=== PATIENT | female | born 1965 | race Caucasian/White ===

== ENCOUNTER 2023-06-27 21:59 | Emergency (ER) | payer MEDICARE, OTHER, SELFPAY ==
[2023-06-27 22:01] VITALS: BP 148/95
[2023-06-28] MEDS: ULTRAM 50 MG PO (00:38)
[2023-06-28 00:41] VITALS: BP 163/96
[2023-06-28 02:08] VITALS: BP 142/74
--- NOTE | 2023-06-28 02:42 | ED.MUSCINJ ---
HPI-Injury
General
Chief Complaint: Fall
Source: patient
Exam Limitations: none
Time Seen by Provider: 06/28/23 00:21
Nursing documentation reviewed up to this point in time: agreed with
Travel History
Have you had any contact with someone who has COVID-19?: No
Do you have any symptoms of coronavirus? Fever > 100 degrees, chills, cough, shortness of breath, sore throat, loss of taste or smell, muscle aches, or headache?: No
History of Present Illness-Injury
Initial Injury comments:
Patient states she was trying to put on her slippers, lost her balance and fell. Fell onto buttocks. Denies hittingher head. No LOC. COmplains of pain to her low back. Injury occurred today.
Past History
Past History
ED Past Medical History: Asthma, Hypothyroidism, Psychiatric (Bipolar disorder, anxiety), Other (TMJ dysfunction, migrainous headaches) and Other (hypopiititutarism, adrenal insufficiency)
ED Past Surgical History: Orthopedic (Left thumb and hand surgery)
Social History
Tobacco: Non-smoker
Alcohol: None
Drug: None
Personal: Single
Living: alone (dad)
Employment: Not employed
Family History
Family History: Other
Review of Systems
Review of Systems
Allergies reviewed?: Yes
All Other Systems: ROS reviewed and negative except as documented in HPI and ROS
Constitutional: Reports no symptoms
EENT: Reports no symptoms
Respiratory: Reports no symptoms
Cardiac: Reports no symptoms
ABD/GI: Reports no symptoms
: Reports no symptoms
Musculoskeletal: Reports back pain (low back pain)
Skin: Reports no symptoms
Neurological: Reports no symptoms
Psychiatric: Reports no symptoms
Musculoskeletal Injury Exam
Musculoskeletal Injury Exam
Bilateral Lower Back:
Pain with Movement?: Moderate
Tender to palpation?: Moderate
Soft tissue swelling?: None
External deformity and angulation?: None
Joint effusion?: None
Contusion?: Moderate
Hematoma-local bleeding into tissue?: None
Strain- Sprain- Tear (Connective tissue injury)?: Moderate
Crepitus with movement?: No
Joint instability?: No
Malalignment/deformity?: No
Range of motion: Limited
Distal skin color and temperature: normal-warm & good color
Capillary Refill: normal
Normal distal neurovascular exam?: Yes
Phy Exam
General Physical Exam
General Presentation: well appearing and no apparent distress
General age: appears stated age
General Skin: warm and dry
General Habitus: normal
General Mental: alert
Musculoskeletal Exam
Musculoskeletal Exam: neuro vasc intact
Skin Exam
Skin Exam: normal color, warm/dry and no rash
Psychiatric Exam
Psychiatric Exam: normal mood/affect
Injury Course
Orders/Labs/Results
Orders:
Orders
06/28/23 00:31
Tramadol HCl [Ultram] 50 mg PO NOW STA
Lumbar Spine Complete, 4 View [CR Lumbar Spine Comp Min 4 Vw*] Urgent
Comment:
Reason For Exam: fall, pain
*Radiology
Radiology exam reviewed: radiology read reviewed
*Pulse Oximetry
Patient hypoxic: no
*Critical Care Note
Total Time (30-74mins, 75-104mins- exclusive of procedures): Not Applicable
ED Attending Note
-
Portions of this chart may have been created with voice recognition software.� Occasional wrong word or��sound alike� substitutions may have occurred due to the inherent limitations of voice recognition software.
Discharge Plan
Departure
Patient Disposition: Home (Routine Discharge)
Date of Disposition: 06/28/23
Time of Disposition: 02:14
Patient with high blood pressure during this ER visit?: No
Condition: Good
Covid-19: Not Applicable
Discharge Problem:
Low back pain
Instructions: Contusion (DC), Preventing falls in adults, Back Pain
Prescriptions:
No Action
clonazepam 1 MG tablet
1 mg PO TID
Patient Comments:
04/23/2023: last filled 04/04/23, 90 tabs for 30 days from [facility]#[id number]
ziprasidone HCl 20 MG capsule
80 mg PO BID@0800,1700
topiramate 100 MG tablet
200 mg PO BID
lamotrigine 100 MG tablet
200 mg PO QPM
levothyroxine 112 MCG tablet
112 mcg PO DAILY@0700
hydrocortisone 10 MG tablet
15 mg PO QPM
Hold Instructions: please first take dexamethasone taper as prescribed prior to restarting hydrocortisone
hydrocortisone 10 MG tablet
25 mg PO DAILY
Hold Instructions: please first take dexamethasone taper as prescribed prior to restarting hydrocortisone
albuterol sulfate 1 PUFF HFA aerosol inhaler
2 puff inhalation R Q4HPRN PRN (Reason: SOB)
cholecalciferol (vitamin D3) 1,000 UNITS tablet
1,000 units PO DAILY
calcium citrate-vitamin D3 [Citracal + D Maximum] 1 EACH tablet
1 ea PO DAILY
Belsomra 20 MG tablet
20 mg PO HS
Patient Comments:
06/26/22: Per [facility], last filled 06/17/22 #30 for 30 days
pantoprazole 40 MG tablet,delayed release (DR/EC)
40 mg PO DAILY Qty: 30 0RF
lamotrigine 100 MG tablet
100 mg PO DAILY
Aimovig Autoinjector 70 mg/mL Auto-Injector
140 mg SC QMONTH
diphenhydramine HCl [Benadryl] 25 mg Capsule
25 mg PO TIDPRN PRN (Reason: allergic reaction)
oxcarbazepine 300 mg Tablet
300 mg PO BID
ondansetron 8 mg Tablet,Disintegrating
8 mg PO [id number] PRN (Reason: nausea/vomiting)
Hold Instructions: hold until follow up with your primary care doctor
famotidine 20 mg Tablet
20 mg PO BID
buspirone 10 mg Tablet
10 mg PO TID
trazodone 300 mg Tablet
300 mg PO HS
Trudhesa 0.725 mg/pump act. (4 mg/mL) [place],Non-Aerosol
1 spray INTRANASAL DAILYPRN PRN (Reason: migraine)
promethazine 25 mg tablet
25 mg PO TIDPRN PRN (Reason: nausea d/t migraine)
prednisone 5 mg Tablet
5 mg PO DAILY
torsemide 10 mg Tablet
10 mg PO DAILY
Patient Comments:
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
Dupixent Syringe 300 mg/2 mL Syringe
300 mg SC Q2W
Trelegy Ellipta 100-62.5-25 mcg Blister With Device
1 inh INHALATION R DAILY
Medical Marijuana
1 cap PO DAILY@1300 PRN (Reason: mild pain)
Tyrvaya 0.03 mg/spray spray, metered, non-aerosol
1 spray INTRANASAL BID
Referrals:
Carlos Vora MD [Family Provider] - Follow up in 2-3 days
Interventions
Interventions:
*Risk Screen - Suicide Last Done: 06/28/23 00:39
*General Assessment Last Done: 06/28/23 00:39
*Neglect/Abuse Screening Last Done: 06/28/23 00:39
*ED COVID-19 Vaccine History Last Done: 06/27/23 23:11
*Nursing Disposition Last Done: 06/28/23 02:33
ED-Musculoskeletal Assessment Last Done: 06/28/23 00:44
ED- Neurological Assessment Last Done: 06/28/23 00:44
ED-Skin Assessment Last Done: 06/28/23 00:44
Discharge Date and Time
Discharge Date/Time: 06/28/23 02:33
== END 2023-06-28 02:33 | disposition home or self-care (01) ==
LOC: EMR 21:59
PROVIDERS: EMERGENCY PHYSICIAN Emergency Medicine; FAMILY PHYSICIAN Internal Medicine
DX: M54.50 Low back pain, unspecified (principal); W19.XXXA Unspecified fall, initial encounter; J45.909 Unspecified asthma, uncomplicated; E03.9 Hypothyroidism, unspecified; F31.9 Bipolar disorder, unspecified; F41.9 Anxiety disorder, unspecified; E27.40 Unspecified adrenocortical insufficiency
CPT/HCPCS: 99283; 72110

== ENCOUNTER 2023-07-02 10:42 | Emergency (ER) | payer MEDICARE, OTHER, SELFPAY ==
[2023-07-02 10:53] VITALS: BP 139/92
[2023-07-02 11:19] VITALS: BMI 18.2
[2023-07-02 11:22] VITALS: BP 145/91
[2023-07-02 12:00] VITALS: BP 138/93
[2023-07-02] MEDS: SOLU-CORTEF 200 MG IV (12:41)
[2023-07-02] MEDS: OMNIPAQUE 50 ML PO (12:41)
[2023-07-02] MEDS: BENADRYL 50 MG IV (12:41)
--- NOTE | 2023-07-02 12:43 | ED.GENMED ---
History of Present Illness
General
Chief Complaint: Bowel Problem
Source: patient
Exam Limitations: none
Time Seen by Provider: 07/02/23 11:19
Travel History
Have you had any contact with someone who has COVID-19?: No
Do you have any symptoms of coronavirus? Fever > 100 degrees, chills, cough, shortness of breath, sore throat, loss of taste or smell, muscle aches, or headache?: No
History of Present Illness
History of Present Illness:
57-year-old female presents from home where she lives by herself with chief complaint of constipation. She states he has not had a bowel movement in 2 weeks. She gets nauseous when she eats but no vomiting. She has never dealt with this level of
constipation in the past. She notes mild diffuse abdominal pain. No fever. No urinary symptoms. No other complaints at this time
Past History
Past History
ED Past Medical History: Asthma, Hypothyroidism, Psychiatric (Bipolar disorder, anxiety), Other (TMJ dysfunction, migrainous headaches) and Other (hypopiititutarism, adrenal insufficiency)
ED Past Surgical History: Orthopedic (Left thumb and hand surgery)
Social History
Tobacco: Non-smoker
Alcohol: None
Drug: None
Personal: Single
Living: alone (dad)
Employment: Not employed
Family History
Family History: Other
Phy Exam
Physical Exam
Physical Exam:
General: Well-appearing female no acute respiratory distress
HEENT: Normocephalic atraumatic
Heart: Regular rate and rhythm no murmurs
Lungs: Clear to auscultation bilaterally no wheezing
Abdomen soft mildly diffusely tender. Protrusion left mid abdomen that is mobile slightly tender this is thought to be stool
Extremities: No cyanosis
Course
Orders/Labs/Results
Orders:
Orders
07/02/23 12:16
CT Abd/pel W Iv And Oral Contr Urgent
Comment:
Reason For Exam: abdominal pain
Iohexol [Omnipaque] See Protocol PO NOW STA
07/02/23 12:17
Diphenhydramine [Benadryl] 50 mg IV NOW STA
Hydrocortisone Sod Succinate [Solu-Cortef] 200 mg IV NOW STA
07/02/23 12:35
Complete Blood Count/With Diff Urgent
Lactic Acid Q4H
Comment: CANCEL 2nd LACTIC ACID IF 1st LACTIC ACID IS LESS THAN 2
07/02/23 13:55
Comprehensive Metabolic Panel Routine
07/02/23 16:06
Magnesium Citrate [Citroma] 300 ml PO ONCE ONE
Abnormal Lab Results
07/02/23 07/02/23
12:35 13:55
WBC 11.2 H 10^3/uL
(4.8-10.8)
RBC 3.82 L 10^6/uL
(4.20-5.40)
Hct 36.6 L %
(37.0-47.0)
MCH 34.8 H pg
(27.0-31.0)
Abs Immat Gran (auto) 0.1 H 10^3/uL
(0-0.05)
Absolute Neuts (auto) 7.1 H 10^3/uL
(1.4-6.5)
Absolute Monos (auto) 1.3 H 10^3/uL
(0.1-0.6)
Immature Gran % 0.8 H %
(0-0.5)
Monocytes % 11.3 H %
(1.7-9.3)
Sodium 131 L mmol/L
(135-145)
Potassium 3.1 L mmol/L
(3.5-5.1)
BUN 19 H mg/dl
(7-17)
Glucose 103 H mg/dl
(70-99)
Total Protein 5.7 L g/dl
(6.3-8.2)
Albumin 3.4 L g/dl
(3.5-5.0)
07/02/23 12:35
07/02/23 13:55
Vital Signs
Initial and Last Documented VS:
Initial Vital Signs
Temp Pulse Resp BP Pulse Ox
98.0 F 79 16 139/92 98
07/02/23 10:53 07/02/23 10:53 07/02/23 10:53 07/02/23 10:53 07/02/23 10:53
Last Documented Vital Signs
Temp Pulse Resp BP Pulse Ox
98.0 F 79 16 129/92 96
07/02/23 10:53 07/02/23 10:53 07/02/23 10:53 07/02/23 14:00 07/02/23 14:00
MDM/Problems Addressed
Differential Diagnosis Includes:
Abdominal pain constipation. Consider also bowel obstruction versus colitis
Will check labs. Rectal exam was performed with female clinical partner in the room. There is no stool in the rectal vault. I have seen x-rays from several days ago when she visited the emergency room for back pain. X-rays of the lumbar spine
demonstrate large colonic stool burden. Given her tenderness and lack of bowel movement will order CT scan
She lists IV dye as an allergy which is a rash. Will pretreat with Solu-Cortef and Benadryl
*Critical Care Note
Total Time (30-74mins, 75-104mins- exclusive of procedures): Not Applicable
Update Note
Update Note:
CT with oral and IV contrast of the abdomen was performed after pretreatment with Solu-Cortef and Benadryl which demonstrates significant colonic stool burden but no secondary signs colitis or perforation. Enema at home was unsuccessful. No stool
in the rectal vault to manually disimpact today. Need to start bowel regimen from above. Will start with magnesium citrate and have her continue stool softeners afterwards. Patient comfortable with the idea of going home
ED Attending Note
-
Portions of this chart may have been created with voice recognition software.� Occasional wrong word or��sound alike� substitutions may have occurred due to the inherent limitations of voice recognition software.
Discharge Plan
Departure
Patient Disposition: Home (Routine Discharge)
Date of Disposition: 07/02/23
Time of Disposition: 16:09
Patient with high blood pressure during this ER visit?: No
Discharge Problem:
Constipation
Instructions: Constipation, Adult (DC)
Prescriptions:
No Action
clonazepam 1 MG tablet
1 mg PO TID
Patient Comments:
04/23/2023: last filled 04/04/23, 90 tabs for 30 days from [facility]#[id number]
ziprasidone HCl 20 MG capsule
80 mg PO BID@0800,1700
topiramate 100 MG tablet
200 mg PO BID
lamotrigine 100 MG tablet
200 mg PO QPM
levothyroxine 112 MCG tablet
112 mcg PO DAILY@0700
hydrocortisone 10 MG tablet
15 mg PO QPM
Hold Instructions: please first take dexamethasone taper as prescribed prior to restarting hydrocortisone
hydrocortisone 10 MG tablet
25 mg PO DAILY
Hold Instructions: please first take dexamethasone taper as prescribed prior to restarting hydrocortisone
albuterol sulfate 1 PUFF HFA aerosol inhaler
2 puff inhalation R Q4HPRN PRN (Reason: SOB)
cholecalciferol (vitamin D3) 1,000 UNITS tablet
1,000 units PO DAILY
calcium citrate-vitamin D3 [Citracal + D Maximum] 1 EACH tablet
1 ea PO DAILY
Belsomra 20 MG tablet
20 mg PO HS
Patient Comments:
06/26/22: Per PDMP, last filled 06/17/22 #30 for 30 days
pantoprazole 40 MG tablet,delayed release (DR/EC)
40 mg PO DAILY Qty: 30 0RF
lamotrigine 100 MG tablet
100 mg PO DAILY
Aimovig Autoinjector 70 mg/mL Auto-Injector
140 mg SC QMONTH
diphenhydramine HCl [Benadryl] 25 mg Capsule
25 mg PO TIDPRN PRN (Reason: allergic reaction)
oxcarbazepine 300 mg Tablet
300 mg PO BID
ondansetron 8 mg Tablet,Disintegrating
8 mg PO [id number] PRN (Reason: nausea/vomiting)
Hold Instructions: hold until follow up with your primary care doctor
famotidine 20 mg Tablet
20 mg PO BID
buspirone 10 mg Tablet
10 mg PO TID
trazodone 300 mg Tablet
300 mg PO HS
Trudhesa 0.725 mg/pump act. (4 mg/mL) [place],Non-Aerosol
1 spray INTRANASAL DAILYPRN PRN (Reason: migraine)
promethazine 25 mg tablet
25 mg PO TIDPRN PRN (Reason: nausea d/t migraine)
prednisone 5 mg Tablet
5 mg PO DAILY
torsemide 10 mg Tablet
10 mg PO DAILY
Patient Comments:
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
Dupixent Syringe 300 mg/2 mL Syringe
300 mg SC Q2W
Trelegy Ellipta 100-62.5-25 mcg Blister With Device
1 inh INHALATION R DAILY
Medical Marijuana
1 cap PO DAILY@1300 PRN (Reason: mild pain)
Tyrvaya 0.03 mg/spray spray, metered, non-aerosol
1 spray INTRANASAL BID
Referrals:
Carlos Vora MD [Family Provider] -
Activity Restrictions/Additional Instructions:
Use magnesium citrate as directed. Continue with stool softeners afterwards. Drink plenty of fluids. Return if worse otherwise follow-up with family doctor.
Interventions
Interventions:
*Risk Screen - Suicide Last Done: 07/02/23 11:19
*General Assessment Last Done: 07/02/23 11:19
*Neglect/Abuse Screening Last Done: 07/02/23 11:19
ED- Fall Risk Assessment Last Done: 07/02/23 11:19
*ED COVID-19 Vaccine History Last Done: 07/02/23 10:53
HQ-Fezsih-Mkdoegnpqw Assessment Last Done: 07/02/23 11:19
[2023-07-02 13:11] LABS: % Basophils 0.9 % (0-2); % Immature Granulocytes 0.8 % (0-0.5); % Monocytes 11.3 % (1.7-9.3); Absolute Basophils 0.1 10^3/uL (0-0.2); Absolute Eosinophils 0.1 10^3/uL (0-0.7); Absolute Immature Granulocytes 0.1 10^3/uL (0-0.05); Absolute Lymphocytes 2.6 10^3/uL (1.2-3.4); Absolute Monocytes 1.3 10^3/uL (0.1-0.6); Absolute Neutrophils 7.1 10^3/uL (1.4-6.5); Hematocrit 36.6 % (37.0-47.0); Hemoglobin 13.3 g/dL (12.0-16.0); Mean Corp Hgb Conc. 36.3 g/dL (33.0-37.0); Mean Corpuscular Hgb 34.8 pg (27.0-31.0); Mean Corpuscular Volume 95.8 fL (81.0-99.0); Mean Platelet Volume 9.6 fL (7.4-10.4); Nucleated Red Blood Cells % 0 %; Platelet Count 272 10^3/uL (130-400); Red Blood Cell Count 3.82 10^6/uL (4.20-5.40); Red Cell Dist. Width 12.3 % (11.5-14.5); White Blood Cell Count 11.2 10^3/uL (4.8-10.8)
[2023-07-02 13:34] LABS: Lactic Acid 1.1 mmol/L (0.7-2.0)
[2023-07-02 13:46] VITALS: BP 153/91
[2023-07-02 14:00] VITALS: BP 129/92
[2023-07-02 14:23] LABS: ALT (SGPT) 31 U/L (0-35); AST (SGOT) 29 U/L (14-36); Albumin 3.4 g/dl (3.5-5.0); Alkaline Phosphatase 70 U/L (38-126); Blood Urea Nitrogen 19 mg/dl (7-17); Calcium 8.8 mg/dl (8.4-10.2); Carbon Dioxide 25 mmol/L (22-30); Chloride 99 mmol/L (98-107); Estimated Creatinine Clearance 85 ml/min; Glucose 103 mg/dl (70-99); Potassium 3.1 mmol/L (3.5-5.1); Sodium 131 mmol/L (135-145); Total Bilirubin 0.3 mg/dl (0.2-1.3); Total Protein 5.7 g/dl (6.3-8.2); eGFR > 60.00
[2023-07-02] MEDS: CITROMA 300 ML PO (16:38)
[2023-07-02 17:00] VITALS: BP 135/99
== END 2023-07-02 17:01 | disposition home or self-care (01) ==
LOC: EMR 10:42
PROVIDERS: Physician Assistant; EMERGENCY PHYSICIAN Emergency Medicine; FAMILY PHYSICIAN Internal Medicine
DX: K59.00 Constipation, unspecified (principal)
CPT/HCPCS: 99285; 96374; 96375; 74177; 80053; 83605; 85025; Q9967

== ENCOUNTER 2023-07-04 02:29 | Inpatient (IN) | payer MEDICARE, OTHER, SELFPAY ==
[2023-07-03 21:54] VITALS: BP 146/96
[2023-07-03 23:10] VITALS: BMI 17.2
[2023-07-04] VITALS (9 sets, daily range): BP systolic 101–163; BP diastolic 67–103; PULSE 79–110; BMI 17.9
--- NOTE | 2023-07-04 00:06 | ED.GENMED ---
History of Present Illness
General
Chief Complaint: Abdominal Pain
Source: patient
Exam Limitations: none
Time Seen by Provider: 07/03/23 23:31
Travel History
Have you had any contact with someone who has COVID-19?: No
Do you have any symptoms of coronavirus? Fever > 100 degrees, chills, cough, shortness of breath, sore throat, loss of taste or smell, muscle aches, or headache?: No
History of Present Illness
History of Present Illness:
This is a 57 year old female that comes in with c/o constipation. States that she feels that she is obstructed. States that on Friday the VN was there and gave her an Enema. States that this did not help so she called the PCP and was told to come
to the ER. State that she came on Friday and they did a CT scan. Patient was given Magnesium Citrate and state that she took this tonight and waited 6 hours but nothing happened. State that she has also been using Miralax and Colace. States that
she has abd pain, nausea, headache and dizziness. Denies any fever, chills, chest pain, SOB, vomiting, diarrhea, urinary burning
Past History
Past History
ED Past Medical History: Asthma, COPD, Hypothyroidism, Psychiatric (Bipolar disorder, anxiety, PTSD), Other (TMJ dysfunction, migrainous headaches, PNA, Sinusitis chronic, Gastroporesis, Hypopituatarism, ) and Other (hypopiititutarism, adrenal
insufficiency)
ED Past Surgical History: Orthopedic (Left thumb and hand surgery, Right wrist surgery, TMJ surgery X 2) and Other (cataracts, Vocal cord surgery)
Social History
Tobacco: Non-smoker
Alcohol: None
Drug: None
Personal: Single
Living: alone (dad)
Employment: Not employed
Family History
Family History: Other
Review of Systems
Review of Systems
All Other Systems: ROS reviewed and negative except as documented in HPI and ROS
Constitutional: Reports no symptoms; Denies fever or chills
EENT: Reports no symptoms
Respiratory: Reports no symptoms; Denies cough or trouble breathing
Cardiac: Reports no symptoms; Denies chest pain
ABD/GI: Reports abdominal pain, nausea and constipated; Denies vomiting or diarrhea
: Reports no symptoms; Denies dysuria, frequency or urgency
Musculoskeletal: Reports no symptoms
Skin: Reports no symptoms
Neurological: Reports dizzy and headache (Always)
Psychiatric: Reports no symptoms
Phy Exam
General Physical Exam
General Presentation: no apparent distress
General age: appears stated age
General Skin: warm and dry
General Habitus: debilitated
General Mental: alert
General Hydration: dry mucous membranes
ENT Exam
ENT Exam: TM's normal, pharynx normal and neck supple
Eye Exam
Eye Exam: EOMI
Cardiovascular Exam
Cardiovascular Exam: regular rate/rhythm, no edema, no murmur and normal peripheral pulses
Pulmonary Exam
Pulmonary Exam: lungs clear, no respiratory distress, no rales, chest non tender, no crackles, no rhonchi, no wheezing and no cough
Gastrointestinal Exam
Gastrointestinal Exam: normal bowel sounds, soft, no organomegaly, no pulsatile mass, tender (Generalized tenderness with palpation. Slight Distention) and other (Rectal exam done and there is no stool in the rectal valt)
Musculoskeletal Exam
Musculoskeletal Exam: full ROM and no edema
Skin Exam
Skin Exam: normal color, warm/dry, no rash and no petechia
Psychiatric Exam
Psychiatric Exam: normal mood/affect
Course
Orders/Labs/Results
Orders:
Orders
07/04/23 00:04
Obstruct Series W/PA Chest [CR Obstruct Series W/pa Chest] Urgent
Comment:
Reason For Exam: abd pain, distention
07/04/23 00:05
0.9% Sodium Chloride 1000 ml [Nss] 1,000 ml IV BOLUS
07/04/23 01:40
Admit/Transfer Patient As Directed
Co-Sign Provider:
Level of Care: Inpatient admission
Assign to:: Medical/Surgical
Physician / Group: Tahir
Diagnosis: Severe Constipation
Reason for Hospitalization: Severe Constipation
Expected length of stay greater than two midnights?: Yes
ELOS- Estimated Length of Stay in days: 4
I certify the patient meets the requirements for IP care: Yes
07/04/23 01:42
Code Status As Directed
Resuscitation Status: Full Code
07/04/23 01:47
EKG [Electrocardiogram (*1)] Urgent
Reason for Study: QTc Monitoring
07/04/23 02:52
Complete Blood Count/With Diff Urgent
Comprehensive Metabolic Panel Urgent
07/04/23 03:26
Acetaminophen [Tylenol] 650 mg PO Q4HPRN PRN
Albuterol Nebs [Ventolin Nebules] 2.5 mg INH R Q4HPRN PRN
Clonazepam [Klonopin] 1 mg PO TID PRN
Lactated Ringers [Lr] 1,000 ml IV 125 mls/hr
Prochlorperazine [Compazine] 5 mg IV Q6HPRN PRN
07/04/23 03:26
ColoRectal Surgery Consult Routine
Consulting Provider: Kee Sung
Was physician already notified: No
Reason for consult: Severe Constipation
Consult Notification Routine
Specialty to Notify: Colorectal Surgery
Consult Notification Routine
Specialty to Notify: Gastroenterology
GASTROINTESTINAL CONSULT Routine
Consulting Provider: John Lakhani
Was physician already notified: No
Reason for consult: Severe Constipation
Activity As Directed
Activity Level: Ambulate
With Assistance
Bladder Scan As Directed
Follow Bladder Retention/Intermittent Cath Algorithm?: Yes
PRN if no void in __ hours: 6
Frequency: Per Retention Algorithm
If Bladder Scan Result >: 400
then:: Straight cath
I/O [Intake/ Output] As Directed
Frequency: Per unit guidelines
Orthostatic Vital Signs As Directed
Orthostatic VS Frequency: BID
Pneumatic Compression Sleeves As Directed
Type: Knee high
Straight Cath As Directed
Frequency: Per Retention Algorithm
Additional Instructions: straight cath as needed per acute urinary retention algorithm for 24 hrs
Additional Instructions: for bladder scan greater than 400 mL
Vital Signs As Directed
Frequency: Per unit guidelines
Oxygen Therapy [O2 Therapy] [RESP] Routine
Titrate/Wean O2 to maintain O2 sat greater than (%): 94
Rx Incentive Spirometry [RESP] Routine
Frequency: q1h while awake
Ot Eval And Treat Routine
PT Consult [Pt Eval And Treat] Routine
Activity Level: Ambulate
With Assistance
DX Deep Vein Thrombosis Video Routine
07/04/23 Breakfast
Clear Liquid
Basic Metabolic Panel IN AM
Complete Blood Count/No Diff IN AM
Free T4 Routine
Magnesium IN AM
07/04/23 07:00
Levothyroxine [Synthroid] 112 mcg PO DAILY@0700
07/04/23 08:00
Buspirone [Buspar] 10 mg PO TID
Docusate Sodium [Colace] 100 mg PO BID
Fludrocortisone Acetate [Florinef] 0.15 mg PO DAILY
Hydrocortisone [Cortef] 25 mg PO DAILY
Lamotrigine [Lamictal] 100 mg PO DAILY
Oxcarbazepine [Trileptal] 300 mg PO BID
Pantoprazole [Protonix IV] 40 mg IV DAILY
Polyethylene Glycol Powder [Miralax] 17 grams PO BID
Prednisone [Deltasone] 2.5 mg PO DAILY
Sennosides [Senokot] 17.2 mg PO BID
Topiramate [Topamax] 200 mg PO BID
Ziprasidone [Geodon] 80 mg PO BID@0800,1700
07/04/23 18:00
Hydrocortisone [Cortef] 15 mg PO QPM
Lamotrigine [Lamictal] 200 mg PO QPM
07/04/23 22:00
trazodone 300 mg PO HS
CBC normal. Sodium slightly low. Chloride slightly low. AST slight elevation.
Vital Signs
Initial and Last Documented VS:
Initial Vital Signs
Temp Pulse Resp BP Pulse Ox
98.7 F 87 18 146/96 94
07/03/23 21:54 07/03/23 21:54 07/03/23 21:54 07/03/23 21:54 07/03/23 21:54
Last Documented Vital Signs
Temp Pulse Resp BP Pulse Ox
98.7 F 87 18 146/96 94
07/03/23 21:54 07/03/23 21:54 07/03/23 21:54 07/03/23 21:54 07/03/23 21:54
MDM/Problems Addressed
Differential Diagnosis Includes:
Constipation. Bowel obstruction.
MDM/Problems Addressed:
This is a 57 year old female that comes in with c/o constipation. State that she was here 2 days ago and had a CT scan. Patient was given Magnesium Citrate which she just drank tonight. States that she waited 6 hours and nothing happened. States
that she has generalized abd discomfort.
Will check labs, Get Obstruction series and give IV fluids.
Back into see patient. Explained that she has severe Obstipation. On rectal exam there was nothing in the rectal valt. Patient has a CT scan 2 days ago which was negative for obstruction. Will admit.
Chronic conditions affecting care: Psychiatric illness and Other (Gastroparesis, )
Acute Exacerbation and/or Progression of Chronic Illness: Psychiatric illness
*Radiology
Radiology exam reviewed: preliminary read by ED provider (Obstruction series- Severe Obstipation. )
*Pulse Oximetry
Patient hypoxic: no
*EKG
Interpreted by ED Provider?: NA
Rate: EKG- N/A
*Procurement Director Interpretation
Rate: Procurement Director- N/A
*Critical Care Note
Total Time (30-74mins, 75-104mins- exclusive of procedures): Not Applicable
ED Attending Note
-
Portions of this chart may have been created with voice recognition software.� Occasional wrong word or��sound alike� substitutions may have occurred due to the inherent limitations of voice recognition software.
Discharge Plan
Departure
Patient Disposition: Admit
Date of Disposition: 07/04/23
Time of Disposition: 00:49
Admit to: Med/Surg
Presentation/result/management discussed w/ accepting MD/DO: Hospitalist
Patient with high blood pressure during this ER visit?: Yes
Condition: Good
Covid-19: Not Applicable
Discharge Problem:
Severe Obstipation
Interventions
Interventions:
*Risk Screen - Suicide Last Done: 07/03/23 21:54
*General Assessment Last Done: 07/03/23 21:54
*Neglect/Abuse Screening Last Done: 07/03/23 21:54
ED- Fall Risk Assessment Last Done: 07/03/23 23:13
*ED COVID-19 Vaccine History Last Done: 07/03/23 21:54
XF-Lynygb-Ygwvgwgaxh Assessment Last Done: 07/03/23 23:11
--- NOTE | 2023-07-04 01:47 | HPS.HSE ---
Family Physician
-
Family Physician: Carlos Vora
Chief Complaint
-
Abd Pain / Nausea
History of Present Illness
Patient is a 57y F with PMH significant for panhypopituitarism and Bipolar disorder who presents to ED complaining of severe constipation. Patient states that her last BM was 15 days ago. She notes no passage of small or liquid stool since that
time. She denies any recent medication additions or adjustments.
Patient reports decreased appetite and nausea. She has had no episodes of emesis and has been able to tolerate her medications.
She has been taking Miralax daily and Dulcolax liquid for the past week or two without improvement in her symptoms.
She was seen here in the ED yesterday and CT A/P was done which showed marked stool burden (predominately in the R colon).
Patient was prescribed magnesium citrate, which she took earlier today. She had no results despite this and returns to the ED this evening with continued / worsened symptoms.
Patient states that she has been taking her usual hormonal replacement medications, etc as prescribed.
Medical History
Past Medical History
Past Medical History: Reports Other
Additional Past Medical History:
Panhypopituitarism
Secondary Hypothyroidism
Orthostatic Hypotension
Asthma
Migraine Headaches
Bipolar Disorder
Osteoporosis
Gastroparesis
Polymyalgia / Arteritis
Past Surgical History: Reports Other
Additional Past Surgical History:
Left Wrist ORIF with Hardware
Vocal Chord Surgery
Cataracts
Sinus Surgery
Carpal Tunnel Surgery
Social History
Tobacco: Non-smoker
Alcohol: None
Drug: Marijuana (Medical Card - rarely uses.)
Family History
Family History: Other (Father: CHF, Obesity Mother: Pancreatic Cancer, Breast Cancer)
Allergies / Home Medications
Allergies reflects when Allergies were last updated in [employer].
Home Medications with original date entered in [employer]
Allergy/Medication List:
Allergies
Allergy/AdvReac Type Severity Reaction Status Date / Time
amoxicillin [From Augmentin] Allergy Nausea / Verified 07/03/23 21:56
Vomiting -
tolerated
meropenem
02/2019
azithromycin [From Zithromax] Allergy Swelling Verified 07/03/23 21:56
ceftibuten [From Cedax] Allergy Swelling - Verified 07/03/23 21:56
tolerated
meropenem
02/2019
citalopram [From Celexa] Allergy suicidal Verified 07/03/23 21:56
ideation
clavulanic acid Allergy Nausea / Verified 07/03/23 21:56
[From Augmentin] Vomiting
corn Allergy Anaphylaxis Verified 07/03/23 21:56
'except
cornstarch'
egg Allergy Nausea / Verified 07/03/23 21:56
Vomiting
migraines
gluten Allergy Nausea Verified 07/03/23 21:56
-stomach
ache,
diarrhea,
migraine
hydromorphone [From Dilaudid] Allergy Rash Verified 07/03/23 21:56
ibuprofen Allergy Unknown Verified 07/03/23 21:56
Iodinated Contrast Media Allergy Rash Verified 07/03/23 21:56
latex Allergy Anaphylaxis Verified 07/03/23 21:56
Latex, Natural Rubber Allergy Anaphylaxis Verified 07/03/23 21:56
levofloxacin [From Levaquin] Allergy Swelling Verified 07/03/23 21:56
Milk Containing Products Allergy Nausea / Verified 07/03/23 21:56
(Dairy) Vomiting -
[Milk Containing Products] migraines
mushroom Allergy Anaphylaxis Verified 07/03/23 21:56
nickel Allergy swelling Verified 07/03/23 21:56
and itching
Opioids - Morphine Analogues Allergy 'all Verified 07/03/23 21:56
opioids'
peanut Allergy Anaphylaxis Verified 07/03/23 21:56
Poultry Allergy Nausea Verified 07/03/23 21:56
-migraine
shellfish derived Allergy Anaphylaxis Verified 07/03/23 21:56
Sulfa (Sulfonamide Allergy Swelling Verified 07/03/23 21:56
Antibiotics)
maude jon Allergy Anaphylaxis Uncoded 07/03/23 21:56
-[place] syrup
Home Medications
clonazepam 1 mg tablet 1 mg PO TID Mental Health/Anxiety 12/03/16
lamotrigine 100 mg tablet 200 mg PO QPM Neurological Condition 12/03/16
levothyroxine 112 mcg tablet 112 mcg PO DAILY@0700 Thyroid 12/03/16
topiramate 100 mg tablet 200 mg PO BID Neurological Condition 12/03/16
ziprasidone HCl 20 mg capsule 80 mg PO BID@0800,1700 Mental Health/Anxiety 12/03/16
albuterol sulfate 90 mcg/actuation aerosol inhaler 2 puff inhalation R Q4HPRN PRN SOB 03/11/19
calcium citrate 315 mg calcium-vitamin D3 6.25 mcg (250 unit) tablet (Citracal + Vitamin D Maximum) 1 ea PO DAILY Supplement 03/11/19
cholecalciferol (vitamin D3) 25 mcg (1,000 unit) tablet 1,000 units PO DAILY Supplement 03/11/19
hydrocortisone 10 mg tablet 15 mg PO QPM adrenal insufficiency 03/11/19
hydrocortisone 10 mg tablet 25 mg PO DAILY adrenal insufficiency 03/11/19
pantoprazole 40 mg tablet,delayed release 40 mg PO DAILY #30 tabs 03/17/19
lamotrigine 100 mg tablet 100 mg PO DAILY Neurological Condition 05/17/19
erenumab-aooe 70 mg/mL subcutaneous auto-injector (Aimovig Autoinjector) 140 mg SC QMONTH Migraine 05/16/22
buspirone 10 mg tablet 10 mg PO TID Mental Health/Anxiety 06/26/22
dihydroergotamine (Trudhesa) 1 spray intranasal DAILYPRN PRN migraine 06/26/22
diphenhydramine HCl 25 mg capsule (Benadryl) 25 mg PO TIDPRN PRN allergic reaction 06/26/22
famotidine 20 mg tablet 20 mg PO BID Gastrointestinal issue 06/26/22
ondansetron 8 mg disintegrating tablet 8 mg PO [id number] PRN nausea/vomiting 06/26/22
oxcarbazepine 300 mg tablet 300 mg PO BID Neurological Condition 06/26/22
trazodone 300 mg tablet 300 mg PO HS Mental Health/Anxiety 06/26/22
Medical Marijuana 1 cap PO DAILY@1300 PRN mild pain 01/26/23
dupilumab 300 mg/2 mL subcutaneous syringe (Dupixent) 300 mg SC Q2W Autoimmune Disorder 01/26/23
fluticasone fur. 100 mcg-umeclid 62.5 mcg-vilant 25 mcg inhalat.powder (Trelegy Ellipta) 1 inh inhalation R DAILY 01/26/23
prednisone 5 mg tablet 5 mg PO DAILY Anti-Inflammatory 01/26/23
torsemide 10 mg tablet 10 mg PO DAILY 01/26/23
lemborexant 5 mg tablet (Dayvigo) 5 mg PO HS 07/04/23
Review of Systems
-
History Source: Patient
A 12 point ROS was completed and negative except as noted: Yes
Constitutional: Reports Weight Gain and Fatigue; Denies Fever or Chills
EENT: Denies Sore Throat
Respiratory: Denies Cough or Trouble Breathing
Cardiac: Denies Chest Pain or Palpitations
Abdomen/GI: Reports Abdominal Pain, Nausea, Constipated and Anorexia; Denies Vomiting, Diarrhea, Bloody Stools or Black Stools
: Denies Dysuria, Frequency or Flank Pain
Musculoskeletal: Denies Joint Pain or Edema
Neurological: Reports Headache; Denies Dizzy, Weakness or Numbness
Psych: Reports Depression and Anxiety
Physical Exam
Vital Signs
Vital Signs
Temp Pulse Resp BP Pulse Ox
98.7 F 87 18 146/96 94
07/03/23 21:54 07/03/23 21:54 07/03/23 21:54 07/03/23 21:54 07/03/23 21:54
Physical Exam
General: Other (Frail, chronically ill-appearing 57y F in mild distress due to abdominal discomfort.)
HEENT: Other (Dry MM. Poor dentition.)
Respiratory: Clear; No Wheezes, Rales or Rhonchi
Cardiac: S1/S2 and Regular Rhythm; No Murmur
GI: Other (Distended abdomen with positive bowel sounds. Diffusely, mildly tender.)
Musculoskeletal: No Clubbing, No Cyanosis, No Edema and Other (Muscle wasting / cachexia.)
Neuro: AO x 3 and Nonfocal/grossly intact
Impression/Plan
-
A/P: Patient is a 57y F with PMH significant for panhypopituitarism and associated conditions who presents to ED complaninig of abdominal discomfort and distention with no BM in the past 15 days.
Severe Constipation
- Admit for further evaluation and treatment.
- No stool in rectal vault and stool largely concentrated in the R colon on imaging.
- Continue aggressive bowel regimen.
- Could try enema; though, question efficacy with more proximal stool burden.
- GI and ColoRectal Surgery evaluations for additional recommendations +/- interventions if needed.
- Check TFTs / labs to assess for potential etiologies of bowel issue.
- Hold diuretics / torsemide.
- IVF overnight.
- Patient denies any previous issues with constipation.
Panhypopituitarism
Secondary Hypothyroidism
Orthostatic Hypotension
Osteoporosis
- Continue current hormone replacement with hydrocortisone, fludrocortisone, T4, etc.
- Check Free T4 to ensure current replacement is appropriate.
- Continue PPI prophylaxis on oral steroids.
Bipolar Disorder
Polypharmacy
- Stable on multiple medications.
- Will continue current outpatient regimen without adjustment.
- Check EKG to evaluate for QT prolongation.
Asthma without Acute Exacerbation
- Stable. Albuterol PRN.
Polymyalgia
- Symptoms have been stable on slow prednisone taper.
- Currently on 2.5mg daily only.
- Will continue without changes for now.
- Follow-up as an outpatient to continue taper / discontinue med.
Migraine Headache
- Stable. No severe headache at this time.
- Follow for any new symptoms.
DVT Prophylaxis: SCDs
Code Status: Full
[2023-07-04 03:12] LABS: % Basophils 1.4 % (0-2); % Eosinophils 1.7 % (0-6); % Immature Granulocytes 0.4 % (0-0.5); % Lymphocytes 25.4 % (20.5-51.1); % Monocytes 10.4 % (1.7-9.3); % Neutrophils 60.7 % (42.2-75.2); Absolute Basophils 0.1 10^3/uL (0-0.2); Absolute Eosinophils 0.2 10^3/uL (0-0.7); Absolute Lymphocytes 2.6 10^3/uL (1.2-3.4); Absolute Monocytes 1.1 10^3/uL (0.1-0.6); Absolute Neutrophils 6.2 10^3/uL (1.4-6.5); Hematocrit 37.3 % (37.0-47.0); Hemoglobin 13.5 g/dL (12.0-16.0); Mean Corp Hgb Conc. 36.2 g/dL (33.0-37.0); Mean Corpuscular Hgb 34.5 pg (27.0-31.0); Mean Corpuscular Volume 95.4 fL (81.0-99.0); Mean Platelet Volume 9.2 fL (7.4-10.4); Nucleated Red Blood Cells % 0 %; Platelet Count 295 10^3/uL (130-400); Red Blood Cell Count 3.91 10^6/uL (4.20-5.40); Red Cell Dist. Width 12.3 % (11.5-14.5); White Blood Cell Count 10.1 10^3/uL (4.8-10.8)
[2023-07-04 03:46] LABS: ALT (SGPT) 31 U/L (0-35); AST (SGOT) 39 U/L (14-36); Albumin 3.8 g/dl (3.5-5.0); Alkaline Phosphatase 70 U/L (38-126); Blood Urea Nitrogen 14 mg/dl (7-17); Calcium 9.1 mg/dl (8.4-10.2); Carbon Dioxide 26 mmol/L (22-30); Chloride 96 mmol/L (98-107); Estimated Creatinine Clearance 82 ml/min; Glucose 75 mg/dl (70-99); Potassium 3.9 mmol/L (3.5-5.1); Sodium 131 mmol/L (135-145); Total Bilirubin 0.7 mg/dl (0.2-1.3); Total Protein 6.4 g/dl (6.3-8.2); eGFR > 60.00
[2023-07-04] MEDS: NSS 1000 IV (03:59)
[2023-07-04] MEDS: LR 1000 IV ×2 (06:07→14:51)
[2023-07-04 06:12] LABS: Hematocrit 33.7 % (37.0-47.0); Mean Corp Hgb Conc. 35.6 g/dL (33.0-37.0); Mean Corpuscular Hgb 34.8 pg (27.0-31.0); Mean Corpuscular Volume 97.7 fL (81.0-99.0); Platelet Count 260 10^3/uL (130-400); Red Blood Cell Count 3.45 10^6/uL (4.20-5.40); Red Cell Dist. Width 12.1 % (11.5-14.5); White Blood Cell Count 9.4 10^3/uL (4.8-10.8)
[2023-07-04 06:46] LABS: Blood Urea Nitrogen 12 mg/dl (7-17); Calcium 8.2 mg/dl (8.4-10.2); Carbon Dioxide 24 mmol/L (22-30); Chloride 102 mmol/L (98-107); Estimated Creatinine Clearance 82 ml/min; Glucose 67 mg/dl (70-99); Magnesium 2.1 mg/dl (1.6-2.3); Potassium 3.5 mmol/L (3.5-5.1); Sodium 131 mmol/L (135-145); eGFR > 60.00
[2023-07-04 07:00] LABS: Free T4 0.91 ng/dl (0.78-2.19)
[2023-07-04] MEDS: SYNTHROID 112 MCG PO (08:10)
[2023-07-04] MEDS: BUSPAR 10 MG PO ×2 (08:15→17:51)
[2023-07-04] MEDS: LAMICTAL 100 MG PO (08:16)
[2023-07-04] MEDS: SENOKOT 17.1999999999999993 MG PO ×2 (08:16→20:57)
[2023-07-04] MEDS: COLACE 100 MG PO ×2 (08:16→20:57)
[2023-07-04] MEDS: PROTONIX IV 40 MG IV (08:16)
[2023-07-04] MEDS: MIRALAX PO ×2 (08:16→08:26)
[2023-07-04] MEDS: NSS (PRESERVATIVE FREE) 10 ML IV (08:17)
[2023-07-04] MEDS: FLORINEF 0.149999999999999994 MG PO (08:17)
[2023-07-04] MEDS: DELTASONE 2.5 MG PO (08:19)
[2023-07-04] MEDS: TRILEPTAL 300 MG PO ×2 (08:19→20:59)
[2023-07-04] MEDS: TOPAMAX 200 MG PO ×2 (08:19→20:58)
[2023-07-04] MEDS: CORTEF 25 MG PO (08:19)
[2023-07-04] MEDS: GEODON 80 MG PO ×2 (08:20→17:50)
[2023-07-04] MEDS: TYLENOL 650 MG PO (08:25)
[2023-07-04] MEDS: COMPAZINE 5 MG IV (08:26)
--- NOTE | 2023-07-04 09:04 | VNURNOTE ---
Patient is current with [facility] since 05/25 w/SN/PT, will monitor progress and plan at discharge.
--- NOTE | 2023-07-04 09:22 | CON.GI ---
Addendum entered and electronically signed by John Lakhani MD 07/04/23 15:24:
I saw and examined the patient.
The PA's note was reviewed and I agree with the note.
Comment:
Pt is a 57 year old female with h/o GERD, gastroparesis, panhypopituitarism, hypothyroidism, migraine, asthma, bipolar disorder, anxiety, PTSD, polymyalgia/arteritis and orthostatic hypotension p/w constipation and abdominal pain. She reports her
last BM was about 15 days ago. Her typical bowel habits prior to this were a formed stool once a day.
Impression / Rec:
1. Constipation - no new meds except for Tramadol. Nausea but denies vomiting, fever or chills. Has diffuse abdominal pain but she's soft on exam. Passing flatus. CT scan of the abdomen/pelvis showing severe diffuse colonic stool burden without
evidence of bowel obstruction or inflammatory changes. Agree with oral osmotic laxative / enema. Colonoscopy can be arranged as OP.
Original Note:
Consultation
-
Date/Time Consultation Requested: 07/04/23 0326
Date/Time Consultation Performed: 07/04/23 0900
Requesting Provider: Dr. Haro
Performing Provider: Dr. Lakhani / Allison Adame PA-C
Reason for Consultation: constipation
Medical History
Chief Complaint / HPI
Chief Complaint: constipation
History of Present Illness:
This is a 57 year old female with a past medical history of GERD, gastroparesis, panhypopituitarism, hypothyroidism, migraine, asthma, bipolar disorder, anxiety, PTSD, polymyalgia/arteritis and orthostatic hypotension who presents for constipation.
She states she has not had a bowel movement in 15 days. Her typical bowel habits are a formed stool once a day. She denies any recent diet changes. No new supplements or medication dosing changes. Tramadol was recently prescribed for pain, which is
a new medication for her, typically taking it once a day. She c/o nausea, which is chronic. She denies any vomiting, fever or chills. She does complain of diffuse abdominal tenderness, and decreased appetite, which is also chronic for her, but
states no recent weight loss. Pt is passing gas. She tried an enema at home, as well as daily Miralax (she cannot recall how much she was taking) for the past few weeks without relief. CT scan of the abdomen/pelvis showing severe diffuse colonic
stool burden without evidence of bowel obstruction or inflammatory changes. She states her last colonoscopy was about 10 years ago while she was living in [place], reportedly normal. She believes her maternal aunt had colon cancer.
Past Medical History
Past Medical History: Asthma, GERD, Hypothyroidism, Psychiatric (bipolar disorder, anxiety, PTSD) and Other (gastroparesis, panhypopituitarism, migraine, polymyalgia/arteritis and orthostatic hypotension )
Past Surgical History: Other (Left Wrist ORIF with Hardware, Vocal Chord Surgery, Cataracts, Sinus Surgery, Carpal Tunnel Surgery)
Social History
Tobacco: Non-Smoker
Alcohol: None
Drug: Marijuana (has medical card, states she has not used recently)
Personal: Single
Living: Alone
Employment: Disabled
Family History
Family History: Other (pancreatic cancer (mother, age 83, maternal cousin); colon cancer (maternal aunt))
Allergies / Home Medications
Allergy/AdvReac Type Severity Reaction Status Date / Time
amoxicillin [From Augmentin] Allergy Nausea / Verified 07/03/23 21:56
Vomiting -
tolerated
meropenem
02/2019
azithromycin [From Zithromax] Allergy Swelling Verified 07/03/23 21:56
ceftibuten [From Cedax] Allergy Swelling - Verified 07/03/23 21:56
tolerated
meropenem
02/2019
citalopram [From Celexa] Allergy suicidal Verified 07/03/23 21:56
ideation
clavulanic acid Allergy Nausea / Verified 07/03/23 21:56
[From Augmentin] Vomiting
corn Allergy Anaphylaxis Verified 07/03/23 21:56
'except
cornstarch'
egg Allergy Nausea / Verified 07/03/23 21:56
Vomiting
migraines
gluten Allergy Nausea Verified 07/03/23 21:56
-stomach
ache,
diarrhea,
migraine
hydromorphone [From Dilaudid] Allergy Rash Verified 07/03/23 21:56
ibuprofen Allergy Unknown Verified 07/03/23 21:56
Iodinated Contrast Media Allergy Rash Verified 07/03/23 21:56
latex Allergy Anaphylaxis Verified 07/03/23 21:56
Latex, Natural Rubber Allergy Anaphylaxis Verified 07/03/23 21:56
levofloxacin [From Levaquin] Allergy Swelling Verified 07/03/23 21:56
Milk Containing Products Allergy Nausea / Verified 07/03/23 21:56
(Dairy) Vomiting -
[Milk Containing Products] migraines
mushroom Allergy Anaphylaxis Verified 07/03/23 21:56
nickel Allergy swelling Verified 07/03/23 21:56
and itching
Opioids - Morphine Analogues Allergy 'all Verified 07/03/23 21:56
opioids'
peanut Allergy Anaphylaxis Verified 07/03/23 21:56
Poultry Allergy Nausea Verified 07/03/23 21:56
-migraine
shellfish derived Allergy Anaphylaxis Verified 07/03/23 21:56
Sulfa (Sulfonamide Allergy Swelling Verified 07/03/23 21:56
Antibiotics)
maude jon Allergy Anaphylaxis Uncoded 07/03/23 21:56
-[place] syrup
Medication Instructions Recorded
clonazepam 1 mg tablet 1 mg PO TID Mental Health/Anxiety 12/03/16
lamotrigine 100 mg tablet 200 mg PO QPM Neurological 12/03/16
Condition
levothyroxine 112 mcg tablet 112 mcg PO DAILY@0700 Thyroid 12/03/16
topiramate 100 mg tablet 200 mg PO BID Neurological 12/03/16
Condition
ziprasidone HCl 20 mg capsule 80 mg PO BID@0800,1700 Mental 12/03/16
Health/Anxiety
albuterol sulfate 90 mcg/actuation 2 puff inhalation R Q4HPRN PRN SOB 03/11/19
aerosol inhaler
calcium citrate 315 mg 1 ea PO DAILY Supplement 03/11/19
calcium-vitamin D3 6.25 mcg (250
unit) tablet (Citracal + Vitamin D
Maximum)
cholecalciferol (vitamin D3) 25 1,000 units PO DAILY Supplement 03/11/19
mcg (1,000 unit) tablet
hydrocortisone 10 mg tablet 15 mg PO QPM adrenal insufficiency 03/11/19
hydrocortisone 10 mg tablet 25 mg PO DAILY adrenal 03/11/19
insufficiency
pantoprazole 40 mg tablet,delayed 40 mg PO DAILY #30 tabs 03/17/19
release
lamotrigine 100 mg tablet 100 mg PO DAILY Neurological 05/17/19
Condition
erenumab-aooe 70 mg/mL 140 mg SC QMONTH Migraine 05/16/22
subcutaneous auto-injector
(Aimovig Autoinjector)
buspirone 10 mg tablet 10 mg PO TID Mental Health/Anxiety 06/26/22
dihydroergotamine (Trudhesa) 1 spray intranasal DAILYPRN PRN 06/26/22
migraine
diphenhydramine HCl 25 mg capsule 25 mg PO TIDPRN PRN allergic 06/26/22
(Benadryl) reaction
famotidine 20 mg tablet 20 mg PO BID Gastrointestinal issue 06/26/22
ondansetron 8 mg disintegrating 8 mg PO [id number] PRN nausea/vomiting 06/26/22
tablet
oxcarbazepine 300 mg tablet 300 mg PO BID Neurological 06/26/22
Condition
trazodone 300 mg tablet 300 mg PO HS Mental Health/Anxiety 06/26/22
Medical Marijuana 1 cap PO DAILY@1300 PRN mild pain 01/26/23
dupilumab 300 mg/2 mL subcutaneous 300 mg SC Q2W Autoimmune Disorder 01/26/23
syringe (Dupixent)
fluticasone fur. 100 mcg-umeclid 1 inh inhalation R DAILY 01/26/23
62.5 mcg-vilant 25 mcg
inhalat.powder (Trelegy Ellipta)
prednisone 5 mg tablet 2.5 mg PO DAILY Anti-Inflammatory 01/26/23
torsemide 10 mg tablet 10 mg PO DAILY 01/26/23
lemborexant 5 mg tablet (Dayvigo) 5 mg PO HS 07/04/23
Review of Systems
-
History Source: Patient
All other systems: A 12 pt ROS was Negative except as stated above in HPI
Vital Signs
Temp Pulse Resp BP Pulse Ox
98.7 F 103 29 132/99 97
07/03/23 21:54 07/04/23 06:30 07/04/23 06:30 07/04/23 04:00 07/04/23 06:30
Physical Exam
Exam
General: Other (thin-appearing female in no acute distress)
HEENT: Anicteric
Respiratory: Clear
Cardiac: Regular Rhythm
GI: Soft, Normal Bowel Sounds, Tender (+mild diffuse tenderness) and Distended (+mild abdominal distension)
Rectal: Other (ER rectal exam showed no stool in the rectal vault)
Skin: Warm and Dry
Neuro: AO x 3
Psych: Calm
Results
WBC 9.4 10^3/uL (4.8-10.8) 07/04/23 05:53
Hgb 12.0 g/dL (12.0-16.0) 07/04/23 05:53
Hct 33.7 % (37.0-47.0) L 07/04/23 05:53
MCV 97.7 fL (81.0-99.0) 07/04/23 05:53
Plt Count 260 10^3/uL (130-400) 07/04/23 05:53
Absolute Neuts (auto) 6.2 10^3/uL (1.4-6.5) 07/04/23 02:52
Sodium 131 mmol/L (135-145) L 07/04/23 05:53
Potassium 3.5 mmol/L (3.5-5.1) 07/04/23 05:53
Chloride 102 mmol/L (98-107) 07/04/23 05:53
Carbon Dioxide 24 mmol/L (22-30) 07/04/23 05:53
BUN 12 mg/dl (7-17) 07/04/23 05:53
Creatinine 0.5 mg/dL (0.6-1.0) L 07/04/23 05:53
Calcium 8.2 mg/dl (8.4-10.2) L 07/04/23 05:53
Total Bilirubin 0.7 mg/dl (0.2-1.3) 07/04/23 02:52
AST 39 U/L (14-36) H 07/04/23 02:52
ALT 31 U/L (0-35) 07/04/23 02:52
Alkaline Phosphatase 70 U/L (38-126) 07/04/23 02:52
Diagnostic Image Results:
Chest/Abd X-ray 07/04/23:
Report not available, but images reviewed by me, showing extensive stool burden throughout the colon, especially in the Right colon.
CT Abdomen/Pelvis 07/04/23:
1. No significant acute abnormality identified in the abdomen or pelvis, as described above.
2. Severe diffuse colonic stool burden in keeping with constipation.
Prior GI Procedures:
EGD:
03/15/2019, Dr. Wood: Indications: Abnormal CT of the GI tract, Early satiety,
�� � � � � � � � � � hypoalbuminemia
Normal esophagus.
�� � � � � � � � � � - Erythematous mucosa in the gastric body and antrum.
�� � � � � � � � � � Biopsied.
�� � � � � � � � � � - A few gastric polyps. Biopsied.
�� � � � � � � � � � - Scalloped mucosa was found in the duodenum, suspicious
�� � � � � � � � � � for celiac disease. Biopsied.
�� � � � � � � � � � - A large amount of food (residue) in the stomach. Removal was successful.
Biopsies: negative celiac, negative H pylori. +mild chronic gastritis, fundic gland polyps.
03/14/2019, Dr. Quiñonez: Indications: Suspected celiac disease, Malnutrition
Normal esophagus.
�� � � � � � � � � � - A medium amount of food (residue) in the stomach,
�� � � � � � � � � � unable to evaluate stomach and duodenum
Colonoscopy: 10 years ago, normal per pt
Assessment / Plan
-
57 year old female with GERD, gastroparesis, panhypopituitarism, hypothyroidism, migraine, asthma, bipolar disorder, anxiety, PTSD, polymyalgia/arteritis and orthostatic hypotension who presents for constipation, stating no bowel movement for 15
days. Her typical bowel habits prior to this were a formed stool once a day. She denies any recent diet changes. No new supplements or medication dosing changes. Tramadol was recently prescribed for pain, which is a new medication for her, typically
taking it once a day. She c/o nausea, which is chronic. She denies any vomiting, fever or chills. She does complain of diffuse abdominal tenderness. Pt is passing gas. She does c/o decreased appetite, which is also chronic for her, but states no
recent weight loss. She tried an enema at home, as well as Miralax without relief. CT scan of the abdomen/pelvis showing severe diffuse colonic stool burden without evidence of bowel obstruction or inflammatory changes. She states her last
colonoscopy was about 10 years ago while she was living in [place], reportedly normal. She believes her maternal aunt had colon cancer.
IMPRESSION / PLAN:
Constipation, severe - etiology possibly secondary to polypharmacy, malnutrition, motility issue vs other
- Imaging showing extensive stool burden throughout the colon, appears worse in the right colon
- Labs reviewed, agree with thyroid function tests as pt has a h/o hypothyroidism
- Will implement bowel regimen of enema as well as polyethylene glycol - recommend patient drink Colyte 2 L over 12 hours
- Diuretics have been held
- No evidence of obstruction on imaging and pt is passing gas
- Colorectal Surgery has been consulted, await their additional recommendations
GERD
- Stable, on PPI (pantoprazole) and famotidine
Colorectal Cancer Screening - overdue
- Pt reports her last colonoscopy was 10 years ago in [place]
- Distant family history (maternal aunt) of colon cancer
- Recommend outpatient follow-up for colonoscopy
Other medical issues managed as per hospitalist.
Data Reviewed
-
Radiology: Image Personally Visualized and interpreted
CT Scan: Image Personally Visualized and interpreted and Report Reviewed by me
-
-
Thank you for consultation and allowing me to participate in the patient's care. Please call the engineering consultant GI physician during the after hours with any questions or concerns.
--- NOTE | 2023-07-04 10:23 | PTCARENOTE ---
pt arrived to the ED EMS, pt is now med surge hold. pt is on r.a and is ambulatory and on r.a, call lynch is in reach, will continue to monitor.
--- NOTE | 2023-07-04 12:01 | W.PN.HOSP.TC ---
Today's Communication/Plan
-
Continue bowel regimen
Assessment / Plan
Assessment / Plan
Gen-AAOx3, NAD
HEENT-NC, AT, anicteric, clear oral mm
Neck-supple
CV-reg, no M, +S1/S2
Lungs-clear B/L
Abd-soft, mild distention and tenderness
Ext-no edema
Musculoskeletal-no cyanosis, clubbing
Skin-warm and dry
Neuro-grossly non-focal
Psych-calm, cooperative
Severe constipation -she is on numerous medications all of which can cause constipation (ziprasidone, trazodone, tramadol, topiramate, oxcarbazepine, ondansetron, lamotrigine, famotidine, diphenhydramine, clonazepam).
Continue aggressive bowel regimen. Appreciate GI input. Colorectal surgery consulted. No obstruction noted on CT scan from 07/01, no obstruction noted from abdominal film from today.
Currently on clear liquid diet. Will need to be more proactive with bowel regimen on discharge.
Hyponatremia -sodium stable at 131. Check urine studies.
Panhypopituitarism -continue hormonal repletion. T4 levels normal. Hypoglycemia noted this morning, 67. Monitor closely.
Orthostatic hypotension
Osteoporosis
Polymyalgia rheumatica -on prednisone taper.
Asthma -suspect moderate persistent asthma. Not in exacerbation.
Bipolar disorder -on multiple psychotropics.
History of migraine headaches
Full code
Anticipated Discharge: 24 - 48 hours
Subjective/Interval History
-
Date of Service: July 04, 2023
Patient seen and examined. Complaining of constipation. Abdominal discomfort. Also complaining of fatigue due to insomnia.
Objective Data
-
Labs:
Laboratory Results
07/04/23 07/04/23
02:52 05:53
WBC 10.1 9.4
Hgb 13.5 12.0
Hct 37.3 33.7 L
Plt Count 295 260
Sodium 131 L 131 L
Potassium 3.9 D 3.5
Chloride 96 L 102
Carbon Dioxide 26 24
BUN 14 12
Creatinine 0.5 L 0.5 L
Glucose 75 67 L
Calcium 9.1 8.2 L
Total Bilirubin 0.7
AST 39 H
ALT 31
Alkaline Phosphatase 70
Vital Signs:
Vital Signs
Temp Pulse Resp BP Pulse Ox
98.4 F 104 14 130/90 98
07/04/23 10:20 07/04/23 10:20 07/04/23 10:20 07/04/23 10:20 07/04/23 10:20
I&O
07/03/23 07/04/23 07/05/23
06:59 06:59 06:59
Output Total 450 / 450
Balance -450 / -450
Review of Systems
-
History Source: Patient
All other systems: Reviewed and negative
--- NOTE | 2023-07-04 12:42 | CON.CRS ---
Consultation
-
Reason for Consultation: Severe constipation
Medical History
-
Chief Complaint: Severe constipation
History of Present Illness:
57-year-old female with multiple medical issues and on multiple medications who came in through the ER with no BMs for 15 days and some abdominal discomfort. Patient is passing flatus. Denies nausea vomiting fevers or chills. She admits to
diminished appetite. She denies ever having had this in the past. Denies weight loss. She came into the ER a couple days ago and underwent a CT of the abdomen and pelvis with the above complaints. The images and report are available for review.
I reviewed both. This revealed her colon to have significant fecal burden consistent with constipation. No pneumatosis coli, no free air, no abscess noted. Patient with no history of GI issues. Maternal aunt had colon cancer. Last colonoscopy
about 10 years ago when she was living in [place]. The patient relates it was normal. The patient was discharged from the ER couple days ago and told to try magnesium citrate. She did not try this until overnight and did not have a response.
She is here in the ER with the same complaints. Patient is afebrile and has borderline tachycardia. She is normotensive. She is making admitted to the hospital service. GI has already seen her and ordered a full bowel prep from above. I was
consulted for colorectal surgical opinion.
Past Medical History
Past Medical History: Asthma, GERD, Hypothyroidism, Psychiatric (Bipolar; anxiety; PTSD) and Other (Gastroparesis; fibromyalgia/arteritis; gastroparesis; panhypopituitaryism)
Past Surgical History: Orthopedic (Left wrist ORIF; carpal tunnel) and Other (Vocal cord surgery; cataracts)
Social History
Tobacco: Non-Smoker
Alcohol: None
Drug: Marijuana (Medical)
Personal: Single
Living: With Family (With father)
Employment: Disabled
Family History
Family History: Cancer (Colon in maternal aunt) and Other
Allergies / Home Medications
Allergy/AdvReac Type Severity Reaction Status Date / Time
amoxicillin [From Augmentin] Allergy Nausea / Verified 07/03/23 21:56
Vomiting -
tolerated
meropenem
02/2019
azithromycin [From Zithromax] Allergy Swelling Verified 07/03/23 21:56
ceftibuten [From Cedax] Allergy Swelling - Verified 07/03/23 21:56
tolerated
meropenem
02/2019
citalopram [From Celexa] Allergy suicidal Verified 07/03/23 21:56
ideation
clavulanic acid Allergy Nausea / Verified 07/03/23 21:56
[From Augmentin] Vomiting
corn Allergy Anaphylaxis Verified 07/03/23 21:56
'except
cornstarch'
egg Allergy Nausea / Verified 07/03/23 21:56
Vomiting
migraines
gluten Allergy Nausea Verified 07/03/23 21:56
-stomach
ache,
diarrhea,
migraine
hydromorphone [From Dilaudid] Allergy Rash Verified 07/03/23 21:56
ibuprofen Allergy Unknown Verified 07/03/23 21:56
Iodinated Contrast Media Allergy Rash Verified 07/03/23 21:56
latex Allergy Anaphylaxis Verified 07/03/23 21:56
Latex, Natural Rubber Allergy Anaphylaxis Verified 07/03/23 21:56
levofloxacin [From Levaquin] Allergy Swelling Verified 07/03/23 21:56
Milk Containing Products Allergy Nausea / Verified 07/03/23 21:56
(Dairy) Vomiting -
[Milk Containing Products] migraines
mushroom Allergy Anaphylaxis Verified 07/03/23 21:56
nickel Allergy swelling Verified 07/03/23 21:56
and itching
Opioids - Morphine Analogues Allergy 'all Verified 07/03/23 21:56
opioids'
peanut Allergy Anaphylaxis Verified 07/03/23 21:56
Poultry Allergy Nausea Verified 07/03/23 21:56
-migraine
shellfish derived Allergy Anaphylaxis Verified 07/03/23 21:56
Sulfa (Sulfonamide Allergy Swelling Verified 07/03/23 21:56
Antibiotics)
maude jon Allergy Anaphylaxis Uncoded 07/03/23 21:56
-[place] syrup
Medication Instructions Recorded Confirmed Type
clonazepam 1 mg tablet 1 mg PO TID Mental Health/Anxiety 12/03/16 07/04/23 History
levothyroxine 112 mcg tablet 112 mcg PO DAILY Thyroid 12/03/16 07/04/23 History
hydrocortisone 10 mg tablet 15 mg PO DAILY@2100 adrenal 03/11/19 07/04/23 History
insufficiency
hydrocortisone 10 mg tablet 25 mg PO DAILY adrenal 03/11/19 07/04/23 History
insufficiency
pantoprazole 40 mg tablet,delayed 40 mg PO DAILY #30 tabs 03/17/19 07/04/23 Rx
release
lamotrigine 100 mg tablet 100 mg PO DAILY Neurological 05/17/19 07/04/23 History
Condition
buspirone 10 mg tablet 10 mg PO TID Mental Health/Anxiety 06/26/22 07/04/23 History
dihydroergotamine (Trudhesa) 1 spray intranasal DAILYPRN PRN 06/26/22 07/04/23 History
migraine
diphenhydramine HCl 25 mg capsule 25 mg PO TIDPRN PRN allergic 06/26/22 07/04/23 History
(Benadryl) reaction
famotidine 20 mg tablet 20 mg PO BID Gastrointestinal issue 06/26/22 07/04/23 History
ondansetron 8 mg disintegrating 8 mg PO BID 06/26/22 07/04/23 History
tablet
oxcarbazepine 300 mg tablet 300 mg PO BID Neurological 06/26/22 07/04/23 History
Condition
dupilumab 300 mg/2 mL subcutaneous 300 mg SC Q2W Autoimmune Disorder 01/26/23 07/04/23 History
syringe (Dupixent)
fluticasone fur. 100 mcg-umeclid 1 inh inhalation R DAILY@1200 01/26/23 07/04/23 History
62.5 mcg-vilant 25 mcg
inhalat.powder (Trelegy Ellipta)
prednisone 5 mg tablet 2.5 mg PO DAILY Anti-Inflammatory 01/26/23 07/04/23 History
torsemide 10 mg tablet 10 mg PO DAILY 01/26/23 07/04/23 History
Dulcolax (bisacodyl) 1 dose PO DAILYPRN PRN constipation 07/04/23 07/04/23 History
acetaminophen 650 mg 650 mg PO Q8H PRN mild pain 07/04/23 07/04/23 History
tablet,extended release
albuterol sulfate 90 mcg/actuation 1 puff inhalation R Q4HPRN PRN sob 07/04/23 07/04/23 History
aerosol inhaler (Ventolin HFA)
calcium citrate 315 mg 1 tab PO DAILY 07/04/23 07/04/23 History
calcium-vitamin D3 6.25 mcg (250
unit) tablet (Citracal + Vitamin D
Maximum)
cholecalciferol (vitamin D3) 25 25 mcg PO DAILY 07/04/23 07/04/23 History
mcg (1,000 unit) tablet
erenumab-aooe 140 mg/mL 140 mg SC Q28D 07/04/23 07/04/23 History
subcutaneous auto-injector
(Aimovig Autoinjector)
inulin 2 gram chewable tablet 4 g PO DAILY 07/04/23 07/04/23 History
(Fiber Gummies)
lamotrigine 200 mg tablet 200 mg PO DAILY@209907/04/23 07/04/23 History
lemborexant 5 mg tablet (Dayvigo) 5 mg PO HS 07/04/23 07/04/23 History
multivitamin with minerals-folic 2 tab PO DAILY@209907/04/23 07/04/23 History
acid 200 mcg chewable tablet
(Multivitamin Gummies)
polyethylene glycol 3350 17 gram 17 g PO DAILY PRN constipation 07/04/23 07/04/23 History
oral powder packet (Miralax)
topiramate 200 mg tablet 200 mg PO BID 07/04/23 07/04/23 History
tramadol 50 mg tablet 50 mg PO Q8H PRN severe pain 07/04/23 07/04/23 History
trazodone 100 mg tablet 300 mg PO HS 07/04/23 07/04/23 History
varenicline 0.03 mg/spray nasal 1 spray intranasal BID 07/04/23 07/04/23 History
spray (Tyrvaya)
ziprasidone HCl 80 mg capsule 80 mg PO BID 07/04/23 07/04/23 History
Review of Systems
-
A 10 point review of systems was completed, and was negative except as per HPI.
Physical Exam
Vital Signs
Temp 98.4 F 07/04/23 10:20
Pulse 104 07/04/23 10:20
Resp Rate 14 07/04/23 10:20
Blood pressure 130/90 07/04/23 10:20
SaO2 98 07/04/23 10:20
07/03/23 07/04/23 07/05/23
06:59 06:59 06:59
Actual Weight 49.9 kg
Body Mass Index (BMI) 17.2
Lab Results / Allergies
07/04/23 05:53
07/04/23 05:53
WBC 9.4 10^3/uL (4.8-10.8) 07/04/23 05:53
Hgb 12.0 g/dL (12.0-16.0) 07/04/23 05:53
Hct 33.7 % (37.0-47.0) L 07/04/23 05:53
Plt Count 260 10^3/uL (130-400) 07/04/23 05:53
Abs Immat Gran (auto) 0.0 10^3/uL (0-0.05) 07/04/23 02:52
Neutrophils % 60.7 % (42.2-75.2) 07/04/23 02:52
Allergy/AdvReac Type Severity Reaction Status Date / Time
amoxicillin [From Augmentin] Allergy Nausea / Verified 07/03/23 21:56
Vomiting -
tolerated
meropenem
02/2019
azithromycin [From Zithromax] Allergy Swelling Verified 07/03/23 21:56
ceftibuten [From Cedax] Allergy Swelling - Verified 07/03/23 21:56
tolerated
meropenem
02/2019
citalopram [From Celexa] Allergy suicidal Verified 07/03/23 21:56
ideation
clavulanic acid Allergy Nausea / Verified 07/03/23 21:56
[From Augmentin] Vomiting
corn Allergy Anaphylaxis Verified 07/03/23 21:56
'except
cornstarch'
egg Allergy Nausea / Verified 07/03/23 21:56
Vomiting
migraines
gluten Allergy Nausea Verified 07/03/23 21:56
-stomach
ache,
diarrhea,
migraine
hydromorphone [From Dilaudid] Allergy Rash Verified 07/03/23 21:56
ibuprofen Allergy Unknown Verified 07/03/23 21:56
Iodinated Contrast Media Allergy Rash Verified 07/03/23 21:56
latex Allergy Anaphylaxis Verified 07/03/23 21:56
Latex, Natural Rubber Allergy Anaphylaxis Verified 07/03/23 21:56
levofloxacin [From Levaquin] Allergy Swelling Verified 07/03/23 21:56
Milk Containing Products Allergy Nausea / Verified 07/03/23 21:56
(Dairy) Vomiting -
[Milk Containing Products] migraines
mushroom Allergy Anaphylaxis Verified 07/03/23 21:56
nickel Allergy swelling Verified 07/03/23 21:56
and itching
Opioids - Morphine Analogues Allergy 'all Verified 07/03/23 21:56
opioids'
peanut Allergy Anaphylaxis Verified 07/03/23 21:56
Poultry Allergy Nausea Verified 07/03/23 21:56
-migraine
shellfish derived Allergy Anaphylaxis Verified 07/03/23 21:56
Sulfa (Sulfonamide Allergy Swelling Verified 07/03/23 21:56
Antibiotics)
maude jon Allergy Anaphylaxis Uncoded 07/03/23 21:56
-[place] syrup
Physical Exam
General: Well Developed
HEENT: Normocephalic
Respiratory: Clear
Cardiac: Other (Borderline tachycardia)
GI: Tender (Minimal in 4 quadrants) and Distended (Mild to moderate)
Rectal: Other (Negative for stool or mass per ER exam)
Skin: Warm
Neuro: Awake, Alert and Oriented
Psych: Calm
Data Reviewed
-
CT Scan: Image Personally Visualized and interpreted, Report Reviewed by me and Discussed with Patient
Assessment / Plan
-
57-year-old female with multiple medical problems and on multiple medications with obstipation and recent CT showing: To be full of stool consistent with severe constipation. No radiographic evidence for obstruction. Reason at this point for
surgical intervention.
1. Oral bowel prep as per GI.
2. Anticipate that GI will recommend a colonoscopy in the near future as it has been at least 10 years since her prior.
3. Will follow from afar. Please reconsult if needed.
[2023-07-04] MEDS: NULYTELY SOLUTION 2 LITERS PO (12:53)
--- NOTE | 2023-07-04 14:18 | CM ---
CM reviewed medical records. Patient lives independently alone. [facility] is [facility] to [facility] business liaison officer following. Patient is active with her PCP. Patient had medication coverage and uses [facility].
PLAN: Home with [facility].
--- NOTE | 2023-07-04 15:03 | PTCARENOTE ---
Pt slowly drinking Nulytley with encouragement. Refusing enema saying 'I will do it later.' Is getting up to use bathroom w/ minimal assistance.
--- NOTE | 2023-07-04 17:38 | PTCARENOTE ---
pt arrived onto unit on medsurg and on r.a, pt was ambulatory from ED bed to standing scale and bed. pt ordered dinner, call lynch is in reach will continue to monitor.
[2023-07-04] MEDS: LAMICTAL 200 MG PO (17:50)
[2023-07-04] MEDS: CORTEF 15 MG PO (17:51)
[2023-07-04] MEDS: MIRALAX 17 GRAMS PO (20:58)
[2023-07-05] MEDS: BUSPAR 10 MG PO ×4 (00:11→21:26)
[2023-07-05] MEDS: DESYREL 300 MG PO ×2 (00:12→21:26)
[2023-07-05] MEDS: KLONOPIN 1 MG PO ×2 (00:22→23:38)
[2023-07-05] MEDS: LR 1000 IV ×2 (00:58→09:12)
[2023-07-05 01:43] LABS: Osmolality Urine 223 mOsm/kg (300-900)
[2023-07-05 01:54] LABS: Urine Sodium 71 mmol/L (30-90)
[2023-07-05] MEDS: SYNTHROID 112 MCG PO (06:05)
[2023-07-05 07:00] VITALS: BP 154/89
[2023-07-05] MEDS: FLORINEF 0.149999999999999994 MG PO (08:51)
[2023-07-05] MEDS: MIRALAX 17 GRAMS PO ×2 (08:51→20:38)
[2023-07-05] MEDS: COLACE 100 MG PO ×2 (08:53→20:38)
[2023-07-05] MEDS: NSS (PRESERVATIVE FREE) 10 ML IV (08:53)
[2023-07-05] MEDS: SENOKOT 17.1999999999999993 MG PO ×2 (08:53→20:38)
[2023-07-05] MEDS: TOPAMAX 200 MG PO ×2 (08:53→20:38)
[2023-07-05] MEDS: GEODON 80 MG PO ×2 (08:53→17:05)
[2023-07-05] MEDS: PROTONIX IV 40 MG IV (08:53)
[2023-07-05] MEDS: CORTEF 25 MG PO (08:54)
[2023-07-05] MEDS: DELTASONE 2.5 MG PO (08:54)
[2023-07-05] MEDS: TRILEPTAL 300 MG PO ×2 (08:55→20:39)
[2023-07-05] MEDS: LAMICTAL 100 MG PO (08:55)
--- NOTE | 2023-07-05 09:03 | W.PN.HOSP.TC ---
Today's Communication/Plan
-
Await abdominal x-ray
Advance diet
Assessment / Plan
Assessment / Plan
Gen-AAOx3, NAD
HEENT-NC, AT, anicteric, clear oral mm
Neck-supple
CV-reg, no M, +S1/S2
Lungs-clear B/L
Abd-soft, mild distention and tenderness
Ext-no edema
Musculoskeletal-no cyanosis, clubbing
Skin-warm and dry
Neuro-grossly non-focal
Psych-calm, cooperative
Severe constipation -she is on numerous medications all of which can cause constipation (ziprasidone, trazodone, tramadol, topiramate, oxcarbazepine, ondansetron, lamotrigine, famotidine, diphenhydramine, clonazepam). Appears that tramadol is a new
medication for her.
Continue aggressive bowel regimen. Appreciate GI input. Colorectal surgery consulted. No obstruction noted on CT scan from 07/01, no obstruction noted from abdominal film yesterday. Repeat abdominal x-ray pending for today.
Currently on clear liquid diet. Will need to be more proactive with bowel regimen on discharge. Had a small bowel movement early this morning.
Hyponatremia -sodium stable at 131. Urine osmolality 223, urine sodium 71.
Panhypopituitarism -continue hormonal repletion. T4 levels normal. Hypoglycemia noted this morning, 67. Monitor closely.
Orthostatic hypotension -not currently orthostatic based on blood pressure, however heart rate does go up with standing.
Osteoporosis
Polymyalgia rheumatica -on prednisone taper.
Asthma -suspect moderate persistent asthma. Not in exacerbation.
Bipolar disorder -on multiple psychotropics.
History of migraine headaches
Full code
Dispo - PT recommending SNF on discharge. Previously living at home independently.
Anticipated Discharge: Within 24 hours
Subjective/Interval History
-
Date of Service: July 05, 2023
Patient seen and examined. Had a small bowel movement this morning. No complaints currently.
Objective Data
-
Vital Signs:
Vital Signs
Temp Pulse Resp BP Pulse Ox
97.8 F 85 16 148/82 98
07/04/23 23:59 07/04/23 23:59 07/04/23 23:59 07/04/23 23:59 07/04/23 23:59
I&O
07/04/23 07/05/23 07/06/23
06:59 06:59 07:59
Output Total 450 / 450 515 / 515
Balance -450 / -450 -515 / -515
Review of Systems
-
History Source: Patient
All other systems: Reviewed and negative
--- NOTE | 2023-07-05 12:00 | W.PN.GI.CBS2 ---
Addendum entered and electronically signed by John Lakhani MD 07/05/23 13:26:
I saw and examined the patient.
The PA's note was reviewed and I agree with the note.
Comment:
Had 2 small BMs o/n, abdo xray today unchanged. Pt refused enema and not drinking her laxative enough. Will need continued encouragement. Continue with osmotic laxative. Ok for diet.
Original Note:
Today's Communication / Plan
-
continue bowel regimen
Assessment / Plan
-
57 year old female with GERD, gastroparesis, panhypopituitarism, hypothyroidism, migraine, asthma, bipolar disorder, anxiety, PTSD, polymyalgia/arteritis and orthostatic hypotension who presents for constipation, stating no bowel movement for 15
days. Her typical bowel habits prior to this were a formed stool once a day. She denies any recent diet changes. No new supplements or medication dosing changes. Tramadol was recently prescribed for pain, which is a new medication for her, typically
taking it once a day. She c/o nausea, which is chronic. She denies any vomiting, fever or chills. She does complain of diffuse abdominal tenderness. Pt is passing gas. She does c/o decreased appetite, which is also chronic for her, but states no
recent weight loss. She tried an enema at home, as well as Miralax without relief. CT scan of the abdomen/pelvis showing severe diffuse colonic stool burden without evidence of bowel obstruction or inflammatory changes. She states her last
colonoscopy was about 10 years ago while she was living in [place], reportedly normal. She believes her maternal aunt had colon cancer.
IMPRESSION / PLAN:
Constipation, severe - etiology possibly secondary to polypharmacy, malnutrition, motility issue vs other
- she has had 2 BMs today
- Repeat abd XR unchanged, with extensive stool burden throughout the colon
- Labs reviewed, normal T4
- Continue bowel regimen: continue to drink Colyte and will add magnesium citrate, as well as enema which patient refused yesterday but is agreeable to now
- Diuretics have been held
- No evidence of obstruction on imaging and pt is passing gas
- Advance diet to full liquids
GERD
- Stable, on PPI (pantoprazole) and famotidine
Colorectal Cancer Screening - overdue
- Pt reports her last colonoscopy was 10 years ago in [place]
- Distant family history (maternal aunt) of colon cancer
- Recommend outpatient follow-up for colonoscopy
Other medical issues managed as per hospitalist.
Subjective
Subjective
Date of Service: July 05, 2023
Had bowel movement early this AM, and just now around 11am.
-still c/o abd pain, mild nausea
-no vomiting
She only drank half the Colyte yesterday, about 1 L, and refused enema
Objective
Data Reviewed
Laboratory Data:
Laboratory Results
07/04/23 05:53
07/04/23 05:53
Laboratory Results
Magnesium 2.1 mg/dl (1.6-2.3) 07/04/23 05:53
Total Bilirubin 0.7 mg/dl (0.2-1.3) 07/04/23 02:52
AST 39 U/L (14-36) H 07/04/23 02:52
ALT 31 U/L (0-35) 07/04/23 02:52
Alkaline Phosphatase 70 U/L (38-126) 07/04/23 02:52
Vital Signs and I&O:
Vital Signs
Temp Pulse Resp BP Pulse Ox
98.2 F 78 16 154/89 97
07/05/23 07:00 07/05/23 07:00 07/05/23 07:00 07/05/23 07:00 07/05/23 07:00
I&O
07/04/23 07/05/23 07/06/23
06:59 06:59 07:59
Output Total 450 / 450 515 / 515
Balance -450 / -450 -515 / -515
Physical Exam
Physical Exam
GI: Soft, Distended (+mild), Tender (+mild) and Other (bowel sounds present)
[2023-07-05] MEDS: CITROMA 300 ML PO (12:18)
[2023-07-05 15:00] VITALS: BP 144/95
[2023-07-05] MEDS: CORTEF 15 MG PO (17:05)
[2023-07-05] MEDS: LAMICTAL 200 MG PO (17:05)
[2023-07-05 23:20] VITALS: BP 157/94
[2023-07-05] MEDS: TYLENOL 650 MG PO (23:38)
[2023-07-06] MEDS: SYNTHROID 112 MCG PO (05:19)
[2023-07-06] MEDS: TYLENOL 650 MG PO ×3 (05:19→15:44)
[2023-07-06 07:30] VITALS: BP 150/95
[2023-07-06] MEDS: MIRALAX PO (07:35)
[2023-07-06] MEDS: COLACE PO (07:35)
[2023-07-06] MEDS: SENOKOT PO (07:35)
[2023-07-06] MEDS: BUSPAR 10 MG PO ×3 (07:45→22:51)
[2023-07-06] MEDS: CORTEF 25 MG PO (07:45)
[2023-07-06] MEDS: LAMICTAL 100 MG PO (07:45)
[2023-07-06] MEDS: DELTASONE 2.5 MG PO (07:45)
[2023-07-06] MEDS: TRILEPTAL 300 MG PO ×2 (07:45→20:38)
[2023-07-06] MEDS: GEODON 80 MG PO ×2 (07:48→17:05)
[2023-07-06] MEDS: TOPAMAX 200 MG PO ×2 (07:48→20:38)
[2023-07-06] MEDS: FLORINEF 0.149999999999999994 MG PO (07:48)
[2023-07-06] MEDS: NSS (PRESERVATIVE FREE) 10 ML IV (07:49)
[2023-07-06] MEDS: PROTONIX IV 40 MG IV (07:49)
--- NOTE | 2023-07-06 09:49 | W.PN.HOSP.TC ---
Today's Communication/Plan
-
Encourage bowel regimen
Advance diet if okay with GI
Assessment / Plan
Assessment / Plan
Gen-AAOx3, NAD
HEENT-NC, AT, anicteric, clear oral mm
Neck-supple
CV-reg, no M, +S1/S2
Lungs-clear B/L
Abd-soft, mild distention and tenderness
Ext-no edema
Musculoskeletal-no cyanosis, clubbing
Skin-warm and dry
Neuro-grossly non-focal
Psych-calm, cooperative
Severe constipation -she is on numerous medications all of which can cause constipation (ziprasidone, trazodone, tramadol, topiramate, oxcarbazepine, ondansetron, lamotrigine, famotidine, diphenhydramine, clonazepam). Appears that tramadol is a new
medication for her.
Continue aggressive bowel regimen. Appreciate GI input. Colorectal surgery consulted. No obstruction noted on CT scan from 07/01, no obstruction noted from abdominal film yesterday. Repeat abdominal x-ray pending for today.
Currently on clear liquid diet. Will need to be more proactive with bowel regimen on discharge. Had 2 bowel movements last night.
Today she is requesting surgery for her constipation. I explained to her that surgery is not indicated and she just needs to agree to take her bowel regimen. Patient is unreasonable.
Hyponatremia -sodium stable at 131. Urine osmolality 223, urine sodium 71.
Panhypopituitarism -continue hormonal repletion. T4 levels normal.
Orthostatic hypotension -not currently orthostatic based on blood pressure, however heart rate does go up with standing.
Osteoporosis
Polymyalgia rheumatica -on prednisone taper.
Asthma -suspect moderate persistent asthma. Not in exacerbation.
Bipolar disorder -on multiple psychotropics.
History of migraine headaches
Full code
Dispo - PT recommending SNF on discharge. Previously living at home independently.
Anticipated Discharge: 24 - 48 hours
Subjective/Interval History
-
Date of Service: July 06, 2023
Patient seen and examined. Complaining of abdominal pain.
Objective Data
-
Labs:
Laboratory Results
07/06/23
09:45
Sodium Pending
Potassium Pending
Chloride Pending
Carbon Dioxide Pending
BUN Pending
Creatinine Pending
Glucose Pending
Calcium Pending
Total Bilirubin Pending
AST Pending
ALT Pending
Alkaline Phosphatase Pending
Vital Signs:
Vital Signs
Temp Pulse Resp BP Pulse Ox
98.2 F 87 20 150/95 95
07/06/23 07:30 07/06/23 07:30 07/06/23 07:30 07/06/23 07:30 07/06/23 07:30
I&O
07/05/23 07/06/23 07/07/23
05:59 06:59 06:59
Intake Total
Output Total
Balance
Review of Systems
-
History Source: Patient
All other systems: Reviewed and negative
[2023-07-06 10:46] LABS: ALT (SGPT) 21 U/L (0-35); AST (SGOT) 25 U/L (14-36); Albumin 3.1 g/dl (3.5-5.0); Alkaline Phosphatase 85 U/L (38-126); Blood Urea Nitrogen 4 mg/dl (7-17); Calcium 8.8 mg/dl (8.4-10.2); Carbon Dioxide 21 mmol/L (22-30); Chloride 106 mmol/L (98-107); Estimated Creatinine Clearance 78 ml/min; Glucose 109 mg/dl (70-99); Potassium 2.8 mmol/L (3.5-5.1); Sodium 134 mmol/L (135-145); Total Bilirubin 0.4 mg/dl (0.2-1.3); Total Protein 5.5 g/dl (6.3-8.2); eGFR > 60.00
[2023-07-06] MEDS: KCL 40 MEQ PO (11:34)
--- NOTE | 2023-07-06 13:40 | W.PN.GI.CBS2 ---
Today's Communication / Plan
-
continued laxative, xray tomorrow, ok for diet
Assessment / Plan
-
57 year old female with GERD, gastroparesis, panhypopituitarism, hypothyroidism, migraine, asthma, bipolar disorder, anxiety, PTSD, polymyalgia/arteritis and orthostatic hypotension who presents for constipation, stating no bowel movement for 15
days. Her typical bowel habits prior to this were a formed stool once a day. She denies any recent diet changes. No new supplements or medication dosing changes. Tramadol was recently prescribed for pain, which is a new medication for her, typically
taking it once a day. She c/o nausea, which is chronic. She denies any vomiting, fever or chills. She does complain of diffuse abdominal tenderness. Pt is passing gas. She does c/o decreased appetite, which is also chronic for her, but states no
recent weight loss. She tried an enema at home, as well as Miralax without relief. CT scan of the abdomen/pelvis showing severe diffuse colonic stool burden without evidence of bowel obstruction or inflammatory changes. She states her last
colonoscopy was about 10 years ago while she was living in [place], reportedly normal. She believes her maternal aunt had colon cancer.
Pt had liquid BM o/n. She is suboptimally compliant in taking osmotic laxative. Will need continued encouragement. Ok to advance diet. Abdo xray tomorrow.
Total Time Spent with Patient (in minutes): 35
Subjective
Subjective
Date of Service: July 06, 2023
Had liquid BM o/n as per nursing staff.
Objective
Data Reviewed
Laboratory Data:
Laboratory Results
07/04/23 05:53
07/06/23 09:57
Laboratory Results
Magnesium 2.1 mg/dl (1.6-2.3) 07/04/23 05:53
Total Bilirubin 0.4 mg/dl (0.2-1.3) 07/06/23 09:57
AST 25 U/L (14-36) 07/06/23 09:57
ALT 21 U/L (0-35) 07/06/23 09:57
Alkaline Phosphatase 85 U/L (38-126) 07/06/23 09:57
Vital Signs and I&O:
Vital Signs
Temp Pulse Resp BP Pulse Ox
98.2 F 87 20 150/95 95
07/06/23 07:30 07/06/23 07:30 07/06/23 07:30 07/06/23 07:30 07/06/23 07:30
I&O
07/05/23 07/06/23 07/07/23
05:59 06:59 06:59
Intake Total
Output Total
Balance
[2023-07-06 15:21] VITALS: BP 135/97
[2023-07-06] MEDS: MIRALAX 17 GRAMS PO ×2 (15:39→20:40)
[2023-07-06] MEDS: CORTEF 15 MG PO (17:05)
[2023-07-06] MEDS: LAMICTAL 200 MG PO (17:05)
[2023-07-06] MEDS: COLACE 100 MG PO (20:37)
[2023-07-06] MEDS: SENOKOT 17.1999999999999993 MG PO (20:39)
[2023-07-06] MEDS: KCL 20 MEQ PO (20:39)
[2023-07-06] MEDS: DESYREL 300 MG PO (22:50)
[2023-07-06 23:08] VITALS: BP 142/95
[2023-07-07] MEDS: TYLENOL 650 MG PO (02:07)
[2023-07-07] MEDS: SYNTHROID 112 MCG PO (06:28)
[2023-07-07] MEDS: COMPAZINE 5 MG IV ×2 (06:30→21:20)
[2023-07-07 07:42] VITALS: BP 152/96
[2023-07-07] MEDS: FLORINEF 0.149999999999999994 MG PO (08:15)
[2023-07-07] MEDS: MIRALAX 17 GRAMS PO ×2 (08:16→21:12)
[2023-07-07] MEDS: BUSPAR 10 MG PO ×3 (08:16→22:23)
[2023-07-07] MEDS: GEODON 80 MG PO ×2 (08:17→17:00)
[2023-07-07] MEDS: SENOKOT 17.1999999999999993 MG PO ×2 (08:18→21:12)
[2023-07-07] MEDS: TOPAMAX 200 MG PO ×2 (08:18→21:12)
[2023-07-07] MEDS: COLACE 100 MG PO ×2 (08:19→21:13)
[2023-07-07] MEDS: KCL 20 MEQ PO ×2 (08:19→21:13)
[2023-07-07] MEDS: LAMICTAL 100 MG PO (08:19)
[2023-07-07] MEDS: DELTASONE 2.5 MG PO (08:19)
[2023-07-07] MEDS: TRILEPTAL 300 MG PO ×2 (08:20→21:13)
[2023-07-07] MEDS: PROTONIX IV 40 MG IV (08:20)
[2023-07-07] MEDS: NSS (PRESERVATIVE FREE) 10 ML IV (08:20)
[2023-07-07 08:55] LABS: Blood Urea Nitrogen 8 mg/dl (7-17); Calcium 8.9 mg/dl (8.4-10.2); Carbon Dioxide 21 mmol/L (22-30); Chloride 105 mmol/L (98-107); Estimated Creatinine Clearance 77 ml/min; Glucose 74 mg/dl (70-99); Potassium 3.5 mmol/L (3.5-5.1); Sodium 135 mmol/L (135-145); eGFR > 60.00
--- NOTE | 2023-07-07 10:00 | W.PN.GI.CBS2 ---
Addendum entered and electronically signed by John Lakhani MD 07/07/23 18:27:
I saw and examined the patient.
The PA's note was reviewed and I agree with the note.
Comment:
Some BMs o/n, abdo xray today showed mild improvement. Slow to respond, needs continued encouragement to take laxative. Continue with laxative and diet. GI s/o.
Original Note:
Today's Communication / Plan
-
pt with several stools
cont Miralax, senna and colace BID
per my review Xray with slow improvement of right stool burden and slight improvement per radiology read
cont diet- change to gastroparesis diet low fat, low in insoluble fiber frequent meals
will have dietary see pt for teaching- pt also asking about supplement
keep electrolytes corrected
consider OP colonoscopy when pt cleared out
OP follow up with Dr. Serrano after discharge-- pt has cancelled several visit prior to admission
Assessment / Plan
-
57 year old female with GERD, gastroparesis, panhypopituitarism, hypothyroidism, migraine, asthma, bipolar disorder, anxiety, PTSD, polymyalgia/arteritis and orthostatic hypotension who presents for constipation, stating no bowel movement for 15
days. Her typical bowel habits prior to this were a formed stool once a day. No relief with enema, miralax or home laxatives.
07/06 Nonspecific bowel gas pattern without signs of obstruction. Moderate diffuse colonic stool burden may reflect constipation, slightly improved
-constipation with right side stool burden
-GERD - stable
-gastroparesis some pain with eating and diet restart
-electrolyte imbalance with hypokalemia/hyponatremia
-orthostatic hypotension
-panhypopituitarism
-migraines
-asthma
-bipolar disorder
-anxiety
-PTSA
-polymyalgia/arteritis
PLAN:
pt with several stools
cont Miralax, senna and colace BID
per my review Xray with slow improvement of right stool burden and slight improvement per radiology read
cont diet- change to gastroparesis diet low fat, low in insoluble fiber frequent meals
will have dietary see pt for teaching- pt also asking about supplement
keep electrolytes corrected
consider OP colonoscopy when pt cleared out
OP follow up with Dr. Serrano after discharge-- pt has cancelled several visit prior to admission
Subjective
Subjective
Date of Service: July 07, 2023
passing some stools, on regular diet some pain with eating
Objective
Data Reviewed
Laboratory Data:
Laboratory Results
07/04/23 05:53
07/07/23 06:52
Laboratory Results
Magnesium 2.1 mg/dl (1.6-2.3) 07/04/23 05:53
Total Bilirubin 0.4 mg/dl (0.2-1.3) 07/06/23 09:57
AST 25 U/L (14-36) 07/06/23 09:57
ALT 21 U/L (0-35) 07/06/23 09:57
Alkaline Phosphatase 85 U/L (38-126) 07/06/23 09:57
Vital Signs and I&O:
Vital Signs
Temp Pulse Resp BP Pulse Ox
98.1 F 103 18 152/96 99
07/07/23 07:42 07/07/23 07:42 07/07/23 07:42 07/07/23 07:42 07/07/23 07:42
I&O
07/06/23 07/07/23 07/08/23
06:59 06:59 06:59
Intake Total 1510 / 1510
Output Total
Balance 1510 1510
Physical Exam
Physical Exam
HEENT: Anicteric and Moist mucous membranes
Cardiology: Other (tachy)
Pulmonary: Clear
GI: Soft, Non Distended and Tender (mild diffuse )
Extremities: No Edema
Neuro: Non Focal
[2023-07-07] MEDS: CORTEF 25 MG PO (12:59)
--- NOTE | 2023-07-07 13:02 | VNURNOTE ---
[facility] resumption of care completed in [facility] Port after review of chart and discussion with patient. Patient confirmed having [facility] contact number.
--- NOTE | 2023-07-07 13:09 | W.PN.HOSP.TC ---
Today's Communication/Plan
-
monitor vitals
see plan
laxatives
eventual SNF; DC planning
gastroparesis diet
Assessment / Plan
Assessment / Plan
Gen-AAOx3, NAD
HEENT-NC, AT, anicteric, clear oral mm
Neck-supple
CV-reg, no M, +S1/S2
Lungs-clear B/L
Abd-soft, mild distention and tenderness
Ext-no edema
Neuro-grossly non-focal
Psych-calm, cooperative
Severe constipation -she is on numerous medications all of which can cause constipation (ziprasidone, trazodone, tramadol, topiramate, oxcarbazepine, ondansetron, lamotrigine, famotidine, diphenhydramine, clonazepam). Appears that tramadol is a new
medication for her.
Continue aggressive bowel regimen. Appreciate GI input. Colorectal surgery consulted. No obstruction noted on CT scan from 07/01, no obstruction noted from abdominal film yesterday. Repeat abdominal x-ray showing improvement in stool burden
Need to be on gastroparesis diet per GI. Dietary consult placed. Will need to be more proactive with bowel regimen on discharge.
Today she is requesting surgery for her constipation. I explained to her that surgery is not indicated and she just needs to agree to take her bowel regimen. Patient is unreasonable.
Hyponatremia -improving
Panhypopituitarism -continue hormonal repletion. T4 levels normal.
Orthostatic hypotension -not currently orthostatic based on blood pressure, however heart rate does go up with standing.
Osteoporosis
Polymyalgia rheumatica -on prednisone taper.
Asthma -suspect moderate persistent asthma. Not in exacerbation.
Bipolar disorder -on multiple psychotropics.
History of migraine headaches
Full code
Dispo - PT recommending SNF on discharge. Previously living at home independently.
Anticipated Discharge: Within 24 hours
Subjective/Interval History
-
Date of Service: July 07, 2023
does have some discomfort
Objective Data
-
Labs:
Laboratory Results
07/07/23
06:52
Sodium 135
Potassium 3.5
Chloride 105
Carbon Dioxide 21 L
BUN 8
Creatinine 0.6
Glucose 74
Calcium 8.9
Vital Signs:
Vital Signs
Temp Pulse Resp BP Pulse Ox
98.1 F 103 18 152/96 99
07/07/23 07:42 07/07/23 07:42 07/07/23 07:42 07/07/23 07:42 07/07/23 08:15
I&O
07/06/23 07/07/23 07/08/23
06:59 06:59 06:59
Intake Total 1510 / 1510
Output Total
Balance 1510 / 1510
--- NOTE | 2023-07-07 13:30 | CM ---
Patient seen bedside.
PT/OT recommending skilled rehab, patient declined.
Patient would prefer home with [facility].
Plan: home with [facility]
[2023-07-07 15:28] VITALS: BP 153/97
[2023-07-07] MEDS: LAMICTAL 200 MG PO (16:59)
[2023-07-07] MEDS: CORTEF 15 MG PO (17:01)
[2023-07-07] MEDS: DESYREL 300 MG PO (22:22)
[2023-07-07 23:02] VITALS: BP 145/95
[2023-07-08 07:28] VITALS: BP 151/104
[2023-07-08] MEDS: TYLENOL 650 MG PO ×3 (07:33→16:22)
[2023-07-08] MEDS: SYNTHROID 112 MCG PO (07:33)
--- NOTE | 2023-07-08 08:21 | PN.CDI ---
CDI
- -
CDI:
Physician Documentation Request
Admit Date: 07/04/23 02:29
Dear Doctor Justin,
Clinical Indicators:
Patient admitted with severe constipation.
BMI 17.9
3/4 H & P, Physical Exam: Muscle wasting / cachexia noted.
Constipation, severe - etiology possibly secondary to polypharmacy, malnutrition, motility issue vs other'
07/06 note, '(BMI 17.9-underweight). Pt appears to have lost 3 lbs since 04-23-23 (2.8% wt change ~ 2.5 months)-not significant however will monitor.'
Based on the information, which of the following most accurately represents the patient's nutritional status?
Malnutrition (specify if mild, moderate or severe)
Cachexia without malnutrition
Underweight without malnutrition
Other (please specify)
Newell Criteria (ACP Hospitalist 2017)
2 or more criteria must be present for either
non severe or severe malnutrition
Note that the criteria differs related to the
presence of an acute or chronic illness
Acute Illness Chronic Illness
Energy Intake Non Severe: <75% for >7 days Non Severe: <75% for >1 month
Severe: <50% for >5 days Severe: <75% for >1 month
Weight Loss Non Severe: 1-2% over 1 week Non Severe: 5% over 1 month
5% over 1 month 7.5% over 3 months
7.5% over 3 months 10% over 6 months
1 year N/A 20% over 1 year
Severe: >2% over 1 week Severe: >5% over 1 month
>5% over 1 month >7.5% over 3 months
>7.5% over 3 months >10% over 6 months
1 year N/A >20% over 1 year
Body Fat Non Severe: Mild Decrease Non Severe: Mild Loss
Severe: Moderate Decrease Severe: Severe Loss
Muscle Mass Non Severe: Mild Decrease Non Severe: Mild Loss
Severe: Moderate Decrease Severe: Severe Loss
Fluid Accumulation Non Severe: Mild Accumulation Non Severe: Mild Accumulation
Severe: Moderate to severe Severe: Moderate to severe
accumulation accumulation
Reduced Cancer Registry Manager Strength Non Severe: N/A Non Severe: N/A
Severe: Measurably reduced Severe: Measurably reduced
Additional criteria that can be used to Determine if Mild or Moderate Malnutrition (Merck Manual 2018)
Mild Moderate Severe
Albumin gm/dl <3.0 gm/dl <2.5 gm/dl <2.0 gm/dl
Pre Albumin mg/dl <15 gm/dl <10 mg/dl <5.0 mg/dl
BMI <18.5 <17 <16
Use of terms such as suspected, likely, concern for, or probable (associated with a specific diagnosis that is being evaluated, monitored, or treated as if it exists) are acceptable and can be coded in the inpatient setting, when documented at the
time of discharge.
Thank you,
KWAME Guevara RN
CDI Specialist
available via tiger text
Please use your independent medical judgment in providing your response.
[2023-07-08 08:26] LABS: % Basophils 1.1 % (0-2); % Eosinophils 0.6 % (0-6); % Immature Granulocytes 0.9 % (0-0.5); % Lymphocytes 30.9 % (20.5-51.1); % Monocytes 9.7 % (1.7-9.3); % Neutrophils 56.8 % (42.2-75.2); Absolute Basophils 0.1 10^3/uL (0-0.2); Absolute Eosinophils 0.1 10^3/uL (0-0.7); Absolute Immature Granulocytes 0.1 10^3/uL (0-0.05); Absolute Lymphocytes 3.1 10^3/uL (1.2-3.4); Absolute Neutrophils 5.7 10^3/uL (1.4-6.5); Hematocrit 34.5 % (37.0-47.0); Hemoglobin 12.4 g/dL (12.0-16.0); Mean Corp Hgb Conc. 35.9 g/dL (33.0-37.0); Mean Corpuscular Hgb 35.1 pg (27.0-31.0); Mean Corpuscular Volume 97.7 fL (81.0-99.0); Mean Platelet Volume 9.1 fL (7.4-10.4); Nucleated Red Blood Cells % 0 %; Platelet Count 353 10^3/uL (130-400); Red Blood Cell Count 3.53 10^6/uL (4.20-5.40); Red Cell Dist. Width 12.4 % (11.5-14.5)
[2023-07-08 08:59] LABS: Blood Urea Nitrogen 5 mg/dl (7-17); Calcium 8.9 mg/dl (8.4-10.2); Carbon Dioxide 20 mmol/L (22-30); Chloride 109 mmol/L (98-107); Estimated Creatinine Clearance 66 ml/min; Glucose 74 mg/dl (70-99); Potassium 3.5 mmol/L (3.5-5.1); Sodium 134 mmol/L (135-145); eGFR > 60.00
[2023-07-08] MEDS: MIRALAX 17 GRAMS PO (09:04)
[2023-07-08] MEDS: TOPAMAX 200 MG PO ×2 (09:06→21:46)
[2023-07-08] MEDS: CORTEF 25 MG PO (09:07)
[2023-07-08] MEDS: COLACE 100 MG PO (09:08)
[2023-07-08] MEDS: SENOKOT 17.1999999999999993 MG PO (09:09)
[2023-07-08] MEDS: GEODON 80 MG PO ×2 (09:09→17:47)
[2023-07-08] MEDS: TRILEPTAL 300 MG PO ×2 (09:11→21:46)
[2023-07-08] MEDS: DELTASONE 2.5 MG PO (09:11)
[2023-07-08] MEDS: FLORINEF 0.149999999999999994 MG PO (09:11)
[2023-07-08] MEDS: LAMICTAL 100 MG PO (09:11)
[2023-07-08] MEDS: BUSPAR 10 MG PO ×3 (09:12→21:47)
[2023-07-08] MEDS: KCL 20 MEQ PO ×2 (09:12→21:45)
[2023-07-08] MEDS: NSS (PRESERVATIVE FREE) 10 ML IV (09:13)
[2023-07-08] MEDS: PROTONIX IV 40 MG IV (09:13)
--- NOTE | 2023-07-08 11:00 | W.PN.HOSP.TC ---
Today's Communication/Plan
-
monitor vitals
see plan
cw laxatives
dispo planning
Assessment / Plan
Assessment / Plan
Gen-AAOx3, NAD
HEENT-NC, AT, anicteric, clear oral mm
Neck-supple
CV-reg, no M, +S1/S2
Lungs-clear B/L
Abd-soft, mild distention and tenderness
Ext-no edema
Neuro-grossly non-focal
Psych-calm, cooperative
Severe constipation -she is on numerous medications all of which can cause constipation (ziprasidone, trazodone, tramadol, topiramate, oxcarbazepine, ondansetron, lamotrigine, famotidine, diphenhydramine, clonazepam). Appears that tramadol is a new
medication for her.
Continue aggressive bowel regimen. Appreciate GI input. Colorectal surgery consulted. No obstruction noted on CT scan from 07/01, no obstruction noted from abdominal film yesterday. Repeat abdominal x-ray showing improvement in stool burden
Need to be on gastroparesis diet per GI. Dietary consult placed. Will need to be more proactive with bowel regimen on discharge.
few days ago she was requesting surgery for her constipation. I explained to her that surgery is not indicated and she just needs to agree to take her bowel regimen. Patient is unreasonable at times
Hyponatremia -improving
Panhypopituitarism -continue hormonal repletion. T4 levels normal.
Orthostatic hypotension -not currently orthostatic based on blood pressure, however heart rate does go up with standing.
Osteoporosis
Polymyalgia rheumatica -on prednisone taper.
Asthma -suspect moderate persistent asthma. Not in exacerbation.
Bipolar disorder -on multiple psychotropics.
History of migraine headaches
Suspect underweight without malnutrition
Full code
Dispo - PT recommending SNF on discharge. Previously living at home independently.
Anticipated Discharge: Today
Subjective/Interval History
-
Date of Service: July 08, 2023
denies pain
Objective Data
-
Labs:
Laboratory Results
07/08/23
07:21
WBC 10.0
Hgb 12.4
Hct 34.5 L
Plt Count 353 D
Sodium 134 L
Potassium 3.5
Chloride 109 H
Carbon Dioxide 20 L
BUN 5 L
Creatinine 0.7
Glucose 74
Calcium 8.9
Vital Signs:
Vital Signs
Temp Pulse Resp BP Pulse Ox
98.8 F 113 14 151/104 97
07/08/23 07:28 07/08/23 07:28 07/08/23 07:28 07/08/23 07:28 07/08/23 07:28
I&O
07/07/23 07/08/23 07/09/23
06:59 06:59 06:59
Intake Total 1510 / 1510 1608 / 1608
Balance 1510 / 1510 1608 / 1608
[2023-07-08 11:55] VITALS: BP 160/116; PULSE 118
[2023-07-08 14:00] VITALS: BP 124/96; BP 152/100; BP 158/100; PULSE 108; PULSE 115; PULSE 127
[2023-07-08 15:26] VITALS: BP 145/103
--- NOTE | 2023-07-08 15:57 | CM ---
CM reviewed pt with Dr Anderson- pt ready for dc
Bedside meeting with pt who is now requesting SNF be arranged
Her first chocie is [facility]
PASRR completed and referrals sent via Care Port
Pt denied at [facility] due to age as well as [facility] expressed interested- awaiting follow up if dupilumab is needed at rehab or can be put on hold
All other referrals pending
Discharge Disposition- SNF
[2023-07-08] MEDS: COMPAZINE 5 MG IV (16:10)
[2023-07-08] MEDS: CORTEF 15 MG PO (17:43)
[2023-07-08] MEDS: LAMICTAL 200 MG PO (17:47)
[2023-07-08] MEDS: COLACE PO (20:34)
[2023-07-08] MEDS: MIRALAX PO (20:34)
[2023-07-08] MEDS: SENOKOT PO (20:35)
[2023-07-08] MEDS: DESYREL 300 MG PO (21:46)
[2023-07-08 23:55] VITALS: BP 146/93
[2023-07-09] MEDS: SYNTHROID 112 MCG PO (06:20)
[2023-07-09 07:35] VITALS: BP 150/98
[2023-07-09 08:24] LABS: % Basophils 1.2 % (0-2); % Lymphocytes 39.5 % (20.5-51.1); % Monocytes 8.9 % (1.7-9.3); % Neutrophils 48.4 % (42.2-75.2); Absolute Basophils 0.1 10^3/uL (0-0.2); Absolute Eosinophils 0.1 10^3/uL (0-0.7); Absolute Immature Granulocytes 0.1 10^3/uL (0-0.05); Absolute Lymphocytes 3.7 10^3/uL (1.2-3.4); Absolute Monocytes 0.8 10^3/uL (0.1-0.6); Absolute Neutrophils 4.6 10^3/uL (1.4-6.5); Hematocrit 33.9 % (37.0-47.0); Hemoglobin 11.8 g/dL (12.0-16.0); Mean Corp Hgb Conc. 34.8 g/dL (33.0-37.0); Mean Corpuscular Hgb 33.9 pg (27.0-31.0); Mean Corpuscular Volume 97.4 fL (81.0-99.0); Mean Platelet Volume 8.8 fL (7.4-10.4); Nucleated Red Blood Cells % 0 %; Platelet Count 360 10^3/uL (130-400); Red Blood Cell Count 3.48 10^6/uL (4.20-5.40); Red Cell Dist. Width 12.5 % (11.5-14.5); White Blood Cell Count 9.5 10^3/uL (4.8-10.8)
[2023-07-09 08:35] VITALS: BP 150/98; PULSE 112
[2023-07-09] MEDS: COLACE PO (08:37)
[2023-07-09] MEDS: TYLENOL 650 MG PO ×2 (08:40→13:40)
[2023-07-09] MEDS: CORTEF 25 MG PO (08:41)
[2023-07-09] MEDS: FLORINEF 0.149999999999999994 MG PO (08:42)
[2023-07-09] MEDS: BUSPAR 10 MG PO (08:42)
[2023-07-09] MEDS: GEODON 80 MG PO (08:42)
[2023-07-09] MEDS: TRILEPTAL 300 MG PO (08:43)
[2023-07-09] MEDS: KCL 20 MEQ PO (08:43)
[2023-07-09] MEDS: TOPAMAX 200 MG PO (08:44)
[2023-07-09] MEDS: DELTASONE 2.5 MG PO (08:44)
[2023-07-09] MEDS: LAMICTAL 100 MG PO (08:45)
[2023-07-09] MEDS: PROTONIX IV 40 MG IV (08:45)
[2023-07-09 08:46] LABS: Blood Urea Nitrogen 7 mg/dl (7-17); Calcium 8.8 mg/dl (8.4-10.2); Carbon Dioxide 18 mmol/L (22-30); Chloride 110 mmol/L (98-107); Estimated Creatinine Clearance 66 ml/min; Glucose 73 mg/dl (70-99); Potassium 3.4 mmol/L (3.5-5.1); Sodium 133 mmol/L (135-145); eGFR > 60.00
[2023-07-09] MEDS: NSS (PRESERVATIVE FREE) 10 ML IV (08:46)
[2023-07-09] MEDS: MIRALAX PO (10:12)
[2023-07-09] MEDS: SENOKOT PO (10:13)
--- NOTE | 2023-07-09 10:29 | CM ---
Addendum entered by Leona Echols 07/09/23 12:55:
IMM completed.
Addendum entered by Leona Echols 07/09/23 11:23:
[facility]
report# [phone]

Ambulance medical necessity forms on chart.
Original Note:
facility acceptances reviewed with patient.
Patient chose [facility].
TC to [facility] re bed availability. await TCB.
Patient with a hx bipolar disorder, per patient no inpatient admissions.
Plan: skilled rehab when bed available.
--- NOTE | 2023-07-09 11:27 | W.PN.HOSP.TC ---
Today's Communication/Plan
-
monitor vitals
see plan
dc today to SNF
time of discharge 36 minutes
Assessment / Plan
Assessment / Plan
Gen-AAOx3, NAD
HEENT-NC, AT, anicteric, clear oral mm
Neck-supple
CV-reg, no M, +S1/S2
Lungs-clear B/L
Abd-soft, non tender
Ext-no edema
Neuro-grossly non-focal
Psych-calm, cooperative
Severe constipation -she is on numerous medications all of which can cause constipation (ziprasidone, trazodone, tramadol, topiramate, oxcarbazepine, ondansetron, lamotrigine, famotidine, diphenhydramine, clonazepam). Appears that tramadol is a new
medication for her.
Continue aggressive bowel regimen. Appreciate GI input. Colorectal surgery consulted. No obstruction noted on CT scan from 07/01, no obstruction noted from abdominal film yesterday. Repeat abdominal x-ray showing improvement in stool burden
Need to be on gastroparesis diet per GI. Dietary consult placed. Will need to be more proactive with bowel regimen on discharge.
few days ago she was requesting surgery for her constipation. I explained to her that surgery is not indicated and she just needs to agree to take her bowel regimen. Patient is unreasonable at times
Hyponatremia -improving
hypokalemia
replete
Panhypopituitarism -continue hormonal repletion. T4 levels normal.
Orthostatic hypotension -not currently orthostatic based on blood pressure, however heart rate does go up with standing.
Osteoporosis
Polymyalgia rheumatica -on prednisone taper.
Asthma -suspect moderate persistent asthma. Not in exacerbation.
hx of eczema
Bipolar disorder -on multiple psychotropics.
History of migraine headaches
Suspect underweight without malnutrition
Full code
Dispo - PT recommending SNF on discharge. Previously living at home independently.
Anticipated Discharge: Today
Subjective/Interval History
-
Date of Service: July 09, 2023
denies nausea
Objective Data
-
Labs:
Laboratory Results
07/09/23
07:59
WBC 9.5
Hgb 11.8 L
Hct 33.9 L
Plt Count 360
Sodium 133 L
Potassium 3.4 L
Chloride 110 H
Carbon Dioxide 18 L
BUN 7
Creatinine 0.7
Glucose 73
Calcium 8.8
Vital Signs:
Vital Signs
Temp Pulse Resp BP Pulse Ox
98.2 F 112 16 150/98 100
07/09/23 07:35 07/09/23 07:35 07/09/23 07:35 07/09/23 07:35 07/09/23 07:35
I&O
07/08/23 07/09/23 07/10/23
06:59 06:59 06:59
Intake Total 1608 / 1608 120 / 120
Balance 1608 / 1608 120 / 120
--- NOTE | 2023-07-09 11:39 | W.DCSUMMARY ---
Discharge Summary
Discharge Data
Date of Admission: 07/04/23
Date of Discharge: 07/09/23
-
Pending Results: No
Hospital Course
58-year-old female with past medical history of panhypopituitarism, orthostatic hypotension, osteoporosis, polymyalgia rheumatica, asthma, history of eczema, bipolar disorder, migraine, opioid use came to the hospital with severe constipation which
was likely thought was secondary to current medication use. Patient was seen by gastroenterology throughout hospitalization and was started on aggressive bowel regimen. CAT scan was done which did not show any obstruction. Patient over time
started to have improvement in her bowel movements. Repeat abdominal x-ray showed improvement in her stool burden. GI recommended patient to be started on gastroparesis diet and to follow-up with them outpatient. Patient was also evaluated by
physical therapy who recommended SNF. Once patient symptoms improved she was then discharged to rehab with instructions to follow-up with all her physicians outpatient.
Discharge Plan
-
Patient Disposition: Usp/SNF
Discharge Diagnosis/Procedures: Severe constipation
Hyponatremia
Panhypopituitarism
Orthostatic hypotension
Ambulatory dysfunction
Diet: Other diet
Additional Diets: Gastroparesis diet
Activity: As tolerated
Driving Restrictions: Not until seen by your Dr
Bathing Restrictions: None
Referrals:
Miguel Angel Serrano MD [Active] - (Call to arrange GI follow up after discharge )
Carlos Vora MD [Family Provider] - in less than 1 week
Prescriptions:
New
potassium chloride 20 mEq Tablet,Er Particles/Crystals
20 meq PO BID Qty: 0 0RF
docusate sodium 100 mg Capsule
100 mg PO BID Qty: 0 0RF
fludrocortisone 0.1 mg Tablet
0.15 mg PO DAILY Qty: 0 0RF
polyethylene glycol 3350 [HealthyLax] 17 gram Powder In Packet
17 g PO BID Qty: 0 0RF
sennosides [Senna Laxative] 8.6 mg Tablet
17.2 mg PO BID Qty: 0 0RF
Continued
levothyroxine 112 MCG tablet
112 mcg PO DAILY
hydrocortisone 10 MG tablet
15 mg PO DAILY@2100
Hold Instructions: please first take dexamethasone taper as prescribed prior to restarting hydrocortisone
hydrocortisone 10 MG tablet
25 mg PO DAILY
Hold Instructions: please first take dexamethasone taper as prescribed prior to restarting hydrocortisone
pantoprazole 40 MG tablet,delayed release (DR/EC)
40 mg PO DAILY Qty: 30 0RF
lamotrigine 100 MG tablet
100 mg PO DAILY
diphenhydramine HCl [Benadryl] 25 mg Capsule
25 mg PO TIDPRN PRN (Reason: allergic reaction)
oxcarbazepine 300 mg Tablet
300 mg PO BID
ondansetron 8 mg Tablet,Disintegrating
8 mg PO BID
Hold Instructions: hold until follow up with your primary care doctor
famotidine 20 mg Tablet
20 mg PO BID
buspirone 10 mg Tablet
10 mg PO TID
Trudhesa 0.725 mg/pump act. (4 mg/mL) Cushman,Non-Aerosol
1 spray INTRANASAL DAILYPRN PRN (Reason: migraine)
prednisone 5 mg Tablet
2.5 mg PO DAILY
torsemide 10 mg Tablet
10 mg PO DAILY
Dupixent Syringe 300 mg/2 mL Syringe
300 mg SC Q2W
Trelegy Ellipta 100-62.5-25 mcg Blister With Device
1 inh INHALATION R DAILY@1200
ziprasidone HCl 80 mg Capsule
80 mg PO BID
lamotrigine 200 mg Tablet
200 mg PO DAILY@2100
polyethylene glycol 3350 [Miralax] 17 gram Powder In Packet
17 g PO DAILY PRN (Reason: constipation)
acetaminophen 650 mg Tablet Extended Release
650 mg PO Q8H PRN (Reason: mild pain)
trazodone 100 mg Tablet
300 mg PO HS
topiramate 200 mg Tablet
200 mg PO BID
albuterol sulfate [Ventolin HFA] 90 mcg/actuation Hfa Aerosol Inhaler
1 puff INHALATION R Q4HPRN PRN (Reason: sob)
cholecalciferol (vitamin D3) 25 mcg (1,000 unit) Tablet
25 mcg PO DAILY
calcium citrate-vitamin D3 [Citracal + D Maximum] 315 mg-6.25 mcg (250 unit) Tablet
1 tab PO DAILY
multivit with min-folic acid [Multivitamin Gummies] 200 mcg Tablet,Chewable
2 tab PO DAILY@2100
Fiber Gummies 2 gram Tablet,Chewable
4 g PO DAILY
Aimovig Autoinjector 140 mg/mL Auto-Injector
140 mg SC Q28D
Tyrvaya 0.03 mg/spray Cushman, Metered, Non-Aerosol
1 spray INTRANASAL BID
Dulcolax (bisacodyl) liquid
1 dose PO DAILYPRN PRN (Reason: constipation)
Bellsama
20 mg PO
Patient Comments:
Pt reports taking '20 mg about 2 weeks ago.'
clonazepam 1 MG tablet
1 mg PO TID Qty: 9 0RF
tramadol 50 mg Tablet
50 mg PO Q8H PRN (Reason: severe pain) Qty: 12 0RF
Dayvigo 5 mg Tablet
5 mg PO HS Qty: 3 0RF
Discharge Orders:
Discharge Patient (As Directed); Ordered 07/09/23
Ordered By: Tima Anderson
Discharge Date and Time
Discharge Date/Time: 07/09/23 15:56
[2023-07-09 11:40] VITALS: BP 136/97
[2023-07-09 11:41] VITALS: BP 136/97; BP 139/93; PULSE 114
== END 2023-07-09 15:56 | DRG 392 ==
LOC: 4 WEST ACU 02:29
PROVIDERS: Clinical Nurse Specialist Family Health; Hospitalist; ADMITTING PHYSICIAN Hospitalist; ATTENDING PHYSICIAN Internal Medicine; CONSULT PHYSICIAN Internal Medicine Gastroenterology; CONSULT PHYSICIAN Surgery; EMERGENCY PHYSICIAN Student in an Organized Health Care Education/Training Program; FAMILY PHYSICIAN Internal Medicine
DX: K59.03 Drug induced constipation (principal); E23.0 Hypopituitarism; E87.1 Hypo-osmolality and hyponatremia; Z68.1 Body mass index [BMI] 19.9 or less, adult; J45.40 Moderate persistent asthma, uncomplicated; F31.9 Bipolar disorder, unspecified; M35.3 Polymyalgia rheumatica; K31.84 Gastroparesis; E87.6 Hypokalemia; R63.6 Underweight
CPT/HCPCS: 74018; 74019; 74022; 74177; 80048; 80053; 83605; 83735; 83935; 84300; 84439; 85025; 85027; 93005; 96374; 96375; 97163; 97167; 97530; 97535; 99285; Q9967

== ENCOUNTER → 2023-08-06 18:11 | Outpatient (REF) | payer MEDICARE, OTHER, SELFPAY ==
[2023-08-06 19:23] LABS: Urine Albumin Negative (Neg - Trace); Urine Bilirubin Negative (Negative); Urine Character Clear (Clear); Urine Color Straw; Urine Glucose Negative (Negative); Urine Ketone Negative (Negative); Urine Leukocyte Negative (Negative); Urine Nitrite Negative (Negative); Urine Occult Blood Negative (Negative); Urine Urobilinogen Negative (Neg - 1+)
== END ==
LOC: CLAB 18:11
PROVIDERS: ATTENDING PHYSICIAN Internal Medicine
DX: N39.0 Urinary tract infection, site not specified (principal)
CPT/HCPCS: 81003; 87077; 87086

== ENCOUNTER → 2023-09-03 17:29 | Outpatient (REF) | payer MEDICARE, OTHER, SELFPAY | LOC: PAVMRI 17:29 | PROVIDERS: ATTENDING PHYSICIAN Pain Medicine Interventional Pain Medicine; FAMILY PHYSICIAN Internal Medicine | DX: M54.12 Radiculopathy, cervical region (principal); M54.16 Radiculopathy, lumbar region | CPT/HCPCS: 72141; 72148 ==

== ENCOUNTER 2023-12-02 21:24 | Inpatient (IN) | payer MEDICARE, OTHER, SELFPAY ==
[2023-12-02 17:25] VITALS: BP 108/73
[2023-12-02 17:52] VITALS: BP 93/69
[2023-12-02 17:55] VITALS: BMI 17.6
[2023-12-02 18:09] LABS: % Basophils 0.6 % (0-2); % Eosinophils 0.9 % (0-6); % Lymphocytes 11.4 % (20.5-51.1); % Monocytes 6.5 % (1.7-9.3); % Neutrophils 79.6 % (42.2-75.2); Absolute Basophils 0.2 10^3/uL (0-0.2); Absolute Eosinophils 0.2 10^3/uL (0-0.7); Absolute Immature Granulocytes 0.2 10^3/uL (0-0.05); Absolute Lymphocytes 2.8 10^3/uL (1.2-3.4); Absolute Monocytes 1.6 10^3/uL (0.1-0.6); Absolute Neutrophils 19.8 10^3/uL (1.4-6.5); Hematocrit 33.4 % (37.0-47.0); Hemoglobin 11.8 g/dL (12.0-16.0); Mean Corp Hgb Conc. 35.3 g/dL (33.0-37.0); Mean Corpuscular Hgb 32.2 pg (27.0-31.0); Mean Platelet Volume 8.9 fL (7.4-10.4); Nucleated Red Blood Cells % 0 %; Platelet Count 322 10^3/uL (130-400); Red Blood Cell Count 3.67 10^6/uL (4.20-5.40); Red Cell Dist. Width 13.2 % (11.5-14.5); White Blood Cell Count 24.8 10^3/uL (4.8-10.8)
[2023-12-02 18:32] LABS: ALT (SGPT) 16 U/L (0-35); AST (SGOT) 26 U/L (14-36); Albumin 3.7 g/dl (3.5-5.0); Alkaline Phosphatase 81 U/L (38-126); Blood Urea Nitrogen 16 mg/dl (7-17); Calcium 8.8 mg/dl (8.4-10.2); Carbon Dioxide 19 mmol/L (22-30); Chloride 96 mmol/L (98-107); Estimated Creatinine Clearance 50 ml/min; Glucose 98 mg/dl (70-99); Potassium 3.8 mmol/L (3.5-5.1); Sodium 123 mmol/L (135-145); Total Bilirubin 0.5 mg/dl (0.2-1.3); eGFR > 60.00
[2023-12-02 18:37] LABS: Troponin I < 0.012 ng/ml
[2023-12-02 19:00] VITALS: BP 98/69
--- NOTE | 2023-12-02 19:00 | EDRN ---
Report received, introduced myself to patient who will be going to x-ray shortly, no further complaints at this time.
[2023-12-02] MEDS: NSS 1000 IV ×2 (19:13→23:06)
[2023-12-02 19:40] LABS: Lactic Acid 1.5 mmol/L (0.7-2.0)
--- NOTE | 2023-12-02 19:52 | ED.GENMED ---
History of Present Illness
General
Chief Complaint: Chest Pain
Time Seen by Provider: 12/02/23 17:39
History of Present Illness
History of Present Illness:
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 Patient reports symptoms for the past
2 weeks. Cough has been nonproductive. She reports fever at home, 102, had extra trying Tylenol prior to arrival. She reports history of pneumonia in the past. Denies any history of blood clot, recent travel, recent surgery. Also reports
generalized chest pain, worse with deep inspiration and cough. Denies abdominal pain or GI symptoms. She denies additional medical complaints
Past History
Past History
ED Past Medical History: Asthma, COPD, Hypothyroidism, Psychiatric (Bipolar disorder, anxiety, PTSD), Other (TMJ dysfunction, migrainous headaches, PNA, Sinusitis chronic, Gastroporesis, Hypopituatarism, ) and Other (hypopiititutarism, adrenal
insufficiency)
ED Past Surgical History: Orthopedic (Left thumb and hand surgery, Right wrist surgery, TMJ surgery X 2) and Other (cataracts, Vocal cord surgery)
Social History
Tobacco: Non-smoker
Alcohol: None
Drug: None
Personal: Single
Living: alone (dad)
Employment: Not employed
Family History
Family History: Other
Phy Exam
Physical Exam
Physical Exam:
General: Well-appearing, no clinical signs of dehydration, nontoxic and in no acute distress
HEENT: protecting airway
Neck: appears supple
CV: Tachycardic, regular rhythm, no evidence of cyanosis
Resp: Rales bilaterally, no increased work of breathing
Abd: Soft and non-distended, no tenderness to palpation, normal bowel sounds
Extremities: No deformities, no swelling, no erythema, pulses and sensation intact
Neuro: alert, no focal neurologic deficit
: deferred
Rectal: deferred
Psych: Normal affect
Skin: Intact
Scores
Heart Score for Chest Pain Patients
STEMI patient?: No
History: Slightly or Non-Suspicious
ECG: Normal
Age: >45 - <65 years
Risk Factors: 1 or 2 Risk Factors
Troponin: </= Normal Limit
Heart Score for Chest Pain Patients: 2
Heart Score Risk: 2.5% MACE over next 6 weeks
Course
Orders/Labs/Results
Orders:
Orders
12/02/23 Breakfast
Regular
At Your Request: Full Participation
Does patient need a safe tray?: No
12/02/23 17:29
Electrocardiogram (*1) Urgent
Reason for Study: Other
Other Reason for Exam: Respiratory Distress
Cardiac Monitoring- Treatment ONCE
EKG- Treatment ONCE
IV Insert/Care/Rem.- Treatment PRN
CR Chest - 2 Views Urgent
Comment:
Reason For Exam: respiratory distress
O2 Therapy [RESP] Urgent
Titrate/Wean O2 to maintain O2 sat greater than (%): 93
Special Instructions: TO MAINTAIN CONTINUOUS O2 SATS >/= 93%
Pulse Ox/cont/shift [RESP] Urgent
Quantity: 1
Special Instructions: continuous pulse ox
12/02/23 18:03
Complete Blood Count/With Diff Urgent
Comprehensive Metabolic Panel Urgent
Troponin I Urgent
12/02/23 18:59
0.9% Sodium Chloride 1000 ml [Nss] 1,000 ml IV BOLUS
12/02/23 19:13
Lactic Acid Q4H
Comment: CANCEL 2nd LACTIC ACID IF 1st LACTIC ACID IS LESS THAN 2
Blood Culture Urgent
MAXI Source: Blood/Venous
Specimen Description:
12/02/23 19:50
Doxycycline [Vibramycin] 100 mg PO NOW STA
Vancomycin 1 Gram/200 ml [Vancocin] 1 gram in 200 ml IV NOW
12/02/23 20:01
Acetaminophen [Tylenol] 1,000 mg PO NOW STA
12/02/23 20:51
COVID-19 Antigen Stat
Source: Nasal Swab
12/02/23 20:54
Admit/Transfer Patient As Directed
Co-Sign Provider:
Level of Care: Inpatient admission
Assign to:: Telemetry
Physician / Group: marry
Diagnosis: pneumonia
Reason for Telemetry: Other
Other Reason for Telemetry: sepsis
Date to Stop Telemetry: 12/04/23
Time to Stop Telemetry: 11:00
Reason for Hospitalization: pneumonia
Expected length of stay greater than two midnights?: Yes
ELOS- Estimated Length of Stay in days: 3
I certify the patient meets the requirements for IP care: Yes
PRN Pain Medication Management As Directed
May give lesser potent ordered pain med per pt: Yes
preference::
Protocol:: Medication orders for pain may be administered in a
manner that supports deferring to patient preference
when the pt is:
- Requesting an ordered lesser potent pain medication.
Least to most potent pain medications are defined
as: acetaminophen < NSAID < tramadol < opioids
(morphine, oxycodone, hydromorphone).
- Requesting a lesser dose of the same medication IF
ORDERED.
- Requesting a less intrusive route of administration
if both routes are prescribed by the provider (PO <
IV).
12/02/23 20:57
Code Status As Directed
Resuscitation Status: Full Code
12/02/23 21:01
Legionella Urinary Antigen Stat
MAXI Source: Urine
Specimen Description:
Strep pneumoniae Antigen Stat
MAXI Source: Urine
Specimen Description:
12/02/23 22:00
Flush (0.9% Sodium Chloride) [Flush (Nss)] See Dose Instructions IV PER PROTOCOL
12/02/23 22:10
0.9% Sodium Chloride 1000 ml [Nss] 1,000 ml IV 100 mls/hr
Buspirone [Buspar] 10 mg PO TID
Clonazepam [Klonopin] 1 mg PO TID
Polyethylene Glycol Powder [Miralax] 17 grams PO DAILYPRN PRN
Pregabalin [Lyrica] 75 mg PO HS
Trazodone [Desyrel] 300 mg PO HS
lemborexant [Dayvigo] 5 mg PO HS
suvorexant [Belsomra] 20 mg PO HS
12/02/23 22:10
Activity As Directed
Activity Level: As Tolerated
Intake/ Output As Directed
Frequency: Per unit guidelines
Vital Signs As Directed
Frequency: Per unit guidelines
DX Deep Vein Thrombosis Video Routine
12/02/23 23:00
Lamotrigine [Lamictal] 200 mg PO HS
12/03/23 00:00
Hydrocortisone [Cortef] 50 mg PO Q8
12/03/23 06:00
Levothyroxine [Synthroid] 112 mcg PO DAILY @ 0600
12/03/23 06:55
BMP [Basic Metabolic Panel] IN AM
Complete Blood Count/No Diff IN AM
12/03/23 08:00
Budesonide/Formoterol 80/4.5 [Symbicort 80/4.5 Mcg Inhaler] 2 puff INH R BID
Famotidine [Pepcid] 20 mg PO BID
Heparin 5,000 units SC Q12
Lamotrigine [Lamictal] 100 mg PO DAILY
Oxcarbazepine [Trileptal] 300 mg PO BID
Pantoprazole [Protonix] 40 mg PO BID
Pregabalin [Lyrica] 50 mg PO BID@0800,1500
Topiramate [Topamax] 200 mg PO BID
Ziprasidone [Geodon] 80 mg PO BID
varenicline [Tyrvaya] 1 spray NASAL BID
12/04/23 06:00
BMP [Basic Metabolic Panel] IN AM
Complete Blood Count/No Diff IN AM
12/04/23 11:00
DC Protocol for Telemetry ONCE
12/05/23 06:00
BMP [Basic Metabolic Panel] IN AM
Complete Blood Count/No Diff IN AM
12/06/23 06:00
BMP [Basic Metabolic Panel] IN AM
Complete Blood Count/No Diff IN AM
12/07/23 06:00
BMP [Basic Metabolic Panel] IN AM
Complete Blood Count/No Diff IN AM
Abnormal Lab Results
12/02/23
18:03
WBC 24.8 H 10^3/uL
(4.8-10.8)
RBC 3.67 L 10^6/uL
(4.20-5.40)
Hgb 11.8 L g/dL
(12.0-16.0)
Hct 33.4 L %
(37.0-47.0)
MCH 32.2 H pg
(27.0-31.0)
Abs Immat Gran (auto) 0.2 H 10^3/uL
(0-0.05)
Absolute Neuts (auto) 19.8 H 10^3/uL
(1.4-6.5)
Absolute Monos (auto) 1.6 H 10^3/uL
(0.1-0.6)
Immature Gran % 1.0 H %
(0-0.5)
Neutrophils % 79.6 H %
(42.2-75.2)
Lymphocytes % 11.4 L %
(20.5-51.1)
Sodium 123 L mmol/L
(135-145)
Chloride 96 L mmol/L
(98-107)
Carbon Dioxide 19 L mmol/L
(22-30)
Total Protein 6.0 L g/dl
(6.3-8.2)
12/02/23 18:03
12/02/23 18:03
Vital Signs
Initial and Last Documented VS:
Initial Vital Signs
Temp Pulse Resp BP Pulse Ox
98.5 F 125 20 108/73 96
12/02/23 17:25 12/02/23 17:25 12/02/23 17:25 12/02/23 17:25 12/02/23 17:25
Last Documented Vital Signs
Temp Pulse Resp BP Pulse Ox
97.8 F 79 17 140/82 96
12/03/23 15:00 12/03/23 15:00 12/03/23 15:00 12/03/23 15:00 12/03/23 15:00
MDM/Problems Addressed
MDM/Problems Addressed:
58-year-old female with history of hypopituitarism and hypothyroidism, bipolar disorder, asthma and COPD presenting to the emergency department for cough, shortness of breath, chest pain. Vital signs and arrival significant for tachycardia.
On exam, patient in no respiratory distress, is tachycardic. Fever prior to arrival. Ultimately suspect infectious pathology. Lower suspicion for PE. EKG obtained, nonischemic without concern for ACS. Suspect chest pain secondary to patient's
cough and respiratory symptoms. On lung exam, diffuse rales and rhonchorous breath sounds. Ultimately suspect pneumonia, notes history of pneumonia in the past. Plan for laboratory analysis and chest x-ray imaging. Will start IV fluids.
19:00 - Labs are abnormal, significant leukocytosis. Patient however is on daily steroids which could be augmenting her white count. Regardless, patient is also hyponatremic, suspected dehydration. Will add on lactic acid and blood culture,
meeting SIRS criteria.
20:00 - Lactic acid within normal limits. Blood pressure remains within normal limits without concern for severe sepsis or septic shock, without indication for 30 cc/kg fluid bolus. Will continue IV fluids as clinically indicated. Chest x-ray
consistent with pneumonia. Patient with multiple drug allergies. Will administer vancomycin and doxycycline. Plan for admission for hyponatremia and sepsis from pulmonary source.
*EKG
Interpreted by ED Provider?: Yes
EKG Intrepretation Date: 12/02/23
EKG Intrepretation Time: 19:58
Interpretation: normal
Comparison EKG: no changes (07/04/23)
Heart Rate: 116
Rate: tachycardiac
Rhythm: sinus
Mclaughlin: normal axis
Interval: normal interval
QRS Pattern: normal QRS
Ischemia: no ischemia
*Critical Care Note
Total Time (30-74mins, 75-104mins- exclusive of procedures): Not Applicable
ED Attending Note
-
Portions of this chart may have been created with voice recognition software.� Occasional wrong word or��sound alike� substitutions may have occurred due to the inherent limitations of voice recognition software.
Discharge Plan
Departure
Patient Disposition: Admit
Date of Disposition: 12/02/23
Time of Disposition: 20:08
Presentation/result/management discussed w/ accepting MD/DO: Hospitalist
Patient with high blood pressure during this ER visit?: Yes
Condition: Fair
Discharge Problem:
Sepsis due to pneumonia, Acute hyponatremia
Interventions
Interventions:
*Risk Screen - Suicide Last Done: 12/02/23 17:25
*General Assessment Last Done: 12/02/23 17:25
*Neglect/Abuse Screening Last Done: 12/02/23 17:25
ED- Fall Risk Assessment Last Done: 12/02/23 19:52
*ED COVID-19 Vaccine History Last Done: 12/02/23 22:07
*Nursing Disposition Last Done: 12/02/23 22:07
ED- Cardiac Assessment Last Done: 12/02/23 17:56
Discharge Date and Time
Discharge Date/Time: 12/02/23 22:07
[2023-12-02] MEDS: VIBRAMYCIN 100 MG PO (19:56)
[2023-12-02] MEDS: VANCOCIN 200 IV (19:56)
[2023-12-02 20:00] VITALS: BP 105/78
[2023-12-02] MEDS: TYLENOL 1000 MG PO (20:05)
--- NOTE | 2023-12-02 20:09 | EDRN ---
Patient complained of headache spoke with the provider and medicated as ordered, call lynch in reach, lights turned down, no further complaints
--- NOTE | 2023-12-02 20:26 | HPS.HSE ---
Family Physician
-
Family Physician: Carlos Vora
Chief Complaint
-
cough
sob
History of Present Illness
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 cough is dry. sob worse with exertion.
she had intermittent fever for past two week. today it was 102. she was taking her inhalers with no relief in her symptoms. stated NGUYEN, and dizzy. denied runny nose, congestion. she was complaining of chest heaviness with cough. denied abdominal
pain,n,nv,d. denied dysuria or hematuria.
chest x ray with pneumonia. got mko and yadiray in er. admitting for further manament.
Medical History
Past Medical History
Past Medical History: Reports Other
Additional Past Medical History:
Growth hormone deficiency
Hypothyroidism
Migraine hyponatremia hypothyroidism
Bipolar
Vocal cord paralyzes bipolar
COPD
Adderall insufficiency
Past Surgical History: Reports Other
Additional Past Surgical History:
Wrist plate placement
Left hand surgery left hand pinky surgery
Vocal cord surgery
Bilateral cataract
Sinus surgery carpal tunnel
Social History
Tobacco: Non-smoker
Alcohol: None
Drug: None
Personal: Single
Living: Alone
Family History
Family History: Not pertinent
Allergies / Home Medications
Allergies reflects when Allergies were last updated in [employer].
Home Medications with original date entered in [employer]
Allergy/Medication List:
Allergies
Allergy/AdvReac Type Severity Reaction Status Date / Time
amoxicillin [From Augmentin] Allergy Nausea / Verified 07/03/23 21:56
Vomiting -
tolerated
meropenem
02/2019
azithromycin [From Zithromax] Allergy Swelling Verified 07/03/23 21:56
ceftibuten [From Cedax] Allergy Swelling - Verified 07/03/23 21:56
tolerated
meropenem
02/2019
citalopram [From Celexa] Allergy suicidal Verified 07/03/23 21:56
ideation
clavulanic acid Allergy Nausea / Verified 07/03/23 21:56
[From Augmentin] Vomiting
corn Allergy Anaphylaxis Verified 07/03/23 21:56
'except
cornstarch'
egg Allergy Nausea / Verified 07/03/23 21:56
Vomiting
migraines
gluten Allergy Nausea Verified 07/03/23 21:56
-stomach
ache,
diarrhea,
migraine
hydromorphone [From Dilaudid] Allergy Rash Verified 07/03/23 21:56
ibuprofen Allergy Unknown Verified 07/03/23 21:56
Iodinated Contrast Media Allergy Rash Verified 07/03/23 21:56
latex Allergy Anaphylaxis Verified 07/03/23 21:56
Latex, Natural Rubber Allergy Anaphylaxis Verified 07/03/23 21:56
levofloxacin [From Levaquin] Allergy Swelling Verified 07/03/23 21:56
Milk Containing Products Allergy Nausea / Verified 07/03/23 21:56
(Dairy) Vomiting -
[Milk Containing Products] migraines
mushroom Allergy Anaphylaxis Verified 07/03/23 21:56
nickel Allergy swelling Verified 07/03/23 21:56
and itching
Opioids - Morphine Analogues Allergy 'all Verified 07/03/23 21:56
opioids'
peanut Allergy Anaphylaxis Verified 07/03/23 21:56
Poultry Allergy Nausea Verified 07/03/23 21:56
-migraine
shellfish derived Allergy Anaphylaxis Verified 07/03/23 21:56
Sulfa (Sulfonamide Allergy Swelling Verified 07/03/23 21:56
Antibiotics)
maude jon Allergy Anaphylaxis Uncoded 07/03/23 21:56
-[place] syrup
Home Medications
levothyroxine 112 mcg tablet 112 mcg PO DAILY Thyroid 12/03/16
hydrocortisone 10 mg tablet 15 mg PO HS adrenal insufficiency 03/11/19
hydrocortisone 10 mg tablet 25 mg PO DAILY adrenal insufficiency 03/11/19
lamotrigine 100 mg tablet 100 mg PO DAILY Neurological Condition 05/17/19
buspirone 10 mg tablet 10 mg PO TID Mental Health/Anxiety 06/26/22
dihydroergotamine (Trudhesa) 1 spray intranasal DAILYPRN PRN migraine 06/26/22
famotidine 20 mg tablet 20 mg PO BID Gastrointestinal issue 06/26/22
ondansetron 8 mg disintegrating tablet 8 mg PO BID nausea 06/26/22
oxcarbazepine 300 mg tablet 300 mg PO BID Neurological Condition 06/26/22
dupilumab 300 mg/2 mL subcutaneous syringe (Dup[employer]) 300 mg SC Q2W Autoimmune Disorder 01/26/23
fluticasone fur. 100 mcg-umeclid 62.5 mcg-vilant 25 mcg inhalat.powder (Trelegy Ellipta) 1 inh inhalation R DAILY Lung/Breathing Issues 01/26/23
torsemide 10 mg tablet 10 mg PO DAILY Fluid Retention/Swelling 01/26/23
calcium citrate 315 mg calcium-vitamin D3 6.25 mcg (250 unit) tablet (Citracal + Vitamin D Maximum) 1 tab PO DAILY Supplement 07/04/23
cholecalciferol (vitamin D3) 25 mcg (1,000 unit) tablet 25 mcg PO DAILY Supplement 07/04/23
erenumab-aooe 140 mg/mL subcutaneous auto-injector (Aimovig Autoinjector) 140 mg SC Q28D migraine 07/04/23
inulin 2 gram chewable tablet (Fiber Gummies) 4 g PO DAILY Supplement 07/04/23
lamotrigine 200 mg tablet 200 mg PO HS 07/04/23
polyethylene glycol 3350 17 gram oral powder packet (Miralax) 17 g PO DAILYPRN PRN constipation 07/04/23
topiramate 200 mg tablet 200 mg PO BID Neurological Condition 07/04/23
trazodone 100 mg tablet 300 mg PO HS sleep 07/04/23
varenicline 0.03 mg/spray nasal spray (Tyrvaya) 1 spray intranasal BID dry eyes 07/04/23
ziprasidone HCl 80 mg capsule 80 mg PO BID Mental Health/Anxiety 07/04/23
suvorexant 20 mg tablet (Belsomra) 20 mg PO HS ##0 07/05/23
clonazepam 1 mg tablet 1 mg PO TID Mental Health/Anxiety #9 tabs 07/09/23
lemborexant 5 mg tablet (Dayvigo) 5 mg PO HS insomnia #3 tabs 07/09/23
acetaminophen 650 mg tablet,extended release 1,300 mg PO Q8HPRN PRN mild pain 12/02/23
cetirizine 10 mg tablet (Zyrtec) 40 mg PO DAILY 12/02/23
docusate sodium 100 mg capsule 100 mg PO BIDPRN PRN constipation 12/02/23
gabapentin 300 mg capsule 300 mg PO TID 12/02/23
levalbuterol tartrate 45 mcg/actuation aerosol inhaler 1 inh inhalation R Q6HPRN PRN sob/wheezing 12/02/23
pantoprazole 40 mg tablet,delayed release 40 mg PO BID 12/02/23
pregabalin 50 mg capsule 50 mg PO BID@0800,1500 12/02/23
pregabalin 75 mg capsule 75 mg PO HS 12/02/23
Review of Systems
-
Constitutional: Reports No Symptoms
EENT: Reports No Symptoms
Respiratory: Reports Cough and Trouble Breathing
Cardiac: Reports No Symptoms
Abdomen/GI: Reports No Symptoms
: Reports No Symptoms
Musculoskeletal: Reports No Symptoms
Skin: Reports No Symptoms
Neurological: Reports Dizzy and Headache
Endocrine: Reports No Symptoms
Hematologic/Lymphatic: Reports No Symptoms
Psych: Reports No Symptoms
Physical Exam
Vital Signs
Vital Signs
Temp Pulse Resp BP Pulse Ox
98.5 F 113 18 93/69 96
12/02/23 17:25 12/02/23 17:52 12/02/23 17:52 12/02/23 17:52 12/02/23 17:52
Physical Exam
General: Well Developed, Well Nourished and No Apparent Distress
HEENT: NormoCephalic, Moist mucous membranes and Atraumatic
Respiratory: Rales
Cardiac: S1/S2 and Regular Rhythm; No Murmur or Rub
GI: Soft, Non Tender, Non Distended and Normal Bowel Sounds; No Organomegaly
Rectal: Deferred by Provider
Musculoskeletal: No Clubbing, No Cyanosis and No Edema
Skin: No Rash
Neuro: AO x 3 and Nonfocal/grossly intact
Psych: Calm
Laboratory Results
-
12/02/23 18:03
12/02/23 18:03
Laboratory Results
Lactic Acid Cancelled 12/02/23 23:00
Total Bilirubin 0.5 mg/dl (0.2-1.3) 12/02/23 18:03
AST 26 U/L (14-36) 12/02/23 18:03
ALT 16 U/L (0-35) 12/02/23 18:03
Alkaline Phosphatase 81 U/L (38-126) 12/02/23 18:03
Troponin I < 0.012 ng/ml 12/02/23 18:03
Data Reviewed
-
Diagnostic Radiology: Report Reviewed by me
Lab Data: Labs Reviewed by me
Impression/Plan
-
#cough/sob likely from pneumonia
- severe sepsis as evident by wbc 24.8,hypotension, tachycardia
-chest x ray with questionable small patchy opacity in the right lower lateral lung, cannot exclude pneumonia.
-blood culture sent from Er
-Doxy and vanco in Er
-will initiate on IV Merrem due to multiple abx allergies, as well as she got Merrem with last pneumonia admission.
-Tylenol prn for fever
-obtain COVID
-urine legionella, strep pneumoniae
#hyponatremia/metabolic acidosis likely dehydration
-na 123,co2 19
-normal saline continued
-BMP in am
-Hold torsemide
#hypopituitarism -continue hormonal repletion. T4 levels normal.
Bipolar disorder
-Buspirone continued
-Clonazepam continued anemia
-Dayvigo, Lamictal, Topamax. Continued continued
-Trazodone continued for sleep
-Ziprasidone continued
# History of asthma
-nebs from home continued
# GERD
-PPI continued
# Adrenal insufficiency
-incrased Hydrocortisone 50 mg every 8 hours due to hypotension
#History of migraine headaches
-Patient on Aimovig every 28 days
Full code
--- NOTE | 2023-12-02 20:47 | EDRN ---
Hospitalist at bedside working on admission
[2023-12-02 21:00] VITALS: BP 100/69
[2023-12-02 21:11] LABS: COVID-19 Antigen Negative (Negative)
--- NOTE | 2023-12-02 21:23 | W.PN.UPDATE ---
Update Note
Progress Note Update
This is an addendum to the H&P written by Isamar Marquez 12/02/2023. Patient seen and examined independent with [employer].
58-year-old female past medical history of asthma/COPD, migraines, anxiety/PTSD/bipolar, hypothyroidism, hypopituitarism, adrenal insufficiency, polymyalgia rheumatica, arteritis, orthostatic hypotension, TMJ dysfunction presenting with sepsis
secondary to right lower lung pneumonia. COVID pending. IV fluids, meropenem given severe allergies. Blood pressure of 90s which did respond to IV fluids. Stress dose steroids due to history of hypopituitarism
Hyponatremia on labs. Monitor with IV fluids.
--- NOTE | 2023-12-02 21:26 | EDRN ---
Ambulated to restroom and back in bed resting comfortably, waiting on a bed at this time.
--- NOTE | 2023-12-02 21:32 | EDRN ---
No Delay sent to the floor
[2023-12-02] MEDS: LAMICTAL 200 MG PO (23:05)
[2023-12-02] MEDS: DESYREL 300 MG PO (23:05)
[2023-12-02] MEDS: LYRICA 75 MG PO (23:05)
[2023-12-02] MEDS: BUSPAR 10 MG PO (23:05)
[2023-12-02] MEDS: KLONOPIN 1 MG PO (23:05)
[2023-12-02 23:19] VITALS: BP 102/66
[2023-12-02 23:20] VITALS: BMI 19.0
[2023-12-02] MEDS: CORTEF 50 MG PO (23:59)
[2023-12-03] MEDS: STERILE WATER FOR INJECTION 10 ML IV ×3 (01:42→18:01)
[2023-12-03] MEDS: MERREM 500 MG IV ×3 (01:42→18:00)
[2023-12-03 03:24] VITALS: BP 100/65
[2023-12-03] MEDS: SYNTHROID 112 MCG PO (05:46)
--- NOTE | 2023-12-03 06:23 | PTCARENOTE ---
Patient arrived on unit @2208 via stretcher, ambulate to bed with assist x1. Patient c/o dizziness at times, no c/o nausea. Skin assessment completed, oriented to unit, call lynch within reach.
[2023-12-03 07:00] VITALS: BP 124/84
[2023-12-03] MEDS: NON-FORMULARY ITEM 1 UNIT INH (07:12)
[2023-12-03 07:27] LABS: Hematocrit 34.3 % (37.0-47.0); Hemoglobin 12.1 g/dL (12.0-16.0); Mean Corp Hgb Conc. 35.3 g/dL (33.0-37.0); Mean Corpuscular Hgb 33.6 pg (27.0-31.0); Mean Corpuscular Volume 95.3 fL (81.0-99.0); Mean Platelet Volume 9.2 fL (7.4-10.4); Platelet Count 292 10^3/uL (130-400); Red Cell Dist. Width 13.4 % (11.5-14.5); White Blood Cell Count 19.8 10^3/uL (4.8-10.8)
[2023-12-03] MEDS: HEPARIN 5000 UNITS SC ×2 (07:38→19:34)
[2023-12-03] MEDS: PROTONIX 40 MG PO ×2 (07:39→19:35)
[2023-12-03] MEDS: LAMICTAL 100 MG PO (07:39)
[2023-12-03] MEDS: BUSPAR 10 MG PO ×2 (07:40→16:03)
[2023-12-03] MEDS: PEPCID 20 MG PO ×2 (07:40→19:35)
[2023-12-03] MEDS: TOPAMAX 200 MG PO ×2 (07:40→19:35)
[2023-12-03] MEDS: KLONOPIN 1 MG PO ×2 (07:41→16:03)
[2023-12-03] MEDS: LYRICA 50 MG PO ×2 (07:41→14:33)
[2023-12-03] MEDS: TRILEPTAL 300 MG PO ×2 (07:42→19:35)
[2023-12-03] MEDS: GEODON 80 MG PO ×2 (07:56→19:30)
[2023-12-03] MEDS: CORTEF 50 MG PO ×2 (08:05→16:04)
[2023-12-03 08:13] LABS: Blood Urea Nitrogen 11 mg/dl (7-17); Carbon Dioxide 21 mmol/L (22-30); Chloride 113 mmol/L (98-107); Estimated Creatinine Clearance 67 ml/min; Glucose 110 mg/dl (70-99); Potassium 4.3 mmol/L (3.5-5.1); Sodium 138 mmol/L (135-145); eGFR > 60.00
[2023-12-03] MEDS: NSS 1000 IV ×2 (10:06→19:34)
[2023-12-03 11:00] VITALS: BP 140/82
--- NOTE | 2023-12-03 12:00 | W.PN.HOSP.TC ---
Addendum entered and electronically signed by Marko Ward DO 12/03/23 21:21:
Strep antigen test was (+) from previous admission. Testing on this admission was (-). CXR with questionable PNA based on small RLL infiltrate. Will order procalcitonin for tomorrow AM labs. Low threshold to stopping Abx if low. Will consider speech
eval for aspiration risk eval.
Addendum entered and electronically signed by Marko Ward DO 12/03/23 12:22:
Subjective: Seen and examined at the bedside. States she was short of breath at the time of my evaluation, with ongoing cough. Was requesting to have her DuoNebs ordered. Denies chest pain, has felt occasional fevers.
Review of systems: Negative unless stated above
Physical exam:
NAD, thin female, AAOx4
Crackles at right base, otherwise clear without wheeze. Nonlabored, good inspiratory effort
Regular rate and rhythm, no M/G/R, normal S1 and S2, no edema
NTND, NBS+, no organomegaly noted
No FND, cranial nerves grossly intact, no tremors
Calm and cooperative
Original Note:
Today's Communication/Plan
-
Continue with IV meropenem and follow cultures
Start DuoNebs every 6 hours as needed
Monitor oral intake, DC IVF
Assessment / Plan
Assessment / Plan
#Sepsis secondary to community-acquired pneumonia
-Presented with shortness of breath, WBC 24.8, hypotension and tachycardia
-Chest x-ray showed small patchy opacity in the right lower lateral lung suspicious for pneumonia
-Blood cultures were taken, results pending; urine streptococcal antigens positive, Legionella not obtained
-Currently on IV meropenem due to multiple antibiotic reactions, tolerated meropenem on previous hospitalization
-Currently saturating at 97% on room air, leukocytosis downtrending; no procalcitonin ordered
Plan
-Continue with IV meropenem 500 mg every 8 hours, day 1 Abx
-Continue to follow-up culture results and sensitivities
-Continue with stress dose hydrocortisone 50 mg every 8 hours
-Monitor respiratory status, trend CBC
-Continue Tylenol as needed for fevers
#Hypovolemic hyponatremia
#Hypochloremic NAGMA
-Suspect she was volume depleted in the context of infection, sepsis
-Sodium and chloride normalized overnight with IV fluids
-Torsemide remains held at this time
#Hypopituitarism
#Secondary adrenal insufficiency
#Secondary hypothyroidism
#Recent weight gain -- states she has gained 14 pounds recently, question scale calibration
-Chronic, currently on multimodal HRT for secondary deficiencies with hydrocortisone and levothyroxine
-Upon arrival T4 levels were normal, no obvious signs of adrenal insufficiency
-Suspect low sodium, hypotension was more related to sepsis then insufficiency of hormones
-Currently on stress dose steroids as above
#COPD/asthma
-Unclear if she has had recent PFTs; Home meds include Trelegy Ellipta
-Home regimen also includes Dupixent, unclear if this is for asthma or other atopic disease
-Ordered DuoNebs as needed today at the patient's request
-No wheezes on exam, low suspicion for flare
#GERD
-No history of Luna's esophagus or erosive disease; Home meds include PPI and H2R lea
-As she is on Dupixent as well, question if this is related to a history of eosinophilic esophagitis
-No red flag symptoms today
#Bipolar disorder -- type I versus type II, on multimodal regimen as shown below
-Buspirone continued
-Clonazepam continued
-Dayvigo, Lamictal, Topamax.
-Trazodone continued for sleep
-Ziprasidone continued
#History of migraine headaches
-Patient on Aimovig every 28 days
-Also on medications for bipolar disorder which may help prophylactically here
DVT prophylaxis: Heparin subcu
Diet: House
CODE STATUS: Full code
Anticipated Discharge: 24 - 48 hours
Subjective/Interval History
-
Date of Service: December 03, 2023
Objective Data
-
Labs:
Laboratory Results
12/03/23
06:55
WBC 19.8 H
Hgb 12.1
Hct 34.3 L
Plt Count 292
Sodium 138 D
Potassium 4.3
Chloride 113 H
Carbon Dioxide 21 L
BUN 11
Creatinine 0.8
Glucose 110 H
Calcium 9.0
Vital Signs:
Vital Signs
Temp Pulse Resp BP Pulse Ox
97.8 F 72 16 124/84 97
12/03/23 07:00 12/03/23 07:16 12/03/23 07:16 12/03/23 07:00 12/03/23 07:16
I&O
12/02/23 12/03/23 12/04/23
06:59 06:59 06:59
Intake Total 1420 / 1420
Balance 1420 / 1420
--- NOTE | 2023-12-03 13:43 | CM ---
Reviewed chart, met with patient to obtain information for assessment. Patient stated that she lives alone with her two pet cats in a one story home with one step to enter. She described herself as independent with her ADLs and personal care,
dressing and bathing. She drives and can get to her appointments and do her own shopping. 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
She denied any DME.
She has had VN in the past through .
She has been to two SNFs in the past: [facility] and [facility]. She does not want to go to a SNF post this admission.
Patient has a prescription plan and uses, [facility] in [place] (in [employer]).
Her PCP is, Carlos Vora.
Patient stated that she feels she will be able to return home when medically cleared.
Plan: Case management will continue to follow and assist with discharge planning. Home.
[2023-12-03 15:00] VITALS: BP 140/82
[2023-12-03 19:57] VITALS: BP 141/87
--- NOTE | 2023-12-03 23:31 | PTCARENOTE ---
Patient requested to take BuSpar, Trazodone, Klonopin, Lyrica, and Dayvigo at 0100 instead of the scheduled 2200, Provider notified.
[2023-12-03 23:42] VITALS: BP 147/85
[2023-12-04] MEDS: LYRICA 75 MG PO (00:57)
[2023-12-04] MEDS: LAMICTAL 200 MG PO (00:57)
[2023-12-04] MEDS: DESYREL 300 MG PO (00:57)
[2023-12-04] MEDS: KLONOPIN 1 MG PO ×3 (00:58→15:35)
[2023-12-04] MEDS: BUSPAR 10 MG PO ×3 (00:58→15:35)
[2023-12-04] MEDS: NON-FORMULARY ITEM 10 MG PO (00:58)
[2023-12-04] MEDS: STERILE WATER FOR INJECTION 10 ML IV ×2 (00:59→09:59)
[2023-12-04] MEDS: MERREM 500 MG IV ×2 (00:59→09:59)
[2023-12-04] MEDS: CORTEF 50 MG PO ×3 (00:59→15:34)
[2023-12-04 03:11] VITALS: BP 133/80
[2023-12-04] MEDS: MYLICON 80 MG PO (04:07)
[2023-12-04] MEDS: SYNTHROID 112 MCG PO (05:48)
[2023-12-04 06:40] LABS: % Basophils 0.4 % (0-2); % Immature Granulocytes 0.7 % (0-0.5); % Lymphocytes 9.5 % (20.5-51.1); % Monocytes 2.9 % (1.7-9.3); % Neutrophils 86.5 % (42.2-75.2); Absolute Basophils 0.1 10^3/uL (0-0.2); Absolute Immature Granulocytes 0.1 10^3/uL (0-0.05); Absolute Lymphocytes 1.4 10^3/uL (1.2-3.4); Absolute Monocytes 0.4 10^3/uL (0.1-0.6); Absolute Neutrophils 12.7 10^3/uL (1.4-6.5); Hematocrit 32.8 % (37.0-47.0); Hemoglobin 11.6 g/dL (12.0-16.0); Mean Corp Hgb Conc. 35.4 g/dL (33.0-37.0); Mean Corpuscular Hgb 33.1 pg (27.0-31.0); Mean Corpuscular Volume 93.7 fL (81.0-99.0); Nucleated Red Blood Cells % 0 %; Platelet Count 264 10^3/uL (130-400); Red Cell Dist. Width 13.4 % (11.5-14.5); White Blood Cell Count 14.7 10^3/uL (4.8-10.8)
[2023-12-04 07:07] LABS: Blood Urea Nitrogen 12 mg/dl (7-17); Calcium 9.2 mg/dl (8.4-10.2); Carbon Dioxide 20 mmol/L (22-30); Chloride 111 mmol/L (98-107); Estimated Creatinine Clearance 77 ml/min; Glucose 106 mg/dl (70-99); Potassium 3.3 mmol/L (3.5-5.1); Sodium 137 mmol/L (135-145); eGFR > 60.00
[2023-12-04 07:16] LABS: Procalcitonin 0.12 ng/ml (0.0-0.25)
[2023-12-04 07:40] VITALS: BP 150/88
[2023-12-04] MEDS: GEODON 80 MG PO (08:02)
[2023-12-04] MEDS: TOPAMAX 200 MG PO (08:02)
[2023-12-04] MEDS: LYRICA 50 MG PO ×2 (08:02→14:35)
[2023-12-04] MEDS: PROTONIX 40 MG PO (08:04)
[2023-12-04] MEDS: LAMICTAL 100 MG PO (08:04)
[2023-12-04] MEDS: PEPCID 20 MG PO (08:05)
[2023-12-04] MEDS: HEPARIN 5000 UNITS SC (08:06)
[2023-12-04] MEDS: TRILEPTAL 300 MG PO (08:06)
[2023-12-04] MEDS: KCL 40 MEQ PO (08:13)
[2023-12-04] MEDS: NON-FORMULARY ITEM 1 UNIT INH (08:27)
[2023-12-04] MEDS: NSS IV (10:39)
--- NOTE | 2023-12-04 10:50 | W.PN.HOSP.TC ---
Today's Communication/Plan
-
Transition to oral antibiotics
Discharge planning
Assessment / Plan
Assessment / Plan
#Sepsis secondary to community-acquired pneumonia
-Presented with shortness of breath, WBC 24.8, hypotension and tachycardia
-Chest x-ray showed small patchy opacity in the right lower lateral lung suspicious for pneumonia
-Blood cultures were taken, results pending; urine streptococcal antigens negative, Legionella not obtained
-Currently on IV meropenem due to multiple antibiotic reactions, tolerated meropenem on previous hospitalization
-Currently saturating at 97% on room air, leukocytosis downtrending, procalcitonin low today
-Suspect this was an early bacterial pneumonia that responded well to antibiotics
Plan
-Transition from IV meropenem to oral antibiotic regimen
-Continue to follow-up culture results and sensitivities
-Discontinued stress dose steroid
-Monitor respiratory status, trend CBC
#Hypovolemic hyponatremia
#Hypochloremic NAGMA
-Suspect she was volume depleted in the context of infection, sepsis
-Sodium and chloride normalized overnight with IV fluids
-Torsemide remains held at this time
#Hypopituitarism
#Secondary adrenal insufficiency
#Secondary hypothyroidism
#Recent weight gain -- states she has gained 14 pounds recently, question scale calibration
-Chronic, currently on multimodal HRT for secondary deficiencies with hydrocortisone and levothyroxine
-Upon arrival T4 levels were normal, no obvious signs of adrenal insufficiency
-Suspect low sodium, hypotension was more related to sepsis then insufficiency of hormones
-Currently on stress dose steroids as above
#COPD/asthma
-Unclear if she has had recent PFTs; Home meds include Trelegy Ellipta
-Home regimen also includes Dupixent, unclear if this is for asthma or other atopic disease
-Ordered DuoNebs as needed today at the patient's request
-No wheezes on exam, low suspicion for flare
#GERD
-No history of Luna's esophagus or erosive disease; Home meds include PPI and H2R lea
-As she is on Dupixent as well, question if this is related to a history of eosinophilic esophagitis
-No red flag symptoms today
#Bipolar disorder -- type I versus type II, on multimodal regimen as shown below
-Buspirone continued
-Clonazepam continued
-Dayvigo, Lamictal, Topamax.
-Trazodone continued for sleep
-Ziprasidone continued
#History of migraine headaches
-Patient on Aimovig every 28 days
-Also on medications for bipolar disorder which may help prophylactically here
DVT prophylaxis: Heparin subcu
Diet: House
CODE STATUS: Full code
Anticipated Discharge: Today
Subjective/Interval History
-
Date of Service: December 04, 2023
Seen and examined at the bedside today. States that she feels well and would like to go home. Denies fevers or chills, no shortness of breath or coughing at this time. She also denies chest pain, nausea, vomiting, diarrhea, paresthesias, abnormal
bleeding or bruising.
Objective Data
-
Labs:
Laboratory Results
12/04/23
06:25
WBC 14.7 H
Hgb 11.6 L
Hct 32.8 L
Plt Count 264
Sodium 137
Potassium 3.3 L
Chloride 111 H
Carbon Dioxide 20 L
BUN 12
Creatinine 0.7
Glucose 106 H
Calcium 9.2
Vital Signs:
Vital Signs
Temp Pulse Resp BP Pulse Ox
97.8 F 60 16 150/88 100
12/04/23 07:40 12/04/23 08:31 12/04/23 08:31 12/04/23 07:40 12/04/23 08:31
I&O
08/07/24 08/08/24 08/09/24
06:59 06:59 06:59
Intake Total 1420 / 1420 3120 / 3120
Balance 1420 / 1420 3120 / 3120
Review of Systems
-
History Source: Patient
All other systems: Reviewed and negative
Physical Exam
-
General: No Apparent Distress and Comfortable; Negative Respiratory Distress or Fever
HEENT: Normocephalic, Atraumatic and Moist Mucous Membranes
Respiratory: Clear to Auscultation and Non Labored Respirations; Negative Wheezes, Rales or Rhonchi
Cardiac: Regular Rhythm and S1/S2; Negative Murmur, Rub or Gallop
GI: Soft, Nontender, Nondistended and Normal Bowel Sounds
Musculoskeletal: No Clubbing, No Cyanosis and No Edema
Skin: Warm and Dry; Negative Rash
Neuro: AO x 3, Nonfocal/Grossly Intact and Central Nerve's Intact; Negative Tremors
Data Reviewed
-
Diagnostic Radiology: Image personally visualized and interpreted and Discussed with Patient
Labs: Labs Reviewed by me and Discussed with Patient
[2023-12-04 11:14] VITALS: BP 145/88
--- NOTE | 2023-12-04 11:38 | CM ---
Spoke with attending who stated that patient has been medically cleared for discharge. Met with patient who stated that she feels well enough to transport herself home. No other needs expressed.
Plan: Case management will continue to follow and assist with discharge planning. Home no needs.
--- NOTE | 2023-12-04 14:34 | W.DCSUMMARY ---
Discharge Summary
Discharge Data
Date of Admission: 12/02/23
Date of Discharge: 12/04/23
-
Pending Results: No
Hospital Course
Presented to the hospital with high-grade fever and shortness of breath. Initial x-ray with early consolidation of the right middle lobe, concern for community-acquired pneumonia. Due to multiple allergies she was started on IV meropenem which she
previously tolerated in the hospital stay, also has broad-spectrum coverage for lung species. She clinically improved, had no recurrent fevers after day 1. Received short course of stress dose steroids for possible sepsis though blood cultures
remain negative.
White cell count is trending down, procalcitonin on day of discharge was negligible. Never required any oxygen. Performed in-hospital trial of Augmentin (reported nausea and vomiting on prior doses), was discharged with 5-day Augmentin twice
daily, to complete 7 days of antibiotics, when determined that she would be able to tolerate the prescription (previous history of associated nausea).
She also had hypovolemic hyponatremia in the context of illness and torsemide. We held her torsemide, provided IV fluids with appropriate correction of her serum sodium to normal levels. Torsemide held on discharge, advised patient to follow-up
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 Advised her to call office early if she develops swelling before office visit
Discharge Plan
-
Patient Disposition: Home (Routine Discharge)
Discharge Diagnosis/Procedures: Community-acquired pneumonia
Fever
Hypovolemic hyponatremia
Condition: Good
Diet: No restrictions
Activity: As tolerated
Driving Restrictions: As prior to admission
Activity Restrictions/Additional Instructions:
If you develop new fevers or shortness of breath then you should call your family doctor or return to the emergency department
Referrals:
Carlos Vora MD [Family Provider] -
Additional Discharge Medication Instructions: Take Augmentin 875-125 mg twice daily for 5 more days after being discharged the hospital
Stop taking torsemide until you see your primary care doctor or semiconductor dies loader, if you develop swelling before you see them then call their office
Prescriptions:
New
amoxicillin-pot clavulanate 875-125 mg Tablet
1 tab PO Q12 5 Days Qty: 10 0RF
Continued
levothyroxine 112 MCG tablet
112 mcg PO DAILY
hydrocortisone 10 MG tablet
15 mg PO HS
hydrocortisone 10 MG tablet
25 mg PO DAILY
lamotrigine 100 MG tablet
100 mg PO DAILY
oxcarbazepine 300 mg Tablet
300 mg PO BID
ondansetron 8 mg Tablet,Disintegrating
8 mg PO BID
famotidine 20 mg Tablet
20 mg PO BID
buspirone 10 mg Tablet
10 mg PO TID
Trudhesa 0.725 mg/pump act. (4 mg/mL) Huron,Non-Aerosol
1 spray INTRANASAL DAILYPRN PRN (Reason: migraine)
Dupixent Syringe 300 mg/2 mL Syringe
300 mg SC Q2W
Trelegy Ellipta 100-62.5-25 mcg Blister With Device
1 inh INHALATION R DAILY
ziprasidone HCl 80 mg Capsule
80 mg PO BID
lamotrigine 200 mg Tablet
200 mg PO HS
polyethylene glycol 3350 [Miralax] 17 gram Powder In Packet
17 g PO DAILYPRN PRN (Reason: constipation)
trazodone 100 mg Tablet
300 mg PO HS
topiramate 200 mg Tablet
200 mg PO BID
cholecalciferol (vitamin D3) 25 mcg (1,000 unit) Tablet
25 mcg PO DAILY
calcium citrate-vitamin D3 [Citracal + D Maximum] 315 mg-6.25 mcg (250 unit) Tablet
1 tab PO DAILY
Fiber Gummies 2 gram Tablet,Chewable
4 g PO DAILY
Aimovig Autoinjector 140 mg/mL Auto-Injector
140 mg SC Q28D
Tyrvaya 0.03 mg/spray Huron, Metered, Non-Aerosol
1 spray INTRANASAL BID
Belsomra 20 mg Tablet
20 mg PO HS Qty: 0
Patient Comments:
Pt reports taking '20 mg about 2 weeks ago.'
clonazepam 1 MG tablet
1 mg PO TID Qty: 9 0RF
Patient Comments:
12/02/2023: last filled 11/11/23, 90 tabs for 30 days from [facility]#[id number]
Dayvigo 5 mg Tablet
5 mg PO HS Qty: 3 0RF
cetirizine [Zyrtec] 10 mg Tablet
40 mg PO DAILY
levalbuterol tartrate 45 mcg/actuation Hfa Aerosol Inhaler
1 inh INHALATION R Q6HPRN PRN (Reason: sob/wheezing)
pregabalin 50 mg capsule
50 mg PO BID@0800,1500
Patient Comments:
12/02/2023: last filled 12/01/23, 30 tabs for 30 days from [facility]#[id number]
pregabalin 75 mg capsule
75 mg PO HS
Patient Comments:
12/02/2023: last filled 12/01/23, 30 tabs for 30 days from [facility]#[id number]
acetaminophen 650 mg Tablet Extended Release
1,300 mg PO Q8HPRN PRN (Reason: mild pain)
gabapentin 300 mg capsule
300 mg PO TID
pantoprazole 40 MG tablet,delayed release (DR/EC)
40 mg PO BID
docusate sodium 100 mg capsule
100 mg PO BIDPRN PRN (Reason: constipation)
Discontinued
torsemide 10 mg Tablet
10 mg PO DAILY
Discharge Orders:
Discharge Patient (As Directed); Ordered 12/04/23
Ordered By: Marko Ward
Discharge Date and Time
Discharge Date/Time: 12/04/23 16:47
Print Language: OCCITAN
[2023-12-04] MEDS: AUGMENTIN 875 MG/125 MG 1 TABLET PO (14:35)
[2023-12-04 15:55] VITALS: BP 102/63
== END 2023-12-04 16:47 | disposition home or self-care (01) | DRG 871 ==
LOC: 3 WEST ACU 21:24
PROVIDERS: Emergency Medicine; Registered Nurse; ADMITTING PHYSICIAN Hospitalist; ATTENDING PHYSICIAN Internal Medicine; EMERGENCY PHYSICIAN Student in an Organized Health Care Education/Training Program; FAMILY PHYSICIAN Internal Medicine
DX: A41.9 Sepsis, unspecified organism (principal); J18.9 Pneumonia, unspecified organism; E87.1 Hypo-osmolality and hyponatremia; E87.20 Acidosis, unspecified; E27.49 Other adrenocortical insufficiency; E23.0 Hypopituitarism; E86.1 Hypovolemia; R65.20 Severe sepsis without septic shock; Z11.52 Encounter for screening for COVID-19
CPT/HCPCS: 71046; 80048; 80053; 83605; 84145; 84484; 85025; 85027; 87040; 87449; 87811; 87899; 93005; 94640; 96365; 99285

== ENCOUNTER 2023-12-09 21:53 | Inpatient (IN) | payer MEDICARE, OTHER, SELFPAY ==
[2023-12-09] VITALS (7 sets, daily range): BP systolic 140–160; BP diastolic 90–100; BMI 20.4; BMI 19.3
[2023-12-09 16:17] LABS: % Basophils 0.4 % (0-2); % Eosinophils 0.3 % (0-6); % Immature Granulocytes 3.3 % (0-0.5); % Monocytes 4.5 % (1.7-9.3); % Neutrophils 83.5 % (42.2-75.2); Absolute Basophils 0.1 10^3/uL (0-0.2); Absolute Eosinophils 0.1 10^3/uL (0-0.7); Absolute Immature Granulocytes 0.6 10^3/uL (0-0.05); Absolute Lymphocytes 1.4 10^3/uL (1.2-3.4); Absolute Monocytes 0.8 10^3/uL (0.1-0.6); Absolute Neutrophils 14.4 10^3/uL (1.4-6.5); Hematocrit 30.9 % (37.0-47.0); Hemoglobin 11.2 g/dL (12.0-16.0); Mean Corp Hgb Conc. 36.2 g/dL (33.0-37.0); Mean Corpuscular Hgb 33.5 pg (27.0-31.0); Mean Corpuscular Volume 92.5 fL (81.0-99.0); Mean Platelet Volume 9.3 fL (7.4-10.4); Nucleated Red Blood Cells % 0 %; Platelet Count 257 10^3/uL (130-400); Red Blood Cell Count 3.34 10^6/uL (4.20-5.40); Red Cell Dist. Width 13.2 % (11.5-14.5); White Blood Cell Count 17.2 10^3/uL (4.8-10.8)
--- NOTE | 2023-12-09 16:27 | ED.GENMED ---
History of Present Illness
General
Chief Complaint: Fainting Sensation
Time Seen by Provider: 12/09/23 15:55
History of Present Illness
History of Present Illness:
58-year-old female with history of hypopituitarism, hypothyroidism, bipolar disorder, asthma presenting to the emergency department for weakness and fall. Patient had recent hospitalization from 12/01 to 12/03 for sepsis from pneumonia and
hypothyroidism. Patient was discharged on memantine. She notes since being home she has been very weak, has had decreased p.o. intake. Today, she got dizzy and weak, and rolled down 7 stairs. She notes that she did strike her head and injured
her 'whole spine '. Spinal injuries in the past. She denies numbness or tingling to her extremities. She denies chest pain. She reports a persistent cough which has not improved since recent admission. She does report that her fevers have
improved. She denies abdominal pain, vomiting, urinary symptoms, changes in stool. Denies additional acute medical complaints.
Past History
Past History
ED Past Medical History: Asthma, COPD, Hypothyroidism, Psychiatric (Bipolar disorder, anxiety, PTSD), Other (TMJ dysfunction, migrainous headaches, PNA, Sinusitis chronic, Gastroporesis, Hypopituatarism, ) and Other (hypopiititutarism, adrenal
insufficiency)
ED Past Surgical History: Orthopedic (Left thumb and hand surgery, Right wrist surgery, TMJ surgery X 2) and Other (cataracts, Vocal cord surgery)
Social History
Tobacco: Non-smoker
Alcohol: None
Drug: None
Personal: Single
Living: alone (dad)
Employment: Not employed
Family History
Family History: Other
Phy Exam
Physical Exam
Physical Exam:
General: no clinical signs of dehydration, nontoxic and in no acute distress
HEENT: protecting airway. No significant hematoma or signs of trauma
Neck: appears supple, generalized tenderness with range of motion intact
CV: Normal heart rate, regular rhythm, no evidence of cyanosis
Resp: No accessory muscle use, no increased work of breathing, lungs clear to auscultation bilaterally
Abd: Soft and non-distended, no tenderness to palpation, normal bowel sounds
Extremities: No deformities, no swelling, no erythema, pulses and sensation intact. Abrasions and ecchymosis to the lower thoracic and upper lumbar spine with generalized tenderness.
Neuro: alert, no focal neurologic deficit
: deferred
Rectal: deferred
Psych: Normal affect
Skin: Intact
Course
Orders/Labs/Results
Orders:
Orders
12/09/23 15:52
EKG [Electrocardiogram (*1)] Urgent
Reason for Study: Vertigo / Dizzy
EKG- Treatment ONCE
12/09/23 16:01
Complete Blood Count/With Diff Urgent
12/09/23 16:07
CT Lumbar Spine W/o Iv Contras Urgent
Comment:
Reason For Exam: fall down stairs, bruising, abrasions
CT Thoracic Spine W/o Iv Contr Urgent
Comment:
Reason For Exam: fall down stairs, bruising, abrasions
Cardiac Monitoring- Treatment ONCE
12/09/23 16:08
CT Cervical Spine W/o Iv Contr Urgent
Comment:
Reason For Exam: fall down stairs
CT Head W/o Iv Contrast Urgent
Comment:
Reason For Exam: fall down stairs
12/09/23 16:12
0.9% Sodium Chloride 1000 ml [Nss] 1,000 ml IV BOLUS
12/09/23 16:13
CR Chest - 2 Views Urgent
Comment:
Reason For Exam: cough, recent pneumonia
12/09/23 16:33
Comprehensive Metabolic Panel Urgent
Prothrombin Time Urgent
12/09/23 18:01
Lactic Acid Urgent
Blood Culture Urgent
MAXI Source: Blood/Venous
Specimen Description:
12/09/23 19:05
Urinalysis Reflex To Culture Urgent
Date Specimen was Collected: 12/09/23
Time Specimen was Collected: 18:23
Abnormal Lab Results
12/09/23 12/09/23
16:01 16:33
WBC 17.2 H 10^3/uL
(4.8-10.8)
RBC 3.34 L 10^6/uL
(4.20-5.40)
Hgb 11.2 L g/dL
(12.0-16.0)
Hct 30.9 L %
(37.0-47.0)
MCH 33.5 H pg
(27.0-31.0)
Abs Immat Gran (auto) 0.6 H 10^3/uL
(0-0.05)
Absolute Neuts (auto) 14.4 H 10^3/uL
(1.4-6.5)
Absolute Monos (auto) 0.8 H 10^3/uL
(0.1-0.6)
Immature Gran % 3.3 H %
(0-0.5)
Neutrophils % 83.5 H %
(42.2-75.2)
Lymphocytes % 8.0 L %
(20.5-51.1)
Sodium 120 L mmol/L
(135-145)
Chloride 93 L mmol/L
(98-107)
Carbon Dioxide 21 L mmol/L
(22-30)
Total Protein 5.5 L g/dl
(6.3-8.2)
Albumin 3.4 L g/dl
(3.5-5.0)
12/09/23 16:01
12/09/23 16:33
Vital Signs
Initial and Last Documented VS:
Initial Vital Signs
Temp Pulse Resp BP Pulse Ox
98.4 F 86 16 159/100 98
12/09/23 15:56 12/09/23 15:56 12/09/23 15:56 12/09/23 15:56 12/09/23 15:56
Last Documented Vital Signs
Temp Pulse Resp BP Pulse Ox
98.4 F 83 13 140/90 99
12/09/23 15:56 12/09/23 17:15 12/09/23 17:15 12/09/23 17:00 12/09/23 19:30
MDM/Problems Addressed
MDM/Problems Addressed:
58-year-old female with history of hypopituitarism, hypothyroidism, bipolar disorder, asthma presenting for generalized weakness and fall. Vital signs on arrival are significant for mild hypertension.
On exam, patient in no acute distress. She is awake, alert, oriented. Primary survey is intact. From a trauma perspective, secondary survey most notable for abrasions and ecchymosis to the lower thoracic and upper lumbar spine with generalized
tenderness. Given mechanism of injury, plan for CT imaging of the spine, as well as CT imaging of the head and cervical spine. Regarding the etiology of the fall, patient with recent hospitalization for sepsis from pneumonia. Reports that she has
been feeling weak since she was discharged, and has been feeling better. She is currently afebrile, not meeting SIRS criteria. Will repeat chest x-ray imaging. Patient was also hyponatremic on prior admission. Will repeat electrolyte panel to
ensure improvement of sodium. Will start patient on IV fluids.
20:40 -patient's workup is remarkable for a sodium of 120, again hyponatremic, likely source of weakness. Sodium had been normal at time of discharge from prior hospital admission. Again has a leukocytosis, however no suspected source of infection
at this time. From a trauma perspective, patient has a fracture of L2 at the endplate. Other chronic findings. However there is also mention of a left-sided sternal manubrium fracture back to to be acute on chronic. In discussion with CT
surgery, no intervention required at this time. Plan for admission due to acute on chronic hyponatremia and weakness.
*EKG
Interpreted by ED Provider?: Yes
EKG Intrepretation Date: 12/09/23
EKG Intrepretation Time: 16:34
Interpretation: normal
Comparison EKG: no changes (12/02/23)
Heart Rate: 88
Rate: normal
Rhythm: sinus
Moore: normal axis
Interval: normal interval
QRS Pattern: normal QRS
Ischemia: no ischemia
*Critical Care Note
Total Time (30-74mins, 75-104mins- exclusive of procedures): Not Applicable
ED Attending Note
-
Portions of this chart may have been created with voice recognition software.� Occasional wrong word or��sound alike� substitutions may have occurred due to the inherent limitations of voice recognition software.
Discharge Plan
Departure
Prescriptions:
No Action
levothyroxine 112 MCG tablet
112 mcg PO DAILY
hydrocortisone 10 MG tablet
15 mg PO HS
hydrocortisone 10 MG tablet
25 mg PO DAILY
lamotrigine 100 MG tablet
100 mg PO DAILY
oxcarbazepine 300 mg Tablet
300 mg PO BID
ondansetron 8 mg Tablet,Disintegrating
8 mg PO BID
famotidine 20 mg Tablet
20 mg PO BID
buspirone 10 mg Tablet
10 mg PO TID
Trudhesa 0.725 mg/pump act. (4 mg/mL) [place],Non-Aerosol
1 spray INTRANASAL DAILYPRN PRN (Reason: migraine)
Dupixent Syringe 300 mg/2 mL Syringe
300 mg SC Q2W
Trelegy Ellipta 100-62.5-25 mcg Blister With Device
1 inh INHALATION R DAILY
ziprasidone HCl 80 mg Capsule
80 mg PO BID
lamotrigine 200 mg Tablet
200 mg PO HS
polyethylene glycol 3350 [Miralax] 17 gram Powder In Packet
17 g PO DAILYPRN PRN (Reason: constipation)
trazodone 100 mg Tablet
300 mg PO HS
topiramate 200 mg Tablet
200 mg PO BID
cholecalciferol (vitamin D3) 25 mcg (1,000 unit) Tablet
25 mcg PO DAILY
calcium citrate-vitamin D3 [Citracal + D Maximum] 315 mg-6.25 mcg (250 unit) Tablet
1 tab PO DAILY
Fiber Gummies 2 gram Tablet,Chewable
4 g PO DAILY
Aimovig Autoinjector 140 mg/mL Auto-Injector
140 mg SC Q28D
Tyrvaya 0.03 mg/spray [place], Metered, Non-Aerosol
1 spray INTRANASAL BID
Belsomra 20 mg Tablet
20 mg PO HS Qty: 0
Patient Comments:
Pt reports taking '20 mg about 2 weeks ago.'
clonazepam 1 MG tablet
1 mg PO TID Qty: 9 0RF
Patient Comments:
12/02/2023: last filled 11/11/23, 90 tabs for 30 days from [facility]#[id number]
Dayvigo 5 mg Tablet
5 mg PO HS Qty: 3 0RF
cetirizine [Zyrtec] 10 mg Tablet
40 mg PO DAILY
levalbuterol tartrate 45 mcg/actuation Hfa Aerosol Inhaler
1 inh INHALATION R Q6HPRN PRN (Reason: sob/wheezing)
pregabalin 50 mg capsule
50 mg PO BID@0800,1500
Patient Comments:
12/02/2023: last filled 12/01/23, 30 tabs for 30 days from [id number]
pregabalin 75 mg capsule
75 mg PO HS
Patient Comments:
12/02/2023: last filled 12/01/23, 30 tabs for 30 days from [id number]
acetaminophen 650 mg Tablet Extended Release
1,300 mg PO Q8HPRN PRN (Reason: mild pain)
gabapentin 300 mg capsule
300 mg PO TID
pantoprazole 40 MG tablet,delayed release (DR/EC)
40 mg PO BID
docusate sodium 100 mg capsule
100 mg PO BIDPRN PRN (Reason: constipation)
amoxicillin-pot clavulanate 875-125 mg Tablet
1 tab PO Q12 5 Days Qty: 10 0RF
torsemide 10 mg tablet
10 mg PO DAILY
Referrals:
Carlos Vora MD [Family Provider] -
Interventions
Interventions:
*Risk Screen - Suicide Last Done: 12/09/23 15:57
*Neglect/Abuse Screening Last Done: 12/09/23 15:57
*ED COVID-19 Vaccine History Last Done: 12/09/23 15:57
ED- Cardiac Assessment Last Done: 12/09/23 20:12
ED- Neurological Assessment Last Done: 12/09/23 20:12
Discharge Date and Time
Print Language: KINYARWANDA
[2023-12-09] MEDS: NSS 1000 IV (16:35)
[2023-12-09 17:08] LABS: INR 0.99; PT 12.8 Sec (11.4-14.6)
[2023-12-09 17:18] LABS: ALT (SGPT) 20 U/L (0-35); AST (SGOT) 32 U/L (14-36); Albumin 3.4 g/dl (3.5-5.0); Alkaline Phosphatase 73 U/L (38-126); Blood Urea Nitrogen 15 mg/dl (7-17); Calcium 8.9 mg/dl (8.4-10.2); Carbon Dioxide 21 mmol/L (22-30); Chloride 93 mmol/L (98-107); Estimated Creatinine Clearance 64 ml/min; Glucose 94 mg/dl (70-99); Potassium 3.6 mmol/L (3.5-5.1); Sodium 120 mmol/L (135-145); Total Bilirubin 0.4 mg/dl (0.2-1.3); Total Protein 5.5 g/dl (6.3-8.2); eGFR > 60.00
[2023-12-09 18:31] LABS: Lactic Acid 0.9 mmol/L (0.7-2.0)
[2023-12-09 19:10] LABS: Urine Albumin Negative (Neg - Trace); Urine Bilirubin Negative (Negative); Urine Character Clear (Clear); Urine Color Yellow; Urine Glucose Negative (Negative); Urine Ketone Negative (Negative); Urine Leukocyte Negative (Negative); Urine Nitrite Negative (Negative); Urine Occult Blood Negative (Negative); Urine Specific Gravity 1.005 (<1.030); Urine Urobilinogen Negative (Neg - 1+)
[2023-12-09 21:24] LABS: Osmolality Urine 151 mOsm/kg (300-900)
--- NOTE | 2023-12-09 21:38 | HPS.HSE ---
Family Physician
-
Family Physician: Carlos Vora
Chief Complaint
-
dizziness, falls
History of Present Illness
58-year-old female with past medical history of hypopituitarism, adrenal insufficiency, hyponatremia, bipolar, asthma, GERD, migraines, COPD/asthma presenting for weakness and fall. Today she was dizzy and fell and rolled down 7 stairs. She did
strike her head and injured her whole spine. Denies any numbness or tingling of her extremities. Did have some headache earlier.
Denies any chest pain. She has a cough which has not improved since recent admission but fevers have improved. She denies abdominal pain, vomiting, diarrhea, urinary symptoms, changes in stool.
She states that she has been drinking more fluids in the past week possibly 3 bottles of fluids per day. She denies alcohol.
Patient was recently admitted from 12/01 to 12/03 for pneumonia. She also had hypovolemic hyponatremia which responded to holding torsemide and IV fluids. She states that she is taking torsemide again.
Medical History
Past Medical History
Past Medical History: Reports Other (hypopituitarism, adrenal insufficiency, hyponatremia, bipolar, asthma, GERD, migraines, COPD/asthma)
Past Surgical History: Reports Other ( Orthopedic (Left thumb and hand surgery, Right wrist surgery, TMJ surgery X 2) and Other (cataracts, Vocal cord surgery))
Social History
Tobacco: Non-smoker
Alcohol: None
Drug: None
Family History
Family History: Not pertinent
Allergies / Home Medications
Allergies reflects when Allergies were last updated in [employer].
Home Medications with original date entered in [employer]
Allergy/Medication List:
Allergies
Allergy/AdvReac Type Severity Reaction Status Date / Time
amoxicillin [From Augmentin] Allergy Nausea / Verified 07/03/23 21:56
Vomiting -
tolerated
meropenem
02/2019
azithromycin [From Zithromax] Allergy Swelling Verified 07/03/23 21:56
ceftibuten [From Cedax] Allergy Swelling - Verified 07/03/23 21:56
tolerated
meropenem
02/2019
citalopram [From Celexa] Allergy suicidal Verified 07/03/23 21:56
ideation
clavulanic acid Allergy Nausea / Verified 07/03/23 21:56
[From Augmentin] Vomiting
corn Allergy Anaphylaxis Verified 07/03/23 21:56
'except
cornstarch'
egg Allergy Nausea / Verified 07/03/23 21:56
Vomiting
migraines
gluten Allergy Nausea Verified 07/03/23 21:56
-stomach
ache,
diarrhea,
migraine
hydromorphone [From Dilaudid] Allergy Rash Verified 07/03/23 21:56
ibuprofen Allergy Unknown Verified 07/03/23 21:56
Iodinated Contrast Media Allergy Rash Verified 07/03/23 21:56
latex Allergy Anaphylaxis Verified 07/03/23 21:56
Latex, Natural Rubber Allergy Anaphylaxis Verified 07/03/23 21:56
levofloxacin [From Levaquin] Allergy Swelling Verified 07/03/23 21:56
Milk Containing Products Allergy Nausea / Verified 07/03/23 21:56
(Dairy) Vomiting -
[Milk Containing Products] migraines
mushroom Allergy Anaphylaxis Verified 07/03/23 21:56
nickel Allergy swelling Verified 07/03/23 21:56
and itching
Opioids - Morphine Analogues Allergy 'all Verified 07/03/23 21:56
opioids'
peanut Allergy Anaphylaxis Verified 07/03/23 21:56
Poultry Allergy Nausea Verified 07/03/23 21:56
-migraine
shellfish derived Allergy Anaphylaxis Verified 07/03/23 21:56
Sulfa (Sulfonamide Allergy Swelling Verified 07/03/23 21:56
Antibiotics)
maude jon Allergy Anaphylaxis Uncoded 07/03/23 21:56
-[place] syrup
Home Medications
levothyroxine 112 mcg tablet 112 mcg PO DAILY Thyroid 12/03/16
hydrocortisone 10 mg tablet 15 mg PO HS adrenal insufficiency 03/11/19
hydrocortisone 10 mg tablet 25 mg PO DAILY adrenal insufficiency 03/11/19
lamotrigine 100 mg tablet 100 mg PO DAILY Neurological Condition 05/17/19
buspirone 10 mg tablet 10 mg PO TID Mental Health/Anxiety 06/26/22
dihydroergotamine (Trudhesa) 1 spray intranasal DAILYPRN PRN migraine 06/26/22
famotidine 20 mg tablet 20 mg PO BID Gastrointestinal issue 06/26/22
ondansetron 8 mg disintegrating tablet 8 mg PO BID nausea 06/26/22
oxcarbazepine 300 mg tablet 300 mg PO BID Neurological Condition 06/26/22
dupilumab 300 mg/2 mL subcutaneous syringe (Dupixent) 300 mg SC Q2W Autoimmune Disorder 01/26/23
fluticasone fur. 100 mcg-umeclid 62.5 mcg-vilant 25 mcg inhalat.powder (Trelegy Ellipta) 1 inh inhalation R DAILY Lung/Breathing Issues 01/26/23
calcium citrate 315 mg calcium-vitamin D3 6.25 mcg (250 unit) tablet (Citracal + Vitamin D Maximum) 1 tab PO DAILY Supplement 07/04/23
cholecalciferol (vitamin D3) 25 mcg (1,000 unit) tablet 25 mcg PO DAILY Supplement 07/04/23
erenumab-aooe 140 mg/mL subcutaneous auto-injector (Aimovig Autoinjector) 140 mg SC Q28D migraine 07/04/23
inulin 2 gram chewable tablet (Fiber Gummies) 4 g PO DAILY Supplement 07/04/23
lamotrigine 200 mg tablet 200 mg PO HS Neurological Condition 07/04/23
polyethylene glycol 3350 17 gram oral powder packet (Miralax) 17 g PO DAILYPRN PRN constipation 07/04/23
topiramate 200 mg tablet 200 mg PO BID Neurological Condition 07/04/23
trazodone 100 mg tablet 300 mg PO HS sleep 07/04/23
varenicline 0.03 mg/spray nasal spray (Tyrvaya) 1 spray intranasal BID dry eyes 07/04/23
ziprasidone HCl 80 mg capsule 80 mg PO BID Mental Health/Anxiety 07/04/23
suvorexant 20 mg tablet (Belsomra) 20 mg PO HS sleep ##0 07/05/23
clonazepam 1 mg tablet 1 mg PO TID Mental Health/Anxiety #9 tabs 07/09/23
lemborexant 5 mg tablet (Dayvigo) 5 mg PO HS insomnia #3 tabs 07/09/23
acetaminophen 650 mg tablet,extended release 1,300 mg PO Q8HPRN PRN mild pain 12/02/23
cetirizine 10 mg tablet (Zyrtec) 40 mg PO DAILY allergies 12/02/23
docusate sodium 100 mg capsule 100 mg PO BIDPRN PRN constipation 12/02/23
gabapentin 300 mg capsule 300 mg PO TID pain 12/02/23
levalbuterol tartrate 45 mcg/actuation aerosol inhaler 1 inh inhalation R Q6HPRN PRN sob/wheezing 12/02/23
pantoprazole 40 mg tablet,delayed release 40 mg PO BID Gastrointestinal Issue 12/02/23
pregabalin 50 mg capsule 50 mg PO BID@0800,1500 Neurological Condition 12/02/23
pregabalin 75 mg capsule 75 mg PO HS Neurological Condition 12/02/23
amoxicillin 875 mg-potassium clavulanate 125 mg tablet 1 tab PO Q12 5 days #10 tabs 12/04/23
torsemide 10 mg tablet 10 mg PO DAILY 12/09/23
Review of Systems
-
History Source: Patient
A 12 point ROS was completed and negative except as noted: Yes
Constitutional: Reports No Symptoms
EENT: Reports No Symptoms
Respiratory: Reports No Symptoms
Cardiac: Reports No Symptoms
Abdomen/GI: Reports No Symptoms
: Reports No Symptoms
Musculoskeletal: Reports No Symptoms
Skin: Reports No Symptoms
Neurological: Reports See HPI
Endocrine: Reports No Symptoms
Hematologic/Lymphatic: Reports No Symptoms
Psych: Reports No Symptoms
Physical Exam
Vital Signs
Vital Signs
Temp Pulse Resp BP Pulse Ox
98.4 F 83 13 140/90 97
12/09/23 15:56 12/09/23 17:15 12/09/23 17:15 12/09/23 17:00 12/09/23 21:00
Physical Exam
General: Well Developed, Well Nourished and No Apparent Distress
HEENT: NormoCephalic, Moist mucous membranes and Atraumatic
Respiratory: Clear
Cardiac: S1/S2 and Regular Rhythm; No Murmur or Rub
GI: Soft, Non Tender, Non Distended and Normal Bowel Sounds; No Organomegaly
Rectal: Deferred by Provider
Musculoskeletal: No Clubbing, No Cyanosis, No Edema and Other (chest tenderness )
Skin: No Rash
Neuro: Nonfocal/grossly intact
Laboratory Results
-
12/09/23 16:01
Laboratory Results
PT 12.8 Sec (11.4-14.6) 12/09/23 16:33
INR 0.99 12/09/23 16:33
Lactic Acid 0.9 mmol/L (0.7-2.0) 12/09/23 18:01
Total Bilirubin 0.4 mg/dl (0.2-1.3) 12/09/23 16:33
AST 32 U/L (14-36) 12/09/23 16:33
ALT 20 U/L (0-35) 12/09/23 16:33
Alkaline Phosphatase 73 U/L (38-126) 12/09/23 16:33
Data Reviewed
-
Lab Data: Labs Reviewed by me
Old Records: Reviewed
Impression/Plan
-
IMPRESSION:
PLAN:
# Acute symptomatic hyponatremia possibly secondary to polydipsia/adrenal insufficiency resulting in ambulatory dysfunction/fall
-Sodium of 120 from 137 which was 5 days ago suggestive of possible adrenal insufficiency as etiology
-Check urine sodium, osmolality, a.m. cortisol, TSH
-IV fluids given in ER, hold further fluids
-Fluid restriction 40 ounces
-Recheck BMP
-Continue torsemide
-Nephrology consulted
# Subtle horizontal acute fracture of superior endplate of L2
-Continue Tylenol, chronic gabapentin/pregabalin
-Lidocaine patch
-Cannot take ibuprofen, opiates
# Acute fracture of central/left-sided sternal manubrium
-ER spoke with CT surgery, no further treatment required
# T12 fracture chronic
# Moderate to severe compression deformity of T6 likely chronic
# Recent pneumonia
-today should be last day of augmentin, discontinue further
Hypopituitarism
History of adrenal insufficiency
-Continue hydrocortisone
Bipolar disorder
-Continue ziprasidone, oxcarbamazepine, Lamictal, clonazepam, buspirone
Asthma/COPD
-Continue Trelegy
GERD
-Continue Protonix, Pepcid
Migraine history
-Continue trazodone, topiramate, pregabalin, gabapentin
Insomnia
-Continue Dayvigo, Belsomra
Full code
DVT prophylaxis�heparin
Regular diet
[2023-12-09 21:46] LABS: Urine Sodium 26 mmol/L (30-90)
[2023-12-09] MEDS: NON-FORMULARY ITEM 1300 MG PO (21:58)
[2023-12-09 22:49] LABS: TSH Reflex To Free T4 0.04 uIU/ml (0.47-4.68)
[2023-12-09 23:15] LABS: Free T4 1.16 ng/dl (0.78-2.19)
[2023-12-09] MEDS: DESYREL 300 MG PO (23:32)
[2023-12-09] MEDS: LAMICTAL 200 MG PO (23:33)
[2023-12-09] MEDS: LYRICA 75 MG PO (23:33)
[2023-12-09] MEDS: KLONOPIN 1 MG PO (23:34)
[2023-12-09] MEDS: BUSPAR 10 MG PO (23:51)
[2023-12-09] MEDS: CORTEF 15 MG PO (23:52)
[2023-12-10] VITALS (7 sets, daily range): BP systolic 113–150; BP diastolic 70–90
[2023-12-10] MEDS: TYLENOL 650 MG PO (03:42)
[2023-12-10] MEDS: SYNTHROID 112 MCG PO (05:27)
[2023-12-10] MEDS: SYMBICORT 80/4.5 MCG INHALER 2 PUFF INH ×2 (07:33→19:34)
[2023-12-10] MEDS: SPIRIVA RESPIMAT 2.5 MCG 2 PUFF INH (07:33)
[2023-12-10 08:58] LABS: Hematocrit 29.5 % (37.0-47.0); Hemoglobin 10.9 g/dL (12.0-16.0); Mean Corp Hgb Conc. 36.9 g/dL (33.0-37.0); Mean Corpuscular Hgb 32.5 pg (27.0-31.0); Mean Corpuscular Volume 88.1 fL (81.0-99.0); Mean Platelet Volume 10.4 fL (7.4-10.4); Platelet Count 218 10^3/uL (130-400); Red Blood Cell Count 3.35 10^6/uL (4.20-5.40); Red Cell Dist. Width 13.4 % (11.5-14.5); White Blood Cell Count 11.2 10^3/uL (4.8-10.8)
[2023-12-10] MEDS: ZOFRAN ODT (ORALLY DISINTEGRATING) 8 MG PO ×2 (10:04→20:28)
[2023-12-10] MEDS: GEODON 80 MG PO ×2 (10:04→20:28)
[2023-12-10] MEDS: LYRICA 50 MG PO ×2 (10:04→15:09)
[2023-12-10] MEDS: PROTONIX 40 MG PO ×2 (10:05→20:28)
[2023-12-10] MEDS: CORTEF 25 MG PO (10:05)
[2023-12-10] MEDS: DEMADEX 10 MG PO (10:05)
[2023-12-10] MEDS: OSCAL 500 + D 500 MG PO (10:06)
[2023-12-10] MEDS: PEPCID 20 MG PO ×2 (10:06→20:28)
[2023-12-10] MEDS: LAMICTAL 100 MG PO (10:06)
[2023-12-10] MEDS: TOPAMAX 200 MG PO ×2 (10:06→20:28)
[2023-12-10] MEDS: VITAMIN D3 (cholecalciferol) 25 MCG PO (10:06)
[2023-12-10] MEDS: TRILEPTAL 300 MG PO ×2 (10:06→20:28)
[2023-12-10] MEDS: ZYRTEC 10 MG PO (10:07)
[2023-12-10] MEDS: KLONOPIN 1 MG PO ×3 (10:07→23:15)
[2023-12-10] MEDS: BUSPAR 10 MG PO ×3 (10:07→23:16)
[2023-12-10] MEDS: FLUSH (NSS) 1 FLUSH IV (10:08)
[2023-12-10] MEDS: HEPARIN 5000 UNITS SC (10:12)
[2023-12-10] MEDS: COLACE 100 MG PO (10:28)
--- NOTE | 2023-12-10 11:51 | CM ---
Patient seen bedside, initial assessment completed. Patient resides independency with her two cats in a split level home in which she inherited from her father, no steps to enter. Patient denies DME, has had [facility] in past and would like services
again, [facility] and [facility] in past, is not agreeable to SNF. PCP Carlos Vora, pharmacy [facility], confirms prescription coverage. Patient denies food, housing/utility, transportation insecurities at home. TT sent to
Hospitalist requesting PT/OT evals. CM will continue to follow for all discharge planning needs.
Plan; PT/OT evals pending, would like [facility] if [facility]N recommended.
[2023-12-10 12:23] LABS: ALT (SGPT) 20 U/L (0-35); AST (SGOT) 34 U/L (14-36); Albumin 3.3 g/dl (3.5-5.0); Alkaline Phosphatase 75 U/L (38-126); Blood Urea Nitrogen 20 mg/dl (7-17); Calcium 9.2 mg/dl (8.4-10.2); Carbon Dioxide 21 mmol/L (22-30); Chloride 103 mmol/L (98-107); Estimated Creatinine Clearance 61 ml/min; Glucose 97 mg/dl (70-99); Potassium 4.1 mmol/L (3.5-5.1); Sodium 132 mmol/L (135-145); Total Bilirubin 0.3 mg/dl (0.2-1.3); Total Protein 5.5 g/dl (6.3-8.2); eGFR > 60.00
[2023-12-10 12:49] LABS: Cortisol, Random 33.9 ug/dl
--- NOTE | 2023-12-10 12:58 | W.CON.NEPH ---
Consultation
-
Date/Time Consultation Requested: 12/10/2023 7:30 AM
Date/Time Consultation Performed: 12/10/2023 12:30 PM
Requesting Provider: Dr. Knight
Performing Provider: Dr. Barger
Reason for Consultation: Hyponatremia
Medical History
-
Chief Complaint: Hyponatremia
History of Present Illness:
The patient is a 58-year-old female with a past medical history of chronic edema maintained on torsemide therapy. She had recently been admitted to the hospital a week prior with pneumonia and associated hyponatremia. She was discharged from the
hospital off her Demadex and had been increasing her fluid intake. 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
thyroid supplementation for her hypothyroidism. She has a history of bipolar disease and is maintained on buspirone clonazepam Lamictal oxcarbazepine. She presented to the hospital last evening with weakness and fall. She sustained a fall and
fell down 7 stairs striking her head and injured her back. She also has musculoskeletal complaints now of back and chest pain. Subsequent imaging studies revealed lumbar and manubrium fracture but no [employer] bleed. Her sodium on admission was 128
and nephrology was asked to see the patient for hyponatremia
Past Medical History
hypopituitarism, adrenal insufficiency, hyponatremia, bipolar, asthma, GERD, migraines, COPD/asthma)
Past Surgical History: Reports Other ( Orthopedic (Left thumb and hand surgery, Right wrist surgery, TMJ surgery X 2) and Other (cataracts, Vocal cord surgery))
Social History
Tobacco: Non-Smoker
Alcohol: None
Family History
No CKD
Allergies / Home Medications
Allergy/AdvReac Type Severity Reaction Status Date / Time
amoxicillin [From Augmentin] Allergy Nausea / Verified 07/03/23 21:56
Vomiting -
tolerated
meropenem
02/2019
azithromycin [From Zithromax] Allergy Swelling Verified 07/03/23 21:56
ceftibuten [From Cedax] Allergy Swelling - Verified 07/03/23 21:56
tolerated
meropenem
02/2019
citalopram [From Celexa] Allergy suicidal Verified 07/03/23 21:56
ideation
clavulanic acid Allergy Nausea / Verified 07/03/23 21:56
[From Augmentin] Vomiting
corn Allergy Anaphylaxis Verified 07/03/23 21:56
'except
cornstarch'
egg Allergy Nausea / Verified 07/03/23 21:56
Vomiting
migraines
gluten Allergy Nausea Verified 07/03/23 21:56
-stomach
ache,
diarrhea,
migraine
hydromorphone [From Dilaudid] Allergy Rash Verified 07/03/23 21:56
ibuprofen Allergy Unknown Verified 07/03/23 21:56
Iodinated Contrast Media Allergy Rash Verified 07/03/23 21:56
latex Allergy Anaphylaxis Verified 07/03/23 21:56
Latex, Natural Rubber Allergy Anaphylaxis Verified 07/03/23 21:56
levofloxacin [From Levaquin] Allergy Swelling Verified 07/03/23 21:56
Milk Containing Products Allergy Nausea / Verified 07/03/23 21:56
(Dairy) Vomiting -
[Milk Containing Products] migraines
mushroom Allergy Anaphylaxis Verified 07/03/23 21:56
nickel Allergy swelling Verified 07/03/23 21:56
and itching
Opioids - Morphine Analogues Allergy 'all Verified 07/03/23 21:56
opioids'
peanut Allergy Anaphylaxis Verified 07/03/23 21:56
Poultry Allergy Nausea Verified 07/03/23 21:56
-migraine
shellfish derived Allergy Anaphylaxis Verified 07/03/23 21:56
Sulfa (Sulfonamide Allergy Swelling Verified 07/03/23 21:56
Antibiotics)
maude jon Allergy Anaphylaxis Uncoded 07/03/23 21:56
-[place] syrup
�Medication �Instructions �Recorded �Confirmed �Type
levothyroxine 112 mcg tablet 112 mcg PO DAILY Thyroid 12/03/16 12/09/23 History
hydrocortisone 10 mg tablet 15 mg PO HS adrenal insufficiency 03/11/19 12/09/23 History
hydrocortisone 10 mg tablet 25 mg PO DAILY adrenal 03/11/19 12/09/23 History
insufficiency
lamotrigine 100 mg tablet 100 mg PO DAILY Neurological 05/17/19 12/09/23 History
Condition
buspirone 10 mg tablet 10 mg PO TID Mental Health/Anxiety 06/26/22 12/09/23 History
dihydroergotamine (Trudhesa) 1 spray intranasal DAILYPRN PRN 06/26/22 12/09/23 History
migraine
famotidine 20 mg tablet 20 mg PO BID Gastrointestinal issue 06/26/22 12/09/23 History
ondansetron 8 mg disintegrating 8 mg PO BID nausea 06/26/22 12/09/23 History
tablet
oxcarbazepine 300 mg tablet 300 mg PO BID Neurological 06/26/22 12/09/23 History
Condition
dupilumab 300 mg/2 mL subcutaneous 300 mg SC Q2W Autoimmune Disorder 01/26/23 12/09/23 History
syringe (Dupixent)
fluticasone fur. 100 mcg-umeclid 1 inh inhalation R DAILY 01/26/23 12/09/23 History
62.5 mcg-vilant 25 mcg Lung/Breathing Issues
inhalat.powder (Trelegy Ellipta)
calcium citrate 315 mg 1 tab PO DAILY Supplement 07/04/23 12/09/23 History
calcium-vitamin D3 6.25 mcg (250
unit) tablet (Citracal + Vitamin D
Maximum)
cholecalciferol (vitamin D3) 25 25 mcg PO DAILY Supplement 07/04/23 12/09/23 History
mcg (1,000 unit) tablet
erenumab-aooe 140 mg/mL 140 mg SC Q28D migraine 07/04/23 12/09/23 History
subcutaneous auto-injector
(Aimovig Autoinjector)
inulin 2 gram chewable tablet 4 g PO DAILY Supplement 07/04/23 12/09/23 History
(Fiber Gummies)
lamotrigine 200 mg tablet 200 mg PO HS Neurological Condition 07/04/23 12/09/23 History
polyethylene glycol 3350 17 gram 17 g PO DAILYPRN PRN constipation 07/04/23 12/09/23 History
oral powder packet (Miralax)
topiramate 200 mg tablet 200 mg PO BID Neurological 07/04/23 12/09/23 History
Condition
trazodone 100 mg tablet 300 mg PO HS sleep 07/04/23 12/09/23 History
varenicline 0.03 mg/spray nasal 1 spray intranasal BID dry eyes 07/04/23 12/09/23 History
spray (Tyrvaya)
ziprasidone HCl 80 mg capsule 80 mg PO BID Mental Health/Anxiety 07/04/23 12/09/23 History
suvorexant 20 mg tablet (Belsomra) 20 mg PO HS sleep ##0 07/05/23 12/09/23 History
clonazepam 1 mg tablet 1 mg PO TID Mental Health/Anxiety 07/09/23 12/09/23 Rx
#9 tabs
lemborexant 5 mg tablet (Dayvigo) 5 mg PO HS insomnia #3 tabs 07/09/23 12/09/23 Rx
acetaminophen 650 mg 1,300 mg PO Q8HPRN PRN mild pain 12/02/23 12/09/23 History
tablet,extended release
cetirizine 10 mg tablet (Zyrtec) 40 mg PO DAILY allergies 12/02/23 12/09/23 History
docusate sodium 100 mg capsule 100 mg PO BIDPRN PRN constipation 12/02/23 12/09/23 History
gabapentin 300 mg capsule 300 mg PO TID pain 12/02/23 12/09/23 History
levalbuterol tartrate 45 1 inh inhalation R Q6HPRN PRN 12/02/23 12/09/23 History
mcg/actuation aerosol inhaler sob/wheezing
pantoprazole 40 mg tablet,delayed 40 mg PO BID Gastrointestinal Issue 12/02/23 12/09/23 History
release
pregabalin 50 mg capsule 50 mg PO BID@0800,1500 12/02/23 12/09/23 History
Neurological Condition
pregabalin 75 mg capsule 75 mg PO HS Neurological Condition 12/02/23 12/09/23 History
torsemide 10 mg tablet 10 mg PO DAILY Fluid 12/09/23 12/09/23 History
Retention/Swelling
amoxicillin 875 mg-potassium 1 tab PO Q12 Infection 12/10/23 12/09/23 History
clavulanate 125 mg tablet
Review of Systems
-
History Source: Patient
All other systems: Negative unless noted
Constitutional: Fatigue
EENT: Other (Dizziness)
Respiratory: Cough
Cardiac: No Symptoms
Abdomen/GI: No Symptoms
: No Symptoms
Musculoskeletal: Other (Multiple pains including chest and back)
Skin: No Symptoms
Neurological: No Symptoms
Endocrine: No Symptoms
Hematologic/Lymphatic: No Symptoms
Physical Exam
Vital Signs
Vital Signs
Temp Pulse Resp BP Pulse Ox
98.0 F 87 18 150/90 98
12/10/23 11:53 12/10/23 11:53 12/10/23 11:53 12/10/23 11:53 12/10/23 11:53
Lab Results
12/10/23 08:23
12/10/23 11:34
WBC 11.2 10^3/uL (4.8-10.8) H 12/10/23 08:23
RBC 3.35 10^6/uL (4.20-5.40) L 12/10/23 08:23
Hgb 10.9 g/dL (12.0-16.0) L 08/14/24 08:23
Hct 29.5 % (37.0-47.0) L 12/10/23 08:23
Plt Count 218 10^3/uL (130-400) 12/10/23 08:23
Sodium 132 mmol/L (135-145) L D 12/10/23 11:34
Potassium 4.1 mmol/L (3.5-5.1) 12/10/23 11:34
Chloride 103 mmol/L (98-107) 12/10/23 11:34
Carbon Dioxide 21 mmol/L (22-30) L 12/10/23 11:34
BUN 20 mg/dl (7-17) H 12/10/23 11:34
Creatinine 0.9 mg/dL (0.6-1.0) 12/10/23 11:34
eGFR > 60.00 12/10/23 11:34
Glucose 97 mg/dl (70-99) 12/10/23 11:34
Calcium 9.2 mg/dl (8.4-10.2) 12/10/23 11:34
Albumin 3.3 g/dl (3.5-5.0) L 12/10/23 11:34
Physical Exam
General: AOx3, Nontoxic , NAD
HEENT: PERRL, EOMI, Anicteric, Conjunctivae Clear, Ear/Nose Intact, Hearing Normal, Oropharynx Clear/Moist, Dentition Intact, Facial Symmetry, Neck Supple, Neck: Trachea Midline, No JVD and No Thyromegaly, no Bruits
Respiratory: Clear to auscultation bilaterally with normal lung excursion
Cardiac: S1/S2 and Regular Rate/Rhythm
Breast: Deferred by me
Abdomen: Soft, Nontender, Nondistended, Normal Bowel Sounds and No Hepatosplenomegaly
Rectal: Deferred by Provider
Genito-urinary: No Costovertebral Tenderness
Extremities: No Clubbing, No Cyanosis and No Edema
Skin: No Rash or open lesions
Neuro: Nonfocal/Grossly Intact, CN II-XII (Intact) and Strength (Musculoskeletal exam 5 out of 5 both upper and lower extremities)
Hematologic/Lymphatic: No Cervical Lymphadenopathy, No Submandibular Lymphadenopathy and No Supraclavicular Lymphadenopathy
Psych: Mood/afflect flat Insight/judgement good and Appropriate
Vascular: plus 2 pedal and radial pulses
Data Reviewed
-
Radiology: Report Reviewed by me (Chest x-ray personally reviewed by me no evidence of congestive heart failure or distinct infiltrate)
CT Scan: Report Reviewed by me (CAT scan of head reviewed no evidence of intracranial bleed or process)
Labs: Labs Reviewed by me (BMP CBC urine osmolality TSH and cortisol)
Old Records: Reviewed (Reviewed previous serum sodium level of 137 on 12/04/2023)
Assessment/Plan
-
Impression:
Hyponatremia euvolemic
Status post fall with contusion to chest
History of anxiety and bipolar disease
History of chronic edema
History of asthma
History of panhypopituitary
Subtle horizontal acute fracture of superior endplate of L2
Acute fracture of central left-sided sternal manubrium
History of recent pneumonia
Plan:
Euvolemic hyponatremia
-Urine osmolality 151 on presentation: More consistent with polydipsia
-I suspect this was exacerbated by increasing her fluid intake and the discontinuation of her torsemide following her last admission
-Fluid restriction implemented and torsemide readminister
-I suspect there is also ADH effect induced from her bipolar medications including oxcarbazepine and/or Lamictal
-As serum sodium now up to 132 will increase fluid restriction to 50 ounces
-Recheck electrolytes at 1800
--- NOTE | 2023-12-10 14:12 | W.PN.HOSP.TC ---
Addendum entered and electronically signed by Demi Knight MD 12/10/23 18:12:
I personally performed a history and physical exam of the patient and discussed management with the resident. I reviewed the resident's note and agree with the documented findings and plan of care HPI/CC except for changes in documentation.
58-year-old female who felt dizzy and fell down stairs. No loss of consciousness.
CT chest abdomen pelvis-without IV and p.o. contrast-allergy to IV contrast.
No solid organ injury. Constipation. Trace pericardial effusion. No pneumothorax. Trace pleural effusion or pleural thickening. 11 mm groundglass opacity in the anterior left mid lung zone and 5 mm groundglass opacity in the anterior caudal
aspect of the right upper lobe. Bilateral tiny nonobstructing intrarenal calculi left greater than right. Numerous old vertebral, rib and sternal fractures. Avulsion fracture of the right scapular carcinoid process without associated edema.
Progressive severe wedge compression deformity of T12 progressed since 07/02/2023. Mild progressive T11 endplate diminished stature. Moderate T6 vertebral compression deformity progressed since January 2023. Mild superior endplate T7 compression
deformity. Subtle superior endplate compression deformity L2
Hyponatremia-fluid restriction
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
Nephrology following
Need to look at psychiatric medications as a culprit also if fluid restriction does not corrected.
CT abdomen and pelvis noted
Original Note:
Today's Communication/Plan
-
- Fluid restriction to 50 oz.
- Continue torsemide.
- IV ketorolac and lidocaine patch.
Assessment / Plan
Assessment / Plan
Assessment
Nolvia Patel, age 58, has been experiencing progressive fatigue and increasing thirst over the past few days. On 12-09-23, she was feeling weak and experienced a fall down the stairs. She did hit her head and sustained significant impact to her
spine and thorax. Denies losing consciousness and did not develop any new symptoms after the fall except for pain. In the ED, she was found to be hyponatremic. Admitted for further management.
Impression and plan
Primary polydipsia
Euvolemic hyponatremia
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
- The patient has a known history of polydipsia.
- Torsemide was held recently, which may have contributed to the current presentation.
- Serum sodium 120, urine osmolality 151 and urine sodium 26 on 12-09-23.
- Fluid restriction to 50 oz per day.
- Continue torsemide.
- Nephrology following.
- Several of her medications are known to cause SIADH; underlying ADH effect may be obscuring the presentation somewhat.
- Continue all psychiatric medications for now - will consider inpatient consultation to optimize management.
Polytrauma
Acute horizontal fracture of superior endplate of L2
Cpetq-ko-xpgikjnx central to left-sided sternal manubrium
- CT scans with acute osseous pathologies; no active bleeds noted.
- Patient has had reactions to opiates in the past; wants to avoid them.
- IV ketorolac 10 mg for now.
- Use lidocaine patch if tolerated.
- Continue acetaminophen, gabapentin and pregabalin.
Arambula-hypopituitarism
Adrenal insufficiency
- Likely contributing to polydipsia.
- Continue hydrocortisone.
- Random cortisol 33.3 on 12-10-23.
- Vitals within normal limits so far; follow.
Secondary hypothyroidism
- Likely from arambula-hypopituitarism.
- Continue levothyroxine.
Bipolar disorder
- Consider optimizing management due to chronic and recurrent hyponatremia, which some of them might be contributing to.
- Continue buspirone, clonazepam, lamotrigine, oxcarbazepine, topiramate and ziprasidone for now.
- Can consider in-patient psychiatric consultation.
Chronic insomnia
- Continue trazodone, suvorexant and lemborexant.
Migraine with aura
- Continue topiramate and lamotrigine.
Chronic pain syndrome
Chronic T12 fracture
History of multiple fractures
- Continue gabapentin and pregabalin for now.
- Unclear why she requires both at the same time; consider discontinuing one of them, preferably the former.
Gastroparesis
- Continue famotidine, pantoprazole and ondansetron.
Asthma
Allergic rhinitis
- Continue levalbuterol, tiotropium, budesonide-formoterol and cetirizine.
Polypharmacy
- Likely driving some of her symptoms.
- Will continue medications for now but seems like there is a need for optimization.
Recent history of sepsis secondary to community-acquired pneumonia
- Discharged on 12-04-23.
- Completed the last dose of amoxicillin-clavulanate on 12-09-23.
VTE prophylaxis
- Heparin SC.
Code status
- Full.
Anticipated Discharge: 24 - 48 hours
Subjective/Interval History
-
Date of Service: December 10, 2023
Objective Data
-
Labs:
Laboratory Results
12/10/23 12/10/23 12/10/23
08:23 11:34 18:00
WBC 11.2 H
Hgb 10.9 L
Hct 29.5 L
Plt Count 218
Sodium Cancelled 132 L D Pending
Potassium Cancelled 4.1 Pending
Chloride Cancelled 103 Pending
Carbon Dioxide Cancelled 21 L Pending
BUN Cancelled 20 H Pending
Creatinine Cancelled 0.9 Pending
Glucose Cancelled 97 Pending
Calcium Cancelled 9.2 Pending
Total Bilirubin Cancelled 0.3
AST Cancelled 34
ALT Cancelled 20
Alkaline Phosphatase Cancelled 75
Vital Signs:
Vital Signs
Temp Pulse Resp BP Pulse Ox
98.0 F 87 18 150/90 98
12/10/23 11:53 12/10/23 11:53 12/10/23 11:53 12/10/23 11:53 12/10/23 11:53
Review of Systems
-
History Source: Patient
Constitutional: Reports Fatigue
EENT: Reports No Symptoms Reported
Respiratory: Reports No Symptoms
Cardiac: Reports No Symptoms
Abdomen/GI: Reports No Symptoms
Breast: Reports No Symptoms
Genitourinary: Reports No Symptoms
Musculoskeletal: Reports Other (generalized body aches; worse throughout spine and on the sternum)
Skin: Reports No Symptoms
Neuro: Reports No Symptoms
Endocrine: Reports Polydipsia (chronic; worse recently) and Excessive Thirst
Hematologic / Lymphatic: Reports No Symptoms
Allergy / Immunology: Reports No Symptoms
Physical Exam
-
General: Comfortable and Appears in Distress (with movements due to pain)
HEENT: Normocephalic, Atraumatic, Moist Mucous Membranes and Anicteric
Respiratory: Clear to Auscultation
Cardiac: Regular Rhythm and S1/S2
GI: Soft, Nontender and Nondistended
Musculoskeletal: No Clubbing, No Cyanosis, No Edema and Other (tenderness throughout spine, worse in the lumbar region; sternal tenderness; restricted truncal motion from pain)
Skin: Warm, Dry and IV Access / Catheter Site
Neuro: Awake, Alert, Oriented and Nonfocal/Grossly Intact
Hematologic / Lymphatic: No Lymphadenopathy
Psych: Calm
[2023-12-10] MEDS: TORADOL 10 MG IV ×2 (15:09→21:20)
[2023-12-10] MEDS: FLUSH (NSS) 2 FLUSH IV (15:10)
[2023-12-10 18:03] LABS: Blood Urea Nitrogen 18 mg/dl (7-17); Calcium 8.9 mg/dl (8.4-10.2); Carbon Dioxide 25 mmol/L (22-30); Chloride 104 mmol/L (98-107); Estimated Creatinine Clearance 55 ml/min; Glucose 101 mg/dl (70-99); Potassium 3.8 mmol/L (3.5-5.1); Sodium 130 mmol/L (135-145); eGFR > 60.00
[2023-12-10] MEDS: HEPARIN SC ×2 (20:28→20:39)
[2023-12-10] MEDS: LYRICA 75 MG PO (23:15)
[2023-12-10] MEDS: CORTEF 15 MG PO (23:15)
[2023-12-10] MEDS: LAMICTAL 200 MG PO (23:16)
[2023-12-10] MEDS: DESYREL 300 MG PO (23:16)
[2023-12-11 03:32] VITALS: BP 132/83
[2023-12-11] MEDS: TORADOL 10 MG IV ×3 (03:37→17:24)
[2023-12-11] MEDS: SYNTHROID 112 MCG PO (03:38)
[2023-12-11 07:40] VITALS: BP 154/92
[2023-12-11] MEDS: SYMBICORT 80/4.5 MCG INHALER 2 PUFF INH ×2 (07:43→20:17)
[2023-12-11] MEDS: SPIRIVA RESPIMAT 2.5 MCG 2 PUFF INH (07:44)
[2023-12-11 08:08] LABS: % Lymphocytes 17.3 % (20.5-51.1); % Monocytes 7.3 % (1.7-9.3); % Neutrophils 71.6 % (42.2-75.2); Hematocrit 31.5 % (37.0-47.0); Mean Corp Hgb Conc. 34.9 g/dL (33.0-37.0); Mean Corpuscular Hgb 32.9 pg (27.0-31.0); Mean Corpuscular Volume 94.3 fL (81.0-99.0); Mean Platelet Volume 9.7 fL (7.4-10.4); Platelet Count 248 10^3/uL (130-400); Red Blood Cell Count 3.34 10^6/uL (4.20-5.40); Red Cell Dist. Width 13.7 % (11.5-14.5); White Blood Cell Count 9.1 10^3/uL (4.8-10.8)
[2023-12-11 08:09] LABS: % Basophils 0.8 % (0-2); % Eosinophils 1.3 % (0-6); % Immature Granulocytes 1.7 % (0-0.5); Absolute Basophils 0.1 10^3/uL (0-0.2); Absolute Eosinophils 0.1 10^3/uL (0-0.7); Absolute Immature Granulocytes 0.2 10^3/uL (0-0.05); Absolute Lymphocytes 1.6 10^3/uL (1.2-3.4); Absolute Monocytes 0.7 10^3/uL (0.1-0.6); Absolute Neutrophils 6.5 10^3/uL (1.4-6.5); Nucleated Red Blood Cells % 0 %
[2023-12-11 08:44] LABS: Blood Urea Nitrogen 19 mg/dl (7-17); Calcium 8.7 mg/dl (8.4-10.2); Carbon Dioxide 22 mmol/L (22-30); Chloride 103 mmol/L (98-107); Estimated Creatinine Clearance 50 ml/min; Glucose 82 mg/dl (70-99); Potassium 4.3 mmol/L (3.5-5.1); Sodium 130 mmol/L (135-145); eGFR 58.61
[2023-12-11] MEDS: GEODON 80 MG PO ×2 (08:53→20:16)
[2023-12-11] MEDS: LYRICA 50 MG PO ×2 (08:54→16:35)
[2023-12-11] MEDS: PROTONIX 40 MG PO ×2 (08:54→20:17)
[2023-12-11] MEDS: CORTEF 25 MG PO (08:54)
[2023-12-11] MEDS: LAMICTAL 100 MG PO (08:59)
[2023-12-11] MEDS: TRILEPTAL 300 MG PO ×2 (08:59→20:18)
[2023-12-11] MEDS: KLONOPIN 1 MG PO ×3 (09:00→22:10)
[2023-12-11] MEDS: PEPCID 20 MG PO (09:00)
[2023-12-11] MEDS: OSCAL 500 + D 500 MG PO (09:00)
[2023-12-11] MEDS: ZYRTEC 10 MG PO (09:00)
[2023-12-11] MEDS: BUSPAR 10 MG PO ×3 (09:00→22:09)
[2023-12-11] MEDS: DEMADEX 10 MG PO (09:00)
[2023-12-11] MEDS: TOPAMAX 200 MG PO ×2 (09:00→20:17)
[2023-12-11] MEDS: VITAMIN D3 (cholecalciferol) 25 MCG PO (09:00)
[2023-12-11] MEDS: ZOFRAN ODT (ORALLY DISINTEGRATING) 8 MG PO ×2 (09:03→20:29)
[2023-12-11] MEDS: HEPARIN SC ×2 (09:08→20:06)
[2023-12-11 11:39] VITALS: BP 120/80
--- NOTE | 2023-12-11 11:40 | W.PN.HOSP.TC ---
Addendum entered and electronically signed by Demi Knight MD 12/11/23 14:51:
I personally performed a history and physical exam of the patient and discussed management with the resident. I reviewed the resident's note and agree with the documented findings and plan of care HPI/CC except change sin documentation.,
Patient is feeling better today. She is constipated.
CVS: S1-S2 normal
Chest: CTA B/L
Abdomen: Soft, slightly distended, nontender bowel sounds present
Extremities: No edema, normal pulses
[employer]: Non focal exam
Echo normal LV size. EF 60 to 65%
# Hyponatremia-likely secondary to primary polydipsia/SIADH
Sodium is getting better continue fluid restriction
Continue torsemide
Nephrology following
Defer to nephrology if she needs additional medicines
# Mild elevation in creatinine-check bladder scan. Follow
# Constipation-bowel regimen/magnesium citrate ordered
Follow
# Trauma
CT noted
Patient wants to avoid opiates
1 dose of ketorolac given and
Continue acetaminophen, gabapentin and pregabalin.
# Panhypopituitarism
TSH low likely secondary to that
Continue replacement-thyroid hormone, steroids
# Bipolar disorder-continue buspirone, lorazepam, lamotrigine, oxcarbazepine, ziprasidone
# Headaches migraine with aura--continue topiramate
# Insomnia-continue trazodone, Dayvigo, Belsomra
# Chronic pain syndrome with fractures-continue gabapentin and Lyrica
# Gastroparesis-on Pepcid Protonix and Zofran scheduled as outpatient
# Asthma and allergic rhinitis-continue with albuterol, Spiriva, cetirizine
# Recent admission for pneumonia-completed course of amoxicillin
# DVT prophylaxis-subcutaneous heparin
# CODE STATUS-full code
Discussed with nephrology
Original Note:
Today's Communication/Plan
-
- Fluid restriction to 50 oz.
- Continue torsemide.
- Follow BMP.
- IV ketorolac and lidocaine patch.
- PT/OT following.
Assessment / Plan
Assessment / Plan
Assessment
Nolvia Patel, age 58, has been experiencing progressive fatigue and increasing thirst over the past few days. On 12-09-23, she was feeling weak and experienced a fall down the stairs. She did hit her head and sustained significant impact to her
spine and thorax. Denies losing consciousness and did not develop any new symptoms after the fall except for pain. In the ED, she was found to be hyponatremic. Admitted for further management.
Impression and plan
Primary polydipsia
Euvolemic hyponatremia
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
- The patient has a known history of polydipsia.
- Torsemide was held recently, which may have contributed to the current presentation.
- Serum sodium 120, urine osmolality 151 and urine sodium 26 on 12-09-23.
- Fluid restriction to 50 oz per day.
- Continue torsemide.
- Nephrology following.
- Several of her medications are known to cause SIADH; underlying ADH effect may be obscuring the presentation somewhat.
- Continue all psychiatric medications for now - will consider inpatient consultation to optimize management.
Polytrauma
Acute horizontal fracture of superior endplate of L2
Jsjjz-ca-domycwzy central to left-sided sternal manubrium
- CT scans with acute osseous pathologies; no active bleeds noted.
- Patient has had reactions to opiates in the past; wants to avoid them.
- IV ketorolac 10 mg for now.
- Use lidocaine patch if tolerated.
- Continue acetaminophen, gabapentin and pregabalin.
Arambula-hypopituitarism
Adrenal insufficiency
- Likely contributing to polydipsia.
- Continue hydrocortisone.
- Random cortisol 33.3 on 12-10-23.
- Vitals within normal limits so far; follow.
Secondary hypothyroidism
- Likely from arambula-hypopituitarism.
- Continue levothyroxine.
Bipolar disorder
- Consider optimizing management due to chronic and recurrent hyponatremia, which some of them might be contributing to.
- Continue buspirone, clonazepam, lamotrigine, oxcarbazepine, topiramate and ziprasidone for now.
- Can consider in-patient psychiatric consultation.
Chronic insomnia
- Continue trazodone, suvorexant and lemborexant.
Migraine with aura
- Continue topiramate and lamotrigine.
Chronic pain syndrome
Chronic T12 fracture
History of multiple fractures
- Continue gabapentin and pregabalin for now.
- Unclear why she requires both at the same time; consider discontinuing one of them, preferably the former.
Gastroparesis
- Continue famotidine, pantoprazole and ondansetron.
Asthma
Allergic rhinitis
- Continue levalbuterol, tiotropium, budesonide-formoterol and cetirizine.
Polypharmacy
- Likely driving some of her symptoms.
- Will continue medications for now but seems like there is a need for optimization.
Recent history of sepsis secondary to community-acquired pneumonia
- Discharged on 12-04-23.
- Completed the last dose of amoxicillin-clavulanate on 12-09-23.
VTE prophylaxis
- Heparin SC.
Code status
- Full.
Anticipated Discharge: Within 24 hours
Subjective/Interval History
-
Date of Service: December 11, 2023
Objective Data
-
Labs:
Laboratory Results
12/11/23
07:20
WBC 9.1
Hgb 11.0 L
Hct 31.5 L
Plt Count 248
Sodium 130 L
Potassium 4.3
Chloride 103
Carbon Dioxide 22
BUN 19 H
Creatinine 1.1 H
Glucose 82
Calcium 8.7
Vital Signs:
Vital Signs
Temp Pulse Resp BP Pulse Ox
97.9 F 88 16 120/80 96
12/11/23 11:39 12/11/23 11:39 12/11/23 11:39 12/11/23 11:39 12/11/23 11:39
I&O
12/10/23 12/11/23 12/12/23
06:59 06:59 06:59
Intake Total 480 / 480 720 / 720
Balance 480 / 480 720 / 720
Review of Systems
-
History Source: Patient
Constitutional: Reports Fatigue
EENT: Reports No Symptoms Reported
Respiratory: Reports No Symptoms
Cardiac: Reports No Symptoms
Abdomen/GI: Reports No Symptoms
Breast: Reports No Symptoms
Genitourinary: Reports No Symptoms
Musculoskeletal: Reports Other (generalized body aches; worse throughout spine and on the sternum)
Skin: Reports No Symptoms
Neuro: Reports No Symptoms
Endocrine: Reports Polydipsia (chronic; worse recently) and Excessive Thirst
Hematologic / Lymphatic: Reports No Symptoms
Allergy / Immunology: Reports No Symptoms
Physical Exam
-
General: Comfortable and Appears in Distress (with movements due to pain)
HEENT: Normocephalic, Atraumatic, Moist Mucous Membranes and Anicteric
Respiratory: Clear to Auscultation
Cardiac: Regular Rhythm and S1/S2
GI: Soft, Nontender and Nondistended
Musculoskeletal: No Clubbing, No Cyanosis, No Edema and Other (tenderness throughout spine, worse in the lumbar region; sternal tenderness; restricted truncal motion from pain)
Skin: Warm, Dry and IV Access / Catheter Site
Neuro: Awake, Alert, Oriented and Nonfocal/Grossly Intact
Hematologic / Lymphatic: No Lymphadenopathy
Psych: Calm
[2023-12-11] MEDS: CITROMA 300 ML PO (12:56)
[2023-12-11] MEDS: SENOKOT 17.2 MG PO ×2 (12:56→20:17)
[2023-12-11] MEDS: MIRALAX 17 GRAMS PO (12:56)
--- NOTE | 2023-12-11 15:06 | VNURNOTE ---
Home Health Liaison met spoke with patient to discuss [facility] nurse/therapy, visits, schedule and homebound status. Patient is agreeable and understands that visits at home will be 2-3 x per week to assess and teach medical management. Does not appear
to have a skilled nurse need. Patient is agreeable to start off with home PT, OT, [employer]. Patient is aware that [facility] will contact them for start of care in 1-2 days after discharge from . [facility] referral completed in [facility] [place] updated.
--- NOTE | 2023-12-11 15:22 | CM ---
Patient seen bedside, discussed referral made to [facility]. Patient denies any other needs to CM at this time, will continue to follow for all discharge planning needs.
Plan; home with [facility] when medically stable.
[2023-12-11 15:47] VITALS: BP 134/81
--- NOTE | 2023-12-11 16:58 | W.PN.NEPH.PH ---
Today's Communication / Plan
-
Maintain fluid restriction and torsemide
Assessment/Plan
-
Impression:
Hyponatremia euvolemic
Status post fall with contusion to chest
History of anxiety and bipolar disease
History of chronic edema
History of asthma
History of panhypopituitary
Subtle horizontal acute fracture of superior endplate of L2
Acute fracture of central left-sided sternal manubrium
History of recent pneumonia
Plan:
Euvolemic hyponatremia
-Urine osmolality 151 on presentation: More consistent with polydipsia, sodium stable at 130 today
-I suspect this was exacerbated by increasing her fluid intake and the discontinuation of her torsemide following her last admission
-Fluid restriction implemented and torsemide readministered
-I suspect there is also ADH effect induced from her bipolar medications including oxcarbazepine and/or Lamictal
-Will maintain fluid restriction
-
-
Date of Service: December 11, 2023
CC / HPI / ROS
-
Chief Complaint:
Hyponatremia
History of Present Illness:
Serum sodium up to 130 on fluid restriction and Demadex
Hemodynamically stable
Review of Systems:
No chest pain or shortness of breath
Urine output not recorded
Labs
-
Labs:
WBC 9.1 10^3/uL (4.8-10.8) 12/11/23 07:20
RBC 3.34 10^6/uL (4.20-5.40) L 12/11/23 07:20
Hgb 11.0 g/dL (12.0-16.0) L 12/11/23 07:20
Hct 31.5 % (37.0-47.0) L 12/11/23 07:20
Plt Count 248 10^3/uL (130-400) 12/11/23 07:20
Sodium 130 mmol/L (135-145) L 12/11/23 07:20
Potassium 4.3 mmol/L (3.5-5.1) 12/11/23 07:20
Chloride 103 mmol/L (98-107) 12/11/23 07:20
Carbon Dioxide 22 mmol/L (22-30) 12/11/23 07:20
BUN 19 mg/dl (7-17) H 12/11/23 07:20
Creatinine 1.1 mg/dL (0.6-1.0) H 12/11/23 07:20
eGFR 58.61 12/11/23 07:20
Glucose 82 mg/dl (70-99) 12/11/23 07:20
Calcium 8.7 mg/dl (8.4-10.2) 12/11/23 07:20
Albumin 3.3 g/dl (3.5-5.0) L 12/10/23 11:34
Physical Exam
-
Vital Signs:
Vital Signs
Temp Pulse Resp BP Pulse Ox
98.3 F 82 16 134/81 95
12/11/23 15:47 12/11/23 15:47 12/11/23 15:47 12/11/23 15:47 12/11/23 15:47
Cardiovascular:: Regular rate and rhythm
Respiratory:: Bilateral: CTA
Lung Excursion:: Normal
Abdomen:: Nontender and Soft
Bowel Sounds:: Normal
Extremity Edema:: None: Bilateral:
Proctor Catheter: No
[2023-12-11 19:56] VITALS: BP 117/80
[2023-12-11] MEDS: LYRICA 75 MG PO (22:10)
[2023-12-11] MEDS: DESYREL 300 MG PO (22:10)
[2023-12-11] MEDS: LAMICTAL 200 MG PO (22:10)
[2023-12-11] MEDS: CORTEF 15 MG PO (22:14)
[2023-12-11 23:29] VITALS: BP 109/73
[2023-12-12] VITALS (7 sets, daily range): BP systolic 106–166; BP diastolic 73–103; PULSE 80–90
[2023-12-12] MEDS: TORADOL 10 MG IV ×2 (01:36→10:38)
[2023-12-12] MEDS: SYNTHROID 112 MCG PO (04:23)
--- NOTE | 2023-12-12 06:38 | PTCARENOTE ---
Pt bladder scanned 680 mls encouraged pt to void. Attempted hat, missed. Re-scanned for 48 mls.
[2023-12-12] MEDS: SYMBICORT 80/4.5 MCG INHALER 2 PUFF INH ×2 (07:08→20:36)
[2023-12-12] MEDS: SPIRIVA RESPIMAT 2.5 MCG 2 PUFF INH (07:08)
[2023-12-12] MEDS: MIRALAX 17 GRAMS PO (08:00)
[2023-12-12] MEDS: CORTEF 25 MG PO (08:00)
[2023-12-12] MEDS: PROTONIX 40 MG PO (08:00)
[2023-12-12] MEDS: OSCAL 500 + D 500 MG PO (08:01)
[2023-12-12] MEDS: VITAMIN D3 (cholecalciferol) 25 MCG PO (08:01)
[2023-12-12] MEDS: KLONOPIN 1 MG PO ×2 (08:01→15:33)
[2023-12-12] MEDS: LAMICTAL 100 MG PO (08:01)
[2023-12-12] MEDS: PEPCID 20 MG PO (08:01)
[2023-12-12] MEDS: LYRICA 50 MG PO ×2 (08:01→15:07)
[2023-12-12] MEDS: BUSPAR 10 MG PO ×2 (08:01→15:33)
[2023-12-12] MEDS: SENOKOT 17.2 MG PO ×2 (08:01→17:41)
[2023-12-12] MEDS: ZOFRAN ODT (ORALLY DISINTEGRATING) 8 MG PO (08:02)
[2023-12-12] MEDS: ZYRTEC 10 MG PO (08:02)
[2023-12-12] MEDS: TRILEPTAL 300 MG PO (08:02)
[2023-12-12] MEDS: TOPAMAX 200 MG PO (08:03)
[2023-12-12] MEDS: HEPARIN SC ×2 (08:03→19:50)
[2023-12-12] MEDS: DEMADEX 10 MG PO (08:03)
[2023-12-12] MEDS: GEODON 80 MG PO (08:03)
[2023-12-12 08:36] LABS: Hematocrit 31.9 % (37.0-47.0); Hemoglobin 11.1 g/dL (12.0-16.0); Mean Corp Hgb Conc. 34.8 g/dL (33.0-37.0); Mean Corpuscular Hgb 32.1 pg (27.0-31.0); Mean Corpuscular Volume 92.2 fL (81.0-99.0); Mean Platelet Volume 9.5 fL (7.4-10.4); Platelet Count 272 10^3/uL (130-400); Red Blood Cell Count 3.46 10^6/uL (4.20-5.40); Red Cell Dist. Width 13.8 % (11.5-14.5); White Blood Cell Count 9.3 10^3/uL (4.8-10.8)
--- NOTE | 2023-12-12 08:46 | W.PN.HOSP.TC ---
Addendum entered and electronically signed by Demi Knight MD 12/12/23 13:28:
I personally performed a history and physical exam of the patient and discussed management with the resident. I reviewed the resident's note and agree with the documented findings and plan of care HPI/CC.
PT was at bed side. Pt says she wants to go home. She feels well.
No BM yet
Abdomen: Soft, slightly distended, nontender bowel sounds present
Extremities: No edema
Sodium 129
Continue fluid restriction
Defer to nephrology if she needs tolvaptan
She is asymptomatic
Enema ordered this am , not given
No results with Mag citrate.
Await renal eval to plan discharge
Original Note:
Today's Communication/Plan
-
- Fluid restriction to 50 oz.
- Continue torsemide.
- Follow BMP.
- IV ketorolac and lidocaine patch.
- PT/OT following.
- Discharge planning.
Assessment / Plan
Assessment / Plan
Assessment
Nolvia Patel, age 58, has been experiencing progressive fatigue and increasing thirst over the past few days. On 12-09-23, she was feeling weak and experienced a fall down the stairs. She did hit her head and sustained significant impact to her
spine and thorax. Denies losing consciousness and did not develop any new symptoms after the fall except for pain. In the ED, she was found to be hyponatremic. Admitted for further management.
Impression and plan
Primary polydipsia
Euvolemic hyponatremia
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
- The patient has a known history of polydipsia.
- Torsemide was held recently, which may have contributed to the current presentation.
- Serum sodium 120, urine osmolality 151 and urine sodium 26 on 12-09-23.
- Fluid restriction to 50 oz per day.
- Continue torsemide.
- Nephrology following.
- Several of her medications are known to cause SIADH; underlying ADH effect may be obscuring the presentation somewhat.
- Continue all psychiatric medications for now - will consider inpatient consultation to optimize management.
Polytrauma
Acute horizontal fracture of superior endplate of L2
Jjocu-[id number]-[id number] fracture of central to left-sided sternal manubrium
History of osteoporosis secondary to chronic steroid use
- CT scans with acute osseous pathologies; no active bleeds noted.
- Patient has had reactions to opiates in the past; wants to avoid them.
- IV ketorolac 10 mg for now.
- Use lidocaine patch if tolerated.
- Continue acetaminophen, gabapentin and pregabalin.
- DEXA scan recommended as an outpatient.
Craft-hypopituitarism
Adrenal insufficiency
Secondary hypothyroidism
- Likely contributing to polydipsia.
- Continue hydrocortisone.
- Random cortisol 33.3 on 12-10-23.
- Vitals within normal limits so far; follow.
- Continue levothyroxine.
Bipolar disorder
- Consider optimizing management due to chronic and recurrent hyponatremia, which some of them might be contributing to.
- Continue buspirone, clonazepam, lamotrigine, oxcarbazepine, topiramate and ziprasidone for now.
- Can consider in-patient psychiatric consultation.
Chronic insomnia
- Continue trazodone, suvorexant and lemborexant.
Migraine with aura
- Continue topiramate and lamotrigine.
Chronic pain syndrome
Chronic T12 fracture
History of multiple fractures
- Continue gabapentin and pregabalin for now.
- Unclear why she requires both at the same time; consider discontinuing one of them, preferably the former.
Gastroparesis
- Continue famotidine, pantoprazole and ondansetron.
Asthma
Allergic rhinitis
- Continue levalbuterol, tiotropium, budesonide-formoterol and cetirizine.
Polypharmacy
- Likely driving some of her symptoms.
- Will continue medications for now but seems like there is a need for optimization.
Recent history of sepsis secondary to community-acquired pneumonia
- Discharged on 12-04-23.
- Completed the last dose of amoxicillin-clavulanate on 12-09-23.
VTE prophylaxis
- Heparin SC.
Code status
- Full.
Anticipated Discharge: Within 24 hours
Subjective/Interval History
-
Date of Service: December 12, 2023
Objective Data
-
Labs:
Laboratory Results
12/12/23
08:18
WBC 9.3
Hgb 11.1 L
Hct 31.9 L
Plt Count 272
Sodium Pending
Potassium Pending
Chloride Pending
Carbon Dioxide Pending
BUN Pending
Creatinine Pending
Glucose Pending
Calcium Pending
Vital Signs:
Vital Signs
Temp Pulse Resp BP Pulse Ox
98.4 F 86 18 138/88 94
12/12/23 08:04 12/12/23 08:04 12/12/23 08:04 12/12/23 08:04 12/12/23 08:04
I&O
12/11/23 12/12/23 12/13/23
06:59 06:59 06:59
Intake Total 480 / 480 1740 / 1740
Balance 480 / 480 1740 / 1740
Review of Systems
-
History Source: Patient
Constitutional: Reports Fatigue
EENT: Reports No Symptoms Reported
Respiratory: Reports No Symptoms
Cardiac: Reports No Symptoms
Abdomen/GI: Reports No Symptoms
Breast: Reports No Symptoms
Genitourinary: Reports No Symptoms
Musculoskeletal: Reports Other (generalized body aches; worse throughout spine and on the sternum)
Skin: Reports No Symptoms
Neuro: Reports No Symptoms
Endocrine: Reports Polydipsia (chronic; worse recently) and Excessive Thirst
Hematologic / Lymphatic: Reports No Symptoms
Allergy / Immunology: Reports No Symptoms
Physical Exam
-
General: Comfortable and Appears in Distress (with movements due to pain)
HEENT: Normocephalic, Atraumatic, Moist Mucous Membranes and Anicteric
Respiratory: Clear to Auscultation
Cardiac: Regular Rhythm and S1/S2
GI: Soft, Nontender and Nondistended
Musculoskeletal: No Clubbing, No Cyanosis, No Edema and Other (tenderness throughout spine, worse in the lumbar region; sternal tenderness; restricted truncal motion from pain)
Skin: Warm, Dry and IV Access / Catheter Site
Neuro: Awake, Alert, Oriented and Nonfocal/Grossly Intact
Hematologic / Lymphatic: No Lymphadenopathy
Psych: Calm
[2023-12-12 09:00] LABS: Blood Urea Nitrogen 18 mg/dl (7-17); Calcium 9.1 mg/dl (8.4-10.2); Carbon Dioxide 25 mmol/L (22-30); Chloride 97 mmol/L (98-107); Estimated Creatinine Clearance 50 ml/min; Glucose 93 mg/dl (70-99); Potassium 4.4 mmol/L (3.5-5.1); Sodium 129 mmol/L (135-145); eGFR 58.61
--- NOTE | 2023-12-12 10:16 | CM ---
Patient seen bedside eating breakfast, reports no needs to CM at this time. Patient reports her friend will provide transportation or she will take an Uber. [facility] patient, will update on patients discharge status. IMM reviewed, signed,
placed in patients chart. CM will continue to follow for all discharge planning needs.
Plan; home with VN.
[2023-12-12 10:30] LABS: Osmolality Urine 274 mOsm/kg (300-900)
--- NOTE | 2023-12-12 13:51 | W.PN.NEPH.PH ---
Today's Communication / Plan
-
ok for d/c
Assessment/Plan
-
Impression:
Hyponatremia euvolemic
Status post fall with contusion to chest
History of anxiety and bipolar disease
History of chronic edema
History of asthma
History of panhypopituitary
Subtle horizontal acute fracture of superior endplate of L2
Acute fracture of central left-sided sternal manubrium
History of recent pneumonia
Plan:
Euvolemic hyponatremia
-Urine osmolality 151 on presentation: More consistent with polydipsia, sodium stable at 130 today
-I suspect this was exacerbated by increasing her fluid intake and the discontinuation of her torsemide following her last admission
-Fluid restriction implemented and torsemide readministered
would likely stay FR 48 ounces/day
-I suspect there is also ADH effect induced from her bipolar medications including oxcarbazepine and/or Lamictal
ok fo rd/c, BMP in 1week with PCP f/u
-
-
Date of Service: December 12, 2023
CC / HPI / ROS
-
Chief Complaint:
Hyponatremia
History of Present Illness:
Serum sodium slightly down at 129 on fluid restriction and Demadex
Hemodynamically stable
Review of Systems:
No chest pain or shortness of breath
Urine output not recorded
just git the enema
Labs
-
Labs:
WBC 9.3 10^3/uL (4.8-10.8) 12/12/23 08:18
RBC 3.46 10^6/uL (4.20-5.40) L 12/12/23 08:18
Hgb 11.1 g/dL (12.0-16.0) L 12/12/23 08:18
Hct 31.9 % (37.0-47.0) L 12/12/23 08:18
Plt Count 272 10^3/uL (130-400) 12/12/23 08:18
Sodium 129 mmol/L (135-145) L 12/12/23 08:18
Potassium 4.4 mmol/L (3.5-5.1) 12/12/23 08:18
Chloride 97 mmol/L (98-107) L 12/12/23 08:18
Carbon Dioxide 25 mmol/L (22-30) 12/12/23 08:18
BUN 18 mg/dl (7-17) H 12/12/23 08:18
Creatinine 1.1 mg/dL (0.6-1.0) H 12/12/23 08:18
eGFR 58.61 12/12/23 08:18
Glucose 93 mg/dl (70-99) 12/12/23 08:18
Calcium 9.1 mg/dl (8.4-10.2) 12/12/23 08:18
Albumin 3.3 g/dl (3.5-5.0) L 12/10/23 11:34
Physical Exam
-
Vital Signs:
Vital Signs
Temp Pulse Resp BP Pulse Ox
98.3 F 87 18 106/73 93
12/12/23 11:40 12/12/23 11:40 12/12/23 11:40 12/12/23 11:40 12/12/23 11:40
Cardiovascular:: Regular rate and rhythm
Respiratory:: Bilateral: CTA
Lung Excursion:: Normal
Abdomen:: Nontender and Soft
Extremity Edema:: None: Bilateral:
Proctor Catheter: No
--- NOTE | 2023-12-12 15:25 | W.DCSUMMARY ---
Discharge Summary
Discharge Data
Date of Admission: 12/09/23
Date of Discharge: 12/12/23
-
Pending Results: No
Hospital Course
Primary discharge diagnosis
* Polydipsia, unclear etiology
Secondary discharge diagnoses
- Euvolemic hyponatremia
- Craft-hypopituitarism
- Adrenal insufficiency
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
- Polytrauma
- Acute horizontal fracture of superior endplate of L2
- Yvclu-vu-xfwljgcq fracture of central to left-sided sternal manubrium
- History of osteoporosis secondary to chronic steroid use
- Polypharmacy
- Secondary hypothyroidism
- Bipolar disorder
- Chronic insomnia
- Migraine with aura
- Chronic pain syndrome
- Chronic T12 fracture
- History of multiple fractures
- Gastroparesis
- Chronic obstructive pulmonary disease
- Allergic rhinitis
- Recent history of sepsis secondary to community-acquired pneumonia
Hospital course
Nolvia Patel, age 58, came to the emergency on 12-09-23 after experiencing weakness, dizziness and a fall. She started to feel increasingly lightheaded while on stairs and took a tumble. She hit her head and her back multiple times as she fell. CT
of the head was unremarkable, however CT spine showed acute horizontal fracture of superior endplate of L2 and [id number] fracture of central to left-sided sternal manubrium. Several chronic fractures were also noted on her scans. ED
physician discussed the case with a cardiothoracic surgeon, who did not recommend an intervention for the sternal fracture. She was followed by physical and occupational therapy, and she tolerated progressively more activities with better pain
control throughout her admission.
Her blood work on arrival was notable for serum sodium of 120 and hypoosmolar urine. She was admitted for further evaluation and management, and was followed by nephrology. She does have a known history of chronic recurrent hyponatremia since at
least 2020, as well as polydipsia of unclear etiology. She was also suspected to have underlying syndrome of inappropriate ADH secretion from medications such as oxcarbazepine and lamotrigine, contributing to her presentation. She was put on fluid
restriction of 50 oz and her torsemide was resumed. Serum sodium subsequently improved up-to 129-130 and remained stable. Strongly emphasized to maintain the fluid restriction to 50 oz after discharge. She has been constipated from her
gastroparesis, for which she received an enema prior to discharge; additional changes were made to her bowel regimen to optimize the regime.
Follow up with BMP in 1 week with PCP. Please consider consolidating psychiatric medications to address her chronic recurrent hyponatremia.
Discharge Plan
-
Patient Disposition: Home with Home Care
Discharge Diagnosis/Procedures: Primary polydipsia
Euvolemic hyponatremia
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
Polytrauma
Acute horizontal fracture of superior endplate of L2
Ewqsj-vn-lfodlbfw fracture of central to left-sided sternal manubrium
History of osteoporosis secondary to chronic steroid use
Craft-hypopituitarism
Adrenal insufficiency
Secondary hypothyroidism
Condition: Fair
Diet: Regular and Restrict fluids to 48 oz
Activity: With assistance and As tolerated
Driving Restrictions: As prior to admission
Bathing Restrictions: OK to Shower
Blood Work: BMP in 1 week
Others Tests: DEXA scan in 1 month - chronic steroid use; history of osteoporosis; history of multiple fractures. You need to be evaluated and treated for Osteoporosis
CT Chest in 3 months - 11 mm spot in left midlung zone, and 5 mm spot in the right lung upper lobe. You may miss an important diagnosis if this is not followed up.
Other Services: VN, PT and OT
Activity Restrictions/Additional Instructions:
Please follow-up with your psychiatrist to review all your medicines and make sure you need to continue all these.
Instructions: Fluid restriction
Referrals:
Carlos Vora MD [Family Provider] - in less than 1 week
Prescriptions:
New
sennosides [Senna Laxative] 8.6 mg Tablet
17.2 mg PO HS Qty: 0 0RF
Continued
levothyroxine 112 MCG tablet
112 mcg PO DAILY
hydrocortisone 10 MG tablet
15 mg PO HS
hydrocortisone 10 MG tablet
25 mg PO DAILY
lamotrigine 100 MG tablet
100 mg PO DAILY
oxcarbazepine 300 mg Tablet
300 mg PO BID
ondansetron 8 mg Tablet,Disintegrating
8 mg PO BID
famotidine 20 mg Tablet
20 mg PO BID
buspirone 10 mg Tablet
10 mg PO TID
Trudhesa 0.725 mg/pump act. (4 mg/mL) Bowdon,Non-Aerosol
1 spray INTRANASAL DAILYPRN PRN (Reason: migraine)
Dupixent Syringe 300 mg/2 mL Syringe
300 mg SC Q2W
Trelegy Ellipta 100-62.5-25 mcg Blister With Device
1 inh INHALATION R DAILY
ziprasidone HCl 80 mg Capsule
80 mg PO BID
lamotrigine 200 mg Tablet
200 mg PO HS
trazodone 100 mg Tablet
300 mg PO HS
topiramate 200 mg Tablet
200 mg PO BID
cholecalciferol (vitamin D3) 25 mcg (1,000 unit) Tablet
25 mcg PO DAILY
calcium citrate-vitamin D3 [Citracal + D Maximum] 315 mg-6.25 mcg (250 unit) Tablet
1 tab PO DAILY
Fiber Gummies 2 gram Tablet,Chewable
4 g PO DAILY
Aimovig Autoinjector 140 mg/mL Auto-Injector
140 mg SC Q28D
Tyrvaya 0.03 mg/spray Bowdon, Metered, Non-Aerosol
1 spray INTRANASAL BID
Belsomra 20 mg Tablet
20 mg PO HS Qty: 0
Patient Comments:
Pt reports taking '20 mg about 2 weeks ago.'
clonazepam 1 MG tablet
1 mg PO TID Qty: 9 0RF
Patient Comments:
12/02/2023: last filled 11/11/23, 90 tabs for 30 days from [facility]#[id number]
Dayvigo 5 mg Tablet
5 mg PO HS Qty: 3 0RF
cetirizine [Zyrtec] 10 mg Tablet
40 mg PO DAILY
levalbuterol tartrate 45 mcg/actuation Hfa Aerosol Inhaler
1 inh INHALATION R Q6HPRN PRN (Reason: sob/wheezing)
pregabalin 50 mg capsule
50 mg PO BID@0800,1500
Patient Comments:
12/02/2023: last filled 12/01/23, 30 tabs for 30 days from [facility]#[id number]
pregabalin 75 mg capsule
75 mg PO HS
Patient Comments:
12/02/2023: last filled 12/01/23, 30 tabs for 30 days from [facility]#[id number]
acetaminophen 650 mg Tablet Extended Release
1,300 mg PO Q8HPRN PRN (Reason: mild pain)
gabapentin 300 mg capsule
300 mg PO TID
pantoprazole 40 MG tablet,delayed release (DR/EC)
40 mg PO BID
torsemide 10 mg tablet
10 mg PO DAILY
Changed
polyethylene glycol 3350 [Miralax] 17 gram Powder In Packet
17 g PO DAILY Qty: 0 0RF
docusate sodium 100 mg capsule
100 mg PO BID Qty: 0 0RF
Discontinued
amoxicillin-pot clavulanate 875-125 mg tablet
1 tab PO Q12
Discharge Orders:
Discharge Patient (As Directed); Ordered 12/12/23
Ordered By: Kvng Brito
Discharge Date and Time
Print Language: TURKISH
[2023-12-12] MEDS: MILK OF MAGNESIA 30 ML PO (17:41)
[2023-12-12] MEDS: PROTONIX PO (19:50)
[2023-12-12] MEDS: GEODON PO (19:50)
[2023-12-12] MEDS: TOPAMAX PO (19:50)
--- NOTE | 2023-12-12 19:54 | PTCARENOTE ---
Discharge paperwork provided and gone over with by this Rn. Pt receptive. pt is working on getting herself together and calling an Uber. bedside rounds preformed with nightshift Rn who will see to it that pt is discharged safely.
[2023-12-12] MEDS: TRILEPTAL PO (20:00)
[2023-12-12] MEDS: ZOFRAN ODT (ORALLY DISINTEGRATING) PO (20:00)
[2023-12-12] MEDS: SENOKOT PO (20:00)
--- NOTE | 2023-12-12 23:56 | PTCARENOTE ---
Pt aaox3 able to make her needs known.Pt IV was taken out, telemetry was discontinued. Pt prefers to take all her evening medications when she gets home. Pt called uber & was assisted with PCT to the lobby, pt prefers to walk & refuses for a wheel
chair.Pt paperwork with pt.Pt denies of any other problems at this time.
== END 2023-12-12 21:32 | disposition home health service (06) | DRG 644 ==
LOC: 4 EAST ACU 21:53
PROVIDERS: Emergency Medicine; Student in an Organized Health Care Education/Training Program; ADMITTING PHYSICIAN Hospitalist; ATTENDING PHYSICIAN Hospitalist; EMERGENCY PHYSICIAN Student in an Organized Health Care Education/Training Program; FAMILY PHYSICIAN Internal Medicine; OTHER PHYSICIAN Specialist
DX: E22.2 Syndrome of inappropriate secretion of antidiuretic hormone (principal); E27.40 Unspecified adrenocortical insufficiency; S32.028A Other fracture of second lumbar vertebra, initial encounter for closed fracture; S22.21XA Fracture of manubrium, initial encounter for closed fracture; E23.0 Hypopituitarism; J44.89 Other specified chronic obstructive pulmonary disease; F31.9 Bipolar disorder, unspecified; F41.9 Anxiety disorder, unspecified; F43.10 Post-traumatic stress disorder, unspecified; E03.8 Other specified hypothyroidism; K21.9 Gastro-esophageal reflux disease without esophagitis; E86.1 Hypovolemia; R63.1 Polydipsia; F51.04 Psychophysiologic insomnia; G43.109 Migraine with aura, not intractable, without status migrainosus; G89.4 Chronic pain syndrome; K31.84 Gastroparesis; K59.00 Constipation, unspecified; M81.8 Other osteoporosis without current pathological fracture; T38.0X5A Adverse effect of glucocorticoids and synthetic analogues, initial encounter; W10.9XXA Fall (on) (from) unspecified stairs and steps, initial encounter; Z79.52 Long term (current) use of systemic steroids; Z91.041 Radiographic dye allergy status; Z91.040 Latex allergy status; Z88.2 Allergy status to sulfonamides; Z88.1 Allergy status to other antibiotic agents; Z88.0 Allergy status to penicillin; Z87.01 Personal history of pneumonia (recurrent); Z79.899 Other long term (current) drug therapy; Z79.890 Hormone replacement therapy
CPT/HCPCS: 70450; 71046; 71250; 72125; 72128; 72131; 74176; 80048; 80053; 81003; 82533; 83605; 83935; 84300; 84439; 84443; 85025; 85027; 85610; 87040; 93005; 93306; 94640; 96360; 97116; 97162; 97166; 97530; 99285

== ENCOUNTER 2023-12-17 10:41 | Inpatient (IN) | payer MEDICARE, OTHER, SELFPAY ==
[2023-12-16 12:30] VITALS: BP 142/106
[2023-12-16] MEDS: TYLENOL 1000 MG PO (13:07)
--- NOTE | 2023-12-16 13:31 | ED.GENMED ---
History of Present Illness
General
Chief Complaint: Musculo-Skeletal Complaint
Source: patient, records and ambulance crew
Time Seen by Provider: 12/16/23 12:32
History of Present Illness
History of Present Illness:
58-year-old female with past medical history of COPD, orthostasis, gastroparesis, bipolar disorder/PTSD presenting back to the emergency department after she was recently seen in this ER twice this month, admitted both times, for evaluation after
she attempted to get out of bed today but felt to and slid from bed down onto the ground. Patient was able to contact EMS. She reportedly lives alone and has no family in the area patient reports that she was recently diagnosed with some new
fractures in her back as well as hyponatremia which was the reason for her admission. She reports that she did not want to go to a rehab or any other facility and only wanted to be discharged home. Today she is reporting continued pain throughout
her entire back which is not any different than when she was here last. She denies any fevers or infectious symptoms presently.
Past History
Past History
ED Past Medical History: Asthma, COPD, Hypothyroidism, Psychiatric (Bipolar disorder, anxiety, PTSD), Other (TMJ dysfunction, migrainous headaches, PNA, Sinusitis chronic, Gastroporesis, Hypopituatarism, ) and Other (hypopiititutarism, adrenal
insufficiency)
ED Past Surgical History: Orthopedic (Left thumb and hand surgery, Right wrist surgery, TMJ surgery X 2) and Other (cataracts, Vocal cord surgery)
Social History
Tobacco: Non-smoker
Alcohol: None
Drug: None
Personal: Single
Living: alone (dad)
Employment: Not employed
Family History
Family History: Other
Review of Systems
Review of Systems
All Other Systems: ROS reviewed and negative except as documented in HPI and ROS
Phy Exam
Physical Exam
Physical Exam:
GENERAL: Alert , in no apparent distress
HEAD: NCAT
EYE: Clear conjunctiva, pupils 3 mm bilateral
NECK: Supple, no focal midline tenderness
ENT: o/p clr, mmm.
CARDIAC: Regular rate and rhythm .
LUNGS: Clear breath sounds bilaterally, no acute respiratory distress, no wheezes/rales/rhonchi
ABDOMEN: Soft, without focal tenderness, no r/g, no cvat
BACK: Diffusely tender without any focal tenderness overlying the midline
NEUROLOGICAL: Alert and oriented
SKIN: Warm and dry, skin intact. Ecchymosis over the right antecubital region
MUSCULOSKELETAL: No edema, well perfused.
PSYCH: Normal and appropriate interaction.
Scores
Heart Failure Risk
Heart Failure Risk Score: Not Applicable
Heart Score for Chest Pain Patients
STEMI patient?: Not applicable
Withdrawal Assessment of Alcohol
Withdrawal Assessment Completed?: Not applicable
Course
Orders/Labs/Results
Orders:
Orders
12/16/23 12:48
Acetaminophen [Tylenol] 1,000 mg PO NOW STA
CR Lumbar Spine Comp Min 4 Vw* Urgent
Comment:
Reason For Exam: fall, pain, previous fractures
12/16/23 13:31
Basic Metabolic Panel Urgent
Complete Blood Count/With Diff Urgent
Serum Osmolality Urgent
12/16/23 14:24
Case Management Consult ONCE
Case Management Consult: VN/Home Care
PT Consult [Pt Eval And Treat] Urgent
Activity Level: Ambulate
12/16/23 15:28
Ketorolac [Toradol] 30 mg IV NOW STA
12/16/23 15:56
Urinalysis Reflex To Culture Urgent
Date Specimen was Collected: 12/16/23
Time Specimen was Collected: 15:56
Urine Sodium Urgent
Date Specimen was Collected: 12/16/23
Time Specimen was Collected: 15:56
12/16/23 16:56
Admit/Transfer Patient As Directed
Co-Sign Provider:
Level of Care: Observation services
Assign to:: Medical/Surgical
Physician / Group: soledad camp
Diagnosis: intract back pain with ambulatory dys 2/2 worsening l2 fx
Reason for Hospitalization: intract back pain with ambulatory dys 2/2 worsening l2 fx
Code Status As Directed
Resuscitation Status: Full Code
12/16/23 17:00
PRN Pain Medication Management As Directed
May give lesser potent ordered pain med per pt: Yes
preference::
Protocol:: Medication orders for pain may be administered in a
manner that supports deferring to patient preference
when the pt is:
- Requesting an ordered lesser potent pain medication.
Least to most potent pain medications are defined
as: acetaminophen < NSAID < tramadol < opioids
(morphine, oxycodone, hydromorphone).
- Requesting a lesser dose of the same medication IF
ORDERED.
- Requesting a less intrusive route of administration
if both routes are prescribed by the provider (PO <
IV).
Abnormal Lab Results
12/16/23
13:31
WBC 14.2 H 10^3/uL
(4.8-10.8)
RBC 3.82 L 10^6/uL
(4.20-5.40)
Hct 36.5 L %
(37.0-47.0)
MCH 33.0 H pg
(27.0-31.0)
Abs Immat Gran (auto) 0.1 H 10^3/uL
(0-0.05)
Absolute Neuts (auto) 9.6 H 10^3/uL
(1.4-6.5)
Absolute Monos (auto) 1.5 H 10^3/uL
(0.1-0.6)
Immature Gran % 0.8 H %
(0-0.5)
Lymphocytes % 18.9 L %
(20.5-51.1)
Monocytes % 10.6 H %
(1.7-9.3)
12/16/23 13:31
12/16/23 13:31
Vital Signs
Initial and Last Documented VS:
Initial Vital Signs
Temp Pulse Resp BP Pulse Ox
99.1 F 102 16 142/106 96
12/16/23 12:30 12/16/23 12:30 12/16/23 12:30 12/16/23 12:30 12/16/23 12:30
Last Documented Vital Signs
Temp Pulse Resp BP Pulse Ox
99.1 F 103 16 152/98 96
12/16/23 12:30 12/16/23 15:42 12/16/23 15:42 12/16/23 15:42 12/16/23 15:43
MDM/Problems Addressed
Differential Diagnosis Includes:
Recurring hyponatremia, acute on chronic pain, ambulatory dysfunction, deconditioning
MDM/Problems Addressed:
58-year-old female presenting back to the emergency department via EMS after she slid from bed down onto the floor. Patient with 2 recent admissions this month. She was noted to be hyponatremic on last admission which improved to 130 on her
discharge. Patient adamant she did not want to go to rehab or any other facility following her admission. Given this is her third visit to the ER this month for similar and patient lives alone I am not sure that her going home is in her best
interest and she is at increased risk for further injury. Will recheck labs and electrolytes. X-ray of the lumbar spine ordered. Patient has multiple medication allergies including opiates as well as NSAIDs so we will treat with Tylenol.
Anticipate admission
Chronic conditions affecting care: Other (Hyponatremia, chronic pain)
*Radiology
Radiology exam reviewed: preliminary read by ED provider (L2 compression fracture)
*Pulse Oximetry
Patient hypoxic: no
*Critical Care Note
Total Time (30-74mins, 75-104mins- exclusive of procedures): Not Applicable
Data Reviewed
Review of Other/Old Records Reveals: Labs, Records and Discharge Summary
Source: patient and records
Patient Management
Discussion with other providers: Hospitalist and Radiologist
Escalation/DeEscalation of care consider admission/obs:
I received a call from radiology stating patient has a worsening fracture at the L2 spine, progressed from CT scan done last week. Case management came and saw the patient and was able to arrange for visiting nurse. Patient still declining any
type of short-term rehab. Awaiting physical therapy to ensure patient's safety prior to disposition. Patient stating she is still having pain despite the Tylenol. Has tolerated Toradol in the past despite her listed NSAID allergy and states this
helped so is requesting a dose of this. 30 mg Toradol IV ordered.
Patient with no relief of symptoms following Toradol when attempted to move but when laying down states pain is a little bit more tolerable. She was unable to tolerate any of PTs out of bed movements or attempts to get out of bed. Given her
continued pain and inability to move around as well as care for her own self will admit for further evaluation and treatment.
ED Attending Note
-
Portions of this chart may have been created with voice recognition software.� Occasional wrong word or��sound alike� substitutions may have occurred due to the inherent limitations of voice recognition software.
Discharge Plan
Departure
Patient Disposition: Admit
Date of Disposition: 12/16/23
Time of Disposition: 16:08
Presentation/result/management discussed w/ accepting MD/DO: Hospitalist
Discharge Problem:
Compression fracture of L2, Ambulatory dysfunction
Interventions
Interventions:
*Risk Screen - Suicide Last Done: 12/16/23 12:30
*General Assessment Last Done: 12/16/23 12:30
*Neglect/Abuse Screening Last Done: 12/16/23 12:30
ED- Fall Risk Assessment Last Done: 12/16/23 14:50
*ED COVID-19 Vaccine History Last Done: 12/16/23 12:30
ED-Musculoskeletal Assessment Last Done: 12/16/23 15:41
[2023-12-16 13:47] LABS: % Eosinophils 1.5 % (0-6); % Immature Granulocytes 0.8 % (0-0.5); % Lymphocytes 18.9 % (20.5-51.1); % Monocytes 10.6 % (1.7-9.3); % Neutrophils 67.2 % (42.2-75.2); Absolute Basophils 0.1 10^3/uL (0-0.2); Absolute Eosinophils 0.2 10^3/uL (0-0.7); Absolute Immature Granulocytes 0.1 10^3/uL (0-0.05); Absolute Lymphocytes 2.7 10^3/uL (1.2-3.4); Absolute Monocytes 1.5 10^3/uL (0.1-0.6); Absolute Neutrophils 9.6 10^3/uL (1.4-6.5); Hematocrit 36.5 % (37.0-47.0); Hemoglobin 12.6 g/dL (12.0-16.0); Mean Corp Hgb Conc. 34.5 g/dL (33.0-37.0); Mean Corpuscular Volume 95.5 fL (81.0-99.0); Mean Platelet Volume 9.4 fL (7.4-10.4); Nucleated Red Blood Cells % 0 %; Platelet Count 380 10^3/uL (130-400); Red Blood Cell Count 3.82 10^6/uL (4.20-5.40); Red Cell Dist. Width 13.9 % (11.5-14.5); White Blood Cell Count 14.2 10^3/uL (4.8-10.8)
[2023-12-16 13:50] LABS: Osmolality Serum 290 mOsm/kg (275-300)
[2023-12-16 13:53] LABS: Blood Urea Nitrogen 14 mg/dl (7-17); Calcium 9.6 mg/dl (8.4-10.2); Carbon Dioxide 25 mmol/L (22-30); Chloride 106 mmol/L (98-107); Glucose 87 mg/dl (70-99); Potassium 3.6 mmol/L (3.5-5.1); Sodium 138 mmol/L (135-145); eGFR > 60.00
--- NOTE | 2023-12-16 15:16 | CM ---
Addendum entered by Marcy Castellano 12/16/23 17:57:
Patient lives in a split level home with her 2 cats.
There are no steps to enter.
Patient was discharged with [facility] this recent admission and would like services again. Will need to confirm if services are still active with [facility].
TENTATIVE DISCHARGE PLAN:
TBD, pending PT/OT evaluation and recommendations. Patient stated she'd like PT, Jesus Soto and the nurse 'Moose' at [facility].
CM will continue to follow for all discharge planning needs.
Addendum entered by Marcy Castellano 12/16/23 17:56:
PCP: Dr. Carlos Vora
[facility]: [facility] [place]
Addendum entered by Marcy Castellano 12/16/23 17:48:
Chart reviewed.
Patient was admitted under Obs today. Please see PT's note. MARY obtained.
Patient has visited the ED 3xs this month (this being the 3rd visit) and has been admitted each time.
CM introduced self and role.
Patient was last admitted from 12/08 to 12/11. PT recommended STR; patient chose HHC with [facility].
She lives alone. She has shared with several staff that she does not have any other support.
She has 4 walkers at home, but told PT she has not been utilizing them. She did share with CM that she believes she keeps falling because her legs are so weak and are giving out.
Patient shared that she currently does not have [facility] coming to the home prior to CM reading her last admission notes.
She denies any +SDOHs.
She does not drive.
Original Note:
CM consult placed for patient due to frequent ED visit and having increased weakness in her LEs. She was agreeable to HHC with [facility]. She has had them in the past. She said the reason she has refused STR in the past is because she has 2 cats and does
not have anyone to care for them.
Discussed above with DESI Rouse. He is awaiting PT's recommendations and to make sure patient is safe to go home and not in intolerable pain.
[2023-12-16] MEDS: TORADOL 30 MG IV (15:37)
[2023-12-16 15:40] VITALS: BMI 18.3
[2023-12-16 15:42] VITALS: BP 152/98
--- NOTE | 2023-12-16 16:18 | HPS.HSE ---
Family Physician
-
Family Physician: Carlos Vora
Chief Complaint
-
Fall, back pain
History of Present Illness
58-year-old female from home who reports attempting to get out of bed today but slid and fell to the ground and was unable to get up due to back pain. While in the ER PT attempted to get patient up from supine position but she screamed in pain.
She currently has head of bed approximately at 15 degree elevation only due to back pain. She denies current headache, neck pain, chest pain, palpitations, dizziness, shortness breath, cough, abdominal pain, nausea, vomiting, diarrhea, no bowel or
bladder incontinence urinary symptoms.
She had a recent admission 12/08 - 12/12/2023 secondary to polydipsia with hyponatremia NA of 120 resulting in fall , chest pain showing fracture of central/left-sided sternal manubrium and back pain with CT showing endplate of L2 fracture along with
several chronic fractures. She was noted to have hyponatremia from polydipsia and medications oxcarbazepine and lamotrigine. She was put on fluid restrict 50 ounces. She also received enema for constipation from her gastroparesis.
Medical History
Past Medical History
Past Medical History: Reports Other (hypopituitarism, adrenal insufficiency, hyponatremia, bipolar, asthma, GERD, migraines, COPD/asthma)
Additional Past Medical History:
Compression fracture L2 since June 2023 with new compression 50% since 11/2023. Compression fracture of T12 worsened from June 2023
Past Surgical History: Reports Other ( Orthopedic (Left thumb and hand surgery, Right wrist surgery, TMJ surgery X 2) and Other (cataracts, Vocal cord surgery))
Additional Past Surgical History:
Fracture of central/left-sided sternal manubrium 12/12/2023
Social History
Tobacco: Non-smoker
Alcohol: None
Drug: None
Personal: Single
Living: Alone
Employment: Disabled
Family History
Family History: Not pertinent
Allergies / Home Medications
Allergies reflects when Allergies were last updated in [facility].
Home Medications with original date entered in [facility]
Allergy/Medication List:
Allergies
Allergy/AdvReac Type Severity Reaction Status Date / Time
amoxicillin [From Augmentin] Allergy Nausea / Verified 07/03/23 21:56
Vomiting -
tolerated
meropenem
02/2019
azithromycin [From Zithromax] Allergy Swelling Verified 07/03/23 21:56
ceftibuten [From Cedax] Allergy Swelling - Verified 07/03/23 21:56
tolerated
meropenem
02/2019
citalopram [From Celexa] Allergy suicidal Verified 07/03/23 21:56
ideation
clavulanic acid Allergy Nausea / Verified 07/03/23 21:56
[From Augmentin] Vomiting
corn Allergy Anaphylaxis Verified 07/03/23 21:56
'except
cornstarch'
egg Allergy Nausea / Verified 07/03/23 21:56
Vomiting
migraines
gluten Allergy Nausea Verified 07/03/23 21:56
-stomach
ache,
diarrhea,
migraine
hydromorphone [From Dilaudid] Allergy Rash Verified 07/03/23 21:56
ibuprofen Allergy bad Verified 12/10/23 13:40
stomache
ache
Iodinated Contrast Media Allergy Rash Verified 07/03/23 21:56
latex Allergy Anaphylaxis Verified 07/03/23 21:56
Latex, Natural Rubber Allergy Anaphylaxis Verified 07/03/23 21:56
levofloxacin [From Levaquin] Allergy Swelling Verified 07/03/23 21:56
Milk Containing Products Allergy Nausea / Verified 07/03/23 21:56
(Dairy) Vomiting -
[Milk Containing Products] migraines
mushroom Allergy Anaphylaxis Verified 07/03/23 21:56
nickel Allergy swelling Verified 07/03/23 21:56
and itching
Opioids - Morphine Analogues Allergy 'all Verified 07/03/23 21:56
opioids'
peanut Allergy Anaphylaxis Verified 07/03/23 21:56
Poultry Allergy Nausea Verified 07/03/23 21:56
-migraine
shellfish derived Allergy Anaphylaxis Verified 07/03/23 21:56
Sulfa (Sulfonamide Allergy Swelling Verified 07/03/23 21:56
Antibiotics)
maude jon Allergy Anaphylaxis Uncoded 07/03/23 21:56
-Sigourney syrup
Home Medications
levothyroxine 112 mcg tablet 112 mcg PO DAILY Thyroid 12/03/16
hydrocortisone 10 mg tablet 15 mg PO HS adrenal insufficiency 03/11/19
hydrocortisone 10 mg tablet 20 mg PO DAILY adrenal insufficiency 03/11/19
lamotrigine 100 mg tablet 100 mg PO DAILY Neurological Condition 05/17/19
buspirone 10 mg tablet 10 mg PO TID Mental Health/Anxiety 06/26/22
dihydroergotamine (Trudhesa) 1 spray intranasal DAILYPRN PRN migraine 06/26/22
famotidine 20 mg tablet 20 mg PO BID Gastrointestinal issue 06/26/22
ondansetron 8 mg disintegrating tablet 8 mg PO BID nausea 06/26/22
oxcarbazepine 300 mg tablet 300 mg PO BID Neurological Condition 06/26/22
dupilumab 300 mg/2 mL subcutaneous syringe (Dupixent) 300 mg SC Q2W Autoimmune Disorder 01/26/23
fluticasone fur. 100 mcg-umeclid 62.5 mcg-vilant 25 mcg inhalat.powder (Trelegy Ellipta) 1 inh inhalation R DAILY Lung/Breathing Issues 01/26/23
calcium citrate 315 mg calcium-vitamin D3 6.25 mcg (250 unit) tablet (Citracal + Vitamin D Maximum) 1 tab PO DAILY Supplement 07/04/23
cholecalciferol (vitamin D3) 25 mcg (1,000 unit) tablet 25 mcg PO DAILY Supplement 07/04/23
erenumab-aooe 140 mg/mL subcutaneous auto-injector (Aimovig Autoinjector) 140 mg SC Q28D migraine 07/04/23
inulin 2 gram chewable tablet (Fiber Gummies) 4 g PO DAILY Supplement 07/04/23
lamotrigine 200 mg tablet 200 mg PO HS Neurological Condition 07/04/23
topiramate 200 mg tablet 200 mg PO BID Neurological Condition 07/04/23
trazodone 100 mg tablet 300 mg PO HS sleep 07/04/23
varenicline 0.03 mg/spray nasal spray (Tyrvaya) 1 spray intranasal BID dry eyes 07/04/23
ziprasidone HCl 80 mg capsule 80 mg PO BID Mental Health/Anxiety 07/04/23
clonazepam 1 mg tablet 1 mg PO TID Mental Health/Anxiety #9 tabs 07/09/23
acetaminophen 650 mg tablet,extended release 1,300 mg PO QID 12/02/23
cetirizine 10 mg tablet (Zyrtec) 40 mg PO DAILY allergies 12/02/23
gabapentin 300 mg capsule 300 mg PO TIDPRN PRN moderate pain 12/02/23
levalbuterol tartrate 45 mcg/actuation aerosol inhaler 1 inh inhalation R Q6HPRN PRN sob/wheezing 12/02/23
pantoprazole 40 mg tablet,delayed release 40 mg PO DAILY Gastrointestinal Issue 12/02/23
pregabalin 50 mg capsule 50 mg PO DAILY Neurological Condition 12/02/23
pregabalin 75 mg capsule 75 mg PO HS Neurological Condition 12/02/23
torsemide 10 mg tablet 10 mg PO DAILYPRN PRN swelling 12/09/23
docusate sodium 100 mg capsule 100 mg PO BIDPRN PRN constipation 12/16/23
lemborexant 10 mg tablet (Dayvigo) 10 mg PO HS 12/16/23
polyethylene glycol 3350 17 gram oral powder packet (Miralax) 17 g PO DAILYPRN PRN constipation 12/16/23
sennosides 8.6 mg tablet (Senna Laxative) 17.2 mg PO HSPRN PRN constipation 12/16/23
Review of Systems
-
History Source: Patient
A 12 point ROS was completed and negative except as noted: Yes
Constitutional: Reports Other (Frail-appearing); Denies Fever, Fatigue or Chills
EENT: Denies Sore Throat or Runny Nose
Respiratory: Denies Cough or Trouble Breathing
Cardiac: Denies Chest Pain, Diaphoresis, Palpitations or Syncope
Abdomen/GI: Reports Abdominal Pain (Radiating from lumbar back to right side abdomen and groin) and Constipated; Denies Nausea, Vomiting, Diarrhea, Bloody Stools or Black Stools
: Denies Dysuria, Frequency, Flank Pain, Incontinence or Difficulty Voiding
Musculoskeletal: Reports Other (Lower lumbar pain radiating around bilateral hips and into right groin/abdomen); Denies Joint Pain or Edema
Skin: Denies Itching or Rash
Neurological: Denies Dizzy or Headache
Endocrine: Reports No Symptoms
Hematologic/Lymphatic: Reports No Symptoms
Psych: Reports Calm
Physical Exam
Vital Signs
Vital Signs
Temp Pulse Resp BP Pulse Ox
99.1 F 103 16 152/98 96
12/16/23 12:30 12/16/23 15:42 12/16/23 15:42 12/16/23 15:42 12/16/23 15:43
Physical Exam
General: Conversant, Pain, Cachectic (BMI 18 kg) and Other (Frail-appearing); No Fever or Chills
HEENT: NormoCephalic, Anicteric, PERRLA, Zaleski Conjunctivae, No Ptosis and Other (Dry oral mucosa)
Respiratory: Clear; No Wheezes, Rales or Rhonchi
Cardiac: S1/S2 and Regular Rhythm; No Murmur, Rub, Gallop or Peripheral Edema
Breast: Deferred by me
GI: Soft, Non Tender, Non Distended, Normal Bowel Sounds and No Hepatosplenomegaly
Rectal: Deferred by Provider
Genito-urinary: Deferred by me
Musculoskeletal: No Clubbing, No Cyanosis, No Edema and Other (Lower lumbar pain radiating around bilateral hips and into right groin/abdomen. Sensation intact bilateral lower legs +2 dorsal pedal pulses, back pain with any movement of lower legs
or head of bed greater than 15 degrees elevated)
Skin: Warm and Dry; No Rash
Neuro: AO x 3, Nonfocal/grossly intact, Cranial Nerves Intact and No Sensory Deficits; No Slurred Speech, Facial Droop or Tremors
Psych: Calm
Laboratory Results
-
12/16/23 13:31
12/16/23 13:31
Data Reviewed
-
Lab Data: Labs Reviewed by me
Impression/Plan
-
Impression/plan:
Admit to MedSurg
#Intractable back pain/ambulatory dysfunction secondary to worsening L2 compression fracture superior endplate
-Pain control
-Continue Tylenol reduced to 650 mg every 4 H scheduled patient was taking 5900 mg daily max dose 4000
-Continue chronic gabapentin/Lyrica
-Add IV Toradol 10 mg every 6 hours mod pain
-Add lidocaine patch
-Patient reports cannot take ibuprofen or opiates
-Consult PT/OT/case management for rehab placement
Lumbar spine: Compression fracture L2 since June 2023 with new compression 50% since 11/2023. Compression fracture of T12 worsened from June 2023. Constipation
#Acute leukocytosis likely reactive
WBC 14.2 no left shift, afebrile, normotensive not hypoxic
#Acute on chronic constipation
#Hx GERD/gastroparesis
-Continue Colace 100mg twice daily scheduled add MiraLAX 17 daily senna at night scheduled
-Enema as needed
# Fracture of central/left-sided sternal manubrium 12/12/2023
-ER spoke with CT surgery on recent admission no further treatment required
# T12 fracture chronic
# Moderate to severe compression deformity of T6 likely chronic
#Recent hyponatremia secondary to polydipsia and medications oxcarbazepine and lamotrigine
-Patient on fluid restrict 50 ounces
-[id number]
-Follow BMP
#Recent pneumonia-no current cough/shortness of breath
Finished course of Augmentin on 12/12/2023
#Hypopituitarism
#History of adrenal insufficiency
-Continue hydrocortisone
#Bipolar disorder
-Continue ziprasidone, oxcarbamazepine, Lamictal, clonazepam, buspirone
#Asthma/COPD-no acute exacerbation
-Continue Trelegy
#GERD
-Continue Protonix, Pepcid
#Migraine history
-Continue trazodone, topiramate, pregabalin, gabapentin
#Insomnia
-Continue Dayvigo, Belsomra
DVT prophylaxis
Subcu heparin
Full code
[2023-12-16 16:24] LABS: Urine Albumin Negative (Neg - Trace); Urine Bilirubin Negative (Negative); Urine Character Clear (Clear); Urine Color Yellow; Urine Glucose Negative (Negative); Urine Ketone Negative (Negative); Urine Leukocyte Negative (Negative); Urine Nitrite Negative (Negative); Urine Occult Blood Negative (Negative); Urine Specific Gravity 1.015 (<1.030); Urine Urobilinogen Negative (Neg - 1+)
[2023-12-16 16:41] VITALS: BP 155/83; PULSE 80; O2SAT 97
[2023-12-16 16:49] LABS: Urine Sodium 47 mmol/L (30-90)
--- NOTE | 2023-12-16 17:16 | W.PN.UPDATE ---
Update Note
Progress Note Update
This serves as an addendum to the H&P dictated by Germaine Arreaga on 12/16/2023.
I saw and examined the patient.
The CLUBHOUSE MANAGER or PA's note was reviewed and I agree with the note.
Comment:
Patient 58 years old female history of hypopituitarism, adrenal insufficiency, hyponatremia, bipolar, COPD, migraines, underweight, chronic back pain, presented to the hospital with worsening back pain after a fall. Patient states that she slid off
her bed today and since then her pain in the back has been worse than her baseline. She states her pain radiates to her legs and no bowel bladder incontinence or paresthesias. No fevers or chills. She states the pain is so severe that she has not
been able to ambulate or be functional at home today. She does have multiple allergies to medications including narcotics for which she states that she has 'anaphylactic reactions'. She had a lumbar spine that shows evidence of fracture of L2 and
they feel compression deformities is new and about 50% of vertebra. She was referred to hospitalist for further evaluation.
Physical exam:
General: Underweight, appears chronically ill
HEENT: Normocephalic, Atraumatic and Moist Mucous Membranes
Respiratory: Clear to Auscultation; Negative Wheezes, Rales or Rhonchi
Cardiac: Regular Rhythm and S1/S2
GI: Soft, Nontender and Nondistended
Musculoskeletal: Tenderness of the back. Decreased range of motion of the back. No Clubbing, No Cyanosis and No Edema
Neuro: Awake, Alert and Oriented
Psych: Anxious
A/P:
Acute on chronic back pain--> pain control with multimodal strategy, PT OT madelyn, field case manager for discharge disposition. Will give further recommendations based on her clinical course.
[2023-12-16 19:01] VITALS: BP 176/103; BMI 18.1
[2023-12-16] MEDS: SYMBICORT 80/4.5 MCG INHALER 2 PUFF INH (19:20)
--- NOTE | 2023-12-16 19:30 | PTCARENOTE ---
received pt from ED via stretcher. pt pulled over from stretcher to bed. AAOx3, complaining of back pain 01/05. oriented patient to room, call lynch within reach.
[2023-12-16] MEDS: LIDOCAINE 4% PATCH 1 PATCH TOPICAL (20:06)
[2023-12-16] MEDS: HEPARIN 5000 UNITS SC (20:07)
[2023-12-16] MEDS: GEODON 80 MG PO (20:08)
[2023-12-16] MEDS: TYLENOL 650 MG PO ×2 (20:11→23:40)
[2023-12-16] MEDS: TOPAMAX 200 MG PO (20:11)
[2023-12-16] MEDS: TRILEPTAL 300 MG PO (20:12)
[2023-12-16] MEDS: SENOKOT-S 1 TABLET PO (20:12)
[2023-12-16] MEDS: PEPCID 20 MG PO (20:12)
[2023-12-16] MEDS: ZOFRAN ODT (ORALLY DISINTEGRATING) 8 MG PO (20:13)
[2023-12-16] MEDS: DESYREL 300 MG PO (21:55)
[2023-12-16] MEDS: LYRICA 75 MG PO (21:56)
[2023-12-16] MEDS: CORTEF 15 MG PO (21:56)
[2023-12-16] MEDS: KLONOPIN 1 MG PO (21:56)
[2023-12-16] MEDS: BUSPAR 10 MG PO (21:57)
[2023-12-16] MEDS: TORADOL 10 MG IV (22:05)
[2023-12-16 23:08] VITALS: BP 150/94
[2023-12-16] MEDS: LAMICTAL 200 MG PO (23:40)
[2023-12-17] MEDS: TORADOL 10 MG IV (04:09)
--- NOTE | 2023-12-17 04:34 | DOWNTIME ---
There was a [employer] Client [employer] Downtime on 12/17/2023 from 0100 to 12/17/2023 at 0252. Downtime documentation of patient's care, including medication administrations, has been reconciled in the electronic record per guidelines. Refer to the
patient's paper chart under the miscellaneous tab to see printed paper medication records and downtime forms.
[2023-12-17] MEDS: SYNTHROID 112 MCG PO (05:16)
[2023-12-17] MEDS: TYLENOL 650 MG PO ×4 (05:16→20:29)
[2023-12-17 06:17] LABS: % Basophils 1.3 % (0-2); % Eosinophils 1.4 % (0-6); % Immature Granulocytes 0.8 % (0-0.5); % Lymphocytes 21.3 % (20.5-51.1); % Monocytes 7.7 % (1.7-9.3); % Neutrophils 67.5 % (42.2-75.2); Absolute Basophils 0.1 10^3/uL (0-0.2); Absolute Eosinophils 0.1 10^3/uL (0-0.7); Absolute Immature Granulocytes 0.1 10^3/uL (0-0.05); Absolute Lymphocytes 1.7 10^3/uL (1.2-3.4); Absolute Monocytes 0.6 10^3/uL (0.1-0.6); Absolute Neutrophils 5.3 10^3/uL (1.4-6.5); Hematocrit 34.4 % (37.0-47.0); Hemoglobin 11.8 g/dL (12.0-16.0); Mean Corp Hgb Conc. 34.3 g/dL (33.0-37.0); Mean Corpuscular Hgb 33.1 pg (27.0-31.0); Mean Corpuscular Volume 96.6 fL (81.0-99.0); Mean Platelet Volume 9.5 fL (7.4-10.4); Nucleated Red Blood Cells % 0 %; Platelet Count 332 10^3/uL (130-400); Red Blood Cell Count 3.56 10^6/uL (4.20-5.40); Red Cell Dist. Width 13.9 % (11.5-14.5); White Blood Cell Count 7.8 10^3/uL (4.8-10.8)
[2023-12-17 06:47] LABS: Blood Urea Nitrogen 14 mg/dl (7-17); Carbon Dioxide 24 mmol/L (22-30); Chloride 109 mmol/L (98-107); Estimated Creatinine Clearance 51 ml/min; Glucose 81 mg/dl (70-99); Sodium 139 mmol/L (135-145); eGFR > 60.00
[2023-12-17 07:55] VITALS: BP 138/81
[2023-12-17] MEDS: SPIRIVA RESPIMAT 2.5 MCG 2 PUFF INH (08:00)
[2023-12-17] MEDS: SYMBICORT 80/4.5 MCG INHALER 2 PUFF INH ×2 (08:00→19:31)
[2023-12-17] MEDS: MIRALAX 17 GRAMS PO ×2 (09:14→20:30)
[2023-12-17] MEDS: CORTEF 15 MG PO ×2 (09:14→09:24)
[2023-12-17] MEDS: LYRICA 50 MG PO (09:15)
[2023-12-17] MEDS: OSCAL 500 + D 500 MG PO (09:16)
[2023-12-17] MEDS: LIDOCAINE 4% PATCH 1 PATCH TOPICAL (09:16)
[2023-12-17] MEDS: TRILEPTAL 300 MG PO ×2 (09:16→20:29)
[2023-12-17] MEDS: LAMICTAL 100 MG PO (09:16)
[2023-12-17] MEDS: ZYRTEC 10 MG PO (09:16)
[2023-12-17] MEDS: BUSPAR 10 MG PO ×3 (09:16→22:53)
[2023-12-17] MEDS: PROTONIX 40 MG PO (09:16)
[2023-12-17] MEDS: SENOKOT-S 1 TABLET PO ×2 (09:17→20:29)
[2023-12-17] MEDS: TOPAMAX 200 MG PO ×2 (09:17→20:29)
[2023-12-17] MEDS: VITAMIN D3 (cholecalciferol) 25 MCG PO (09:17)
[2023-12-17] MEDS: KLONOPIN 1 MG PO ×3 (09:17→22:53)
[2023-12-17] MEDS: GEODON 80 MG PO ×2 (09:17→20:28)
[2023-12-17 09:18] VITALS: BP 125/83; PULSE 108; O2SAT 96
[2023-12-17] MEDS: PEPCID 20 MG PO ×2 (09:18→20:29)
[2023-12-17] MEDS: ZOFRAN ODT (ORALLY DISINTEGRATING) 8 MG PO ×2 (09:18→20:29)
[2023-12-17] MEDS: HEPARIN 5000 UNITS SC ×2 (09:18→20:30)
[2023-12-17] MEDS: CORTEF 20 MG PO (10:16)
--- NOTE | 2023-12-17 10:36 | W.PN.HOSP.TC ---
Today's Communication/Plan
-
Back brace
Increase Toradol to [id number]
Lumbar MRI
Intramuscular calcitonin daily
PT/OT
Bowel regimen
Assessment / Plan
Assessment / Plan
Gen-AAOx3, NAD
HEENT-NC, AT, anicteric, clear oral mm
Neck-supple
CV-reg, no M, +S1/S2
Lungs-clear B/L
Abd-soft, NT, ND
Ext-no edema
Musculoskeletal-no cyanosis, clubbing
Skin-warm and dry
Neuro-grossly non-focal
Psych-calm, cooperative
Intractable back pain -due to lumbar vertebral compression fracture. Will change Toradol to 15 mg IV every 6 hours [id number]. Add calcitonin daily. Continue acetaminophen. Patient wants to avoid opiates. Order back brace, use when out of
bed.
Check lumbar MRI, eventually consult IR for possible vertebroplasty.
PT/OT. Patient not interested in SNF, wants to go home with VN. She has to take care of her cats.
L2 vertebral compression fracture -presumed acute given new onset of pain. Suspect underlying osteoporosis and trauma from fall as the etiology of the fracture. Recommend outpatient treatment of osteoporosis. Discussed with patient.
Multiple other vertebral compression fractures in the past.
Chronic constipation -last bowel movement last week. Increase bowel regimen.
Hypopituitarism -continue hormone replacements.
Bipolar disorder
Mild intermittent asthma -stable.
GERD
Migraine headaches
Chronic normocytic anemia -hemoglobin at baseline.
Full code
Anticipated Discharge: 24 - 48 hours
Subjective/Interval History
-
Date of Service: December 17, 2023
Patient seen and examined. Complaining of severe lower back pain. Worse with sitting up. Unable to ambulate due to pain.
Objective Data
-
Labs:
Laboratory Results
12/17/23
04:40
WBC 7.8
Hgb 11.8 L
Hct 34.4 L
Plt Count 332
Sodium 139
Potassium 4.0
Chloride 109 H
Carbon Dioxide 24
BUN 14
Creatinine 1.0
Glucose 81
Calcium 9.0
Vital Signs:
Vital Signs
Temp Pulse Resp BP Pulse Ox
98.9 F 87 18 138/81 98
12/17/23 07:55 12/17/23 07:55 12/17/23 07:55 12/17/23 07:55 12/17/23 07:55
I&O
12/16/23 12/17/23 12/18/23
06:59 06:59 06:59
Intake Total 240 / 240
Balance 240 / 240
Review of Systems
-
History Source: Patient
All other systems: Reviewed and negative
Abdomen/GI: Reports Constipated
--- NOTE | 2023-12-17 10:39 | VNURNOTE ---
Chart reviewed. Patient is current with [facility] nursing, PT, OT. Will continue to follow hospital course.
[2023-12-17] MEDS: TORADOL 15 MG IV ×3 (11:15→22:55)
[2023-12-17] MEDS: DULCOLAX 10 MG RECTAL (11:18)
[2023-12-17] MEDS: CALCIMAR/CALCITONIN 400 UNITS/ 2 ML 100 UNITS IM (11:25)
[2023-12-17] MEDS: TYLENOL PO (14:16)
[2023-12-17 15:10] VITALS: BMI 18.1
[2023-12-17 15:27] VITALS: BP 147/89
--- NOTE | 2023-12-17 15:29 | CM ---
Addendum entered by Quin Jenkins 12/17/23 15:36:
Patient has had several admissions in the recent time and described herself as independent with her ADLs and personal care, dressing and bathing. However, currently patient is having difficulty standing. Patient does not have any DME. Patient does
not want to go to [facility] or [facility] again and has had [facility] in the past. Patient PCP is Dr. Vora and she uses the [facility] in [place]. CM will continue to follow for discharge planning needs.
Plan; SNF vs home with VN
Original Note:
Patient seen at bedside, sleeping. Patient stated that she was uncertain about going to SNF due to concerns for her Cat's care. Patient agreed to look at list from [employer] and look at Medicare.gov. Patient stated that she could have neighbor help
with feeding cats and would consider options. Patient stated that she lives alone in an apartment with her two cats and no other helpers or family. CM will review options with patient regarding possible SNF options.
[2023-12-17] MEDS: SENOKOT 17.2 MG PO (20:29)
[2023-12-17] MEDS: DESYREL 300 MG PO (22:52)
[2023-12-17] MEDS: LAMICTAL 200 MG PO (22:53)
[2023-12-17] MEDS: LYRICA 75 MG PO (22:53)
[2023-12-17 23:10] VITALS: BP 123/82
[2023-12-18] MEDS: TYLENOL 650 MG PO ×6 (01:21→20:12)
[2023-12-18] MEDS: SYNTHROID 112 MCG PO (05:50)
[2023-12-18] MEDS: TORADOL 15 MG IV (05:50)
[2023-12-18] MEDS: SYMBICORT 80/4.5 MCG INHALER 2 PUFF INH ×2 (07:11→20:03)
[2023-12-18] MEDS: SPIRIVA RESPIMAT 2.5 MCG 2 PUFF INH (07:11)
[2023-12-18 08:04] VITALS: BP 108/81
[2023-12-18] MEDS: MIRALAX 17 GRAMS PO (08:34)
[2023-12-18] MEDS: CALCIMAR/CALCITONIN 400 UNITS/ 2 ML 100 UNITS IM (08:34)
[2023-12-18] MEDS: OSCAL 500 + D 500 MG PO (08:35)
[2023-12-18] MEDS: ZOFRAN ODT (ORALLY DISINTEGRATING) 8 MG PO ×2 (08:35→20:18)
[2023-12-18] MEDS: GEODON 80 MG PO ×2 (08:35→20:11)
[2023-12-18] MEDS: SENOKOT-S 1 TABLET PO (08:35)
[2023-12-18] MEDS: LYRICA 50 MG PO (08:35)
[2023-12-18] MEDS: PROTONIX 40 MG PO (08:35)
[2023-12-18] MEDS: TOPAMAX 200 MG PO ×2 (08:36→20:12)
[2023-12-18] MEDS: BUSPAR 10 MG PO ×3 (08:36→21:59)
[2023-12-18] MEDS: CORTEF 20 MG PO (08:36)
[2023-12-18] MEDS: TRILEPTAL 300 MG PO ×2 (08:36→20:12)
[2023-12-18] MEDS: VITAMIN D3 (cholecalciferol) 25 MCG PO (08:36)
[2023-12-18] MEDS: HEPARIN 5000 UNITS SC ×2 (08:37→20:20)
[2023-12-18] MEDS: LIDOCAINE 4% PATCH TOPICAL (08:37)
[2023-12-18] MEDS: ZYRTEC 10 MG PO (08:37)
[2023-12-18] MEDS: SENOKOT 17.2 MG PO (08:37)
[2023-12-18] MEDS: KLONOPIN 1 MG PO ×3 (08:37→22:00)
[2023-12-18] MEDS: LAMICTAL 100 MG PO (08:37)
[2023-12-18] MEDS: PEPCID 20 MG PO ×2 (08:37→20:12)
--- NOTE | 2023-12-18 11:01 | W.PN.HOSP.TC ---
Today's Communication/Plan
-
IR consult
Bowel regimen
Increase Toradol
Assessment / Plan
Assessment / Plan
Gen-AAOx3, NAD
HEENT-NC, AT, anicteric, clear oral mm
Neck-supple
CV-reg, no M, +S1/S2
Lungs-clear B/L
Abd-soft, NT, ND
Ext-no edema
Musculoskeletal-no cyanosis, clubbing
Skin-warm and dry
Neuro-grossly non-focal
Psych-calm, cooperative
Intractable back pain -due to lumbar vertebral compression fracture. Increase Toradol to 30 mg IV every 6 hours [id number]. Continue calcitonin daily. Continue acetaminophen. Patient wants to avoid opiates. Patient complaining that her
back brace is too heavy. I asked nursing to try an alternative one.
Continue PT/OT. Encourage out of bed. Patient not interested in SNF.
Lumbar L2 vertebral compression fracture -presumed acute given new onset of pain. Suspect underlying osteoporosis and trauma from fall as the etiology of the fracture. Recommend outpatient treatment of osteoporosis. Discussed with patient.
Multiple other vertebral compression fractures in the past.
MRI of lumbar spine reviewed. IR consulted for consideration of vertebroplasty. MRI also notes T12 compression fracture.
Chronic constipation -last bowel movement last week. Increase bowel regimen.
Hypopituitarism -continue hormone replacements.
Bipolar disorder
Mild intermittent asthma -stable.
GERD
Migraine headaches
Chronic normocytic anemia -hemoglobin at baseline.
Full code
Anticipated Discharge: 24 - 48 hours
Subjective/Interval History
-
Date of Service: December 18, 2023
Patient seen and examined. Still complaining of constipation. Complaining of severe lower back pain.
Objective Data
-
Vital Signs:
Vital Signs
Temp Pulse Resp BP Pulse Ox
97.4 F 96 18 108/81 96
12/18/23 08:04 12/18/23 08:04 12/18/23 08:04 12/18/23 08:04 12/18/23 08:10
I&O
12/17/23 12/18/23 12/19/23
06:59 06:59 06:59
Intake Total 240 / 240 1220 / 1220
Balance 240 / 240 1220 / 1220
Review of Systems
-
History Source: Patient
All other systems: Reviewed and negative
[2023-12-18] MEDS: TORADOL IV (11:40)
[2023-12-18] MEDS: DULCOLAX 10 MG RECTAL (11:41)
[2023-12-18] MEDS: TORADOL 30 MG IV ×3 (11:42→23:14)
[2023-12-18] MEDS: ANESTHETIC LOZENGE 1 LOZENGE PO (12:47)
[2023-12-18 14:48] VITALS: BP 137/87; PULSE 100
[2023-12-18 15:48] VITALS: BP 141/85
--- NOTE | 2023-12-18 17:12 | CM ---
Reviewed PT OT evals and spoke with pt at bedside.
She agreed to SNF . She requested referral for [facility].
Pt requested Vegan gluten free fresh fruits vegetable, No eggs Milk. Requests placed on referral.
PLAN To SNF after located
--- NOTE | 2023-12-18 17:18 | W.PN.UPDATE ---
Update Note
Progress Note Update
58-year-old with PMHx of COPD, orthostasis, gastroparesis, bipolar disorder/PTSD with findings of acute L2 compression fracture following recent fall out of bed. Chronic vertebral plana deformity of T12. Pt has multiple allergies with inability to
tolerated/allergy to narcotic analgesia. IR consulted for percutaneous augmentation (kyphoplasty vs vertebroplasty). Based on imaging and inability to take narcotics, I think she would be a good candidate for the procedure. Explained in detail,
including small risk of cement extravasation/emboli, infection, inability to relieve pain. She wished to proceed with procedure. Will discuss with anesthesia availability for tomorrow. NPO past MN.
[2023-12-18] MEDS: SENOKOT-S PO (20:09)
[2023-12-18] MEDS: SENOKOT PO (20:09)
[2023-12-18] MEDS: MIRALAX PO (20:09)
[2023-12-18] MEDS: DESYREL 300 MG PO (21:59)
[2023-12-18] MEDS: LYRICA 75 MG PO (22:00)
[2023-12-18] MEDS: LAMICTAL 200 MG PO (22:00)
[2023-12-18] MEDS: TYLENOL PO (23:12)
[2023-12-18 23:56] VITALS: BP 131/74
[2023-12-19] VITALS (19 sets, daily range): BP systolic 79–162; BP diastolic 77–103
[2023-12-19] MEDS: TYLENOL PO (04:44)
[2023-12-19] MEDS: SYNTHROID 112 MCG PO (05:11)
[2023-12-19] MEDS: TORADOL 30 MG IV ×3 (05:11→20:04)
[2023-12-19] MEDS: SPIRIVA RESPIMAT 2.5 MCG 2 PUFF INH (07:53)
[2023-12-19] MEDS: SYMBICORT 80/4.5 MCG INHALER 2 PUFF INH ×2 (07:53→19:40)
[2023-12-19] MEDS: LIDOCAINE 4% PATCH TOPICAL (08:02)
[2023-12-19] MEDS: NON-FORMULARY ITEM 300 MG SC (08:03)
[2023-12-19] MEDS: CALCIMAR/CALCITONIN 400 UNITS/ 2 ML 100 UNITS IM (08:04)
[2023-12-19] MEDS: PROTONIX 40 MG PO (08:05)
[2023-12-19] MEDS: MIRALAX PO ×2 (08:05→20:03)
[2023-12-19] MEDS: LAMICTAL 100 MG PO (08:05)
[2023-12-19] MEDS: PEPCID 20 MG PO ×2 (08:05→20:03)
[2023-12-19] MEDS: TYLENOL 650 MG PO ×4 (08:06→20:04)
[2023-12-19] MEDS: CORTEF 20 MG PO (08:06)
[2023-12-19] MEDS: SENOKOT 17.2 MG PO (08:06)
[2023-12-19] MEDS: OSCAL 500 + D 500 MG PO (08:06)
[2023-12-19] MEDS: VITAMIN D3 (cholecalciferol) 25 MCG PO (08:07)
[2023-12-19] MEDS: BUSPAR 10 MG PO ×3 (08:07→21:28)
[2023-12-19] MEDS: TRILEPTAL 300 MG PO ×2 (08:07→20:04)
[2023-12-19] MEDS: TOPAMAX 200 MG PO ×2 (08:07→20:04)
[2023-12-19] MEDS: ZYRTEC 10 MG PO (08:07)
[2023-12-19] MEDS: LYRICA 50 MG PO (08:07)
[2023-12-19] MEDS: ZOFRAN ODT (ORALLY DISINTEGRATING) 8 MG PO ×2 (08:07→20:04)
[2023-12-19] MEDS: SENOKOT-S 1 TABLET PO (08:07)
[2023-12-19] MEDS: KLONOPIN 1 MG PO ×3 (08:07→21:29)
[2023-12-19] MEDS: GEODON 80 MG PO ×2 (08:07→20:03)
--- NOTE | 2023-12-19 09:18 | W.PN.HOSP.TC ---
Today's Communication/Plan
-
Await IR vertebroplasty today
Assessment / Plan
Assessment / Plan
Gen-AAOx3, NAD
HEENT-NC, AT, anicteric, clear oral mm
Neck-supple
CV-reg, no M, +S1/S2
Lungs-clear B/L
Abd-soft, NT, ND
Ext-no edema
Musculoskeletal-no cyanosis, clubbing
Skin-warm and dry
Neuro-grossly non-focal
Psych-calm, cooperative
Intractable back pain -due to lumbar vertebral compression fracture. Continue Toradol 30 mg IV every 6 hours [id number]. Continue calcitonin daily. Continue acetaminophen. Patient wants to avoid opiates. Encouraged use of back brace with
PT.
Continue PT/OT. Encourage out of bed. Patient not interested in SNF.
Lumbar L2 vertebral compression fracture -presumed acute given new onset of pain. Suspect underlying osteoporosis and trauma from fall as the etiology of the fracture. Recommend outpatient treatment of osteoporosis. Discussed with patient.
Multiple other vertebral compression fractures in the past.
MRI of lumbar spine reviewed. IR consulted for consideration of vertebroplasty. MRI also notes T12 compression fracture.
Chronic constipation -now moving bowels. Continue bowel regimen.
Hypopituitarism -continue hormone replacements.
Bipolar disorder
Mild intermittent asthma -stable.
GERD
Migraine headaches
Chronic normocytic anemia -hemoglobin at baseline.
Full code
Anticipated Discharge: 24 - 48 hours
Subjective/Interval History
-
Date of Service: December 19, 2023
Patient seen and examined. Still with significant back pain.
Objective Data
-
Vital Signs:
Vital Signs
Temp Pulse Resp BP Pulse Ox
97.5 F 80 14 127/83 98
12/19/23 07:30 12/19/23 07:56 12/19/23 07:56 12/19/23 07:30 12/19/23 08:00
I&O
12/18/23 12/19/23 12/20/23
06:59 06:59 06:59
Intake Total 1220 / 1220 780 / 780
Balance 1220 / 1220 780 / 780
Review of Systems
-
History Source: Patient
All other systems: Reviewed and negative
[2023-12-19] MEDS: HEPARIN 5000 UNITS SC ×2 (09:22→20:03)
[2023-12-19] MEDS: VANCOCIN 200 IV (12:54)
[2023-12-19] MEDS: DECADRON 10 MG IV (12:55)
--- NOTE | 2023-12-19 16:13 | CM ---
CM reviewed chart. Spoke with pt, explained role and discussed anticipated dcp/options. Pt made aware that rehabs of choice are unable to offer a bed at this time. Discussed additional facilities- pt requesting referrals be made to 1. [facility],
2. [facility] and 3. [facility]. CM also discussed IP status- IMM explained, signed and placed on chart. Insur: [facility]. Pt will need repeat PT closer to dc to further assist w/dc planning.
CM will continue to follow to ensure a safe and timely discharge.
[2023-12-19] MEDS: SENOKOT PO (20:03)
[2023-12-19] MEDS: SENOKOT-S PO (20:04)
[2023-12-19] MEDS: CORTEF 15 MG PO (21:28)
[2023-12-19] MEDS: LYRICA 75 MG PO (21:29)
[2023-12-19] MEDS: DESYREL 300 MG PO (21:29)
[2023-12-19] MEDS: LAMICTAL 200 MG PO (21:29)
[2023-12-20] VITALS (8 sets, daily range): BP systolic 96–128; BP diastolic 59–84; PULSE 118; O2SAT 94
[2023-12-20] MEDS: TORADOL 30 MG IV ×4 (02:01→22:09)
[2023-12-20] MEDS: TYLENOL 650 MG PO ×5 (02:01→22:10)
[2023-12-20] MEDS: TYLENOL PO (03:41)
[2023-12-20] MEDS: SYNTHROID 112 MCG PO (06:19)
[2023-12-20] MEDS: SYMBICORT 80/4.5 MCG INHALER 2 PUFF INH ×2 (07:49→19:47)
[2023-12-20] MEDS: SPIRIVA RESPIMAT 2.5 MCG 2 PUFF INH (07:50)
[2023-12-20] MEDS: VITAMIN D3 (cholecalciferol) 25 MCG PO (09:26)
[2023-12-20] MEDS: CORTEF 20 MG PO (09:26)
[2023-12-20] MEDS: ZYRTEC 10 MG PO (09:26)
[2023-12-20] MEDS: OSCAL 500 + D 500 MG PO (09:26)
[2023-12-20] MEDS: ZOFRAN ODT (ORALLY DISINTEGRATING) 8 MG PO ×2 (09:26→22:10)
[2023-12-20] MEDS: PEPCID 20 MG PO ×2 (09:27→22:08)
[2023-12-20] MEDS: PROTONIX 40 MG PO (09:27)
[2023-12-20] MEDS: GEODON 80 MG PO ×2 (09:27→22:07)
[2023-12-20] MEDS: LAMICTAL 100 MG PO (09:27)
[2023-12-20] MEDS: KLONOPIN 1 MG PO ×3 (09:28→22:11)
[2023-12-20] MEDS: SENOKOT-S 1 TABLET PO (09:28)
[2023-12-20] MEDS: BUSPAR 10 MG PO ×3 (09:28→22:10)
[2023-12-20] MEDS: TRILEPTAL 300 MG PO ×2 (09:28→22:10)
[2023-12-20] MEDS: TOPAMAX 200 MG PO ×2 (09:28→22:09)
[2023-12-20] MEDS: HEPARIN 5000 UNITS SC ×2 (09:28→22:08)
[2023-12-20] MEDS: LYRICA 50 MG PO (09:28)
[2023-12-20] MEDS: LIDOCAINE 4% PATCH 1 PATCH TOPICAL (09:29)
[2023-12-20] MEDS: SENOKOT 17.2 MG PO (09:37)
[2023-12-20] MEDS: MIRALAX PO ×2 (09:37→22:08)
[2023-12-20] MEDS: MIACALCIN/FORTICAL NASAL SPRAY 1 SPRAY NASAL (10:00)
--- NOTE | 2023-12-20 12:31 | W.PN.HOSP.TC ---
Today's Communication/Plan
-
add tramadol PRN
Assessment / Plan
Assessment / Plan
Gen-AAOx3, NAD
HEENT-NC, AT, anicteric, clear oral mm
Neck-supple
CV-reg, no M, +S1/S2
Lungs-clear B/L
Abd-soft, NT, ND
Ext-no edema
Musculoskeletal-no cyanosis, clubbing
Skin-warm and dry
Neuro-grossly non-focal
Psych-calm, cooperative
Intractable back pain -due to lumbar vertebral compression fracture. Continue Toradol 30 mg IV every 6 hours [id number]. Continue calcitonin daily. Continue acetaminophen. Patient wants to avoid opiates. Encouraged use of back brace with
PT.
Vertebroplasty completed by IR 12/18. Add Tramadol PRN pain, patient agreeable.
Continue PT/OT. Encourage out of bed. Patient not interested in SNF.
Lumbar L2 vertebral compression fracture -presumed acute given new onset of pain. Suspect underlying osteoporosis and trauma from fall as the etiology of the fracture. Recommend outpatient treatment of osteoporosis. Discussed with patient.
Multiple other vertebral compression fractures in the past.
MRI of lumbar spine reviewed. MRI also notes T12 compression fracture.
Chronic constipation -now moving bowels. Continue bowel regimen.
Hypopituitarism -continue hormone replacements.
Bipolar disorder
Mild intermittent asthma -stable.
GERD
Migraine headaches
Chronic normocytic anemia -hemoglobin at baseline.
Full code
Dispo - awaiting SNF placement.
Anticipated Discharge: 24 - 48 hours
Subjective/Interval History
-
Date of Service: December 20, 2023
Patient seen/examined, still complaining of back pain.
Objective Data
-
Vital Signs:
Vital Signs
Temp Pulse Resp BP Pulse Ox
97.3 F 109 14 121/79 96
12/20/23 11:30 12/20/23 11:30 12/20/23 11:30 12/20/23 11:30 12/20/23 11:30
I&O
12/19/23 12/20/23 12/21/23
06:59 06:59 06:59
Intake Total 780 / 780 120 / 120
Output Total 0 / 0
Balance 780 / 780 120 / 120
Review of Systems
-
History Source: Patient
All other systems: Reviewed and negative
[2023-12-20] MEDS: SENOKOT-S PO (22:09)
[2023-12-20] MEDS: SENOKOT PO (22:09)
[2023-12-20] MEDS: CORTEF 15 MG PO (22:10)
[2023-12-20] MEDS: LYRICA 75 MG PO (22:11)
[2023-12-20] MEDS: LAMICTAL 200 MG PO (22:11)
[2023-12-20] MEDS: DESYREL 300 MG PO (22:11)
[2023-12-21] MEDS: TYLENOL 650 MG PO ×4 (01:49→22:36)
[2023-12-21] MEDS: TORADOL 30 MG IV ×4 (01:50→22:35)
[2023-12-21] MEDS: TYLENOL PO ×2 (05:10→16:58)
[2023-12-21] MEDS: SYNTHROID 112 MCG PO (06:36)
[2023-12-21 07:33] LABS: Hematocrit 29.5 % (37.0-47.0); Hemoglobin 9.9 g/dL (12.0-16.0); Mean Corp Hgb Conc. 33.6 g/dL (33.0-37.0); Mean Corpuscular Hgb 32.9 pg (27.0-31.0); Mean Platelet Volume 9.5 fL (7.4-10.4); Platelet Count 344 10^3/uL (130-400); Red Blood Cell Count 3.01 10^6/uL (4.20-5.40); Red Cell Dist. Width 14.4 % (11.5-14.5); White Blood Cell Count 6.7 10^3/uL (4.8-10.8)
[2023-12-21] MEDS: SYMBICORT 80/4.5 MCG INHALER 2 PUFF INH ×2 (07:35→19:51)
[2023-12-21] MEDS: SPIRIVA RESPIMAT 2.5 MCG 2 PUFF INH (07:35)
[2023-12-21 07:42] LABS: Blood Urea Nitrogen 21 mg/dl (7-17); Calcium 8.9 mg/dl (8.4-10.2); Carbon Dioxide 24 mmol/L (22-30); Chloride 111 mmol/L (98-107); Estimated Creatinine Clearance 47 ml/min; Glucose 99 mg/dl (70-99); Potassium 3.6 mmol/L (3.5-5.1); Sodium 142 mmol/L (135-145); eGFR 58.61
[2023-12-21 07:43] VITALS: BP 112/75
[2023-12-21] MEDS: GEODON 80 MG PO ×2 (09:24→22:38)
[2023-12-21] MEDS: ZOFRAN ODT (ORALLY DISINTEGRATING) 8 MG PO ×2 (09:24→22:36)
[2023-12-21] MEDS: PROTONIX 40 MG PO (09:25)
[2023-12-21] MEDS: CORTEF 20 MG PO (09:25)
[2023-12-21] MEDS: OSCAL 500 + D 500 MG PO (09:25)
[2023-12-21] MEDS: SENOKOT 17.2 MG PO ×2 (09:25→22:39)
[2023-12-21] MEDS: KLONOPIN 1 MG PO ×3 (09:25→22:38)
[2023-12-21] MEDS: LYRICA 50 MG PO (09:25)
[2023-12-21] MEDS: SENOKOT-S 1 TABLET PO ×2 (09:26→22:38)
[2023-12-21] MEDS: TOPAMAX 200 MG PO ×2 (09:26→22:39)
[2023-12-21] MEDS: VITAMIN D3 (cholecalciferol) 25 MCG PO (09:26)
[2023-12-21] MEDS: PEPCID 20 MG PO (09:26)
[2023-12-21] MEDS: LAMICTAL 100 MG PO (09:26)
[2023-12-21] MEDS: TRILEPTAL 300 MG PO ×2 (09:26→22:38)
[2023-12-21] MEDS: ZYRTEC 10 MG PO (09:27)
[2023-12-21] MEDS: BUSPAR 10 MG PO ×3 (09:27→22:39)
[2023-12-21] MEDS: LIDOCAINE 4% PATCH 1 PATCH TOPICAL (09:29)
[2023-12-21] MEDS: HEPARIN 5000 UNITS SC ×2 (09:30→22:35)
[2023-12-21] MEDS: MIRALAX 17 GRAMS PO ×2 (09:30→22:39)
[2023-12-21] MEDS: ANESTHETIC LOZENGE 1 LOZENGE PO (09:33)
[2023-12-21] MEDS: MIACALCIN/FORTICAL NASAL SPRAY 1 SPRAY NASAL (09:43)
--- NOTE | 2023-12-21 11:04 | W.PN.HOSP.TC ---
Today's Communication/Plan
-
COVID antigen
Bowel regimen
Assessment / Plan
Assessment / Plan
Gen-AAOx3, NAD
HEENT-NC, AT, anicteric, clear oral mm
Neck-supple
CV-reg, no M, +S1/S2
Lungs-clear B/L
Abd-soft, NT, ND
Ext-no edema
Musculoskeletal-no cyanosis, clubbing
Skin-warm and dry
Neuro-grossly non-focal
Psych-calm, cooperative
Intractable back pain -due to lumbar vertebral compression fracture. Continue Toradol 30 mg IV every 6 hours [id number]. Continue calcitonin daily. Continue acetaminophen. Patient wants to avoid opiates. Encouraged use of back brace with
PT.
Vertebroplasty completed by IR 12/18. Add Tramadol PRN pain, patient agreeable. So far has not gotten any doses.
Continue PT/OT. Encourage out of bed. She now agrees with SNF.
Lumbar L2 vertebral compression fracture -presumed acute given new onset of pain. Suspect underlying osteoporosis and trauma from fall as the etiology of the fracture. Recommend outpatient treatment of osteoporosis. Discussed with patient.
Multiple other vertebral compression fractures in the past.
MRI of lumbar spine reviewed. MRI also notes T12 compression fracture.
Chronic constipation -last BM 12/17. Continue bowel regimen, add Dulcolax suppository. Constipation induced urinary retention noted, follow protocol for bladder scan. Discussed with nursing.
Acute bronchitis -likely viral. Check COVID antigen. Treat supportively.
Hypopituitarism -continue hormone replacements.
Bipolar disorder
Mild intermittent asthma -stable.
GERD
Migraine headaches
Chronic normocytic anemia -hemoglobin at baseline.
Full code
Dispo - awaiting SNF placement.
Anticipated Discharge: Within 24 hours
Subjective/Interval History
-
Date of Service: December 21, 2023
Patient seen and examined. Her back pain remains unchanged. Now complaining of nasal congestion, cough, sore throat, shortness of breath. Was sleeping when I walked in the room.
Objective Data
-
Labs:
Laboratory Results
12/21/23
06:45
WBC 6.7
Hgb 9.9 L
Hct 29.5 L
Plt Count 344
Sodium 142
Potassium 3.6
Chloride 111 H
Carbon Dioxide 24
BUN 21 H
Creatinine 1.1 H
Glucose 99
Calcium 8.9
Vital Signs:
Vital Signs
Temp Pulse Resp BP Pulse Ox
98.1 F 97 18 112/75 96
12/21/23 07:43 12/21/23 07:43 12/21/23 07:43 12/21/23 07:43 12/21/23 07:43
I&O
12/20/23 12/21/23 12/22/23
06:59 06:59 06:59
Intake Total 120 / 120 240 / 240
Output Total 0 / 0 550 / 550
Balance 120 / 120 -310 / -310
Review of Systems
-
History Source: Patient
All other systems: Reviewed and negative
[2023-12-21 12:03] LABS: COVID-19 Antigen Negative (Negative)
[2023-12-21] MEDS: DULCOLAX 10 MG RECTAL (12:57)
[2023-12-21] MEDS: ULTRAM 50 MG PO (13:03)
[2023-12-21 15:09] VITALS: BP 127/86
[2023-12-21] MEDS: DESYREL 300 MG PO (22:36)
[2023-12-21] MEDS: CORTEF 15 MG PO (22:36)
[2023-12-21] MEDS: LYRICA 75 MG PO (22:38)
[2023-12-21] MEDS: LAMICTAL 200 MG PO (22:44)
[2023-12-21 23:37] VITALS: BP 108/69
[2023-12-22] MEDS: TYLENOL PO ×3 (00:03→23:18)
[2023-12-22] MEDS: TORADOL IV (02:17)
[2023-12-22] MEDS: SYNTHROID 112 MCG PO (05:46)
[2023-12-22] MEDS: SPIRIVA RESPIMAT 2.5 MCG 2 PUFF INH (08:01)
[2023-12-22] MEDS: SYMBICORT 80/4.5 MCG INHALER 2 PUFF INH ×2 (08:02→19:35)
[2023-12-22 08:24] VITALS: BP 136/89
[2023-12-22] MEDS: LIDOCAINE 4% PATCH TOPICAL (08:40)
[2023-12-22] MEDS: MIRALAX PO ×2 (08:40→20:38)
[2023-12-22] MEDS: GEODON 80 MG PO ×2 (08:43→20:38)
[2023-12-22] MEDS: PROTONIX 40 MG PO (08:43)
[2023-12-22] MEDS: LYRICA 50 MG PO (08:43)
[2023-12-22] MEDS: ZOFRAN ODT (ORALLY DISINTEGRATING) 8 MG PO ×2 (08:43→20:41)
--- NOTE | 2023-12-22 08:43 | W.PN.HOSP.TC ---
Today's Communication/Plan
-
Pain control. Discharge planning in progress
Assessment / Plan
Assessment / Plan
Gen-AAOx3, NAD
HEENT-NC, AT, anicteric, clear oral mm
Neck-supple
CV-reg, no M, +S1/S2
Lungs-clear B/L
Abd-soft, NT, ND
Ext-no edema
Musculoskeletal-no cyanosis, clubbing
Skin-warm and dry
Neuro-grossly non-focal
Psych-calm, cooperative
A/P:
Intractable back pain -due to lumbar vertebral compression fracture. Continue Toradol 30 mg IV every 6 hours [id number]. Continue calcitonin daily. Continue acetaminophen. Patient wants to avoid opiates but started on Ultram and she is
okay with that. Encouraged use of back brace with PT.
Vertebroplasty completed by IR 12/18. Add Tramadol PRN pain, patient agreea
Continue PT/OT. Encourage out of bed. She now agrees with SNF.
Lumbar L2 vertebral compression fracture -presumed acute given new onset of pain. Suspect underlying osteoporosis and trauma from fall as the etiology of the fracture. Recommend outpatient treatment of osteoporosis. Discussed with patient.
Multiple other vertebral compression fractures in the past.
MRI of lumbar spine reviewed. MRI also notes T12 compression fracture.
Chronic constipation -last BM 12/17. Continue bowel regimen, add Dulcolax suppository. Constipation induced urinary retention noted, follow protocol for bladder scan. Discussed with nursing.
Acute bronchitis -likely viral. Check COVID antigen. Treat supportively.
Hypopituitarism -continue hormone replacements.
Bipolar disorder
Mild intermittent asthma -stable.
GERD
Migraine headaches
Chronic normocytic anemia -hemoglobin at baseline.
DVT prophylaxis-heparin SQ
CODE STATUS-full code
Anticipated Discharge: 24 - 48 hours
Subjective/Interval History
-
Date of Service: December 22, 2023
Patient still complains of back pain. No nausea or vomiting.
Objective Data
-
Vital Signs:
Vital Signs
Temp Pulse Resp BP Pulse Ox
98.2 F 92 18 136/89 98
12/22/23 08:24 12/22/23 08:24 12/22/23 08:24 12/22/23 08:24 12/22/23 08:36
I&O
12/21/23 12/22/23 12/23/23
06:59 06:59 06:59
Intake Total 240 / 240 240 / 240
Output Total 550 / 550 1974
Balance -310 / -310 -1735 / -1735
[2023-12-22] MEDS: TOPAMAX 200 MG PO ×2 (08:44→20:42)
[2023-12-22] MEDS: CORTEF 20 MG PO (08:44)
[2023-12-22] MEDS: PEPCID 20 MG PO (08:44)
[2023-12-22] MEDS: SENOKOT-S 1 TABLET PO (08:45)
[2023-12-22] MEDS: KLONOPIN 1 MG PO ×3 (08:45→22:03)
[2023-12-22] MEDS: TRILEPTAL 300 MG PO ×2 (08:45→20:40)
[2023-12-22] MEDS: SENOKOT PO ×2 (08:45→20:38)
[2023-12-22] MEDS: ZYRTEC 10 MG PO (08:46)
[2023-12-22] MEDS: VITAMIN D3 (cholecalciferol) 25 MCG PO (08:46)
[2023-12-22] MEDS: LAMICTAL 100 MG PO (08:46)
[2023-12-22] MEDS: BUSPAR 10 MG PO ×3 (08:46→22:01)
[2023-12-22] MEDS: TORADOL 30 MG IV ×3 (08:46→20:40)
[2023-12-22] MEDS: OSCAL 500 + D 500 MG PO (08:46)
[2023-12-22] MEDS: FLUSH (NSS) 1 FLUSH IV ×2 (08:46→14:20)
[2023-12-22] MEDS: TYLENOL 650 MG PO ×4 (08:47→20:41)
[2023-12-22] MEDS: HEPARIN 5000 UNITS SC ×2 (08:47→20:40)
[2023-12-22] MEDS: MIACALCIN/FORTICAL NASAL SPRAY 1 SPRAY NASAL (09:02)
[2023-12-22] MEDS: ANESTHETIC LOZENGE 1 LOZENGE PO (09:07)
[2023-12-22 13:30] VITALS: BP 129/86; PULSE 95
--- NOTE | 2023-12-22 16:19 | PTCARENOTE ---
Pt AAO x3, KEITH; moves legs slowly d/t lower back discomfort- refuses offers of OOB to chair activity. Able to position self in bed with assistance. VSS. On room air- pulse ox 98%, no SOB noted. Abd soft, rounded, jc PO well. Proctor P/I large
amts clear lt bernie urine. Resting in bed at present. Anoop continue to monitor.
[2023-12-22 16:27] VITALS: BP 101/65
[2023-12-22] MEDS: SENOKOT-S PO (20:38)
[2023-12-22] MEDS: DESYREL 300 MG PO (22:01)
[2023-12-22] MEDS: CORTEF 15 MG PO (22:02)
[2023-12-22] MEDS: LYRICA 75 MG PO (22:03)
[2023-12-22] MEDS: LAMICTAL 200 MG PO (22:03)
[2023-12-22 23:42] VITALS: BP 115/66
[2023-12-23] MEDS: TORADOL 30 MG IV ×2 (01:38→08:13)
[2023-12-23] MEDS: SYNTHROID 112 MCG PO (05:19)
[2023-12-23] MEDS: TYLENOL 650 MG PO ×2 (05:19→08:12)
[2023-12-23 05:30] LABS: Hematocrit 28.5 % (37.0-47.0); Hemoglobin 9.8 g/dL (12.0-16.0); Mean Corp Hgb Conc. 34.4 g/dL (33.0-37.0); Mean Corpuscular Hgb 32.8 pg (27.0-31.0); Mean Corpuscular Volume 95.3 fL (81.0-99.0); Mean Platelet Volume 9.8 fL (7.4-10.4); Platelet Count 354 10^3/uL (130-400); Red Blood Cell Count 2.99 10^6/uL (4.20-5.40); Red Cell Dist. Width 14.6 % (11.5-14.5)
[2023-12-23 05:36] LABS: Blood Urea Nitrogen 16 mg/dl (7-17); Calcium 8.8 mg/dl (8.4-10.2); Carbon Dioxide 22 mmol/L (22-30); Chloride 112 mmol/L (98-107); Estimated Creatinine Clearance 57 ml/min; Glucose 93 mg/dl (70-99); Potassium 3.6 mmol/L (3.5-5.1); Sodium 141 mmol/L (135-145); eGFR > 60.00
[2023-12-23 07:35] VITALS: BP 128/83
[2023-12-23] MEDS: SYMBICORT 80/4.5 MCG INHALER 2 PUFF INH ×2 (08:04→19:33)
[2023-12-23] MEDS: SPIRIVA RESPIMAT 2.5 MCG 2 PUFF INH (08:04)
[2023-12-23] MEDS: PROTONIX 40 MG PO (08:11)
[2023-12-23] MEDS: GEODON 80 MG PO ×2 (08:11→19:50)
[2023-12-23] MEDS: MIACALCIN/FORTICAL NASAL SPRAY 1 SPRAY NASAL (08:11)
[2023-12-23] MEDS: ZOFRAN ODT (ORALLY DISINTEGRATING) 8 MG PO ×2 (08:12→19:52)
[2023-12-23] MEDS: CORTEF 20 MG PO (08:12)
[2023-12-23] MEDS: TOPAMAX 200 MG PO ×2 (08:12→19:52)
[2023-12-23] MEDS: KLONOPIN 1 MG PO ×3 (08:13→21:57)
[2023-12-23] MEDS: OSCAL 500 + D 500 MG PO (08:13)
[2023-12-23] MEDS: TRILEPTAL 300 MG PO ×2 (08:13→19:52)
[2023-12-23] MEDS: VITAMIN D3 (cholecalciferol) 25 MCG PO (08:13)
[2023-12-23] MEDS: SENOKOT-S 1 TABLET PO ×2 (08:13→19:53)
[2023-12-23] MEDS: LAMICTAL 100 MG PO (08:13)
[2023-12-23] MEDS: ZYRTEC 10 MG PO (08:13)
[2023-12-23] MEDS: LYRICA 50 MG PO (08:13)
[2023-12-23] MEDS: BUSPAR 10 MG PO ×3 (08:13→21:56)
[2023-12-23] MEDS: PEPCID 20 MG PO (08:13)
[2023-12-23] MEDS: LIDOCAINE 4% PATCH 1 PATCH TOPICAL (08:14)
[2023-12-23] MEDS: MIRALAX 17 GRAMS PO (08:14)
[2023-12-23] MEDS: HEPARIN 5000 UNITS SC ×2 (08:14→19:54)
[2023-12-23] MEDS: SENOKOT 17.2 MG PO (08:14)
[2023-12-23 08:28] VITALS: BP 131/76; PULSE 95; O2SAT 96
--- NOTE | 2023-12-23 08:48 | W.PN.HOSP.TC ---
Addendum entered and electronically signed by Jose Villagomez MD 12/23/23 14:21:
since Toradol discontinued by pharmacy will start her on celecoxib and titrate as needed-better gi tolerance and pain control.
Original Note:
Today's Communication/Plan
-
Continue pain control.
Assessment / Plan
Assessment / Plan
Gen-AAOx3, NAD
HEENT-NC, AT, anicteric, clear oral mm
Neck-supple
CV-reg, no M, +S1/S2
Lungs-clear B/L
Abd-soft, NT, ND
Ext-no edema
Musculoskeletal-no cyanosis, clubbing
Skin-warm and dry
Neuro-grossly non-focal
Psych-calm, cooperative
A/P:
Intractable back pain -due to lumbar vertebral compression fracture. Continue Toradol 30 mg IV every 6 hours [id number]. Continue calcitonin daily. Continue acetaminophen but increased doses. Patient wants to avoid opiates but started on
Ultram and she is okay with that. Encouraged use of back brace with PT.
Vertebroplasty completed by IR 12/18. Add Tramadol PRN pain, patient agreea
Continue PT/OT. Encourage out of bed. She now agrees with SNF.
Lumbar L2 vertebral compression fracture -presumed acute given new onset of pain. Suspect underlying osteoporosis and trauma from fall as the etiology of the fracture. Recommend outpatient treatment of osteoporosis. Discussed with patient.
Multiple other vertebral compression fractures in the past.
MRI of lumbar spine reviewed. MRI also notes T12 compression fracture.
Chronic constipation -last BM 12/17. Continue bowel regimen, add Dulcolax suppository. Constipation induced urinary retention noted, follow protocol for bladder scan. Discussed with nursing.
Acute bronchitis -likely viral. Check COVID antigen. Treat supportively.
Hypopituitarism -continue hormone replacements.
Bipolar disorder
Mild intermittent asthma -stable.
GERD
Migraine headaches
Chronic normocytic anemia -hemoglobin at baseline.
DVT prophylaxis-heparin SQ
CODE STATUS-full code
Anticipated Discharge: 24 - 48 hours
Subjective/Interval History
-
Date of Service: December 23, 2023
Patient endorses back pain. No chest pain. Afebrile
Objective Data
-
Labs:
Laboratory Results
12/23/23
04:49
WBC 10.0
Hgb 9.8 L
Hct 28.5 L
Plt Count 354
Sodium 141
Potassium 3.6
Chloride 112 H
Carbon Dioxide 22
BUN 16
Creatinine 0.9
Glucose 93
Calcium 8.8
Vital Signs:
Vital Signs
Temp Pulse Resp BP Pulse Ox
99.3 F 90 12 128/83 98
12/23/23 07:35 12/23/23 07:35 12/23/23 07:35 12/23/23 07:35 12/23/23 07:35
I&O
12/22/23 12/23/23 12/24/23
06:59 06:59 06:59
Intake Total 240 / 240 1520 / 1520
Output Total 1974 / 1974 1250 / 1250
Balance -1735 / -1735 270 / 270
--- NOTE | 2023-12-23 13:02 | CM ---
Spoke with pt in room.
PT OT said SNF.
Pt has dietary needs she would like to know if SNf can provide her diet.
Spoke with Nicole at [facility] she is checking on a bed.
Spoke with Kalyani at [facility] . Kalyani is checking on bed.
Pt had vertebroplasty today.
Pt has Proctor.
PLAN To SNF after located..
[2023-12-23] MEDS: TYLENOL 1000 MG PO ×2 (13:08→19:51)
[2023-12-23 14:18] VITALS: BP 126/78; PULSE 91
[2023-12-23 15:30] VITALS: BP 138/95
[2023-12-23] MEDS: CELEBREX 200 MG PO (16:02)
[2023-12-23] MEDS: ULTRAM 50 MG PO (19:49)
[2023-12-23] MEDS: SENOKOT PO (19:54)
[2023-12-23] MEDS: MIRALAX PO (19:55)
[2023-12-23] MEDS: CORTEF 15 MG PO (21:55)
[2023-12-23] MEDS: LYRICA 75 MG PO (21:56)
[2023-12-23] MEDS: DESYREL 300 MG PO (21:56)
[2023-12-23] MEDS: LAMICTAL 200 MG PO (21:57)
[2023-12-23] MEDS: TORADOL 10 MG PO (22:29)
[2023-12-23 23:46] VITALS: BP 121/75
[2023-12-24] MEDS: TYLENOL 1000 MG PO ×3 (05:22→20:59)
[2023-12-24] MEDS: SYNTHROID 112 MCG PO (05:22)
[2023-12-24] MEDS: ULTRAM 50 MG PO ×2 (05:32→11:45)
[2023-12-24] MEDS: SPIRIVA RESPIMAT 2.5 MCG 2 PUFF INH (07:22)
[2023-12-24] MEDS: SYMBICORT 80/4.5 MCG INHALER 2 PUFF INH ×2 (07:22→19:29)
[2023-12-24 07:35] VITALS: BP 139/99
[2023-12-24] MEDS: PROTONIX 40 MG PO (08:48)
[2023-12-24] MEDS: CELEBREX 200 MG PO (08:48)
[2023-12-24] MEDS: CORTEF 20 MG PO (08:49)
[2023-12-24] MEDS: GEODON 80 MG PO ×2 (08:49→20:57)
[2023-12-24] MEDS: ZYRTEC 10 MG PO (08:49)
[2023-12-24] MEDS: KLONOPIN 1 MG PO ×3 (08:49→21:01)
[2023-12-24] MEDS: TRILEPTAL 300 MG PO ×2 (08:49→20:59)
[2023-12-24] MEDS: SENOKOT-S 1 TABLET PO ×2 (08:50→20:58)
[2023-12-24] MEDS: LYRICA 50 MG PO (08:50)
[2023-12-24] MEDS: LAMICTAL 100 MG PO (08:50)
[2023-12-24] MEDS: VITAMIN D3 (cholecalciferol) 25 MCG PO (08:50)
[2023-12-24] MEDS: ZOFRAN ODT (ORALLY DISINTEGRATING) 8 MG PO ×2 (08:50→20:59)
[2023-12-24] MEDS: SENOKOT 17.2 MG PO ×2 (08:50→20:58)
[2023-12-24] MEDS: BUSPAR 10 MG PO ×3 (08:51→21:00)
[2023-12-24] MEDS: TOPAMAX 200 MG PO ×2 (08:51→20:58)
[2023-12-24] MEDS: OSCAL 500 + D 500 MG PO (08:51)
[2023-12-24] MEDS: PEPCID 20 MG PO (08:51)
[2023-12-24] MEDS: HEPARIN 5000 UNITS SC ×2 (08:51→20:57)
[2023-12-24] MEDS: LIDOCAINE 4% PATCH TOPICAL (08:52)
[2023-12-24] MEDS: MIRALAX 17 GRAMS PO ×2 (08:53→20:57)
[2023-12-24] MEDS: FLUSH (NSS) 1 FLUSH IV (08:56)
[2023-12-24] MEDS: MIACALCIN/FORTICAL NASAL SPRAY 1 SPRAY NASAL (08:58)
--- NOTE | 2023-12-24 11:54 | W.PN.HOSP.TC ---
Today's Communication/Plan
-
Pain control. Discharge planning.
Assessment / Plan
Assessment / Plan
Gen-AAOx3, NAD
HEENT-NC, AT, anicteric, clear oral mm
Neck-supple
CV-reg, no M, +S1/S2
Lungs-clear B/L
Abd-soft, NT, ND
Ext-no edema
Musculoskeletal-no cyanosis, clubbing
Skin-warm and dry
Neuro-grossly non-focal
Psych-calm, cooperative
A/P:
Intractable back pain -due to lumbar vertebral compression fracture. Toradol 30 mg IV every 6 hours [id number] and pharmacy discontinued. Continue calcitonin daily. Continue acetaminophen, increased doses. Patient wants to avoid opiates
but started on Ultram and she is okay with that. Also added celecoxib. Encouraged use of back brace with PT.
Vertebroplasty completed by IR 12/18. Add Tramadol PRN pain, patient agreeable.
Continue PT/OT. Encourage out of bed. She now agrees with SNF. Medically ready for discharge--> discussed with piano case maker and awaiting for discharge disposition
Lumbar L2 vertebral compression fracture -presumed acute given new onset of pain. Suspect underlying osteoporosis and trauma from fall as the etiology of the fracture. Recommend outpatient treatment of osteoporosis. Discussed with patient.
Multiple other vertebral compression fractures in the past.
MRI of lumbar spine reviewed. MRI also notes T12 compression fracture.
Chronic constipation -last BM 12/17. Continue bowel regimen, add Dulcolax suppository. Constipation induced urinary retention noted, follow protocol for bladder scan. Discussed with nursing.
Acute bronchitis -likely viral. Check COVID antigen. Treat supportively.
Hypopituitarism -continue hormone replacements.
Bipolar disorder
Mild intermittent asthma -stable.
GERD
Migraine headaches
Chronic normocytic anemia -hemoglobin at baseline.
DVT prophylaxis-heparin SQ
CODE STATUS-full code
Anticipated Discharge: 24 - 48 hours
Subjective/Interval History
-
Date of Service: December 24, 2023
Patient still having back pain, afebrile, no chest pain
Objective Data
-
Vital Signs:
Vital Signs
Temp Pulse Resp BP Pulse Ox
97.9 F 84 20 139/99 95
12/24/23 07:35 12/24/23 07:35 12/24/23 07:35 12/24/23 07:35 12/24/23 07:35
I&O
12/23/23 12/24/23 12/25/23
06:59 06:59 06:59
Intake Total 1520 / 1520
Output Total 1250 / 1250 850 / 850
Balance 270 / 270 -850 / -850
--- NOTE | 2023-12-24 12:48 | PTCARENOTE ---
rogers removed this a y awake overnight monitor nurse. patient placed on bedpan around 1030 and patient voided about 300ml of clear yellow urine without difficulty. plan of care on going.
[2023-12-24 14:54] VITALS: BP 124/88; PULSE 96; O2SAT 99
[2023-12-24 15:35] VITALS: BP 121/83
--- NOTE | 2023-12-24 15:49 | CM ---
PT OT said SNF.
Spoke with Kalyani at [facility] . She has a bed tomorrow.
Spoke with pt and Kalyani on phone with examples of what pts can have to eat.Pt has many dietary restrictions.
IMM reviewed Pt signed.
Pt will need ambulance
PLAN To [facility] tomorrow..
[2023-12-24] MEDS: DESYREL 300 MG PO (21:00)
[2023-12-24] MEDS: CORTEF 15 MG PO (21:00)
[2023-12-24] MEDS: LAMICTAL 200 MG PO (21:01)
[2023-12-24] MEDS: LYRICA 75 MG PO (21:01)
[2023-12-24 23:52] VITALS: BP 105/72
[2023-12-25] MEDS: TYLENOL 1000 MG PO ×2 (04:24→14:23)
[2023-12-25] MEDS: SYNTHROID 112 MCG PO (05:03)
[2023-12-25] MEDS: SYMBICORT 80/4.5 MCG INHALER 2 PUFF INH (06:09)
[2023-12-25] MEDS: SPIRIVA RESPIMAT 2.5 MCG 2 PUFF INH (06:10)
[2023-12-25 07:35] VITALS: BP 147/95
--- NOTE | 2023-12-25 08:58 | W.PN.HOSP.TC ---
Today's Communication/Plan
-
Discharge planning today
Assessment / Plan
Assessment / Plan
Gen-AAOx3, NAD
HEENT-NC, AT, anicteric, clear oral mm
Neck-supple
CV-reg, no M, +S1/S2
Lungs-clear B/L
Abd-soft, NT, ND
Ext-no edema
Musculoskeletal-no cyanosis, clubbing
Skin-warm and dry
Neuro-grossly non-focal
Psych-calm, cooperative
A/P:
Intractable back pain -due to lumbar vertebral compression fracture. Toradol 30 mg IV every 6 hours [id number] and pharmacy discontinued. Continue calcitonin daily. Continue acetaminophen, increased doses. Patient wants to avoid opiates
but started on Ultram and she is okay with that. Also added celecoxib. Encouraged use of back brace with PT.
Vertebroplasty completed by IR 12/18. Add Tramadol PRN pain, patient agreeable.
Continue PT/OT. Encourage out of bed. She now agrees with SNF. Medically ready for discharge--> discussed with director case management and awaiting for discharge disposition
Lumbar L2 vertebral compression fracture -presumed acute given new onset of pain. Suspect underlying osteoporosis and trauma from fall as the etiology of the fracture. Recommend outpatient treatment of osteoporosis. Discussed with patient.
Multiple other vertebral compression fractures in the past.
MRI of lumbar spine reviewed. MRI also notes T12 compression fracture.
Chronic constipation -last BM 12/17. Continue bowel regimen, add Dulcolax suppository. Constipation induced urinary retention noted, follow protocol for bladder scan. Discussed with nursing.
Acute bronchitis -likely viral. Check COVID antigen. Treat supportively.
Hypopituitarism -continue hormone replacements.
Bipolar disorder
Mild intermittent asthma -stable.
GERD
Migraine headaches
Chronic normocytic anemia -hemoglobin at baseline.
DVT prophylaxis-heparin SQ
CODE STATUS-full code
Anticipated Discharge: Today
Subjective/Interval History
-
Date of Service: December 25, 2023
Patient feels better today in terms of pain.
Objective Data
-
Vital Signs:
Vital Signs
Temp Pulse Resp BP Pulse Ox
97.6 F 100 12 147/95 100
12/25/23 07:35 12/25/23 07:35 12/25/23 07:35 12/25/23 07:35 12/25/23 07:35
I&O
12/24/23 12/25/23 12/26/23
06:59 06:59 06:59
Intake Total 1200 / 1200
Output Total 850 / 850 1400 / 1400
Balance -850 / -850 -200 / -200
[2023-12-25] MEDS: PROTONIX 40 MG PO (09:21)
[2023-12-25] MEDS: LAMICTAL 100 MG PO (09:21)
[2023-12-25] MEDS: CELEBREX 200 MG PO (09:21)
[2023-12-25] MEDS: TRILEPTAL 300 MG PO (09:21)
[2023-12-25] MEDS: PEPCID 20 MG PO (09:21)
[2023-12-25] MEDS: KLONOPIN 1 MG PO ×2 (09:21→16:05)
[2023-12-25] MEDS: BUSPAR 10 MG PO ×2 (09:22→16:05)
[2023-12-25] MEDS: ZOFRAN ODT (ORALLY DISINTEGRATING) 8 MG PO (09:22)
[2023-12-25] MEDS: CORTEF 20 MG PO (09:22)
[2023-12-25] MEDS: GEODON 80 MG PO (09:22)
[2023-12-25] MEDS: TOPAMAX 200 MG PO (09:22)
[2023-12-25] MEDS: SENOKOT 17.2 MG PO (09:22)
[2023-12-25] MEDS: HEPARIN 5000 UNITS SC (09:23)
[2023-12-25] MEDS: OSCAL 500 + D 500 MG PO (09:23)
[2023-12-25] MEDS: MIACALCIN/FORTICAL NASAL SPRAY 1 SPRAY NASAL (09:23)
[2023-12-25] MEDS: LYRICA 50 MG PO (09:23)
[2023-12-25] MEDS: ZYRTEC 10 MG PO (09:23)
[2023-12-25] MEDS: VITAMIN D3 (cholecalciferol) 25 MCG PO (09:23)
[2023-12-25] MEDS: SENOKOT-S 1 TABLET PO (09:23)
[2023-12-25] MEDS: MIRALAX 17 GRAMS PO (09:24)
[2023-12-25] MEDS: LIDOCAINE 4% PATCH TOPICAL (09:38)
--- NOTE | 2023-12-25 10:35 | CM ---
spoke with adm.there is a bed today at [facility].patient will transport via ambulance.i left [facility] for friend caterina pedroza about dc to facility today.
phone# to call report is [phone] and fax is [phone].
--- NOTE | 2023-12-25 12:16 | W.DCSUMMARY ---
Discharge Summary
Discharge Data
Date of Admission: 12/17/23
Date of Discharge: 12/25/23
-
Pending Results: No
Hospital Course
Patient 58 years old history of hypopituitarism, adrenal insufficiency, hyponatremia, bipolar, asthma, GERD, migraines, COPD, presented to the heart with a fall injuring her back and having compression fractures. Patient had findings of acute L2
compression fracture and also chronic deformity of T12. Patient had multiple allergies to pain medication therefore it was difficult to control pain so IR was consulted for possible vertebroplasty. Patient underwent vertebroplasty on 12/18 of L2 by
IR successfully. Patient remained with some residual pain and some pain medication were added to her regimen as well as physical therapy. She was felt to be a good candidate for rehab since she went to subacute skilled rehab for further
rehabilitation. No other events were noticed. Patient is being discharged in relatively stable condition today.
Discharge duration: 35 minutes
Discharge Plan
-
Patient Disposition: Residential/SNF
Discharge Diagnosis/Procedures: Intractable back pain due to lumbar vertebral compression fracture status post vertebroplasty 12/18.
Diet: Low Cholesterol
Activity: As tolerated
Blood Work: Please PCP to order CBC, BMP within 1 week
Referrals:
Carlos Vora MD [Family Provider] - in less than 1 week
Prescriptions:
New
celecoxib 200 mg Capsule
200 mg PO DAILY Qty: 14 0RF
tramadol 50 mg Tablet
50 mg PO Q6HPRN PRN (Reason: severe pain) Qty: 4 0RF
acetaminophen [Tylenol Extra Strength] 500 mg Tablet
1,000 mg PO Q8H Qty: 90 0RF
lidocaine 4 % Adhesive Patch,Medicated
1 patch topical DAILY Qty: 14 0RF
Continued
levothyroxine 112 MCG tablet
112 mcg PO DAILY
hydrocortisone 10 MG tablet
15 mg PO HS
hydrocortisone 10 MG tablet
20 mg PO DAILY
lamotrigine 100 MG tablet
100 mg PO DAILY
oxcarbazepine 300 mg Tablet
300 mg PO BID
ondansetron 8 mg Tablet,Disintegrating
8 mg PO BID
famotidine 20 mg Tablet
20 mg PO BID
buspirone 10 mg Tablet
10 mg PO TID
Trudhesa 0.725 mg/pump act. (4 mg/mL) [place],Non-Aerosol
1 spray INTRANASAL DAILYPRN PRN (Reason: migraine)
Dupixent Syringe 300 mg/2 mL Syringe
300 mg SC Q2W
Trelegy Ellipta 100-62.5-25 mcg Blister With Device
1 inh INHALATION R DAILY
ziprasidone HCl 80 mg Capsule
80 mg PO BID
lamotrigine 200 mg Tablet
200 mg PO HS
trazodone 100 mg Tablet
300 mg PO HS
topiramate 200 mg Tablet
200 mg PO BID
cholecalciferol (vitamin D3) 25 mcg (1,000 unit) Tablet
25 mcg PO DAILY
calcium citrate-vitamin D3 [Citracal + D Maximum] 315 mg-6.25 mcg (250 unit) Tablet
1 tab PO DAILY
Fiber Gummies 2 gram Tablet,Chewable
4 g PO DAILY
Aimovig Autoinjector 140 mg/mL Auto-Injector
140 mg SC Q28D
Tyrvaya 0.03 mg/spray [place], Metered, Non-Aerosol
1 spray INTRANASAL BID
cetirizine [Zyrtec] 10 mg Tablet
40 mg PO DAILY
levalbuterol tartrate 45 mcg/actuation Hfa Aerosol Inhaler
1 inh INHALATION R Q6HPRN PRN (Reason: sob/wheezing)
pregabalin 50 mg capsule
50 mg PO DAILY
Patient Comments:
12/16/23: filled 12/01/23 for 30 tablets over 30 days
pregabalin 75 mg capsule
75 mg PO HS
Patient Comments:
12/16/23: filled 12/01/23 for 30 tablets over 30 days
gabapentin 300 mg capsule
300 mg PO TIDPRN PRN (Reason: moderate pain)
pantoprazole 40 MG tablet,delayed release (DR/EC)
40 mg PO DAILY
torsemide 10 mg tablet
10 mg PO DAILYPRN PRN (Reason: swelling)
Dayvigo 10 mg Tablet
10 mg PO HS
sennosides [Senna Laxative] 8.6 mg tablet
17.2 mg PO HSPRN PRN (Reason: constipation)
polyethylene glycol 3350 [Miralax] 17 gram powder in packet
17 g PO DAILYPRN PRN (Reason: constipation)
docusate sodium 100 mg capsule
100 mg PO BIDPRN PRN (Reason: constipation)
clonazepam 1 MG tablet
1 mg PO TID Qty: 4 0RF
Patient Comments:
12/16/2023: last filled 12/10/23, 90 tabs for 30 days
Discontinued
acetaminophen 650 mg Tablet Extended Release
1,300 mg PO QID
Patient Comments:
12/16/23: Confirmed with patient, she takes a total of 5,200mg everyday routinely.
Discharge Orders:
Discharge Patient (As Directed); Ordered 12/25/23
Ordered By: Jose Villagomez
Discharge Date and Time
Discharge Date/Time: 12/25/23 17:59
Print Language: KAZAKH
[2023-12-25] MEDS: ULTRAM 50 MG PO (15:23)
[2023-12-25 15:30] VITALS: BP 126/86
== END 2023-12-25 17:59 | DRG 516 ==
LOC: 4 EAST ACU 10:41
PROVIDERS: Clinical Nurse Specialist Family Health; Hospitalist; Nurse Practitioner Gerontology; Physician Assistant Medical; Radiology Vascular & Interventional Radiology; ADMITTING PHYSICIAN Hospitalist; EMERGENCY PHYSICIAN Student in an Organized Health Care Education/Training Program; FAMILY PHYSICIAN Internal Medicine
PROC: 0QU03JZ Supplement Lumbar Vertebra with Synthetic Substitute, Percutaneous Approach (ICD-10-PCS; 2023-12-17)
DX: M80.08XA Age-related osteoporosis with current pathological fracture, vertebra(e), initial encounter for fracture (principal); E23.0 Hypopituitarism; E27.40 Unspecified adrenocortical insufficiency; E87.1 Hypo-osmolality and hyponatremia; R64 Cachexia; Z68.1 Body mass index [BMI] 19.9 or less, adult; J20.8 Acute bronchitis due to other specified organisms; E03.9 Hypothyroidism, unspecified; F31.9 Bipolar disorder, unspecified; F43.10 Post-traumatic stress disorder, unspecified; G43.909 Migraine, unspecified, not intractable, without status migrainosus; K21.9 Gastro-esophageal reflux disease without esophagitis; K31.84 Gastroparesis; R63.1 Polydipsia; J45.20 Mild intermittent asthma, uncomplicated; D64.9 Anemia, unspecified; K59.09 Other constipation; W06.XXXA Fall from bed, initial encounter; Z11.52 Encounter for screening for COVID-19; Z88.5 Allergy status to narcotic agent; Z88.1 Allergy status to other antibiotic agents; Z88.0 Allergy status to penicillin; Z88.2 Allergy status to sulfonamides; Z79.890 Hormone replacement therapy; Z79.52 Long term (current) use of systemic steroids; Z79.899 Other long term (current) drug therapy
CPT/HCPCS: 22514; 72110; 72148; 80048; 81003; 83930; 84300; 85025; 85027; 87811; 94640; 96374; 97116; 97167; 97530; 97535; 99285; J0630

== ENCOUNTER 2024-02-03 23:03 | Inpatient (IN) | payer MEDICARE, OTHER, SELFPAY ==
[2024-02-03 18:33] VITALS: BP 129/87
[2024-02-03 18:34] VITALS: BP 129/87
[2024-02-03 19:00] VITALS: BP 125/87
--- NOTE | 2024-02-03 19:10 | ED.GENMED ---
History of Present Illness
General
Chief Complaint: Back Pain
Source: patient
Exam Limitations: none
Time Seen by Provider: 02/03/24 18:40
History of Present Illness
History of Present Illness:
This is a 58 year old female that comes in with c/o low back pain. States that she has had pain in the low back since her Fracture spin in June. Patient states that she does see Pain management. States that she is on Lyrica and Celexa. States that
she is SOB going up the steps, she always has a headache and occasionally is dizzy. Denies any fever, chills, chest pain, abd pain, nausea, vomiting, diarrhea, urinary burning.
Past History
Past History
ED Past Medical History: Asthma, COPD, Hypothyroidism, Psychiatric (Bipolar disorder, anxiety, PTSD), Other (TMJ dysfunction, migraines, PNA, Sinusitis chronic, Gastroparesis, Hypopituitarism, Orthostatic hypotension) and Other (hypopiititutarism,
adrenal insufficiency)
ED Past Surgical History: Orthopedic (Left thumb and hand surgery, Right wrist surgery, TMJ surgery X 2, Back surgery, ) and Other (cataracts, Vocal cord surgery)
Social History
Tobacco: Non-smoker
Alcohol: None
Drug: None
Personal: Single
Living: alone (dad)
Employment: Not employed
Family History
Family History: Other
Review of Systems
Review of Systems
All Other Systems: ROS reviewed and negative except as documented in HPI and ROS
Constitutional: Reports no symptoms; Denies fever or chills
EENT: Reports no symptoms
Respiratory: Reports trouble breathing (going up the steps); Denies cough
Cardiac: Reports no symptoms; Denies chest pain
ABD/GI: Reports no symptoms; Denies abdominal pain, nausea, vomiting or diarrhea
: Reports no symptoms; Denies dysuria, frequency or urgency
Musculoskeletal: Reports back pain (Low)
Skin: Reports no symptoms
Neurological: Reports dizzy (occasional) and headache (Always has a headache)
Psychiatric: Reports no symptoms
Phy Exam
General Physical Exam
General Presentation: no apparent distress
General age: appears stated age
General Skin: warm and dry
General Habitus: normal
General Mental: alert (Oriented but lethargic and will fall asleep easily)
General Hydration: other (Dry lips)
ENT Exam
ENT Exam: TM's normal, pharynx normal and neck supple
Eye Exam
Eye Exam: EOMI
Cardiovascular Exam
Cardiovascular Exam: regular rate/rhythm, no edema and normal peripheral pulses
Pulmonary Exam
Pulmonary Exam: no respiratory distress, chest non tender, no rhonchi, no wheezing, no cough and other (rales at bases and 1/2 up on the right)
Gastrointestinal Exam
Gastrointestinal Exam: normal bowel sounds, non tender, soft, no organomegaly, no pulsatile mass and non distended
Musculoskeletal Exam
Musculoskeletal Exam: full ROM, no edema and other (Lower back tenderness lateral to the spine with palpation. Musculoskeletal pain, negative for spinal tenderness)
Skin Exam
Skin Exam: normal color, warm/dry, no rash and no petechia
Psychiatric Exam
Psychiatric Exam: other (Lethargic)
Course
Orders/Labs/Results
Orders:
Orders
02/03/24 19:09
0.9% Sodium Chloride 1000 ml [Nss] 1,000 ml IV BOLUS
02/03/24 19:10
CR Chest - 2 Views Urgent
Comment:
Reason For Exam: SOB, rales
02/03/24 19:47
Complete Blood Count/With Diff Urgent
Comprehensive Metabolic Panel Urgent
02/03/24 20:50
Osmolality, Random Urine Urgent
Date Specimen was Collected: 02/03/24
Time Specimen was Collected: 20:40
Comment: ADDON
Urinalysis Reflex To Culture Urgent
Date Specimen was Collected: 02/03/24
Time Specimen was Collected: 20:40
Urine Creatinine Urgent
Date Specimen was Collected: 02/03/24
Time Specimen was Collected: 20:40
Comment: THOMASON
Urine Microscopic Reflex Cult Urgent
Urine Sodium Urgent
Date Specimen was Collected: 02/03/24
Time Specimen was Collected: 20:40
Comment: THOMASON
Urine Culture Urgent
MAXI Source: U
Specimen Description:
Date Specimen was Collected: 02/03/24
Time Specimen was Collected: 20:40
02/03/24 21:45
Add On- LAB Urgent
Tests Added?: Urine osmolality, Urine Sodium, Urine Creatinine
02/03/24 21:49
Meropenem [Merrem] 1,000 mg IV NOW STA
02/03/24 22:09
3% Sodium Chloride 250 ml [Sodium Chloride 3%] 250 ml IV ONCE
Abnormal Lab Results
02/03/24 02/03/24
19:47 20:50
RBC 3.46 L 10^6/uL
(4.20-5.40)
Hgb 11.3 L g/dL
(12.0-16.0)
Hct 30.8 L %
(37.0-47.0)
MCH 32.7 H pg
(27.0-31.0)
Abs Immat Gran (auto) 0.1 H 10^3/uL
(0-0.05)
Absolute Neuts (auto) 8.1 H 10^3/uL
(1.4-6.5)
Absolute Monos (auto) 0.7 H 10^3/uL
(0.1-0.6)
Immature Gran % 0.6 H %
(0-0.5)
Neutrophils % 78.7 H %
(42.2-75.2)
Lymphocytes % 13.6 L %
(20.5-51.1)
Sodium 123 L mmol/L
(135-145)
Chloride 93 L mmol/L
(98-107)
Carbon Dioxide 18 L mmol/L
(22-30)
BUN 21 H mg/dl
(7-17)
Creatinine 1.1 H mg/dL
(0.6-1.0)
Total Protein 5.7 L g/dl
(6.3-8.2)
Leukocyte Esterase Rfl 2+ A
(Negative)
Urine WBC (Reflex) 30-40 A /HPF
(0-5)
Urine Bacteria (Reflex) Moderate A
(Negative)
Urine Osmolality 201 L mOsm/kg
(300-900)
02/03/24 19:47
02/03/24 19:47
H/H slighty low. Hyponatremia. chloride low. dehydration. Total protein low. Urine positive or infection.
Vital Signs
Initial and Last Documented VS:
Initial Vital Signs
Resp Pulse Ox
26 99
02/03/24 18:32 02/03/24 18:32
Last Documented Vital Signs
Temp Pulse Resp BP Pulse Ox
97.8 F 82 13 125/87 99
02/03/24 18:34 02/03/24 19:45 02/03/24 19:45 02/03/24 19:00 02/03/24 19:00
MDM/Problems Addressed
Differential Diagnosis Includes:
Over medicated, Urinary tract infection. Chronic pain syndrome
MDM/Problems Addressed:
This is a 58 year old female that comes in with c/o low back pain that has been going on for months. Patient denies any falls or injury. States that she does see pain management.
will check labs, Chest x-ray and urine. Will give IV fluids. Explained to patient that the only thing she would be given was Tylenol. patient is very lethargic and falls asleep easily.
back into see patient. Explained that she would be admitted as she has a UTI and Hyponatremia. Spoke with Controller Mechanic and will give patient 3%. Hospitalist notified about admission.
Chronic conditions affecting care:
Chronic back pain
Acute Exacerbation and/or Progression of Chronic Illness:
Chronic back pain
*Radiology
Radiology exam reviewed: preliminary read by ED provider (Chest- Negative for active disease)
*Pulse Oximetry
Patient hypoxic: no
*EKG
Interpreted by ED Provider?: NA
Rate: EKG- N/A
*Therapeutic Specialist Interpretation
Rate: normal
Heart Rate: 83
Rhythm: sinus
*Critical Care Note
Total Time (30-74mins, 75-104mins- exclusive of procedures): Not Applicable
ED Attending Note
-
Portions of this chart may have been created with voice recognition software.� Occasional wrong word or��sound alike� substitutions may have occurred due to the inherent limitations of voice recognition software.
Discharge Plan
Departure
Patient Disposition: Admit
Date of Disposition: 02/03/24
Time of Disposition: 22:11
Admit to: Med/Surg
Presentation/result/management discussed w/ accepting MD/DO: Hospitalist
Patient with high blood pressure during this ER visit?: No
Condition: Good
Covid-19: Not Applicable
Discharge Problem:
Urinary tract infection, Acute hyponatremia
Prescriptions:
No Action
levothyroxine 112 MCG tablet
112 mcg PO DAILY
hydrocortisone 10 MG tablet
15 mg PO HS
hydrocortisone 10 MG tablet
20 mg PO DAILY
lamotrigine 100 MG tablet
100 mg PO DAILY
oxcarbazepine 300 mg Tablet
300 mg PO BID
ondansetron 8 mg Tablet,Disintegrating
8 mg PO BID
famotidine 20 mg Tablet
20 mg PO BID
buspirone 10 mg Tablet
10 mg PO TID
Trudhesa 0.725 mg/pump act. (4 mg/mL) [place],Non-Aerosol
1 spray INTRANASAL DAILYPRN PRN (Reason: migraine)
Dupixent Syringe 300 mg/2 mL Syringe
300 mg SC Q2W
Trelegy Ellipta 100-62.5-25 mcg Blister With Device
1 inh INHALATION R DAILY
ziprasidone HCl 80 mg Capsule
80 mg PO BID
lamotrigine 200 mg Tablet
200 mg PO HS
trazodone 100 mg Tablet
300 mg PO HS
topiramate 200 mg Tablet
200 mg PO BID
cholecalciferol (vitamin D3) 25 mcg (1,000 unit) Tablet
25 mcg PO DAILY
calcium citrate-vitamin D3 [Citracal + D Maximum] 315 mg-6.25 mcg (250 unit) Tablet
1 tab PO DAILY
Fiber Gummies 2 gram Tablet,Chewable
4 g PO DAILY
Aimovig Autoinjector 140 mg/mL Auto-Injector
140 mg SC Q28D
Tyrvaya 0.03 mg/spray [place], Metered, Non-Aerosol
1 spray INTRANASAL BID
cetirizine [Zyrtec] 10 mg Tablet
40 mg PO DAILY
levalbuterol tartrate 45 mcg/actuation Hfa Aerosol Inhaler
1 inh INHALATION R Q6HPRN PRN (Reason: sob/wheezing)
pregabalin 50 mg capsule
50 mg PO DAILY
Patient Comments:
12/16/23: filled 12/01/23 for 30 tablets over 30 days
pregabalin 75 mg capsule
75 mg PO HS
Patient Comments:
12/16/23: filled 12/01/23 for 30 tablets over 30 days
gabapentin 300 mg capsule
300 mg PO TIDPRN PRN (Reason: moderate pain)
pantoprazole 40 MG tablet,delayed release (DR/EC)
40 mg PO DAILY
torsemide 10 mg tablet
10 mg PO DAILYPRN PRN (Reason: swelling)
Dayvigo 10 mg Tablet
10 mg PO HS
sennosides [Senna Laxative] 8.6 mg tablet
17.2 mg PO HSPRN PRN (Reason: constipation)
polyethylene glycol 3350 [Miralax] 17 gram powder in packet
17 g PO DAILYPRN PRN (Reason: constipation)
docusate sodium 100 mg capsule
100 mg PO BIDPRN PRN (Reason: constipation)
celecoxib 200 mg Capsule
200 mg PO DAILY Qty: 14 0RF
tramadol 50 mg Tablet
50 mg PO Q6HPRN PRN (Reason: severe pain) Qty: 4 0RF
acetaminophen [Tylenol Extra Strength] 500 mg Tablet
1,000 mg PO Q8H Qty: 90 0RF
lidocaine 4 % Adhesive Patch,Medicated
1 patch topical DAILY Qty: 14 0RF
clonazepam 1 MG tablet
1 mg PO TID Qty: 4 0RF
Patient Comments:
12/16/2023: last filled 12/10/23, 90 tabs for 30 days
Referrals:
Carlos Vora MD [Family Provider] -
Interventions
Interventions:
*Risk Screen - Suicide Last Done: 02/03/24 18:34
*General Assessment Last Done: 02/03/24 18:34
*Neglect/Abuse Screening Last Done: 02/03/24 18:34
ED-Musculoskeletal Assessment Last Done: 02/03/24 21:08
Discharge Date and Time
Print Language: WELSH
[2024-02-03] MEDS: NSS 1000 IV (19:59)
[2024-02-03 20:02] LABS: % Basophils 0.7 % (0-2); % Eosinophils 0.1 % (0-6); % Immature Granulocytes 0.6 % (0-0.5); % Lymphocytes 13.6 % (20.5-51.1); % Monocytes 6.3 % (1.7-9.3); % Neutrophils 78.7 % (42.2-75.2); Absolute Basophils 0.1 10^3/uL (0-0.2); Absolute Immature Granulocytes 0.1 10^3/uL (0-0.05); Absolute Lymphocytes 1.4 10^3/uL (1.2-3.4); Absolute Monocytes 0.7 10^3/uL (0.1-0.6); Absolute Neutrophils 8.1 10^3/uL (1.4-6.5); Hematocrit 30.8 % (37.0-47.0); Hemoglobin 11.3 g/dL (12.0-16.0); Mean Corp Hgb Conc. 36.7 g/dL (33.0-37.0); Mean Corpuscular Hgb 32.7 pg (27.0-31.0); Mean Platelet Volume 9.3 fL (7.4-10.4); Nucleated Red Blood Cells % 0 %; Platelet Count 249 10^3/uL (130-400); Red Blood Cell Count 3.46 10^6/uL (4.20-5.40); Red Cell Dist. Width 12.9 % (11.5-14.5); White Blood Cell Count 10.3 10^3/uL (4.8-10.8)
[2024-02-03 20:28] LABS: ALT (SGPT) 15 U/L (0-35); AST (SGOT) 21 U/L (14-36); Albumin 3.5 g/dl (3.5-5.0); Alkaline Phosphatase 112 U/L (38-126); Blood Urea Nitrogen 21 mg/dl (7-17); Calcium 8.4 mg/dl (8.4-10.2); Carbon Dioxide 18 mmol/L (22-30); Chloride 93 mmol/L (98-107); Glucose 90 mg/dl (70-99); Potassium 4.1 mmol/L (3.5-5.1); Sodium 123 mmol/L (135-145); Total Bilirubin 0.2 mg/dl (0.2-1.3); Total Protein 5.7 g/dl (6.3-8.2); eGFR 58.61
[2024-02-03 20:56] LABS: Urine Albumin Negative (Neg - Trace); Urine Bilirubin Negative (Negative); Urine Character Clear (Clear); Urine Color Straw; Urine Glucose Negative (Negative); Urine Ketone Negative (Negative); Urine Leukocyte 2+ (Negative); Urine Nitrite Negative (Negative); Urine Occult Blood Negative (Negative); Urine Urobilinogen Negative (Neg - 1+)
[2024-02-03 21:07] LABS: Urine Bacteria Moderate (Negative); Urine Red Blood Cell 0-2 /HPF (0-2); Urine White Cell 30-40 /HPF (0-5)
[2024-02-03 22:08] LABS: Osmolality Urine 201 mOsm/kg (300-900)
[2024-02-03 22:16] LABS: Urine Sodium 32 mmol/L (30-90)
[2024-02-03] MEDS: MERREM 1000 MG IV (22:19)
--- NOTE | 2024-02-03 22:19 | HPS.HSE ---
Family Physician
-
Family Physician: Carlos Vora
Chief Complaint
-
lower back
History of Present Illness
58 year old female with PMH for hypothyroidism, migraine, hyponatremia, bipolar, COPD,adrenal insufficiency presented to us with worsening of her chronic lower back pain. she is taking Lyrica, and Celexa was added by her PCP with no relief in her
symptoms. denied incontinence of bowel or bladder.stated chronic sob and NGUYEN. denied runny nose, congestion, and cough. denied fever, chills, chest pain. denied abdominal pain,n,v,d. denies dysuria , urinary frequency, urgency.
positive UA. noted na of 123. started on 3 %. admitting for further management.
Medical History
Past Medical History
Past Medical History: Reports Other
Additional Past Medical History:
Hypothyroidism
Chronic migraine
-Bipolar
COPD
Adrenal insufficiency
Past Surgical History: Reports Other
Additional Past Surgical History:
Wrist plate placement
Left hand surgery
Left hand pinky surgery
Vocal cord surgery
Bilateral cataract surgery
Sinus surgery
Carpal tunnel surgery
Social History
Tobacco: Non-smoker
Alcohol: None
Drug: None
Personal: Single
Living: Alone
Family History
Family History: Not pertinent
Allergies / Home Medications
Allergies reflects when Allergies were last updated in [employer].
Home Medications with original date entered in [employer]
Allergy/Medication List:
Allergies
Allergy/AdvReac Type Severity Reaction Status Date / Time
amoxicillin [From Augmentin] Allergy Nausea / Verified 02/03/24 18:31
Vomiting -
tolerated
meropenem
02/2019
azithromycin [From Zithromax] Allergy Swelling Verified 02/03/24 18:31
ceftibuten [From Cedax] Allergy Swelling - Verified 02/03/24 18:31
tolerated
meropenem
02/2019
citalopram [From Celexa] Allergy suicidal Verified 02/03/24 18:31
ideation
clavulanic acid Allergy Nausea / Verified 02/03/24 18:31
[From Augmentin] Vomiting
corn Allergy Anaphylaxis Verified 02/03/24 18:31
'except
cornstarch'
egg Allergy Nausea / Verified 02/03/24 18:31
Vomiting
migraines
gluten Allergy Nausea Verified 02/03/24 18:31
-stomach
ache,
diarrhea,
migraine
hydromorphone [From Dilaudid] Allergy Rash Verified 02/03/24 18:31
ibuprofen Allergy bad Verified 02/03/24 18:31
stomache
ache
Iodinated Contrast Media Allergy Rash Verified 02/03/24 18:31
latex Allergy Anaphylaxis Verified 02/03/24 18:31
Latex, Natural Rubber Allergy Anaphylaxis Verified 02/03/24 18:31
levofloxacin [From Levaquin] Allergy Swelling Verified 02/03/24 18:31
Milk Containing Products Allergy Nausea / Verified 02/03/24 18:31
(Dairy) Vomiting -
[Milk Containing Products] migraines
mushroom Allergy Anaphylaxis Verified 02/03/24 18:31
nickel Allergy swelling Verified 02/03/24 18:31
and itching
Opioids - Morphine Analogues Allergy 'all Verified 02/03/24 18:31
opioids'
peanut Allergy Anaphylaxis Verified 02/03/24 18:31
Poultry Allergy Nausea Verified 02/03/24 18:31
-migraine
shellfish derived Allergy Anaphylaxis Verified 02/03/24 18:31
Sulfa (Sulfonamide Allergy Swelling Verified 02/03/24 18:31
Antibiotics)
maude jon Allergy Anaphylaxis Uncoded 02/03/24 18:31
-[place] syrup
Home Medications
levothyroxine 112 mcg tablet 112 mcg PO DAILY Thyroid 12/03/16
hydrocortisone 10 mg tablet 15 mg PO HS adrenal insufficiency 03/11/19
hydrocortisone 10 mg tablet 20 mg PO DAILY adrenal insufficiency 03/11/19
lamotrigine 100 mg tablet 100 mg PO DAILY Neurological Condition 05/17/19
buspirone 10 mg tablet 10 mg PO TID Mental Health/Anxiety 06/26/22
dihydroergotamine (Trudhesa) 1 spray intranasal DAILYPRN PRN migraine 06/26/22
famotidine 20 mg tablet 20 mg PO BID Gastrointestinal issue 06/26/22
ondansetron 8 mg disintegrating tablet 8 mg PO BID nausea 06/26/22
oxcarbazepine 300 mg tablet 300 mg PO BID Neurological Condition 06/26/22
dupilumab 300 mg/2 mL subcutaneous syringe (DupixELIKE) 300 mg SC Q2W Autoimmune Disorder 01/26/23
fluticasone fur. 100 mcg-umeclid 62.5 mcg-vilant 25 mcg inhalat.powder (Trelegy Ellipta) 1 inh inhalation R DAILY Lung/Breathing Issues 01/26/23
calcium 315 mg (as citrate)-vitamin D3 6.25 mcg (250 unit) tablet (Citracal + Vitamin D Maximum) 1 tab PO DAILY Supplement 07/04/23
cholecalciferol (vitamin D3) 25 mcg (1,000 unit) tablet 25 mcg PO DAILY Supplement 07/04/23
erenumab-aooe 140 mg/mL subcutaneous auto-injector (Aimovig Autoinjector) 140 mg SC Q28D migraine 07/04/23
inulin 2 gram chewable tablet (Fiber Gummies) 4 g PO DAILY Supplement 07/04/23
lamotrigine 200 mg tablet 200 mg PO HS Neurological Condition 07/04/23
topiramate 200 mg tablet 200 mg PO BID Neurological Condition 07/04/23
trazodone 100 mg tablet 300 mg PO HS sleep 07/04/23
varenicline 0.03 mg/spray nasal spray (Tyrvaya) 1 spray intranasal BID dry eyes 07/04/23
ziprasidone HCl 80 mg capsule 80 mg PO BID Mental Health/Anxiety 07/04/23
cetirizine 10 mg tablet (Zyrtec) 40 mg PO DAILY allergies 12/02/23
gabapentin 300 mg capsule 300 mg PO TIDPRN PRN moderate pain 12/02/23
levalbuterol tartrate 45 mcg/actuation aerosol inhaler 1 inh inhalation R Q6HPRN PRN sob/wheezing 12/02/23
pantoprazole 40 mg tablet,delayed release 40 mg PO DAILY Gastrointestinal Issue 12/02/23
torsemide 10 mg tablet 10 mg PO DAILYPRN PRN swelling 12/09/23
docusate sodium 100 mg capsule 100 mg PO BIDPRN PRN constipation 12/16/23
lemborexant 10 mg tablet (Dayvigo) 10 mg PO HS Sleep 12/16/23
polyethylene glycol 3350 17 gram oral powder packet (Miralax) 17 g PO DAILYPRN PRN constipation 12/16/23
sennosides 8.6 mg tablet (Senna Laxative) 17.2 mg PO HSPRN PRN constipation 12/16/23
celecoxib 200 mg capsule 200 mg PO DAILY #14 caps 12/24/23
clonazepam 1 mg tablet 1 mg PO TID Mental Health/Anxiety #4 tabs 12/24/23
lidocaine 4 % topical patch 1 patch topical DAILY #14 ea 12/24/23
acetaminophen 500 mg tablet (Tylenol Extra Strength) 1,000 mg PO Q8HPRN PRN mild pain 02/03/24
doxycycline monohydrate 100 mg tablet 100 mg PO BID 02/03/24
pregabalin 100 mg capsule 100 mg PO BID 02/03/24
Review of Systems
-
Constitutional: Reports No Symptoms
EENT: Reports No Symptoms
Respiratory: Reports No Symptoms
Cardiac: Reports No Symptoms
Abdomen/GI: Reports No Symptoms
: Reports No Symptoms
Musculoskeletal: Reports Other (low back pain)
Skin: Reports No Symptoms
Neurological: Reports No Symptoms
Endocrine: Reports No Symptoms
Hematologic/Lymphatic: Reports No Symptoms
Psych: Reports No Symptoms
Physical Exam
Vital Signs
Vital Signs
Temp Pulse Resp BP Pulse Ox
97.8 F 82 13 125/87 99
02/03/24 18:34 02/03/24 19:45 02/03/24 19:45 02/03/24 19:00 02/03/24 19:00
Physical Exam
General: Well Developed, Well Nourished and No Apparent Distress
HEENT: NormoCephalic, Moist mucous membranes and Atraumatic
Respiratory: Clear
Cardiac: S1/S2 and Regular Rhythm; No Murmur or Rub
GI: Soft, Non Tender, Non Distended and Normal Bowel Sounds; No Organomegaly
Rectal: Deferred by Provider
Musculoskeletal: No Clubbing, No Cyanosis and No Edema
Skin: No Rash
Neuro: AO x 3 and Nonfocal/grossly intact
Psych: Calm
Laboratory Results
-
02/03/24 19:47
02/03/24 19:47
Laboratory Results
Total Bilirubin 0.2 mg/dl (0.2-1.3) 02/03/24 19:47
AST 21 U/L (14-36) 02/03/24 19:47
ALT 15 U/L (0-35) 02/03/24 19:47
Alkaline Phosphatase 112 U/L (38-126) 02/03/24 19:47
Data Reviewed
-
Diagnostic Radiology: Report Reviewed by me
Lab Data: Labs Reviewed by me
Impression/Plan
-
# Urinary tract infection
-hxt of E Coli, streptococcus UTI
-iv meropenem in ER
-urine culture pending
-patient is asymptomatic, defer abx at this time
# Acute on chronic hyponatremia/HANK likely from polydipsia and psych medication
-3%NS ordered
-fluid restriction
-urine lytes ordered.
-nephrology consulted
# Anemia of chronic disease
-Hemoglobin stable at 11.3
-No active bleeding
-Continue to monitor
# Chronic intractable back pain likely from lumbar vertebral compression fracture
-Tylenol continued
-Toradol 30 q6hr sprn for severe
-tramadol prnfor moderate pain
-Status post vertebroplasty by IR 12/18
-Lyrica and gabapentin continued
#upper respiratory infection
-doxy from home continued for 3more days.
#hypopituitarism
#adrenal insufficiency
-hydrocortisone continued
#hypothyroidism
-levothyroxine continued
#Bipolar disorder
-Lamictal, oxcarbazepine,buspirone, ziprasidone, trazodone,clonazepam continued
-dayvigo for sleep continued
Mild intermittent asthma -stable.
#GERD
-PPI continued
#Migraine headaches
-on Trudhesa spray
#COPD
nebs from home continued
DVT prophylaxis-heparin SQ
CODE STATUS-full code
[2024-02-03 22:43] VITALS: BP 146/106
[2024-02-03 22:45] VITALS: BMI 19.3
[2024-02-03] MEDS: SODIUM CHLORIDE 3% 250 IV (22:47)
--- NOTE | 2024-02-03 23:31 | W.PN.UPDATE ---
Update Note
Progress Note Update
58-year-old female with past medical history of hypopituitarism, adrenal insufficiency, hyponatremia, bipolar, asthma, GERD, migraines, COPD/asthma presenting for lower back pain.� Patient has chronic back pain secondary to lumbar vertebral
compression fracture and sees pain management who was progressively been increasing her pain medications.� Toradol as needed started.� Tramadol started.� Patient needs to follow-up with her pain management doctor.
Patient also with recurrent euvolemic hyponatremia secondary to polydipsia/SIADH from bipolar medications.� She has been maintaining 56 ounce fluid restriction although 48 ounces was recommended by nephrology previously.� Maintain 48 ounce fluid
restriction.� Check urine sodium, osmolality, TSH.� Hypertonic saline being given.� Nephrology consulted.
Patient started on doxycycline 4 days ago for URI.� Can likely finish course in 3 days.
[2024-02-03 23:34] VITALS: BP 144/93
[2024-02-04] VITALS (16 sets, daily range): BP systolic 102–154; BP diastolic 73–97; PULSE 91; O2SAT 93; BMI 18.4
[2024-02-04] MEDS: KLONOPIN 1 MG PO ×3 (03:20→23:02)
--- NOTE | 2024-02-04 03:30 | W.PN.UPDATE ---
Update Note
Progress Note Update
RN approached [employer], patient requesting all her evening medications now that she has missed last night. Will give Klonopin 1mg now. will hold AM Klonopin,
[2024-02-04 06:41] LABS: Hematocrit 29.5 % (37.0-47.0); Hemoglobin 10.5 g/dL (12.0-16.0); Mean Corp Hgb Conc. 35.6 g/dL (33.0-37.0); Mean Corpuscular Hgb 33.3 pg (27.0-31.0); Mean Corpuscular Volume 93.7 fL (81.0-99.0); Mean Platelet Volume 9.7 fL (7.4-10.4); Platelet Count 266 10^3/uL (130-400); Red Blood Cell Count 3.15 10^6/uL (4.20-5.40); Red Cell Dist. Width 12.8 % (11.5-14.5); White Blood Cell Count 8.9 10^3/uL (4.8-10.8)
[2024-02-04 06:58] LABS: Blood Urea Nitrogen 17 mg/dl (7-17); Calcium 8.6 mg/dl (8.4-10.2); Carbon Dioxide 21 mmol/L (22-30); Chloride 102 mmol/L (98-107); Estimated Creatinine Clearance 50 ml/min; Glucose 71 mg/dl (70-99); Sodium 130 mmol/L (135-145); eGFR 58.61
[2024-02-04] MEDS: VIBRAMYCIN 100 MG PO ×2 (08:05→21:10)
[2024-02-04] MEDS: GEODON 80 MG PO ×2 (08:06→21:09)
[2024-02-04] MEDS: TRILEPTAL 300 MG PO ×2 (08:08→21:10)
[2024-02-04] MEDS: SYNTHROID 112 MCG PO (08:08)
[2024-02-04] MEDS: CORTEF 20 MG PO (08:09)
[2024-02-04] MEDS: BUSPAR 10 MG PO ×3 (08:10→23:01)
[2024-02-04] MEDS: CELEBREX 200 MG PO (08:10)
[2024-02-04] MEDS: PROTONIX 40 MG PO (08:11)
[2024-02-04] MEDS: OSCAL 500 + D 500 MG PO (08:11)
[2024-02-04] MEDS: PEPCID 20 MG PO ×2 (08:12→21:10)
[2024-02-04] MEDS: VITAMIN D3 (cholecalciferol) 25 MCG PO (08:12)
[2024-02-04] MEDS: HEPARIN 5000 UNITS SC ×2 (08:13→21:09)
[2024-02-04] MEDS: SYMBICORT 80/4.5 MCG INHALER 2 PUFF INH ×2 (08:18→19:38)
[2024-02-04] MEDS: SPIRIVA RESPIMAT 2.5 MCG 2 PUFF INH (08:18)
[2024-02-04] MEDS: LYRICA 100 MG PO ×2 (08:43→21:09)
[2024-02-04] MEDS: TOPAMAX 200 MG PO ×2 (08:43→21:10)
[2024-02-04] MEDS: LAMICTAL 100 MG PO (08:44)
[2024-02-04] MEDS: ZYRTEC 40 MG PO (09:04)
[2024-02-04 11:15] LABS: Blood Urea Nitrogen 16 mg/dl (7-17); Calcium 8.7 mg/dl (8.4-10.2); Carbon Dioxide 21 mmol/L (22-30); Chloride 104 mmol/L (98-107); Estimated Creatinine Clearance 55 ml/min; Glucose 89 mg/dl (70-99); Potassium 3.9 mmol/L (3.5-5.1); Sodium 133 mmol/L (135-145); eGFR > 60.00
--- NOTE | 2024-02-04 12:41 | W.PN.HOSP.TC ---
Today's Communication/Plan
-
PT/OT
Trend bmp
pain control
oob
Assessment / Plan
Assessment / Plan
General: Well Developed, Well Nourished and No Apparent Distress
HEENT: NormoCephalic, Moist mucous membranes and Atraumatic
Respiratory: Clear
Cardiac: S1/S2 and Regular Rhythm; No Murmur or Rub
GI: Soft, Non Tender, Non Distended and Normal Bowel Sounds; No Organomegaly
Rectal: Deferred by Provider
Musculoskeletal: No Clubbing, No Cyanosis and No Edema
Skin: No Rash
Neuro: AO x 3 and Nonfocal/grossly intact
Psych: Calm
#Suspected Urinary tract infection
-hxt of E Coli, streptococcus UTI
-iv meropenem in ER
-urine culture pending
-patient is asymptomatic, defer abx at this time
# Acute on chronic hyponatremia/HANK likely from polydipsia and psych medication
-Received 3%NS on admission
-fluid restriction
-Na improved to 133. Monitor BMP for now.
# Anemia of chronic disease
-Hemoglobin stable
-No active bleeding
-Continue to monitor
# Chronic intractable back pain likely from lumbar vertebral compression fracture
-Tylenol continued
-Toradol 30 q6hr sprn for severe
-tramadol prnfor moderate pain
-Status post vertebroplasty by IR 12/18
-Lyrica and gabapentin continued
#upper respiratory infection
-doxy from home continued for 3more days.
#hypopituitarism
#adrenal insufficiency
-hydrocortisone continued
#hypothyroidism
-levothyroxine continued
#Bipolar disorder
-Lamictal, oxcarbazepine,buspirone, ziprasidone, trazodone,clonazepam continued
-dayvigo for sleep continued
Mild intermittent asthma -stable.
#GERD
-PPI continued
#Migraine headaches
-on Trudhesa spray
#COPD
nebs from home continued
DVT prophylaxis-heparin SQ
CODE STATUS-full code
PT/OT
Anticipated Discharge: > 48 hours
Subjective/Interval History
-
Date of Service: February 04, 2024
states of back pain
eating breakfast
Objective Data
-
Labs:
Laboratory Results
02/04/24 02/04/24
06:04 10:49
WBC 8.9
Hgb 10.5 L
Hct 29.5 L
Plt Count 266
Sodium 130 L 133 L
Potassium 4.0 3.9
Chloride 102 104
Carbon Dioxide 21 L 21 L
BUN 17 16
Creatinine 1.1 H 1.0
Glucose 71 89
Calcium 8.6 8.7
Vital Signs:
Vital Signs
Temp Pulse Resp BP Pulse Ox
98.2 F 75 14 128/82 97
02/04/24 08:00 02/04/24 08:24 02/04/24 08:24 02/04/24 10:21 02/04/24 08:24
--- NOTE | 2024-02-04 16:11 | VNURNOTE ---
Chart reviewed.� Patient is current with [facility] nursing, PT, OT.� Will continue to follow hospital course and DC plans.
[2024-02-04] MEDS: ULTRAM 50 MG PO (21:10)
[2024-02-04] MEDS: CORTEF 15 MG PO (23:01)
[2024-02-04] MEDS: DESYREL 300 MG PO (23:01)
[2024-02-04] MEDS: LAMICTAL 200 MG PO (23:02)
[2024-02-04] MEDS: TORADOL 30 MG IV (23:49)
[2024-02-05] MEDS: SYNTHROID 112 MCG PO (06:07)
[2024-02-05 07:00] VITALS: BP 119/81
[2024-02-05] MEDS: SPIRIVA RESPIMAT 2.5 MCG 2 PUFF INH (07:33)
[2024-02-05] MEDS: SYMBICORT 80/4.5 MCG INHALER 2 PUFF INH ×2 (07:33→20:18)
[2024-02-05 08:05] LABS: Hematocrit 30.5 % (37.0-47.0); Hemoglobin 10.7 g/dL (12.0-16.0); Mean Corp Hgb Conc. 35.1 g/dL (33.0-37.0); Mean Corpuscular Hgb 33.6 pg (27.0-31.0); Mean Corpuscular Volume 95.9 fL (81.0-99.0); Platelet Count 270 10^3/uL (130-400); Red Blood Cell Count 3.18 10^6/uL (4.20-5.40); Red Cell Dist. Width 13.2 % (11.5-14.5); White Blood Cell Count 7.5 10^3/uL (4.8-10.8)
[2024-02-05 08:22] LABS: Blood Urea Nitrogen 14 mg/dl (7-17); Calcium 8.5 mg/dl (8.4-10.2); Carbon Dioxide 21 mmol/L (22-30); Chloride 103 mmol/L (98-107); Estimated Creatinine Clearance 52 ml/min; Glucose 72 mg/dl (70-99); Potassium 4.5 mmol/L (3.5-5.1); Sodium 133 mmol/L (135-145); eGFR > 60.00
[2024-02-05] MEDS: CORTEF 20 MG PO (09:31)
[2024-02-05] MEDS: ZYRTEC 40 MG PO (09:31)
[2024-02-05] MEDS: KLONOPIN 1 MG PO ×3 (09:31→23:26)
[2024-02-05] MEDS: OSCAL 500 + D 500 MG PO (09:31)
[2024-02-05] MEDS: LYRICA 100 MG PO ×2 (09:32→21:50)
[2024-02-05] MEDS: VITAMIN D3 (cholecalciferol) 25 MCG PO (09:32)
[2024-02-05] MEDS: PROTONIX 40 MG PO (09:33)
[2024-02-05] MEDS: BUSPAR 10 MG PO ×3 (09:33→23:26)
[2024-02-05] MEDS: LAMICTAL 100 MG PO (09:33)
[2024-02-05] MEDS: CELEBREX 200 MG PO (09:34)
[2024-02-05] MEDS: PEPCID 20 MG PO ×2 (09:34→21:50)
[2024-02-05] MEDS: VIBRAMYCIN 100 MG PO ×2 (09:34→21:50)
[2024-02-05] MEDS: HEPARIN 5000 UNITS SC ×2 (09:35→21:49)
[2024-02-05] MEDS: TRILEPTAL 300 MG PO ×2 (09:35→21:50)
[2024-02-05] MEDS: GEODON 80 MG PO ×2 (09:36→21:49)
[2024-02-05] MEDS: TOPAMAX 200 MG PO ×2 (09:41→21:50)
--- NOTE | 2024-02-05 10:44 | CM ---
Addendum entered by Ebenezer Parker 02/05/24 15:32:
IMM reviewed, pt provided a copy. Copy put into chart.
Discussed transport home, need to provide Lyft to home.
Nurse would need to set up if d/c in the evening, CM will set up if d/c home tomorrow. Nurse made aware.
Plan: Home w/ [facility] via lyft transport
Addendum entered by Ebenezer Parker 02/05/24 14:19:
[facility] referral completed.
[facility] liaison notified of referral
Per hospitalist note, poss d/c home pending ucx
[employer] resources provided
Plan: Home with [facility] pending culture data
Original Note:
Pt seen at bedside. Pt lives alone in a 2STH with 2 steps to enter.
Prev. independent, no DME at home.
No SNF hx
Currently open w/ [facility] for VN and PT. Will need resumption of services referral at d/c.
Address, contacts and insurance confirmed.
PCP confirmed: Dr. Vora. Pharmacy confirmed: [facility]
Per pt, she doesn't drive and unable to cook. Purchases and eats frozen meals. Resources to be provided.
Per pt she needs assistance w/ transport at d/c.
Plan: Home w/ PT via [facility]
--- NOTE | 2024-02-05 11:42 | W.PN.HOSP.TC ---
Today's Communication/Plan
-
await ucx results
possible dc home pending culture data
OP pain management f/u
Assessment / Plan
Assessment / Plan
General: Well Developed, Well Nourished and No Apparent Distress
HEENT: NormoCephalic, Moist mucous membranes and Atraumatic
Respiratory: Clear
Cardiac: S1/S2 and Regular Rhythm; No Murmur or Rub
GI: Soft, Non Tender, Non Distended and Normal Bowel Sounds; No Organomegaly
Rectal: Deferred by Provider
Musculoskeletal: No Clubbing, No Cyanosis and No Edema
Skin: No Rash
Neuro: AO x 3 and Nonfocal/grossly intact
Psych: Calm
#Suspected Urinary tract infection
-hxt of E Coli, streptococcus UTI
-iv meropenem in ER
-urine culture in lab. await results.
# Acute on chronic hyponatremia/HANK likely from polydipsia and psych medication
-Received 3%NS on admission
-fluid restriction
-Na remains at 133. Monitor BMP for now.
# Anemia of chronic disease
-Hemoglobin stable
-No active bleeding
-Continue to monitor
# Chronic intractable back pain likely from lumbar vertebral compression fracture
-Tylenol continued
-Toradol 30 q6hr sprn for severe
-tramadol prnfor moderate pain
-Status post vertebroplasty by IR 12/18
-Lyrica continued
-Recommended OP pain management f/u
#upper respiratory infection
-doxy from home continued for 3 more doses
#hypopituitarism
#adrenal insufficiency
-hydrocortisone continued
#hypothyroidism
-levothyroxine continued
#Bipolar disorder
-Lamictal, oxcarbazepine,buspirone, ziprasidone, trazodone,clonazepam continued
-dayvigo for sleep continued
Mild intermittent asthma -stable.
#GERD
-PPI continued
#Migraine headaches
-on Trudhesa spray
#COPD
nebs from home continued
DVT prophylaxis-heparin SQ
CODE STATUS-full code
PT/OT-home VN
Anticipated Discharge: Today
Subjective/Interval History
-
Date of Service: February 05, 2024
states of intermittent back pain
Objective Data
-
Labs:
Laboratory Results
02/05/24
06:40
WBC 7.5
Hgb 10.7 L
Hct 30.5 L
Plt Count 270
Sodium 133 L
Potassium 4.5
Chloride 103
Carbon Dioxide 21 L
BUN 14
Creatinine 1.0
Glucose 72
Calcium 8.5
Vital Signs:
Vital Signs
Temp Pulse Resp BP Pulse Ox
97.8 F 86 16 119/81 100
02/05/24 07:00 02/05/24 07:36 02/05/24 07:36 02/05/24 07:00 02/05/24 07:36
I&O
02/04/24 02/05/24 02/06/24
06:59 06:59 06:59
Intake Total 480 / 480
Balance 480 / 480
[2024-02-05 15:00] VITALS: BP 117/77
[2024-02-05] MEDS: CORTEF 15 MG PO (23:25)
[2024-02-05] MEDS: DESYREL 300 MG PO (23:25)
[2024-02-05] MEDS: LAMICTAL 200 MG PO (23:25)
[2024-02-05 23:40] VITALS: BP 169/83
[2024-02-06] MEDS: SYNTHROID 112 MCG PO (06:41)
[2024-02-06 07:03] LABS: Hematocrit 32.9 % (37.0-47.0); Hemoglobin 11.5 g/dL (12.0-16.0); Mean Corpuscular Hgb 33.1 pg (27.0-31.0); Mean Corpuscular Volume 94.8 fL (81.0-99.0); Mean Platelet Volume 9.5 fL (7.4-10.4); Platelet Count 276 10^3/uL (130-400); Red Blood Cell Count 3.47 10^6/uL (4.20-5.40); Red Cell Dist. Width 13.4 % (11.5-14.5)
[2024-02-06 07:27] LABS: Blood Urea Nitrogen 16 mg/dl (7-17); Calcium 9.3 mg/dl (8.4-10.2); Carbon Dioxide 20 mmol/L (22-30); Chloride 101 mmol/L (98-107); Estimated Creatinine Clearance 43 ml/min; Glucose 80 mg/dl (70-99); Potassium 4.4 mmol/L (3.5-5.1); Sodium 131 mmol/L (135-145)
[2024-02-06 07:30] VITALS: BP 145/78
[2024-02-06] MEDS: SPIRIVA RESPIMAT 2.5 MCG 2 PUFF INH (07:48)
[2024-02-06] MEDS: SYMBICORT 80/4.5 MCG INHALER 2 PUFF INH ×2 (07:48→20:12)
[2024-02-06] MEDS: GEODON 80 MG PO ×2 (10:20→19:52)
[2024-02-06] MEDS: LYRICA 100 MG PO ×2 (10:21→19:59)
[2024-02-06] MEDS: TOPAMAX 200 MG PO ×2 (10:21→19:53)
[2024-02-06] MEDS: ZYRTEC 40 MG PO (10:21)
[2024-02-06] MEDS: TRILEPTAL 300 MG PO ×2 (10:21→20:01)
[2024-02-06] MEDS: CELEBREX 200 MG PO (10:22)
[2024-02-06] MEDS: VITAMIN D3 (cholecalciferol) 25 MCG PO (10:22)
[2024-02-06] MEDS: VIBRAMYCIN 100 MG PO ×2 (10:22→19:53)
[2024-02-06] MEDS: KLONOPIN 1 MG PO ×3 (10:22→22:05)
[2024-02-06] MEDS: LAMICTAL 100 MG PO (10:22)
[2024-02-06] MEDS: BUSPAR 10 MG PO ×3 (10:22→22:05)
[2024-02-06] MEDS: OSCAL 500 + D 500 MG PO (10:22)
[2024-02-06] MEDS: PROTONIX 40 MG PO (10:22)
[2024-02-06] MEDS: CORTEF 20 MG PO (10:23)
[2024-02-06] MEDS: HEPARIN 5000 UNITS SC ×2 (10:23→19:53)
[2024-02-06] MEDS: PEPCID PO (10:30)
[2024-02-06] MEDS: SODIUM BICARBONATE 650 MG PO ×3 (11:05→22:35)
[2024-02-06 12:05] VITALS: BP 144/98
--- NOTE | 2024-02-06 14:00 | W.PN.HOSP.TC ---
Today's Communication/Plan
-
trend cbc/bmp
cont doxy
VN on dc
Assessment / Plan
Assessment / Plan
General: Well Developed, Well Nourished and No Apparent Distress
HEENT: NormoCephalic, Moist mucous membranes and Atraumatic
Respiratory: Clear
Cardiac: S1/S2 and Regular Rhythm; No Murmur or Rub
GI: Soft, Non Tender, Non Distended and Normal Bowel Sounds; No Organomegaly
Rectal: Deferred by Provider
Musculoskeletal: No Clubbing, No Cyanosis and No Edema
Skin: No Rash
Neuro: AO x 3 and Nonfocal/grossly intact
Psych: Calm
#Asymptomatic Urinary tract infection
-hxt of E Coli, streptococcus UTI
-iv meropenem in ER
-On doxy as OP for URI can be continued. Has remained afebrile. No urinary retention/flank pain.
# Acute on chronic hyponatremia/HANK likely from polydipsia and psych medication
-Received 3%NS on admission
-fluid restriction
-Na downtrended to 131. Monitor overnight as on multiple anti-psych meds.
-Op repeat BMP.
# Anemia of chronic disease
-Hemoglobin stable
-No active bleeding
-Continue to monitor
# Chronic intractable back pain likely from lumbar vertebral compression fracture
-Tylenol continued
-Toradol 30 q6hr sprn for severe
-tramadol prnfor moderate pain
-Status post vertebroplasty by IR 12/18
-Lyrica continued
-Recommended OP pain management f/u
#upper respiratory infection
-doxy from home continued
#hypopituitarism
#adrenal insufficiency
-hydrocortisone continued
#hypothyroidism
-levothyroxine continued
#Bipolar disorder
-Lamictal, oxcarbazepine,buspirone, ziprasidone, trazodone,clonazepam continued
-dayvigo for sleep continued
Mild intermittent asthma -stable.
#GERD
-PPI continued
#Migraine headaches
-on Trudhesa spray
#COPD
nebs from home continued
DVT prophylaxis-heparin SQ
CODE STATUS-full code
PT/OT-home VN
Anticipated Discharge: Within 24 hours
Subjective/Interval History
-
Date of Service: February 06, 2024
feeling better
tolerating diet
Objective Data
-
Labs:
Laboratory Results
02/06/24
06:38
WBC 12.0 H
Hgb 11.5 L
Hct 32.9 L
Plt Count 276
Sodium 131 L
Potassium 4.4
Chloride 101
Carbon Dioxide 20 L
BUN 16
Creatinine 1.2 H
Glucose 80
Calcium 9.3
Vital Signs:
Vital Signs
Temp Pulse Resp BP Pulse Ox
98.0 F 75 16 145/78 97
02/06/24 07:30 02/06/24 07:50 02/06/24 07:50 02/06/24 07:30 02/06/24 07:50
I&O
02/05/24 02/06/24 02/07/24
06:59 06:59 06:59
Intake Total 480 / 480 1200 / 1200
Balance 480 / 480 1200 / 1200
[2024-02-06 15:00] VITALS: BP 140/70
--- NOTE | 2024-02-06 15:12 | CM ---
Chart reviewed. Per hospitalist note, anticipated d/c tomorrow, 02/06
Will need Lyft transport home. Nurse will arrange if d/c in evening.
[facility] liaison notified of upcoming d/c via [facility]
Plan: Home w/ PT/OT/VN. [facility] following
[2024-02-06] MEDS: CORTEF 15 MG PO (22:05)
[2024-02-06] MEDS: DESYREL 300 MG PO (22:05)
[2024-02-06] MEDS: LAMICTAL 200 MG PO (22:05)
[2024-02-06 23:00] VITALS: BP 107/71
[2024-02-07] MEDS: TORADOL 30 MG IV ×2 (02:01→09:08)
[2024-02-07] MEDS: SYNTHROID 112 MCG PO (05:30)
[2024-02-07 06:06] LABS: Hematocrit 30.1 % (37.0-47.0); Hemoglobin 10.5 g/dL (12.0-16.0); Mean Corp Hgb Conc. 34.9 g/dL (33.0-37.0); Mean Corpuscular Hgb 32.9 pg (27.0-31.0); Mean Corpuscular Volume 94.4 fL (81.0-99.0); Mean Platelet Volume 9.4 fL (7.4-10.4); Platelet Count 255 10^3/uL (130-400); Red Blood Cell Count 3.19 10^6/uL (4.20-5.40); Red Cell Dist. Width 13.2 % (11.5-14.5); White Blood Cell Count 7.5 10^3/uL (4.8-10.8)
[2024-02-07 06:31] LABS: Blood Urea Nitrogen 24 mg/dl (7-17); Calcium 9.1 mg/dl (8.4-10.2); Carbon Dioxide 21 mmol/L (22-30); Chloride 100 mmol/L (98-107); Estimated Creatinine Clearance 47 ml/min; Glucose 96 mg/dl (70-99); Potassium 4.1 mmol/L (3.5-5.1); Sodium 130 mmol/L (135-145); eGFR 58.61
[2024-02-07 07:00] VITALS: BP 139/89
[2024-02-07] MEDS: SYMBICORT 80/4.5 MCG INHALER 2 PUFF INH (08:00)
[2024-02-07] MEDS: SPIRIVA RESPIMAT 2.5 MCG 2 PUFF INH (08:00)
[2024-02-07] MEDS: KLONOPIN 1 MG PO ×2 (08:50→15:16)
[2024-02-07] MEDS: OSCAL 500 + D 500 MG PO (08:51)
[2024-02-07] MEDS: SODIUM BICARBONATE 650 MG PO ×2 (08:51→15:16)
[2024-02-07] MEDS: PEPCID 20 MG PO (08:51)
[2024-02-07] MEDS: ZYRTEC 40 MG PO (08:51)
[2024-02-07] MEDS: BUSPAR 10 MG PO ×2 (08:51→15:16)
[2024-02-07] MEDS: TRILEPTAL 300 MG PO (08:52)
[2024-02-07] MEDS: VIBRAMYCIN 100 MG PO (08:52)
[2024-02-07] MEDS: CORTEF 20 MG PO (08:52)
[2024-02-07] MEDS: CELEBREX 200 MG PO (08:52)
[2024-02-07] MEDS: PROTONIX 40 MG PO (08:52)
[2024-02-07] MEDS: LYRICA 100 MG PO (08:52)
[2024-02-07] MEDS: GEODON 80 MG PO (08:52)
[2024-02-07] MEDS: TOPAMAX 200 MG PO (08:52)
[2024-02-07] MEDS: VITAMIN D3 (cholecalciferol) 25 MCG PO (08:52)
[2024-02-07] MEDS: HEPARIN 5000 UNITS SC (08:52)
[2024-02-07] MEDS: LAMICTAL 100 MG PO (08:53)
--- NOTE | 2024-02-07 11:45 | W.PN.HOSP.TC ---
Today's Communication/Plan
-
OP repaet BMP
FR
VN
Assessment / Plan
Assessment / Plan
General: Well Developed, Well Nourished and No Apparent Distress
HEENT: NormoCephalic, Moist mucous membranes and Atraumatic
Respiratory: Clear
Cardiac: S1/S2 and Regular Rhythm; No Murmur or Rub
GI: Soft, Non Tender, Non Distended and Normal Bowel Sounds; No Organomegaly
Rectal: Deferred by Provider
Musculoskeletal: No Clubbing, No Cyanosis and No Edema
Skin: No Rash
Neuro: AO x 3 and Nonfocal/grossly intact
Psych: Calm
#Asymptomatic Klebsiella Urinary tract infection
-hxt of E Coli, streptococcus UTI
-iv meropenem in ER
-On doxy as OP for URI can be continued. Has remained afebrile. No urinary retention/flank pain.
# Acute on chronic hyponatremia likely from polydipsia and psych medication
#CKD stage 2
#Anion gap metabolic admission
-Received 3%NS on admission
-fluid restriction
-Na at 130.
-Op repeat BMP.
# Anemia of chronic disease
-Hemoglobin stable
-No active bleeding
-Continue to monitor
# Chronic intractable back pain likely from lumbar vertebral compression fracture
-Tylenol continued
-Toradol 30 q6hr sprn for severe
-tramadol prnfor moderate pain
-Status post vertebroplasty by IR 12/18
-Lyrica continued
-Recommended OP pain management f/u
#upper respiratory infection
-doxy from home continued
#hypopituitarism
#adrenal insufficiency
-hydrocortisone continued
#hypothyroidism
-levothyroxine continued
#Bipolar disorder
-Lamictal, oxcarbazepine,buspirone, ziprasidone, trazodone,clonazepam continued
-dayvigo for sleep continued
Mild intermittent asthma -stable.
#GERD
-PPI continued
#Migraine headaches
-on Trudhesa spray
#COPD
nebs from home continued
DVT prophylaxis-heparin SQ
CODE STATUS-full code
PT/OT-home VN
More than 30 minutes spent in discharge including
Final examination of the patient
Summarizing hospital stay
Instructions for continuing care to all relevant caregivers
Preparation of discharge records, prescriptions, and referral forms
Total time spent (in minutes): 52
Anticipated Discharge: Today
Subjective/Interval History
-
Date of Service: February 07, 2024
Denies dysuria
states improvement back pain
states of chronic fatigue
tolerating diet
Objective Data
-
Labs:
Laboratory Results
02/07/24
05:50
WBC 7.5
Hgb 10.5 L
Hct 30.1 L
Plt Count 255
Sodium 130 L
Potassium 4.1
Chloride 100
Carbon Dioxide 21 L
BUN 24 H
Creatinine 1.1 H
Glucose 96
Calcium 9.1
Vital Signs:
Vital Signs
Temp Pulse Resp BP Pulse Ox
97.9 F 77 17 139/89 95
02/07/24 07:00 02/07/24 08:04 02/07/24 08:04 02/07/24 07:00 02/07/24 08:04
I&O
02/06/24 02/07/24 02/08/24
06:59 06:59 06:59
Intake Total 1200 / 1200 600 / 600
Balance 1200 / 1200 600 / 600
--- NOTE | 2024-02-07 11:52 | W.DCSUMMARY ---
Discharge Summary
Discharge Data
Date of Admission: 02/03/24
Date of Discharge: 02/07/24
-
Pending Results: No
Hospital Course
58 years old history of hypopituitarism, adrenal insufficiency, hyponatremia, bipolar, asthma, GERD, migraines, COPD allergic/sensitivity to multiple medication presenting from home with back pain. Patient was continued on home medication regimen
of neuropathic pregabalin and gabapentin. Patient is allergic to opioids. Tramadol was started however not continued as patient stated has not improved and helped in the past. Patient back pain improved with physical and Occupational Therapy.
They recommended home VN. Patient was also found asymptomatic UTI. Patient was already on doxycycline for upper respiratory tract infection which was continued on admission and on discharge. Patient remained afebrile. Patient was also found to
have a hyponatremia and received 3% saline on admission. Patient sodium at baseline. Patient with chronic history of hyponatremia due to multiple antipsychotic medication and polydipsia. Fluid restriction was recommended on discharge with repeat
BMP with primary care doctor. Patient was recommended follow-up with her primary pain management doctor for her chronic back pain.
Discharge Plan
-
Patient Disposition: Home with Home Care
Discharge Diagnosis/Procedures: Hyponatremia
Back pain
Metabolic acidosis
Condition: Fair
Diet: As tolerated and Restrict fluids to 48 oz
Activity: As tolerated
Driving Restrictions: As prior to admission
Blood Work: Repeat BMP in 5-7 days via primary doctor.
Referrals:
Carlos Vora MD [Family Provider] - in less than 1 week
Prescriptions:
New
sodium bicarbonate 650 mg Tablet
650 mg PO TID 3 Days Qty: 9 0RF
Continued
levothyroxine 112 MCG tablet
112 mcg PO DAILY
hydrocortisone 10 MG tablet
15 mg PO HS
hydrocortisone 10 MG tablet
20 mg PO DAILY
lamotrigine 100 MG tablet
100 mg PO DAILY
oxcarbazepine 300 mg Tablet
300 mg PO BID
ondansetron 8 mg Tablet,Disintegrating
8 mg PO BID
famotidine 20 mg Tablet
20 mg PO BID
buspirone 10 mg Tablet
10 mg PO TID
Trudhesa 0.725 mg/pump act. (4 mg/mL) [place],Non-Aerosol
1 spray INTRANASAL DAILYPRN PRN (Reason: migraine)
Dupixent Syringe 300 mg/2 mL Syringe
300 mg SC Q2W
Trelegy Ellipta 100-62.5-25 mcg Blister With Device
1 inh INHALATION R DAILY
ziprasidone HCl 80 mg Capsule
80 mg PO BID
lamotrigine 200 mg Tablet
200 mg PO HS
trazodone 100 mg Tablet
300 mg PO HS
topiramate 200 mg Tablet
200 mg PO BID
cholecalciferol (vitamin D3) 25 mcg (1,000 unit) Tablet
25 mcg PO DAILY
calcium citrate-vitamin D3 [Citracal + D Maximum] 315 mg-6.25 mcg (250 unit) Tablet
1 tab PO DAILY
Fiber Gummies 2 gram Tablet,Chewable
4 g PO DAILY
Aimovig Autoinjector 140 mg/mL Auto-Injector
140 mg SC Q28D
Tyrvaya 0.03 mg/spray [place], Metered, Non-Aerosol
1 spray INTRANASAL BID
cetirizine [Zyrtec] 10 mg Tablet
40 mg PO DAILY
levalbuterol tartrate 45 mcg/actuation Hfa Aerosol Inhaler
1 inh INHALATION R Q6HPRN PRN (Reason: sob/wheezing)
gabapentin 300 mg capsule
300 mg PO TIDPRN PRN (Reason: moderate pain)
pantoprazole 40 MG tablet,delayed release (DR/EC)
40 mg PO DAILY
Dayvigo 10 mg Tablet
10 mg PO HS
sennosides [Senna Laxative] 8.6 mg tablet
17.2 mg PO HSPRN PRN (Reason: constipation)
polyethylene glycol 3350 [Miralax] 17 gram powder in packet
17 g PO DAILYPRN PRN (Reason: constipation)
docusate sodium 100 mg capsule
100 mg PO BIDPRN PRN (Reason: constipation)
celecoxib 200 mg Capsule
200 mg PO DAILY Qty: 14 0RF
lidocaine 4 % Adhesive Patch,Medicated
1 patch topical DAILY Qty: 14 0RF
clonazepam 1 MG tablet
1 mg PO TID Qty: 4 0RF
Patient Comments:
12/16/2023: last filled 01/29/24, 90 tabs for 30 days from [facility]
doxycycline monohydrate 100 mg tablet
100 mg PO BID
pregabalin 100 mg capsule
100 mg PO BID
Patient Comments:
02/03/2024: last filled 02/02/24, 60 tabs [facility] days fro [facility]
acetaminophen [Tylenol Extra Strength] 500 mg tablet
1,000 mg PO Q8HPRN PRN (Reason: mild pain)
Held
torsemide 10 mg tablet
10 mg PO DAILYPRN PRN (Reason: swelling)
Hold Instructions: Resume on 02/13/24.
Discharge Orders:
Discharge Patient (As Directed); Ordered 02/07/24
Ordered By: Kenrick Martin
Discharge Date and Time
Print Language: BERMUDIAN
--- NOTE | 2024-02-07 13:05 | CM ---
Plan is to home with [facility] and Ly[employer] transport to home.
Plan; Home with [facility].
[2024-02-07 14:59] VITALS: BP 123/92
== END 2024-02-07 15:57 | disposition home health service (06) | DRG 690 ==
LOC: 4 WEST ACU 23:03
PROVIDERS: Clinical Nurse Specialist Family Health; Registered Nurse; ADMITTING PHYSICIAN Hospitalist; ATTENDING PHYSICIAN Hospitalist; EMERGENCY PHYSICIAN Student in an Organized Health Care Education/Training Program; FAMILY PHYSICIAN Internal Medicine
DX: N39.0 Urinary tract infection, site not specified (principal); N17.9 Acute kidney failure, unspecified; E23.0 Hypopituitarism; E27.40 Unspecified adrenocortical insufficiency; E87.20 Acidosis, unspecified; E22.2 Syndrome of inappropriate secretion of antidiuretic hormone; D63.8 Anemia in other chronic diseases classified elsewhere; E03.9 Hypothyroidism, unspecified; F31.9 Bipolar disorder, unspecified; J44.9 Chronic obstructive pulmonary disease, unspecified; J45.20 Mild intermittent asthma, uncomplicated; B95.5 Unspecified streptococcus as the cause of diseases classified elsewhere; Z86.19 Personal history of other infectious and parasitic diseases; Z87.440 Personal history of urinary (tract) infections; E86.0 Dehydration; F41.9 Anxiety disorder, unspecified; F43.10 Post-traumatic stress disorder, unspecified; G43.909 Migraine, unspecified, not intractable, without status migrainosus; G89.29 Other chronic pain; J06.9 Acute upper respiratory infection, unspecified; K21.9 Gastro-esophageal reflux disease without esophagitis; K31.84 Gastroparesis; K59.00 Constipation, unspecified; Z79.890 Hormone replacement therapy; Z79.899 Other long term (current) drug therapy
CPT/HCPCS: 71046; 80048; 80053; 81003; 81015; 82570; 83935; 84300; 85025; 85027; 87077; 87086; 87186; 94640; 97116; J2185

== ENCOUNTER 2024-02-08 16:06 | Inpatient (IN) | payer MEDICARE, OTHER, SELFPAY ==
[2024-02-08] VITALS (14 sets, daily range): BP systolic 90–158; BP diastolic 76–106; PULSE 92–115; BMI 19.4; BMI 18.0
[2024-02-08 12:01] LABS: % Basophils 1.5 % (0-2); % Eosinophils 3.2 % (0-6); % Immature Granulocytes 0.5 % (0-0.5); % Lymphocytes 23.7 % (20.5-51.1); % Monocytes 12.4 % (1.7-9.3); % Neutrophils 58.7 % (42.2-75.2); Absolute Basophils 0.2 10^3/uL (0-0.2); Absolute Eosinophils 0.4 10^3/uL (0-0.7); Absolute Immature Granulocytes 0.1 10^3/uL (0-0.05); Absolute Monocytes 1.6 10^3/uL (0.1-0.6); Absolute Neutrophils 7.4 10^3/uL (1.4-6.5); Hematocrit 36.9 % (37.0-47.0); Hemoglobin 13.5 g/dL (12.0-16.0); Mean Corp Hgb Conc. 36.6 g/dL (33.0-37.0); Mean Corpuscular Hgb 33.2 pg (27.0-31.0); Mean Corpuscular Volume 90.7 fL (81.0-99.0); Mean Platelet Volume 9.2 fL (7.4-10.4); Nucleated Red Blood Cells % 0 %; Platelet Count 268 10^3/uL (130-400); Red Blood Cell Count 4.07 10^6/uL (4.20-5.40); White Blood Cell Count 12.6 10^3/uL (4.8-10.8)
[2024-02-08 12:14] LABS: ALT (SGPT) 30 U/L (0-35); AST (SGOT) 101 U/L (14-36); Albumin 3.8 g/dl (3.5-5.0); Alkaline Phosphatase 154 U/L (38-126); Blood Urea Nitrogen 38 mg/dl (7-17); Calcium 9.8 mg/dl (8.4-10.2); Carbon Dioxide 19 mmol/L (22-30); Chloride 103 mmol/L (98-107); Glucose 58 mg/dl (70-99); Sodium 137 mmol/L (135-145); Total Bilirubin 0.8 mg/dl (0.2-1.3); Total Protein 6.2 g/dl (6.3-8.2); eGFR 43.88
--- NOTE | 2024-02-08 12:29 | ED.GENMED ---
History of Present Illness
<FREDERICK Almaguer - Last Filed: 02/08/24 15:08>
General
Chief Complaint: Fainting/Passed Out
Source: patient
Exam Limitations: none
Time Seen by Provider: 02/08/24 11:51
Nursing documentation reviewed up to this point in time: agreed with
History of Present Illness
History of Present Illness:
58-year-old female past medical history of hyponatremia bipolar adrenal deficiency hypopituitarism asthma GERD migraines , vertebroplasty presents to the ER for evaluation of syncope. Patient reports she passed out twice since 12 AM.(at 12 am and
again at 4 am ) She reports she was walking down the steps each time when she passed out. She tells me she has a head injury because each time she woke up she felt her head and her head was sore. After the second fall she called EMS
Patient reports she is sore all over.
Patient reports she lives alone with her 2 cats.
She reports she has not eaten in the past 1-1/2 days.
She is not on blood thinners she denies headache.
Past History
<FREDERICK Almaguer - Last Filed: 02/08/24 15:08>
Past History
ED Past Medical History: Asthma, COPD, Hypothyroidism, Psychiatric (Bipolar disorder, anxiety, PTSD), Other (TMJ dysfunction, migraines, PNA, Sinusitis chronic, Gastroparesis, Hypopituitarism, Orthostatic hypotension) and Other (hypopiititutarism,
adrenal insufficiency)
ED Past Surgical History: Orthopedic (Left thumb and hand surgery, Right wrist surgery, TMJ surgery X 2, Back surgery, ) and Other (cataracts, Vocal cord surgery)
Social History
Tobacco: Non-smoker
Alcohol: None
Drug: None
Personal: Single
Living: alone (dad)
Employment: Not employed
Family History
Family History: Other
Review of Systems
<FREDERICK Almaguer - Last Filed: 02/08/24 15:08>
Review of Systems
Allergies reviewed?: Yes
All Other Systems: ROS reviewed and negative except as documented in HPI and ROS
Constitutional: Reports no symptoms
Respiratory: Reports no symptoms
Cardiac: Reports no symptoms
ABD/GI: Reports no symptoms
: Reports no symptoms
Musculoskeletal: Reports no symptoms
Skin: Reports no symptoms
Hematologic/Lymphatic: Reports no symptoms
Psychiatric: Reports no symptoms
Phy Exam
<FREDERICK Almaguer - Last Filed: 02/08/24 15:08>
General Physical Exam
General Presentation: no apparent distress
General age: appears stated age
General Skin: warm and dry
General Habitus: normal
General Mental: alert
General Hydration: dry mucous membranes
Cardiovascular Exam
Cardiovascular Exam: regular rate/rhythm, no murmur and normal peripheral pulses
Pulmonary Exam
Pulmonary Exam: lungs clear and no respiratory distress
Neurological Exam
Neurological Exam: alert and oriented x3
Musculoskeletal Exam
Musculoskeletal Exam: other (No obvious head injury scattered bruising to upper extremities; full range of motion to upper lower extremities including hips)
Skin Exam
Skin Exam: warm/dry
Psychiatric Exam
Psychiatric Exam: other (flat affecct )
Course
<FREDERICK Almaguer - Last Filed: 02/08/24 15:08>
Orders/Labs/Results
Orders:
Orders
02/08/24 10:40
Electrocardiogram (*1) Urgent
Reason for Study: Syncope
EKG- Treatment ONCE
02/08/24 11:54
CBC/With Diff [Complete Blood Count/With Diff] Urgent
Comprehensive Metabolic Panel Urgent
02/08/24 13:09
Orthostatic VS- Treatment ONCE
02/08/24 13:10
CT Head W/o Iv Contrast Urgent
Comment:
Reason For Exam: trauma /syncope
02/08/24 13:13
0.9% Sodium Chloride 1000 ml [Nss] 1,000 ml IV BOLUS
Abnormal Lab Results
02/08/24 02/08/24
11:54 14:05
WBC 12.6 H 10^3/uL
(4.8-10.8)
RBC 4.07 L 10^6/uL
(4.20-5.40)
Hct 36.9 L %
(37.0-47.0)
MCH 33.2 H pg
(27.0-31.0)
Abs Immat Gran (auto) 0.1 H 10^3/uL
(0-0.05)
Absolute Neuts (auto) 7.4 H 10^3/uL
(1.4-6.5)
Absolute Monos (auto) 1.6 H 10^3/uL
(0.1-0.6)
Monocytes % 12.4 H %
(1.7-9.3)
Carbon Dioxide 19 L mmol/L
(22-30)
BUN 38 H mg/dl
(7-17)
Creatinine 1.4 H mg/dL
(0.6-1.0)
Glucose 58 L mg/dl
(70-99)
AST 101 H U/L
(14-36)
Alkaline Phosphatase 154 H U/L
(38-126)
Total Protein 6.2 L g/dl
(6.3-8.2)
POC Glucose 62 L mg/dl
(70-99)
02/08/24 11:54
02/08/24 11:54
Vital Signs
Initial and Last Documented VS:
Initial Vital Signs
Temp Pulse Resp BP Pulse Ox
98.1 F 106 18 140/98 97
02/08/24 10:44 02/08/24 10:44 02/08/24 10:44 02/08/24 10:44 02/08/24 10:44
Last Documented Vital Signs
Temp Pulse Resp BP Pulse Ox
98.1 F 103 21 104/84 98
02/08/24 10:44 02/08/24 14:15 02/08/24 14:15 02/08/24 14:03 02/08/24 14:03
Catcher Filter Tip consulted with Physician
Catcher Filter Tip consulted with physician?: Yes
Name of Physician Consulted: DR Forman
<Yuri Forman, DO - Last Filed: 02/08/24 14:04>
Orders/Labs/Results
Orders:
Orders
02/08/24 10:40
Electrocardiogram (*1) Urgent
Reason for Study: Syncope
EKG- Treatment ONCE
02/08/24 11:54
CBC/With Diff [Complete Blood Count/With Diff] Urgent
Comprehensive Metabolic Panel Urgent
02/08/24 13:09
Orthostatic VS- Treatment ONCE
02/08/24 13:10
CT Head W/o Iv Contrast Urgent
Comment:
Reason For Exam: trauma /syncope
02/08/24 13:13
0.9% Sodium Chloride 1000 ml [Nss] 1,000 ml IV BOLUS
Abnormal Lab Results
02/08/24 02/08/24
11:54 14:05
WBC 12.6 H 10^3/uL
(4.8-10.8)
RBC 4.07 L 10^6/uL
(4.20-5.40)
Hct 36.9 L %
(37.0-47.0)
MCH 33.2 H pg
(27.0-31.0)
Abs Immat Gran (auto) 0.1 H 10^3/uL
(0-0.05)
Absolute Neuts (auto) 7.4 H 10^3/uL
(1.4-6.5)
Absolute Monos (auto) 1.6 H 10^3/uL
(0.1-0.6)
Monocytes % 12.4 H %
(1.7-9.3)
Carbon Dioxide 19 L mmol/L
(22-30)
BUN 38 H mg/dl
(7-17)
Creatinine 1.4 H mg/dL
(0.6-1.0)
Glucose 58 L mg/dl
(70-99)
AST 101 H U/L
(14-36)
Alkaline Phosphatase 154 H U/L
(38-126)
Total Protein 6.2 L g/dl
(6.3-8.2)
POC Glucose 62 L mg/dl
(70-99)
02/08/24 11:54
02/08/24 11:54
Vital Signs
Initial and Last Documented VS:
Initial Vital Signs
Temp Pulse Resp BP Pulse Ox
98.1 F 106 18 140/98 97
02/08/24 10:44 02/08/24 10:44 02/08/24 10:44 02/08/24 10:44 02/08/24 10:44
Last Documented Vital Signs
Temp Pulse Resp BP Pulse Ox
98.1 F 103 21 104/84 98
02/08/24 10:44 02/08/24 14:15 02/08/24 14:15 02/08/24 14:03 02/08/24 14:03
<FREDERICK Almaguer - Last Filed: 02/08/24 15:08>
MDM/Problems Addressed
Differential Diagnosis Includes:
not limited to: Syncope dehydration head injury
MDM/Problems Addressed:
Patient is a 58-year-old female with past medical history as documented above including bipolar disorder anxiety COPD compression fractures vertebroplasty ambulatory dysfunction presents to the ER for evaluation. She reports she lives alone with
her 2 cats and had 2 episodes of syncope last night hitting her head. She presents awake alert she appears dehydrated on exam and her BUN and creatinine are elevated. Patient was given fluids here in the ER. Blood sugar found to be 58 on blood
work and 60 at bedside will feed patient. CAT scan negative for bleeding. Patient is no complaints of chest pain no concerning findings on EKG heart rate normal sinus rhythm with a heart rate of 98
Patient also reports has a history of orthostatic hypotension and could barely stand . She c/o of dizziness.
Patient evaluated by ED physician .
patient will likely require admission for weakness failure to thrive syncope.
<FREDERICK Almaguer - Last Filed: 02/08/24 15:08>
*Radiology
Radiology exam reviewed: radiology read reviewed
*Pulse Oximetry
Patient hypoxic: no
*EKG
Interpreted by ED Provider?: Yes
Heart Rate: 98
Rate: normal
Rhythm: sinus
Ischemia: no ischemia
*Critical Care Note
Total Time (30-74mins, 75-104mins- exclusive of procedures): Not Applicable
ED Attending Note
<FREDERICK Almaguer - Last Filed: 02/08/24 15:08>
-
Portions of this chart may have been created with voice recognition software.� Occasional wrong word or��sound alike� substitutions may have occurred due to the inherent limitations of voice recognition software.
<Yuri Forman DO - Last Filed: 02/08/24 14:04>
ED Attending Note
Patient seen and examined by attending physician: Yes
I performed the substantive portion of visit, reviewed & personally made and approve the management plan that is documented in note by myself or KEITH.: Yes
ED Attending Note:
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
Discharge Plan
Departure
Patient Disposition: Admit
Date of Disposition: 02/08/24
Time of Disposition: 15:06
Admit to: Telemetry
Admit to doctor: hospitalist
Presentation/result/management discussed w/ accepting MD/DO: Hospitalist
Patient with high blood pressure during this ER visit?: No
Covid-19: Not Applicable
Discharge Problem:
Syncope, Acute dehydration, Hypoglycemia
Prescriptions:
No Action
levothyroxine 112 MCG tablet
112 mcg PO DAILY
hydrocortisone 10 MG tablet
15 mg PO HS
hydrocortisone 10 MG tablet
20 mg PO DAILY
lamotrigine 100 MG tablet
100 mg PO DAILY
oxcarbazepine 300 mg Tablet
300 mg PO BID
ondansetron 8 mg Tablet,Disintegrating
8 mg PO BID
famotidine 20 mg Tablet
20 mg PO BID
buspirone 10 mg Tablet
10 mg PO TID
Trudhesa 0.725 mg/pump act. (4 mg/mL) [place],Non-Aerosol
1 spray INTRANASAL DAILYPRN PRN (Reason: migraine)
Dupixent Syringe 300 mg/2 mL Syringe
300 mg SC Q2W
Trelegy Ellipta 100-62.5-25 mcg Blister With Device
1 inh INHALATION R DAILY
ziprasidone HCl 80 mg Capsule
80 mg PO BID
lamotrigine 200 mg Tablet
200 mg PO HS
trazodone 100 mg Tablet
300 mg PO HS
topiramate 200 mg Tablet
200 mg PO BID
cholecalciferol (vitamin D3) 25 mcg (1,000 unit) Tablet
25 mcg PO DAILY
calcium citrate-vitamin D3 [Citracal + D Maximum] 315 mg-6.25 mcg (250 unit) Tablet
1 tab PO DAILY
Fiber Gummies 2 gram Tablet,Chewable
4 g PO DAILY
Aimovig Autoinjector 140 mg/mL Auto-Injector
140 mg SC Q28D
Tyrvaya 0.03 mg/spray [place], Metered, Non-Aerosol
1 spray INTRANASAL BID
cetirizine [Zyrtec] 10 mg Tablet
40 mg PO DAILY
levalbuterol tartrate 45 mcg/actuation Hfa Aerosol Inhaler
1 inh INHALATION R Q6HPRN PRN (Reason: sob/wheezing)
gabapentin 300 mg capsule
300 mg PO TIDPRN PRN (Reason: moderate pain)
pantoprazole 40 MG tablet,delayed release (DR/EC)
40 mg PO DAILY
torsemide 10 mg tablet
10 mg PO DAILYPRN PRN (Reason: swelling)
Dayvigo 10 mg Tablet
10 mg PO HS
sennosides [Senna Laxative] 8.6 mg tablet
17.2 mg PO HSPRN PRN (Reason: constipation)
polyethylene glycol 3350 [Miralax] 17 gram powder in packet
17 g PO DAILYPRN PRN (Reason: constipation)
docusate sodium 100 mg capsule
100 mg PO BIDPRN PRN (Reason: constipation)
celecoxib 200 mg Capsule
200 mg PO DAILY Qty: 14 0RF
lidocaine 4 % Adhesive Patch,Medicated
1 patch topical DAILY Qty: 14 0RF
clonazepam 1 MG tablet
1 mg PO TID Qty: 4 0RF
Patient Comments:
12/16/2023: last filled 01/29/24, 90 tabs for 30 days from [facility]
doxycycline monohydrate 100 mg tablet
100 mg PO BID
pregabalin 100 mg capsule
100 mg PO BID
Patient Comments:
02/03/2024: last filled 02/02/24, 60 tabs [facility] days fro [facility]
acetaminophen [Tylenol Extra Strength] 500 mg tablet
1,000 mg PO Q8HPRN PRN (Reason: mild pain)
sodium bicarbonate 650 mg Tablet
650 mg PO TID 3 Days Qty: 9 0RF
Referrals:
Carlos Vora MD [Family Provider] -
Interventions
Interventions:
*Risk Screen - Suicide Last Done: 02/08/24 14:18
*General Assessment Last Done: 02/08/24 10:44
*Neglect/Abuse Screening Last Done: 02/08/24 10:44
*ED COVID-19 Vaccine History Last Done: 02/08/24 10:44
ED- Cardiac Assessment Last Done: 02/08/24 14:18
ED- Neurological Assessment Last Done: 02/08/24 14:18
Discharge Date and Time
Print Language: GAMBIAN
[2024-02-08] MEDS: NSS 1000 IV ×2 (13:48→20:10)
[2024-02-08 14:07] LABS: Glucose - Point of Care 62 mg/dl (70-99)
[2024-02-08 15:04] LABS: Glucose - Point of Care 82 mg/dl (70-99)
--- NOTE | 2024-02-08 15:40 | HPS.HSE ---
Family Physician
-
Family Physician: Carlos Vora
Chief Complaint
-
fall twice , passed out twice
History of Present Illness
58F HX polypharmacy and polypharmacy allergy bipolar disorder, HX frequent falls, adrenal recent admission( 02/03/24 - 02/07/24) Dx of hyponatremia, metabolic acidosis, adrenal deficiency hypopituitarism asthma, GERD migraines , vertebroplasty
seen at ER for evalautionof syncope.
- reports she passed out twice since 12 AM.(at 12 am and again at 4 am )
- reports while she was walking down the steps each time when she passed out.
- Reports a head injury because each time she woke up she felt her head and her head was sore.
- After the second fall she called EMS
Patient reports she is sore all over.
Patient reports she lives alone with her 2 cats.
She reports she has not eaten in the past 1-1/2 days.
She is not on blood thinners she denies headache.
Medical History
Past Medical History
Past Medical History: Reports Other
Additional Past Medical History:
Hypothyroidism
Chronic migraine
-Bipolar
COPD
Adrenal insufficiency
Past Surgical History: Reports Other
Additional Past Surgical History:
Wrist plate placement
Left hand surgery
Left hand pinky surgery
Vocal cord surgery
Bilateral cataract surgery
Sinus surgery
Carpal tunnel surgery
Social History
Tobacco: Non-smoker
Alcohol: None
Drug: None
Personal: Single
Living: Alone
Family History
Family History: Not pertinent
Allergies / Home Medications
Allergies reflects when Allergies were last updated in [employer].
Home Medications with original date entered in [employer]
Allergy/Medication List:
Allergies
Allergy/AdvReac Type Severity Reaction Status Date / Time
amoxicillin [From Augmentin] Allergy Nausea / Verified 10/08/24 18:31
Vomiting -
tolerated
meropenem
02/2019
azithromycin [From Zithromax] Allergy Swelling Verified 02/03/24 18:31
ceftibuten [From Cedax] Allergy Swelling - Verified 02/03/24 18:31
tolerated
meropenem
02/2019
citalopram [From Celexa] Allergy suicidal Verified 02/03/24 18:31
ideation
clavulanic acid Allergy Nausea / Verified 02/03/24 18:31
[From Augmentin] Vomiting
corn Allergy Anaphylaxis Verified 02/03/24 18:31
'except
cornstarch'
egg Allergy Nausea / Verified 02/03/24 18:31
Vomiting
migraines
gluten Allergy Nausea Verified 02/03/24 18:31
-stomach
ache,
diarrhea,
migraine
hydromorphone [From Dilaudid] Allergy Rash Verified 02/03/24 18:31
ibuprofen Allergy bad Verified 02/03/24 18:31
stomache
ache
Iodinated Contrast Media Allergy Rash Verified 02/03/24 18:31
latex Allergy Anaphylaxis Verified 02/03/24 18:31
Latex, Natural Rubber Allergy Anaphylaxis Verified 02/03/24 18:31
levofloxacin [From Levaquin] Allergy Swelling Verified 02/03/24 18:31
Milk Containing Products Allergy Nausea / Verified 02/03/24 18:31
(Dairy) Vomiting -
[Milk Containing Products] migraines
mushroom Allergy Anaphylaxis Verified 02/03/24 18:31
nickel Allergy swelling Verified 02/03/24 18:31
and itching
Opioids - Morphine Analogues Allergy 'all Verified 02/03/24 18:31
opioids'
peanut Allergy Anaphylaxis Verified 02/03/24 18:31
Poultry Allergy Nausea Verified 02/03/24 18:31
-migraine
shellfish derived Allergy Anaphylaxis Verified 02/03/24 18:31
Sulfa (Sulfonamide Allergy Swelling Verified 02/03/24 18:31
Antibiotics)
maude jon Allergy Anaphylaxis Uncoded 02/03/24 18:31
-[place] syrup
Home Medications
levothyroxine 112 mcg tablet 112 mcg PO DAILY Thyroid 12/03/16
hydrocortisone 10 mg tablet 15 mg PO HS adrenal insufficiency 03/11/19
hydrocortisone 10 mg tablet 20 mg PO DAILY adrenal insufficiency 03/11/19
lamotrigine 100 mg tablet 100 mg PO DAILY Neurological Condition 05/17/19
buspirone 10 mg tablet 10 mg PO TID Mental Health/Anxiety 06/26/22
dihydroergotamine (Trudhesa) 1 spray intranasal DAILYPRN PRN migraine 06/26/22
famotidine 20 mg tablet 20 mg PO BID Gastrointestinal issue 06/26/22
ondansetron 8 mg disintegrating tablet 8 mg PO BID nausea 06/26/22
oxcarbazepine 300 mg tablet 300 mg PO BID Neurological Condition 06/26/22
dupilumab 300 mg/2 mL subcutaneous syringe ([employer]) 300 mg SC Q2W Autoimmune Disorder 01/26/23
fluticasone fur. 100 mcg-umeclid 62.5 mcg-vilant 25 mcg inhalat.powder (Trelegy Ellipta) 1 inh inhalation R DAILY Lung/Breathing Issues 01/26/23
calcium 315 mg (as citrate)-vitamin D3 6.25 mcg (250 unit) tablet (Citracal + Vitamin D Maximum) 1 tab PO DAILY Supplement 07/04/23
cholecalciferol (vitamin D3) 25 mcg (1,000 unit) tablet 25 mcg PO DAILY Supplement 07/04/23
erenumab-aooe 140 mg/mL subcutaneous auto-injector (Aimovig Autoinjector) 140 mg SC Q28D migraine 07/04/23
inulin 2 gram chewable tablet (Fiber Gummies) 4 g PO DAILY Supplement 07/04/23
lamotrigine 200 mg tablet 200 mg PO HS Neurological Condition 07/04/23
topiramate 200 mg tablet 200 mg PO BID Neurological Condition 07/04/23
trazodone 100 mg tablet 300 mg PO HS sleep 07/04/23
varenicline 0.03 mg/spray nasal spray (Tyrvaya) 1 spray intranasal BID dry eyes 07/04/23
ziprasidone HCl 80 mg capsule 80 mg PO BID Mental Health/Anxiety 07/04/23
cetirizine 10 mg tablet (Zyrtec) 40 mg PO DAILY allergies 12/02/23
gabapentin 300 mg capsule 300 mg PO TIDPRN PRN moderate pain 12/02/23
levalbuterol tartrate 45 mcg/actuation aerosol inhaler 1 inh inhalation R Q6HPRN PRN sob/wheezing 12/02/23
pantoprazole 40 mg tablet,delayed release 40 mg PO DAILY Gastrointestinal Issue 12/02/23
torsemide 10 mg tablet 10 mg PO DAILYPRN PRN swelling 12/09/23
docusate sodium 100 mg capsule 100 mg PO BIDPRN PRN constipation 12/16/23
lemborexant 10 mg tablet (Dayvigo) 10 mg PO HS Sleep 12/16/23
polyethylene glycol 3350 17 gram oral powder packet (Miralax) 17 g PO DAILYPRN PRN constipation 12/16/23
sennosides 8.6 mg tablet (Senna Laxative) 17.2 mg PO HSPRN PRN constipation 12/16/23
celecoxib 200 mg capsule 200 mg PO DAILY #14 caps 12/24/23
clonazepam 1 mg tablet 1 mg PO TID Mental Health/Anxiety #4 tabs 12/24/23
lidocaine 4 % topical patch 1 patch topical DAILY #14 ea 12/24/23
acetaminophen 500 mg tablet (Tylenol Extra Strength) 1,000 mg PO Q8HPRN PRN mild pain 02/03/24
doxycycline monohydrate 100 mg tablet 100 mg PO BID 02/03/24
pregabalin 100 mg capsule 100 mg PO BID 02/03/24
Review of Systems
-
Constitutional: Reports No Symptoms
EENT: Reports No Symptoms
Respiratory: Reports No Symptoms
Cardiac: Reports No Symptoms
Abdomen/GI: Reports No Symptoms
: Reports No Symptoms
Musculoskeletal: Reports Other (low back pain)
Skin: Reports No Symptoms
Neurological: Reports Dizzy and Other (passed out )
Endocrine: Reports No Symptoms
Hematologic/Lymphatic: Reports No Symptoms
Psych: Reports No Symptoms
Physical Exam
Vital Signs
Vital Signs
Temp Pulse Resp BP Pulse Ox
98.1 F 103 21 104/84 98
02/08/24 10:44 02/08/24 14:15 02/08/24 14:15 02/08/24 14:03 02/08/24 14:03
Physical Exam
General: Well Developed, Well Nourished and No Apparent Distress
HEENT: NormoCephalic, Moist mucous membranes, Atraumatic and Other (No obvious head injury )
Respiratory: Clear
Cardiac: S1/S2 and Regular Rhythm; No Murmur or Rub
GI: Soft, Non Tender, Non Distended and Normal Bowel Sounds; No Organomegaly
Rectal: Deferred by Provider
Musculoskeletal: No Clubbing, No Cyanosis, No Edema and Other (cattered bruising to upper extremities; full range of motion to upper lower extremities including hips)
Skin: No Rash
Neuro: AO x 3 and Nonfocal/grossly intact
Psych: Calm
Laboratory Results
-
02/08/24 11:54
02/08/24 11:54
Laboratory Results
Total Bilirubin 0.8 mg/dl (0.2-1.3) 02/08/24 11:54
AST 101 U/L (14-36) H 02/08/24 11:54
ALT 30 U/L (0-35) 02/08/24 11:54
Alkaline Phosphatase 154 U/L (38-126) H 02/08/24 11:54
Data Reviewed
-
CT Scan: Report Reviewed by me
Lab Data: Labs Reviewed by me
Old Records: Reviewed
Impression/Plan
-
Data
WCC 12.6
Hgb 13.5 - baseline mid to hi 10s
Cr 1.4 - was 1.1 on 02/07/24
AST 101
BG 58
HCT: No evidence of acute cranial abnormality.
EKG report: NORMAL SINUS RHYTHM. NORMAL ECG
Last hospitalist admission:
Date of Admission: 02/03/24 - date of Discharge: 02/07/24
DC Dxs: Hyponatremia, Back pain , Metabolic acidosis
ASSESSMENT & PLAN
Polypharmacy and Polypharmacy allergy
2 falls and hit head: NEG HCT for acute pathology
Lightheaded with standing: Suspect postural hypotension complicated with recurrent vasvagal syncope with elelent of underlyimg mildly dehydrattion and volume contraction
HX Adrenal insufficiency on Hydrocortisone replacement Rx
NEG HCT
- check ortho VSS
- Empiric IV NS
- c/w GOLF BALL MOLDER Hydrocortisone
- fall precaution
- PT/OT
Hypoglycemia
suspect relative adrenal insufficiency
- Hypoglycemic protocol
- additional IV hydrocortisone 50 mg x 1 and cont GOLF BALL MOLDER Cortisol replacement
HX adrenal insufficiency : report compliance with Cortisol
Hypopituitarism
- compliance with hydrocortisone ??
- on hydrocortisone continued
Hypothyroidism
- levothyroxine continued
HX UTI . POS UCx for E Coli, streptococcus UTI tx with Meropenem prior admissions
- check UA
Anemia of chronic disease
-Hemoglobin 13.5 suspect hemoconcentrated due to volume contraction .
Prior Hgb was hi 10s
HX Chronic intractable back pain likely from lumbar vertebral compression fracture
Status post vertebroplasty by IR 12/18
- Tylenol continued
- Toradol 30 q6hr prn for severe
- tramadol prn for moderate pain
- Lyrica and gabapentin continued
Bipolar disorder
- Lamictal, oxcarbazepine,buspirone, ziprasidone, trazodone,clonazepam continued
- Dayvigo for sleep continued
Mild intermittent asthma -stable.
Migraine headaches
- on Trudhesa spray
HX COPD
nebs from home continued
DVT prophylaxis-heparin SQ
CODE STATUS-full code
DVT Px: SQH
Code: Full
IP TLM
[2024-02-08] MEDS: SOLU-CORTEF 50 MG IV (16:17)
[2024-02-08] MEDS: TORADOL 10 MG IV (16:55)
[2024-02-08] MEDS: BUSPAR 10 MG PO (20:04)
[2024-02-08] MEDS: SODIUM BICARBONATE 650 MG PO (20:05)
[2024-02-08] MEDS: KLONOPIN 1 MG PO (20:05)
[2024-02-08] MEDS: CORTEF 15 MG PO (20:06)
[2024-02-08] MEDS: ZOFRAN ODT (ORALLY DISINTEGRATING) 8 MG PO (20:08)
[2024-02-08] MEDS: TOPAMAX 200 MG PO (20:08)
[2024-02-08] MEDS: LYRICA 100 MG PO (20:09)
[2024-02-08] MEDS: HEPARIN SC (20:09)
[2024-02-08] MEDS: TRILEPTAL 300 MG PO (20:11)
[2024-02-08] MEDS: SYMBICORT 80/4.5 MCG INHALER 2 PUFF INH (21:04)
[2024-02-08 21:31] LABS: Glucose - Point of Care 145 mg/dl (70-99)
[2024-02-08] MEDS: GEODON 80 MG PO (21:36)
[2024-02-08] MEDS: KLONOPIN PO (22:03)
[2024-02-08] MEDS: SODIUM BICARBONATE PO (22:03)
[2024-02-08] MEDS: BUSPAR PO (22:04)
[2024-02-09] VITALS (8 sets, daily range): BP systolic 116–190; BP diastolic 71–113; PULSE 78–116; BMI 18.2
[2024-02-09] MEDS: LAMICTAL 200 MG PO ×2 (01:28→22:47)
[2024-02-09] MEDS: NSS 1000 IV ×2 (05:47→20:09)
[2024-02-09] MEDS: SYNTHROID 112 MCG PO (05:47)
[2024-02-09] MEDS: SPIRIVA RESPIMAT 2.5 MCG 2 PUFF INH (07:27)
[2024-02-09] MEDS: SYMBICORT 80/4.5 MCG INHALER 2 PUFF INH ×2 (07:27→20:08)
[2024-02-09 07:53] LABS: Glucose - Point of Care 98 mg/dl (70-99)
[2024-02-09] MEDS: KLONOPIN 1 MG PO ×3 (09:01→22:47)
[2024-02-09] MEDS: PROTONIX 40 MG PO (09:02)
[2024-02-09] MEDS: LAMICTAL 100 MG PO (09:02)
[2024-02-09] MEDS: GEODON 80 MG PO ×2 (09:02→20:14)
[2024-02-09] MEDS: TOPAMAX 200 MG PO ×2 (09:02→20:17)
[2024-02-09] MEDS: SODIUM BICARBONATE 650 MG PO ×3 (09:03→22:42)
[2024-02-09] MEDS: TRILEPTAL 300 MG PO ×2 (09:03→20:17)
[2024-02-09] MEDS: LYRICA 100 MG PO ×2 (09:03→20:17)
[2024-02-09] MEDS: ZOFRAN ODT (ORALLY DISINTEGRATING) 8 MG PO ×2 (09:03→20:18)
[2024-02-09] MEDS: CORTEF 20 MG PO (09:03)
[2024-02-09] MEDS: BUSPAR 10 MG PO ×3 (09:03→22:42)
[2024-02-09] MEDS: HEPARIN 5000 UNITS SC ×2 (09:03→20:14)
[2024-02-09 09:18] LABS: Blood Urea Nitrogen 22 mg/dl (7-17); Calcium 8.7 mg/dl (8.4-10.2); Carbon Dioxide 20 mmol/L (22-30); Chloride 112 mmol/L (98-107); Creatine Phosphokinase 1270 U/L (30-135); Estimated Creatinine Clearance 47 ml/min; Glucose 89 mg/dl (70-99); Potassium 3.2 mmol/L (3.5-5.1); Sodium 140 mmol/L (135-145); eGFR 58.61
--- NOTE | 2024-02-09 09:18 | VNURNOTE ---
Chart reviewed. Patient is current with [facility] nursing, PT, OT, [employer] TECHNICIAN. Will continue to follow hospital course and DC plans.
[2024-02-09 09:51] LABS: Hematocrit 27.7 % (37.0-47.0); Hemoglobin 9.9 g/dL (12.0-16.0); Mean Corp Hgb Conc. 35.7 g/dL (33.0-37.0); Mean Corpuscular Hgb 33.7 pg (27.0-31.0); Mean Corpuscular Volume 94.2 fL (81.0-99.0); Mean Platelet Volume 9.6 fL (7.4-10.4); Platelet Count 230 10^3/uL (130-400); Red Blood Cell Count 2.94 10^6/uL (4.20-5.40); Red Cell Dist. Width 13.3 % (11.5-14.5); White Blood Cell Count 9.2 10^3/uL (4.8-10.8)
--- NOTE | 2024-02-09 10:22 | W.PN.HOSP.TC ---
Today's Communication/Plan
-
see A/P
Assessment / Plan
Assessment / Plan
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
She passed out twice while walking down the steps each time.
Reported head injury because each time she woke up, she felt pain in the head.
Patient lives alone with her 2 cats.
She reported she has not eaten in the past 1/2 days.
She is not on blood thinners
A/P:
# Syncope
CT head No acute cranial abnormality.
tele with sinus rhythm
Orthostatic hypotension has resolved with IVF
Check Alcohol level and UDS
Check echo
PT OT eval
# Weakness
# Mild rhabdomyolysis, non-traumatic
Cont gentle IVF
Follow CPK level
# Drop in Hgb likely from hemodilution from IVF and hemoconcentration on admission
Hgb today at 9.9, baseline Hgb at 10
Cont to monitor Hgb
# Hypoglycemia on admission, resolved
pt received additional IV hydrocortisone 50 mg x 1
Cont SHIP JOINER Cortisol replacement
# hypopituitarism with adrenal insufficiency and Hypothyroidism
Cont SHIP JOINER hydrocortisone and levothyroxine
# Anemia of chronic disease
# HX Chronic intractable back pain likely from lumbar vertebral compression fracture
# Status post vertebroplasty by IR 12/18
Cont Tylenol PRN
Added Toradol PRN
Cont SHIP JOINER Lyrica
# Bipolar disorder
Cont SHIP JOINER Lamictal, ziprasidone, oxcarbazepine, Buspar, Klonopin
# Mild intermittent asthma -stable.
# Migraine headaches
on Trudhesa spray
# HX COPD
nebs from home continued
# Hypokalemia
replete
DVT prophylaxis-heparin SQ
CODE STATUS-full code
DVT Px: SQH
Code: Full
Anticipated Discharge: > 48 hours
Subjective/Interval History
-
Date of Service: February 09, 2024
Objective Data
-
Labs:
Laboratory Results
02/09/24
07:58
WBC 9.2
Hgb 9.9 L D
Hct 27.7 L
Plt Count 230
Sodium 140
Potassium 3.2 L
Chloride 112 H
Carbon Dioxide 20 L
BUN 22 H
Creatinine 1.1 H
Glucose 89
Calcium 8.7
Vital Signs:
Vital Signs
Temp Pulse Resp BP Pulse Ox
36.8 C 97 16 116/71 96
02/09/24 07:30 02/09/24 07:30 02/09/24 07:30 02/09/24 07:30 02/09/24 07:30
I&O
02/08/24 02/09/24 02/10/24
06:59 06:59 06:59
Intake Total 480 / 480
Balance 480 / 480
Review of Systems
-
Unable to obtain full review of systems at this time due to: Acuity
Physical Exam
-
General: Appears Chronically Ill
HEENT: Normocephalic, Atraumatic and Moist Mucous Membranes
Respiratory: Clear to Auscultation and Non Labored Respirations; Negative Accessory Resp Muscle Use
Cardiac: Regular Rhythm and S1/S2
GI: Soft, Nontender and Nondistended
Musculoskeletal: No Clubbing, No Cyanosis and No Edema
Skin: Warm and Dry
Neuro: Awake
Psych: Calm
Data Reviewed
-
CT Scan: Report Reviewed by me
Labs: Labs Reviewed by me
[2024-02-09 11:02] LABS: Glycohemoglobin (HgbA1c) 4.7 % (4.0-5.6)
[2024-02-09 11:23] LABS: Alcohol None Detected
[2024-02-09 11:40] LABS: Glucose - Point of Care 95 mg/dl (70-99)
[2024-02-09] MEDS: KCL 40 MEQ PO (12:52)
--- NOTE | 2024-02-09 16:26 | PTCARENOTE ---
Rec'd pt upon return from ECHO. walked in to bed. Pt is drowsy but arousable. Denies pain. Attempted to restart IVF but IV site is leaking. IV team called to place new access.
[2024-02-09 16:47] LABS: Glucose - Point of Care 96 mg/dl (70-99)
--- NOTE | 2024-02-09 17:27 | CM ---
Alert awake oriented patient who lives alone 3 story home with 1 steps to enter and 7 steps to bed/bathroom. She is independent in activates of daily living.She does not drive.
Has [facility] currently .[facility]
Pharmacy [facility] [place]
PCP Dr Vora
PLAN Home with [facility] resumption
[2024-02-09 21:59] LABS: Glucose - Point of Care 108 mg/dl (70-99)
[2024-02-09] MEDS: CORTEF 15 MG PO (22:42)
[2024-02-10 01:11] LABS: Urine Albumin Negative (Neg - Trace); Urine Bilirubin Negative (Negative); Urine Character Clear (Clear); Urine Color Yellow; Urine Glucose Negative (Negative); Urine Ketone Negative (Negative); Urine Leukocyte Negative (Negative); Urine Nitrite Negative (Negative); Urine Occult Blood Negative (Negative); Urine Specific Gravity 1.005 (<1.030); Urine Urobilinogen Negative (Neg - 1+)
[2024-02-10 01:56] LABS: Amphetamines Negative (Negative); Barbiturates Negative (Negative); Benzodiazepines Negative (Negative); Buprenorphine Negative (Negative); Cocaine Negative (Negative); Marijuana Negative (Negative); Methadone Negative (Negative); Methamphetamines Negative (Negative); Opiates Negative (Negative); Phencyclidine Negative (Negative); Tricyclic Antidepressants Negative (Negative)
[2024-02-10 03:55] VITALS: BP 169/101
[2024-02-10 06:00] VITALS: BMI 17.6
[2024-02-10 06:18] LABS: Hematocrit 32.4 % (37.0-47.0); Hemoglobin 11.2 g/dL (12.0-16.0); Mean Corp Hgb Conc. 34.6 g/dL (33.0-37.0); Mean Corpuscular Hgb 32.4 pg (27.0-31.0); Mean Corpuscular Volume 93.6 fL (81.0-99.0); Mean Platelet Volume 10.8 fL (7.4-10.4); Platelet Count 217 10^3/uL (130-400); Red Blood Cell Count 3.46 10^6/uL (4.20-5.40); Red Cell Dist. Width 13.5 % (11.5-14.5)
[2024-02-10] MEDS: SYNTHROID 112 MCG PO (06:26)
[2024-02-10 07:09] VITALS: BP 172/91
[2024-02-10 08:13] LABS: ALT (SGPT) 28 U/L (0-35); AST (SGOT) 53 U/L (14-36); Albumin 2.9 g/dl (3.5-5.0); Alkaline Phosphatase 89 U/L (38-126); Blood Urea Nitrogen 13 mg/dl (7-17); Calcium 9.4 mg/dl (8.4-10.2); Carbon Dioxide 21 mmol/L (22-30); Chloride 115 mmol/L (98-107); Direct Bilirubin 0.2 mg/dl (0.0-0.4); Estimated Creatinine Clearance 50 ml/min; Glucose 92 mg/dl (70-99); Magnesium 1.8 mg/dl (1.6-2.3); Potassium 4.2 mmol/L (3.5-5.1); Sodium 143 mmol/L (135-145); Total Bilirubin 0.4 mg/dl (0.2-1.3); Total CK 826 U/L (30-135); Total Protein 5.1 g/dl (6.3-8.2); eGFR > 60.00
[2024-02-10 08:14] LABS: Glucose - Point of Care 68 mg/dl (70-99)
[2024-02-10] MEDS: SPIRIVA RESPIMAT 2.5 MCG 2 PUFF INH (08:18)
[2024-02-10] MEDS: SYMBICORT 80/4.5 MCG INHALER 2 PUFF INH ×2 (08:18→19:36)
--- NOTE | 2024-02-10 08:19 | PTCARENOTE ---
Pt has a accucheck of 68, gave juice and crackers. Breakfast is on the way up. Will recheck in 15.
[2024-02-10] MEDS: NSS 1000 IV ×2 (09:54→21:01)
[2024-02-10] MEDS: HEPARIN 5000 UNITS SC (09:56)
[2024-02-10] MEDS: GEODON 80 MG PO ×2 (09:56→19:47)
[2024-02-10] MEDS: ZOFRAN ODT (ORALLY DISINTEGRATING) 8 MG PO ×2 (09:57→19:47)
[2024-02-10] MEDS: BUSPAR 10 MG PO ×3 (09:57→21:00)
[2024-02-10] MEDS: TOPAMAX 200 MG PO ×2 (09:57→19:47)
[2024-02-10] MEDS: LYRICA 100 MG PO ×2 (09:57→19:48)
[2024-02-10] MEDS: SODIUM BICARBONATE 650 MG PO ×3 (09:57→21:01)
[2024-02-10] MEDS: CORTEF 20 MG PO (09:58)
[2024-02-10] MEDS: KLONOPIN 1 MG PO ×3 (09:58→21:01)
[2024-02-10] MEDS: LAMICTAL 100 MG PO (09:58)
[2024-02-10] MEDS: TRILEPTAL 300 MG PO ×2 (09:58→19:47)
[2024-02-10] MEDS: PROTONIX 40 MG PO (09:58)
[2024-02-10] MEDS: MIRALAX 17 GRAMS PO (10:03)
--- NOTE | 2024-02-10 10:13 | W.PN.HOSP.TC ---
Today's Communication/Plan
-
see A/P
Assessment / Plan
Assessment / Plan
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
She passed out twice while walking down the steps each time.
Reported head injury because each time she woke up, she felt pain in the head.
Patient lives alone with her 2 cats.
She reported she has not eaten in the past 1/2 days.
She is not on blood thinners
A/P:
# Syncope
CT head No acute cranial abnormality.
tele with sinus rhythm
Orthostatic hypotension has resolved with IVF
Alcohol level and UDS negative, UA clean
Echo unrevealing: EF 60-65%. Normal right ventricular size and function. No significant valvular disease. Compared to the previous echo 12/10/23, there is no significant change.
PT OT recc SNF
# Weakness
# Mild rhabdomyolysis, non-traumatic
Cont gentle IVF
Follow CPK level
# Drop in Hgb likely from hemodilution from IVF and hemoconcentration on admission
Hgb today at 11, baseline Hgb at 10
Cont to monitor Hgb
# Mild elevated LFT, reactive and improving
# Hypoglycemia on admission, resolved
pt received additional IV hydrocortisone 50 mg x 1
Cont CATERPILLAR DRIVER Cortisol replacement
# hypopituitarism with adrenal insufficiency and Hypothyroidism
Cont CATERPILLAR DRIVER hydrocortisone and levothyroxine
# Anemia of chronic disease
# HX Chronic intractable back pain likely from lumbar vertebral compression fracture
# Status post vertebroplasty by IR 12/18
Cont Tylenol PRN
Added Toradol PRN
Cont CATERPILLAR DRIVER Lyrica
# Bipolar disorder
Cont CATERPILLAR DRIVER Lamictal, ziprasidone, oxcarbazepine, Buspar, Klonopin
# Mild intermittent asthma -stable.
# Migraine headaches
on Trudhesa spray
# HX COPD
nebs from home continued
# Hypokalemia
repleted
DVT Px: Lovenox SQ
Code: Full
Anticipated Discharge: 24 - 48 hours
Subjective/Interval History
-
Date of Service: February 10, 2024
Objective Data
-
Labs:
Laboratory Results
02/10/24 02/10/24
04:17 07:23
WBC 8.0
Hgb 11.2 L
Hct 32.4 L
Plt Count 217
Sodium Cancelled 143
Potassium Cancelled 4.2 D
Chloride Cancelled 115 H
Carbon Dioxide Cancelled 21 L
BUN Cancelled 13
Creatinine Cancelled 1.0
Glucose Cancelled 92
Calcium Cancelled 9.4
Total Bilirubin Cancelled 0.4
AST Cancelled 53 H
ALT Cancelled 28
Alkaline Phosphatase Cancelled 89
Vital Signs:
Vital Signs
Temp Pulse Resp BP Pulse Ox
36.4 C 70 16 172/91 99
02/10/24 07:09 02/10/24 08:24 02/10/24 08:24 02/10/24 07:09 02/10/24 08:24
I&O
02/09/24 02/10/24 02/11/24
06:59 06:59 06:59
Intake Total 480 / 480 1200 / 1200
Output Total 2400 / 2400
Balance 480 / 480 -1200 / -1200
Review of Systems
-
Unable to obtain full review of systems at this time due to: Other (lack of insight)
Physical Exam
-
General: Conversant and Appears Chronically Ill
HEENT: Normocephalic, Atraumatic and Moist Mucous Membranes
Respiratory: Clear to Auscultation and Non Labored Respirations; Negative Accessory Resp Muscle Use
Cardiac: Regular Rhythm and S1/S2
GI: Soft, Nontender and Nondistended
Musculoskeletal: No Clubbing, No Cyanosis and No Edema
Skin: Warm and Dry
Neuro: Awake
Psych: Calm; Negative Intact Judgement/Insight
Data Reviewed
-
CT Scan: Report Reviewed by me
Labs: Labs Reviewed by me
[2024-02-10 10:50] LABS: Glucose - Point of Care 122 mg/dl (70-99)
[2024-02-10 15:20] VITALS: BP 144/93
[2024-02-10] MEDS: TORADOL 10 MG IV ×2 (15:33→23:33)
[2024-02-10 17:08] LABS: Glucose - Point of Care 146 mg/dl (70-99)
--- NOTE | 2024-02-10 17:10 | CM ---
PT OT indicate needs for short term rehab.
Pt was at [facility] before.
Pt has many dietary needs and she said [facility] and accommodated her well.
Pt agreed to return to [facility] for rehab
Referral placed will need auth.
PLAN To SNf after auth
[2024-02-10] MEDS: LOVENOX SC (17:26)
[2024-02-10] MEDS: TYLENOL 650 MG PO (19:47)
[2024-02-10] MEDS: CORTEF 15 MG PO (19:48)
[2024-02-10] MEDS: LAMICTAL 200 MG PO (19:48)
[2024-02-10 21:55] LABS: Glucose - Point of Care 87 mg/dl (70-99)
[2024-02-10 23:00] VITALS: BP 150/102
--- NOTE | 2024-02-11 04:04 | DOWNTIME ---
There was a [employer] Utility Downtime on 02/11/2024 from 0100 to 02/11/2024 at 0355. Downtime documentation of patient's care, including medication administrations, has been reconciled in the electronic record per guidelines. Refer to the
patient's paper chart under the miscellaneous tab to see printed paper medication records and downtime forms.
[2024-02-11 06:00] VITALS: BMI 18.0
[2024-02-11] MEDS: SYNTHROID 112 MCG PO (06:00)
[2024-02-11 07:26] LABS: Glucose - Point of Care 85 mg/dl (70-99)
[2024-02-11 07:35] VITALS: BP 175/94
[2024-02-11] MEDS: SYMBICORT 80/4.5 MCG INHALER 2 PUFF INH ×2 (07:41→20:14)
[2024-02-11] MEDS: SPIRIVA RESPIMAT 2.5 MCG 2 PUFF INH (07:41)
[2024-02-11] MEDS: TRILEPTAL 300 MG PO ×2 (08:15→19:42)
[2024-02-11] MEDS: GEODON 80 MG PO ×2 (08:15→19:42)
[2024-02-11] MEDS: CORTEF 20 MG PO (08:15)
[2024-02-11] MEDS: KLONOPIN 1 MG PO ×3 (08:16→21:10)
[2024-02-11] MEDS: ZOFRAN ODT (ORALLY DISINTEGRATING) 8 MG PO ×2 (08:16→19:43)
[2024-02-11] MEDS: BUSPAR 10 MG PO ×3 (08:16→21:10)
[2024-02-11] MEDS: SODIUM BICARBONATE 650 MG PO ×3 (08:16→21:10)
[2024-02-11] MEDS: TOPAMAX 200 MG PO ×2 (08:16→19:42)
[2024-02-11] MEDS: LYRICA 100 MG PO ×2 (08:16→19:42)
[2024-02-11] MEDS: LAMICTAL 100 MG PO (08:16)
[2024-02-11] MEDS: PROTONIX 40 MG PO (08:17)
[2024-02-11 08:45] LABS: Hematocrit 31.7 % (37.0-47.0); Hemoglobin 10.8 g/dL (12.0-16.0); Mean Corp Hgb Conc. 34.1 g/dL (33.0-37.0); Mean Corpuscular Hgb 31.9 pg (27.0-31.0); Mean Corpuscular Volume 93.5 fL (81.0-99.0); Platelet Count 245 10^3/uL (130-400); Red Blood Cell Count 3.39 10^6/uL (4.20-5.40); Red Cell Dist. Width 13.8 % (11.5-14.5); White Blood Cell Count 8.8 10^3/uL (4.8-10.8)
--- NOTE | 2024-02-11 09:33 | W.PN.HOSP.TC ---
Today's Communication/Plan
-
see A/P
Assessment / Plan
Assessment / Plan
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
She passed out twice while walking down the steps each time.
Reported head injury because each time she woke up, she felt pain in the head.
Patient lives alone with her 2 cats.
She reported she has not eaten in the past 1/2 days.
She is not on blood thinners
A/P:
# Syncope
CT head No acute cranial abnormality.
tele with sinus rhythm
Orthostatic hypotension has resolved with IVF
Alcohol level and UDS negative, UA clean
Echo unrevealing: EF 60-65%. Normal right ventricular size and function. No significant valvular disease. Compared to the previous echo 12/10/23, there is no significant change.
PT OT recc SNF
# Weakness
# Mild rhabdomyolysis, non-traumatic
Cont gentle IVF
Follow CPK level
# Drop in Hgb likely from hemodilution from IVF and hemoconcentration on admission
Hgb today at 11, baseline Hgb at 10
Cont to monitor Hgb
# Mild elevated LFT, reactive and improving
# Hypoglycemia on admission, resolved
pt received additional IV hydrocortisone 50 mg x 1
Cont COMMUNICATIONS TOWER TECHNICIAN Cortisol replacement
# hypopituitarism with adrenal insufficiency and Hypothyroidism
Cont COMMUNICATIONS TOWER TECHNICIAN hydrocortisone and levothyroxine
# Anemia of chronic disease
# HX Chronic intractable back pain likely from lumbar vertebral compression fracture
# Status post vertebroplasty by IR 12/18
Cont Tylenol PRN
Added Toradol PRN
Cont COMMUNICATIONS TOWER TECHNICIAN Lyrica
# Bipolar disorder
Cont COMMUNICATIONS TOWER TECHNICIAN Lamictal, ziprasidone, oxcarbazepine, Buspar, Klonopin
# Mild intermittent asthma -stable.
# Migraine headaches
on Trudhesa spray
# HX COPD
nebs from home continued
# Hypokalemia
repleted
DVT Px: Lovenox SQ
Code: Full
DW RN
Anticipated Discharge: 24 - 48 hours
Subjective/Interval History
-
Date of Service: February 11, 2024
Objective Data
-
Labs:
Laboratory Results
02/11/24
06:47
WBC 8.8
Hgb 10.8 L
Hct 31.7 L
Plt Count 245
Sodium Pending
Potassium Pending
Chloride Pending
Carbon Dioxide Pending
BUN Pending
Creatinine Pending
Glucose Pending
Calcium Pending
Total Bilirubin Pending
AST Pending
ALT Pending
Alkaline Phosphatase Pending
Vital Signs:
Vital Signs
Temp Pulse Resp BP Pulse Ox
36.4 C 73 16 175/94 95
02/11/24 07:35 02/11/24 07:44 02/11/24 07:44 02/11/24 07:35 02/11/24 07:44
I&O
02/10/24 02/11/24 02/12/24
06:59 06:59 06:59
Intake Total 1200 / 1200 1919
Output Total 2400 / 2400
Balance -1200 / -1200 1919
Review of Systems
-
Unable to obtain full review of systems at this time due to: Other (lack of insight)
Physical Exam
-
General: Conversant and Appears Chronically Ill
HEENT: Normocephalic, Atraumatic and Moist Mucous Membranes
Respiratory: Clear to Auscultation and Non Labored Respirations; Negative Accessory Resp Muscle Use
Cardiac: Regular Rhythm and S1/S2
GI: Soft, Nontender and Nondistended
Musculoskeletal: No Clubbing, No Cyanosis and No Edema
Skin: Warm and Dry
Neuro: Awake
Psych: Calm; Negative Intact Judgement/Insight
Data Reviewed
-
CT Scan: Report Reviewed by me
Labs: Labs Reviewed by me
[2024-02-11 09:52] LABS: ALT (SGPT) 27 U/L (0-35); AST (SGOT) 40 U/L (14-36); Albumin 3.1 g/dl (3.5-5.0); Alkaline Phosphatase 93 U/L (38-126); Blood Urea Nitrogen 12 mg/dl (7-17); Calcium 8.7 mg/dl (8.4-10.2); Carbon Dioxide 19 mmol/L (22-30); Chloride 108 mmol/L (98-107); Estimated Creatinine Clearance 51 ml/min; Glucose 76 mg/dl (70-99); Magnesium 1.7 mg/dl (1.6-2.3); Potassium 3.8 mmol/L (3.5-5.1); Sodium 138 mmol/L (135-145); Total Bilirubin 0.4 mg/dl (0.2-1.3); Total Protein 5.3 g/dl (6.3-8.2); eGFR > 60.00
[2024-02-11 10:06] LABS: TSH Reflex To Free T4 0.71 uIU/ml (0.47-4.68)
[2024-02-11 10:15] LABS: Direct Bilirubin 0.1 mg/dl (0.0-0.4)
[2024-02-11 10:31] LABS: Creatine Phosphokinase 468 U/L (30-135)
[2024-02-11] MEDS: NSS 1000 IV (10:51)
[2024-02-11 12:20] LABS: Glucose - Point of Care 99 mg/dl (70-99)
[2024-02-11 15:30] VITALS: BP 178/92
--- NOTE | 2024-02-11 16:22 | CM ---
PT OT indicate needs for short term rehab.
[facility] at [facility] has no bed.
Pt has many dietary needs .
[facility] data reviewed with pt. She requested [facility] [place] [place].
Referral placed in care port.
Will need auth.
PLAN To SNf after auth
[2024-02-11 16:59] LABS: Glucose - Point of Care 124 mg/dl (70-99)
[2024-02-11] MEDS: LOVENOX 30 MG SC (17:03)
[2024-02-11] MEDS: TORADOL 10 MG IV (17:07)
[2024-02-11] MEDS: CORTEF 15 MG PO (19:43)
[2024-02-11] MEDS: LAMICTAL 200 MG PO (19:44)
[2024-02-11 21:26] LABS: Glucose - Point of Care 90 mg/dl (70-99)
[2024-02-11 23:45] VITALS: BP 164/102
[2024-02-12] MEDS: ZYRTEC 10 MG PO (00:43)
[2024-02-12] MEDS: TORADOL 10 MG IV ×2 (02:11→17:22)
[2024-02-12 06:00] LABS: Hematocrit 28.4 % (37.0-47.0); Hemoglobin 9.9 g/dL (12.0-16.0); Mean Corp Hgb Conc. 34.9 g/dL (33.0-37.0); Mean Corpuscular Hgb 32.8 pg (27.0-31.0); Mean Platelet Volume 9.9 fL (7.4-10.4); Platelet Count 237 10^3/uL (130-400); Red Blood Cell Count 3.02 10^6/uL (4.20-5.40); Red Cell Dist. Width 13.5 % (11.5-14.5); White Blood Cell Count 6.4 10^3/uL (4.8-10.8)
[2024-02-12] MEDS: SYNTHROID 112 MCG PO (06:19)
[2024-02-12 06:37] LABS: ALT (SGPT) 24 U/L (0-35); AST (SGOT) 34 U/L (14-36); Albumin 2.9 g/dl (3.5-5.0); Alkaline Phosphatase 85 U/L (38-126); Blood Urea Nitrogen 11 mg/dl (7-17); Calcium 8.7 mg/dl (8.4-10.2); Carbon Dioxide 22 mmol/L (22-30); Chloride 107 mmol/L (98-107); Creatine Phosphokinase 272 U/L (30-135); Direct Bilirubin 0.1 mg/dl (0.0-0.4); Estimated Creatinine Clearance 57 ml/min; Glucose 88 mg/dl (70-99); Magnesium 1.8 mg/dl (1.6-2.3); Potassium 3.8 mmol/L (3.5-5.1); Sodium 136 mmol/L (135-145); Total Bilirubin 0.3 mg/dl (0.2-1.3); eGFR > 60.00
[2024-02-12] MEDS: SYMBICORT 80/4.5 MCG INHALER 2 PUFF INH ×2 (07:27→20:18)
[2024-02-12] MEDS: SPIRIVA RESPIMAT 2.5 MCG 2 PUFF INH (07:27)
[2024-02-12 07:30] VITALS: BP 160/94
[2024-02-12 07:35] LABS: Glucose - Point of Care 76 mg/dl (70-99)
[2024-02-12] MEDS: GEODON 80 MG PO ×2 (09:11→20:54)
[2024-02-12] MEDS: SODIUM BICARBONATE 650 MG PO ×3 (09:12→22:57)
[2024-02-12] MEDS: KLONOPIN 1 MG PO ×3 (09:12→22:57)
[2024-02-12] MEDS: LYRICA 100 MG PO ×2 (09:12→20:54)
[2024-02-12] MEDS: LAMICTAL 100 MG PO (09:12)
[2024-02-12] MEDS: TOPAMAX 200 MG PO ×2 (09:12→20:54)
[2024-02-12] MEDS: PROTONIX 40 MG PO (09:13)
[2024-02-12] MEDS: TRILEPTAL 300 MG PO ×2 (09:13→20:54)
[2024-02-12] MEDS: BUSPAR 10 MG PO ×3 (09:13→22:57)
[2024-02-12] MEDS: ZOFRAN ODT (ORALLY DISINTEGRATING) 8 MG PO ×2 (09:13→20:54)
[2024-02-12] MEDS: CORTEF 20 MG PO (09:14)
--- NOTE | 2024-02-12 10:12 | W.PN.HOSP.TC ---
Today's Communication/Plan
-
see A/P
Assessment / Plan
Assessment / Plan
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
She passed out twice while walking down the steps each time.
Reported head injury because each time she woke up, she felt pain in the head.
Patient lives alone with her 2 cats.
She reported she has not eaten in the past 1/2 days.
She is not on blood thinners
A/P:
# Syncope
CT head No acute cranial abnormality.
tele with sinus rhythm
Orthostatic hypotension has resolved with IVF
Alcohol level and UDS negative, UA clean
Echo unrevealing: EF 60-65%. Normal right ventricular size and function. No significant valvular disease. Compared to the previous echo 12/10/23, there is no significant change.
PT OT recc SNF
# Weakness
# Mild rhabdomyolysis, non-traumatic
off IVF
# Drop in Hgb likely from hemodilution from IVF and hemoconcentration on admission
Hgb today at 9.9, baseline Hgb at 10
Cont to monitor Hgb
# Mild elevated LFT, reactive and improving
# Hypoglycemia on admission, resolved
pt received additional IV hydrocortisone 50 mg x 1
Cont VOCATIONAL NURSE Cortisol replacement
# hypopituitarism with adrenal insufficiency and Hypothyroidism
Cont VOCATIONAL NURSE hydrocortisone and levothyroxine
# Anemia of chronic disease
# HX Chronic intractable back pain likely from lumbar vertebral compression fracture
# Status post vertebroplasty by IR 12/18
Cont Tylenol PRN
Added Toradol PRN
Cont VOCATIONAL NURSE Lyrica
# Bipolar disorder
Cont VOCATIONAL NURSE Lamictal, ziprasidone, oxcarbazepine, Buspar, Klonopin
# Mild intermittent asthma -stable.
# Migraine headaches
on Trudhesa spray
# HX COPD
nebs from home continued
# Hypokalemia
repleted
DVT Px: Lovenox SQ
Code: Full
Dispo: SNF after auth
Anticipated Discharge: 24 - 48 hours
Subjective/Interval History
-
Date of Service: February 12, 2024
Objective Data
-
Labs:
Laboratory Results
02/12/24
04:35
WBC 6.4
Hgb 9.9 L
Hct 28.4 L
Plt Count 237
Sodium 136
Potassium 3.8
Chloride 107
Carbon Dioxide 22
BUN 11
Creatinine 0.9
Glucose 88
Calcium 8.7
Total Bilirubin 0.3
AST 34
ALT 24
Alkaline Phosphatase 85
Vital Signs:
Vital Signs
Temp Pulse Resp BP Pulse Ox
36.8 C 81 18 160/94 96
02/12/24 07:30 02/12/24 07:30 02/12/24 07:30 02/12/24 07:30 02/12/24 07:30
I&O
02/11/24 02/12/24 02/13/24
06:59 06:59 06:59
Intake Total 1919 1320 / 1320
Balance 1919 1320 / 1320
Review of Systems
-
Unable to obtain full review of systems at this time due to: Other (lack of insight)
Physical Exam
-
General: Conversant and Appears Chronically Ill
HEENT: Normocephalic, Atraumatic and Moist Mucous Membranes
Respiratory: Clear to Auscultation and Non Labored Respirations; Negative Accessory Resp Muscle Use
Cardiac: Regular Rhythm and S1/S2
GI: Soft, Nontender and Nondistended
Musculoskeletal: No Clubbing, No Cyanosis and No Edema
Skin: Warm and Dry
Neuro: Awake
Psych: Calm; Negative Intact Judgement/Insight
Data Reviewed
-
CT Scan: Report Reviewed by me
Labs: Labs Reviewed by me
[2024-02-12 12:45] LABS: Glucose - Point of Care 102 mg/dl (70-99)
[2024-02-12] MEDS: SENOKOT-S 1 TABLET PO (14:10)
[2024-02-12] MEDS: MIRALAX 17 GRAMS PO (14:10)
[2024-02-12 15:51] VITALS: BP 142/101; PULSE 106; O2SAT 97
--- NOTE | 2024-02-12 16:34 | CM ---
Spoke with pt in room .Pt refused SNF.
PT indicated VN VS SNF.
She said she wants [facility] at home.
Lurdes S notified of [facility] referral.
Asked pt who would drive her home She said she has an Uber acct. or friend will drive her home after work.
PLAN Home with [facility]
[2024-02-12] MEDS: LOVENOX 30 MG SC (17:18)
[2024-02-12 18:22] LABS: Glucose - Point of Care 155 mg/dl (70-99)
[2024-02-12] MEDS: REFRESH EYE DROPS (PF) 1 DROPS OPHTH (20:53)
[2024-02-12] MEDS: CORTEF 15 MG PO (20:53)
[2024-02-12] MEDS: LAMICTAL 200 MG PO (20:54)
[2024-02-12] MEDS: TYLENOL 650 MG PO (20:59)
[2024-02-12 21:32] LABS: Glucose - Point of Care 98 mg/dl (70-99)
[2024-02-12 23:17] VITALS: BP 133/90
[2024-02-13] MEDS: TORADOL 10 MG IV (03:05)
[2024-02-13 06:00] VITALS: BMI 18.2
[2024-02-13] MEDS: SYNTHROID 112 MCG PO (06:32)
[2024-02-13 07:14] LABS: Glucose - Point of Care 82 mg/dl (70-99)
[2024-02-13 07:20] VITALS: BP 158/91
[2024-02-13 08:08] LABS: Hematocrit 27.4 % (37.0-47.0); Hemoglobin 9.5 g/dL (12.0-16.0); Mean Corp Hgb Conc. 34.7 g/dL (33.0-37.0); Mean Corpuscular Hgb 32.4 pg (27.0-31.0); Mean Corpuscular Volume 93.5 fL (81.0-99.0); Platelet Count 230 10^3/uL (130-400); Red Blood Cell Count 2.93 10^6/uL (4.20-5.40); Red Cell Dist. Width 13.2 % (11.5-14.5); White Blood Cell Count 8.5 10^3/uL (4.8-10.8)
[2024-02-13 08:27] LABS: ALT (SGPT) 22 U/L (0-35); AST (SGOT) 27 U/L (14-36); Albumin 2.7 g/dl (3.5-5.0); Alkaline Phosphatase 83 U/L (38-126); Blood Urea Nitrogen 10 mg/dl (7-17); Calcium 8.4 mg/dl (8.4-10.2); Carbon Dioxide 22 mmol/L (22-30); Chloride 97 mmol/L (98-107); Creatine Phosphokinase 169 U/L (30-135); Estimated Creatinine Clearance 52 ml/min; Glucose 76 mg/dl (70-99); Magnesium 1.7 mg/dl (1.6-2.3); Potassium 3.8 mmol/L (3.5-5.1); Sodium 127 mmol/L (135-145); Total Bilirubin 0.2 mg/dl (0.2-1.3); Total Protein 4.8 g/dl (6.3-8.2); eGFR > 60.00
[2024-02-13] MEDS: SYMBICORT 80/4.5 MCG INHALER 2 PUFF INH (08:28)
[2024-02-13] MEDS: SPIRIVA RESPIMAT 2.5 MCG 2 PUFF INH (08:28)
--- NOTE | 2024-02-13 08:46 | W.PN.HOSP.TC ---
Addendum entered and electronically signed by Janet Carey MD 02/13/24 13:05:
total DC time 36 min
Original Note:
Today's Communication/Plan
-
see A/P
Assessment / Plan
Assessment / Plan
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
She passed out twice while walking down the steps each time.
Reported head injury because each time she woke up, she felt pain in the head.
Patient lives alone with her 2 cats.
She reported she has not eaten in the past 1/2 days.
She is not on blood thinners
A/P:
# Syncope
CT head No acute cranial abnormality.
tele with sinus rhythm
Orthostatic hypotension has resolved with IVF
Alcohol level and UDS negative, UA clean
Echo unrevealing: EF 60-65%. Normal right ventricular size and function. No significant valvular disease. Compared to the previous echo 12/10/23, there is no significant change.
PT OT recc SNF
# Weakness
# Mild rhabdomyolysis, non-traumatic
off IVF
Pt able to walk but prefers to lie in bed the whole time
# Drop in Hgb likely from hemodilution from IVF and hemoconcentration on admission
Hgb today at 9.5, baseline Hgb at 10
Cont to monitor Hgb
# Mild elevated LFT, reactive and improving
# Hypoglycemia on admission, resolved
pt received additional IV hydrocortisone 50 mg x 1
Cont MEDICAL RESEARCH ASSISTANT Cortisol replacement
# hypopituitarism with adrenal insufficiency and Hypothyroidism
Cont MEDICAL RESEARCH ASSISTANT hydrocortisone and levothyroxine
# Anemia of chronic disease
# HX Chronic intractable back pain likely from lumbar vertebral compression fracture
# Status post vertebroplasty by IR 12/18
Cont Tylenol PRN
Added Toradol PRN
Cont MEDICAL RESEARCH ASSISTANT Lyrica
# Bipolar disorder
Cont MEDICAL RESEARCH ASSISTANT Lamictal, ziprasidone, oxcarbazepine, Buspar, Klonopin
# Mild intermittent asthma -stable.
# Migraine headaches
on Trudhesa spray
# HX COPD
nebs from home continued
# Hypokalemia
repleted
# Hyponatremia
Sodium level at 127 today, from 136 yesterday
monitor repeat level, ?lab error
DVT Px: Lovenox SQ
Code: Full
Dispo: SNF after auth
DW RN
Anticipated Discharge: 24 - 48 hours
Subjective/Interval History
-
Date of Service: February 13, 2024
Objective Data
-
Labs:
Laboratory Results
02/13/24
07:01
WBC 8.5
Hgb 9.5 L
Hct 27.4 L
Plt Count 230
Sodium 127 L D
Potassium 3.8
Chloride 97 L
Carbon Dioxide 22
BUN 10
Creatinine 1.0
Glucose 76
Calcium 8.4
Total Bilirubin 0.2
AST 27
ALT 22
Alkaline Phosphatase 83
Vital Signs:
Vital Signs
Temp Pulse Resp BP Pulse Ox
36.9 C 77 16 158/91 97
02/13/24 07:20 02/13/24 07:20 02/13/24 08:32 02/13/24 07:20 02/13/24 08:32
I&O
02/12/24 02/13/24 02/14/24
06:59 06:59 06:59
Intake Total 1320 / 1320 2039
Balance 1320 / 1320 2039
Review of Systems
-
Unable to obtain full review of systems at this time due to: Other (lack of insight)
Physical Exam
-
General: Well Developed, Well Nourished, No Apparent Distress, Comfortable and Conversant
HEENT: Normocephalic, Atraumatic and Moist Mucous Membranes
Respiratory: Clear to Auscultation and Non Labored Respirations; Negative Accessory Resp Muscle Use
Cardiac: Regular Rhythm and S1/S2
GI: Soft, Nontender and Nondistended
Musculoskeletal: No Clubbing, No Cyanosis and No Edema
Skin: Warm and Dry
Neuro: Awake
Psych: Calm; Negative Intact Judgement/Insight
Data Reviewed
-
CT Scan: Report Reviewed by me
Labs: Labs Reviewed by me
[2024-02-13] MEDS: GEODON 80 MG PO (08:51)
[2024-02-13] MEDS: PROTONIX 40 MG PO (08:51)
[2024-02-13] MEDS: LYRICA 100 MG PO (08:51)
[2024-02-13] MEDS: ZOFRAN ODT (ORALLY DISINTEGRATING) 8 MG PO (08:51)
[2024-02-13] MEDS: CORTEF 20 MG PO (08:51)
[2024-02-13] MEDS: KLONOPIN 1 MG PO (08:52)
[2024-02-13] MEDS: REFRESH EYE DROPS (PF) 1 DROPS OPHTH (08:52)
[2024-02-13] MEDS: TRILEPTAL 300 MG PO (08:52)
[2024-02-13] MEDS: BUSPAR 10 MG PO (08:52)
[2024-02-13] MEDS: SODIUM BICARBONATE 650 MG PO (08:52)
[2024-02-13] MEDS: LAMICTAL 100 MG PO (08:52)
[2024-02-13] MEDS: TOPAMAX 200 MG PO (08:52)
--- NOTE | 2024-02-13 09:10 | VNURNOTE ---
Spoke with patient. She would like to resume [facility] services. She is aware a nurse will call her within a day or two after DC. [facility] Intake aware and referral accepted.
[2024-02-13 11:48] LABS: Glucose - Point of Care 119 mg/dl (70-99)
--- NOTE | 2024-02-13 12:08 | CM ---
MD entered order for discharge.
PT indicated VN VS SNF.
Pt refused SNF.
She said she wants [facility] at home.
Lurdes S set up [facility] referral.
Pt said she said she has an Uber acct. she will set up for transport home.
IMM reviewed . Pt signed IMM on chart.
PLAN Home with [facility]
--- NOTE | 2024-02-13 12:26 | W.DCSUMMARY ---
Discharge Summary
Discharge Data
Date of Admission: 02/08/24
Date of Discharge: 02/13/24
-
Pending Results: No
Hospital Course
Principal Diagnosis:
Syncope (unclear cause)
Hypoglycemia on admission, resolved
Chronic Diagnoses:�
Hypopituitarism with adrenal insufficiency and Hypothyroidism, on hydrocortisone and levothyroxine
Anemia of chronic disease
History of chronic intractable back pain likely from lumbar vertebral compression fracture
Status post vertebroplasty by IR 12/18
Bipolar disorder, on Lamictal, ziprasidone, oxcarbazepine, Buspar, Klonopin
Mild intermittent asthma -stable.
Migraine headaches
History of COPD
Consultations:�
None
Procedures:�
None
Clinical course:�
This is a 58-year-old female, with past medical history as stated above, who presented with syncope.
She apparently passed out while walking down the steps and reported head injury.
Problem 1:
Syncope which could have been related to hypoglycemia noted on admission.
She has had extensive syncope workup while in the hospital.
Her telemetry showed no arrhythmia, noted sinus rhythm.
Her orthostatic hypotension resolved following IV fluid
Her alcohol level and UDS were negative. Her UA was clean.
Her CT head from admission showed no acute intracranial abnormality.
She had an echo obtained which was unrevealing: EF 60-65%. Normal right ventricular size and function. No significant valvular disease. Compared to the previous echo 12/10/23, there is no significant change.
Her hypoglycemia resolved (she did received extra dose of IV hydrocortisone on admission for her panhypopituitarism).
She was seen by PT OT and was recommended SNF, however she refused to go to SNF and elected to return home with home health.
Problem 2:
Weakness with mild nontraumatic rhabdomyolysis.
She received IV fluid for this.
As for the rest of her medical problems, they were stable during her hospital stay.
Discharge Plan
-
Patient Disposition: Home with Home Care
Discharge Diagnosis/Procedures: Syncope (unclear cause);
Weakness (resolved)
Condition: Fair
Diet: As tolerated
Activity: As tolerated
Driving Restrictions: As prior to admission
Referrals:
Carlos Vora MD [Family Provider] - in less than 1 week
Prescriptions:
Continued
levothyroxine 112 MCG tablet
112 mcg PO DAILY
hydrocortisone 10 MG tablet
15 mg PO HS
hydrocortisone 10 MG tablet
20 mg PO DAILY
lamotrigine 100 MG tablet
100 mg PO BID
oxcarbazepine 300 mg Tablet
300 mg PO BID
ondansetron 8 mg Tablet,Disintegrating
8 mg PO BID
buspirone 10 mg Tablet
10 mg PO TID
Trudhesa 0.725 mg/pump act. (4 mg/mL) [place],Non-Aerosol
1 spray INTRANASAL DAILYPRN PRN (Reason: migraine)
Dupixent Syringe 300 mg/2 mL Syringe
300 mg SC Q2W
Trelegy Ellipta 100-62.5-25 mcg Blister With Device
1 inh INHALATION R DAILY
ziprasidone HCl 80 mg Capsule
80 mg PO BID
trazodone 100 mg Tablet
300 mg PO HS
topiramate 200 mg Tablet
200 mg PO BID
calcium citrate-vitamin D3 [Citracal + D Maximum] 315 mg-6.25 mcg (250 unit) Tablet
1 tab PO DAILY
Fiber Gummies 2 gram Tablet,Chewable
4 g PO DAILY
Aimovig Autoinjector 140 mg/mL Auto-Injector
140 mg SC Q28D
Tyrvaya 0.03 mg/spray [place], Metered, Non-Aerosol
1 spray INTRANASAL BID
cetirizine [Zyrtec] 10 mg Tablet
40 mg PO DAILY
levalbuterol tartrate 45 mcg/actuation Hfa Aerosol Inhaler
1 inh INHALATION R Q6HPRN PRN (Reason: sob/wheezing)
pantoprazole 40 MG tablet,delayed release (DR/EC)
40 mg PO DAILY
Dayvigo 10 mg Tablet
10 mg PO HS
clonazepam 1 MG tablet
1 mg PO TID Qty: 4 0RF
Patient Comments:
12/16/2023: last filled 01/29/24, 90 tabs for 30 days from [facility]
pregabalin 100 mg capsule
100 mg PO BID
Patient Comments:
02/03/2024: last filled 02/02/24, 60 tabs for 30 days fro [facility]
sodium bicarbonate 650 mg Tablet
650 mg PO TID 3 Days Qty: 9 0RF
Changed
acetaminophen 650 mg Tablet Extended Release
1,300 mg PO Q12H PRN (Reason: Pain) Qty: 0 0RF
Discontinued
celecoxib 200 mg capsule
200 mg PO DAILY
Rx Instructions:
for for 14 days starting 01/25/24
Discharge Orders:
Discharge Patient (As Directed); Ordered 02/13/24
Ordered By: Janet Carey
Discharge Date and Time
Print Language: HUNGARIAN
[2024-02-13 13:05] LABS: Blood Urea Nitrogen 10 mg/dl (7-17); Calcium 8.8 mg/dl (8.4-10.2); Carbon Dioxide 22 mmol/L (22-30); Chloride 98 mmol/L (98-107); Estimated Creatinine Clearance 52 ml/min; Glucose 99 mg/dl (70-99); Potassium 4.1 mmol/L (3.5-5.1); Sodium 129 mmol/L (135-145); eGFR > 60.00
[2024-02-13 13:30] VITALS: BP 143/91
--- NOTE | 2024-02-13 14:03 | PTCARENOTE ---
Reviewed discharge instructions with patient. Patient verbalizes understanding of teaching and denies questions at this time. Patient's IV removed. Patient will take Uber home.
== END 2024-02-13 15:58 | disposition home health service (06) | DRG 641 ==
LOC: 4 EAST ACU 16:06
PROVIDERS: ADMITTING PHYSICIAN Internal Medicine; ATTENDING PHYSICIAN Internal Medicine; EMERGENCY PHYSICIAN Emergency Medicine; FAMILY PHYSICIAN Internal Medicine
DX: E16.2 Hypoglycemia, unspecified (principal); E23.0 Hypopituitarism; E27.40 Unspecified adrenocortical insufficiency; M62.82 Rhabdomyolysis; I95.1 Orthostatic hypotension; J44.89 Other specified chronic obstructive pulmonary disease; E03.9 Hypothyroidism, unspecified; F31.9 Bipolar disorder, unspecified; F43.10 Post-traumatic stress disorder, unspecified; F41.9 Anxiety disorder, unspecified; E86.0 Dehydration; R29.6 Repeated falls; S09.90XA Unspecified injury of head, initial encounter; W18.30XA Fall on same level, unspecified, initial encounter; G43.909 Migraine, unspecified, not intractable, without status migrainosus; D63.8 Anemia in other chronic diseases classified elsewhere; E87.6 Hypokalemia; J45.20 Mild intermittent asthma, uncomplicated; Z88.5 Allergy status to narcotic agent; Z88.2 Allergy status to sulfonamides; Z88.6 Allergy status to analgesic agent; Z91.040 Latex allergy status; Z88.0 Allergy status to penicillin; Z79.890 Hormone replacement therapy; Z79.899 Other long term (current) drug therapy; Z79.52 Long term (current) use of systemic steroids
CPT/HCPCS: 93308; 70450; 80048; 80053; 80306; 81003; 82077; 82248; 82550; 82553; 82962; 83036; 83735; 84443; 85025; 85027; 93005; 93321; 93325; 94640; 96360; 97116; 97163; 97167; 97530; 99285

== ENCOUNTER 2024-02-16 15:40 | Emergency (ER) | payer MEDICARE, OTHER, SELFPAY ==
[2024-02-16 15:42] VITALS: BP 142/97
--- NOTE | 2024-02-16 16:10 | ED.GENMED ---
Addendum entered and electronically signed by FREDERICK Almaguer 02/19/24 15:51:
Addendum initially added to chart from February 17 however patient's urine culture was from February 15 positive for Klebsiella. She has multiple drug allergies listed. Did speak with patient at home and with multiple drug allergies we will order
Augmentin she reported mild nausea from clavulanic acid however other antibiotics she listed swelling for reactions. Will send prescription to patient's pharmacy for Augmentin 875 mg twice daily for the next 7 days. She has no urinary symptoms at
this time.
Original Note:
History of Present Illness
General
Chief Complaint: Fall
Source: patient
Exam Limitations: none
Time Seen by Provider: 02/16/24 15:44
Nursing documentation reviewed up to this point in time: agreed with
History of Present Illness
History of Present Illness:
58-year-old female with past medical history of COPD, gastroparesis, bipolar disorder, chronic migraines, adrenal insufficiency/hypopituitarism, chronic back pain secondary to vertebral compression fracture, frequent falls (syncope?) Who presents
to the emergency room for evaluation after a fall. Patient amanda was just admitted to this hospital 02/07 until 02/12 for syncope and intractable low back pain. She had an admission earlier in January for back pain and hyponatremia. Patient
currently lives at home with her 2 cats. She reports that she was getting up out of her chair today and lost her balance and fell backwards. She landed onto her bottom and back. She is 'not sure' whether she passed out' not sure' whether she hit
her head. She says that she fell shortly after taking her scheduled dose of clonazepam 1 mg which she takes for 'mental health/anxiety.' She says that since her fall she feels her low back pain is worse. She says she does not have a headache or
neck pain. She denies any chest/rib pain or abdominal pain. She denies feeling nauseated. She denies any pain in her extremities. She denies feeling weak or numb in her extremities. She denies any incontinence of bowel or bladder. She denies
any saddle anesthesia. Review of her medication list shows that she has not on any blood thinners but she is on multiple sedating neuropsychiatric medications.
Past History
Past History
ED Past Medical History: Asthma, COPD, Hypothyroidism, Psychiatric (Bipolar disorder, anxiety, PTSD), Other (TMJ dysfunction, migraines, PNA, Sinusitis chronic, Gastroparesis, Hypopituitarism, Orthostatic hypotension) and Other (hypopiititutarism,
adrenal insufficiency)
ED Past Surgical History: Orthopedic (Left thumb and hand surgery, Right wrist surgery, TMJ surgery X 2, Back surgery, ) and Other (cataracts, Vocal cord surgery)
Social History
Tobacco: Non-smoker
Alcohol: None
Drug: None
Personal: Single
Living: alone (dad)
Employment: Not employed
Family History
Family History: Other
Review of Systems
Review of Systems
All Other Systems: ROS reviewed and negative except as documented in HPI and ROS
Constitutional: Denies fever or chills
Respiratory: Denies trouble breathing
Cardiac: Denies chest pain or palpitations
ABD/GI: Denies abdominal pain, nausea, vomiting or diarrhea
: Denies flank pain
Musculoskeletal: Reports back pain; Denies neck pain
Neurological: Denies dizzy, headache, weakness or numbness
Phy Exam
Physical Exam
Physical Exam:
General: A pleasant pink haired woman who appears her stated age, sitting in bed eyes closed and somewhat lethargic but arousable to voice, answers questions appropriately
Head: Normocephalic, atraumatic
Eyes: Conjunctiva normal, pupils approximately 3 mm and reactive to light bilaterally, extraocular movements are intact
Throat: Airway intact, handling secretions
Neck: Trachea midline, no cervical spine tenderness
Lungs: Clear to auscultation bilaterally, no wheezing, rales, rhonchi
Heart: Regular rate and rhythm, no murmurs, gallops, or rubs appreciated; no chest wall tenderness
Abd: Soft, non distended, nontender
Back: No signs of trauma to the back or flank�no abrasions or ecchymosis; she says that she has tenderness to palpation in the upper lumbar spine but does not objectively react to vigorous palpation in the midline of the thoracic or lumbar spine; no
spinal step-offs
Neuro: Lethargic but arousable, cranial nerves grossly intact, speech fluid, no motor or sensory deficits noted
Skin: Scattered bruising on the upper extremities from prior IVs but no signs of acute trauma
Extremities: No reproducible tenderness in the upper or lower extremities, allows for full passive range of motion in all joints of the upper and lower extremities without apparent pain; extremities are warm and well-perfused with palpable pulses in
all extremities
Scores
Heart Failure Risk
Heart Failure Risk Score: Not Applicable
Heart Score for Chest Pain Patients
STEMI patient?: Not applicable
Withdrawal Assessment of Alcohol
Withdrawal Assessment Completed?: Not applicable
Course
Orders/Labs/Results
Orders:
Orders
02/16/24 16:04
CT Lumbar Spine W/o Iv Contras Urgent
Comment:
Reason For Exam: worsening LBP s/p fall
02/16/24 16:05
CT Cervical Spine W/o Iv Contr Urgent
Comment:
Reason For Exam: fall with posterior headstrike
CT Head W/o Iv Contrast Urgent
Comment:
Reason For Exam: fall with posterior headstrike
02/16/24 16:26
Acetaminophen [Tylenol] 1,000 mg PO NOW STA
Lidocaine [Lidocaine 4% Patch] 1 patch TOPICAL ONCE ONE
Apply Lidocaine patch(s) to:: back
02/16/24 16:34
Alcohol Urgent
Basic Metabolic Panel Urgent
COVID-19 Antigen Urgent
Source: Nasal Swab
Complete Blood Count/With Diff Urgent
TSH Reflex To Free T4 Urgent
02/16/24 17:44
Drug Screen, Urine [Urine Drug Abuse Screen] Urgent
Date Specimen was Collected: 02/16/24
Time Specimen was Collected: 17:24
Urinalysis Reflex To Culture Urgent
Date Specimen was Collected: 02/16/24
Time Specimen was Collected: 17:24
Urine Microscopic Reflex Cult Urgent
Urine Culture Urgent
MAXI Source: U
Specimen Description:
Date Specimen was Collected: 02/16/24
Time Specimen was Collected: 17:24
02/16/24 20:34
0.9% Sodium Chloride 1000 ml [Nss] 1,000 ml IV BOLUS
02/16/24 20:46
Gentamicin Sulfate [Gentamicin] 290 mg 0.9% Sodium Chloride [Nss] 50 ml IV NOW
02/16/24 21:44
Case Management Consult ONCE
Case Management Consult: VN/Home Care
Comment: please help coordinate visiting nurse and PT for patient with frequent falls
Abnormal Lab Results
02/16/24 02/16/24
16:34 17:44
WBC 11.4 H 10^3/uL
(4.8-10.8)
RBC 3.04 L 10^6/uL
(4.20-5.40)
Hgb 9.5 L g/dL
(12.0-16.0)
Hct 27.8 L %
(37.0-47.0)
MCH 31.3 H pg
(27.0-31.0)
Abs Immat Gran (auto) 0.1 H 10^3/uL
(0-0.05)
Absolute Neuts (auto) 9.0 H 10^3/uL
(1.4-6.5)
Absolute Lymphs (auto) 1.1 L 10^3/uL
(1.2-3.4)
Absolute Monos (auto) 0.8 H 10^3/uL
(0.1-0.6)
Immature Gran % 0.9 H %
(0-0.5)
Neutrophils % 78.7 H %
(42.2-75.2)
Lymphocytes % 10.0 L %
(20.5-51.1)
Sodium 127 L mmol/L
(135-145)
Chloride 97 L mmol/L
(98-107)
Carbon Dioxide 19 L mmol/L
(22-30)
BUN 27 H mg/dl
(7-17)
Creatinine 1.5 H mg/dL
(0.6-1.0)
Glucose 108 H mg/dl
(70-99)
Ur Occult Blood Reflex Trace A
(Negative)
Leukocyte Esterase Rfl 2+ A
(Negative)
Urine WBC (Reflex) 80-90 A /HPF
(0-5)
Urine Bacteria (Reflex) Many A
(Negative)
02/16/24 16:34
02/16/24 16:34
Vital Signs
Initial and Last Documented VS:
Initial Vital Signs
Temp Pulse Resp BP Pulse Ox
36.4 C 96 16 142/97 100
02/16/24 15:42 02/16/24 15:42 02/16/24 15:42 02/16/24 15:42 02/16/24 15:42
Last Documented Vital Signs
Temp Pulse Resp BP Pulse Ox
36.4 C 93 11 137/84 100
02/16/24 15:42 02/16/24 17:00 02/16/24 17:00 02/16/24 20:16 02/16/24 20:16
MDM/Problems Addressed
Differential Diagnosis Includes:
Back pain: Compression fracture, myofascial strain
Fall: Syncope (vasovagal, dysrhythmia, orthostatic/adrenal insufficiency, etc), polypharmacy (she appears lethargic status post clonazepam which I suspect played a large part in her fall), physical deconditioning after recent hospitalization
MDM/Problems Addressed:
58-year-old female presents to the emergency room for evaluation after a fall�unclear whether there was syncope/loss of consciousness, patient says that she is 'not sure.'. She does appear lethargic and is status post her normal dose of clonazepam
which I suspect is likely responsible for her fall. She has a history of frequent falls and possible syncope in the past including recent admission for such and was worked up extensively for syncope. Her only complaint after the fall is acute on
chronic back pain. She is not sure whether she hit her head denies any headache. She is not on blood thinners but is lethargic. Vitals and exam as above. Will check CT head and cervical spine. Check CT of the lumbar spine. Place an IV send
labs including a CBC and a CMP. Check alcohol and UDS. Will check an EKG. Monitor closely reassess after the above.
Labs reviewed: CBC shows stable anemia, marginal leukocytosis. CMP shows hyponatremia stable from discharge value. She has a mild HANK with a creatinine of 1.5 from baseline of 1. IV fluids in progress. Her urinalysis was positive for infection
with bacteria and pyuria. She has multiple significant antibiotic allergies; review of prior culture shows Klebsiella sensitive to gentamicin and I think it would be reasonable to treat with a one-time dose of gentamicin for this infection. CT
head no acute pathology. CT of the cervical spine no acute pathology. CT lumbar spine shows spinous process fracture L2 and chronic compression fractures. Clinical reassessment patient has normal vitals. She is much more awake than on
presentation. She was treated with Lidoderm and Tylenol and pain seems reasonably controlled. She is agreeable to discharge, feels comfortable going home. I did review results with her including UTI which we treated with gentamicin I also
reviewed her HANK and continued hyponatremia. We spoke about her fluid intake and advised her to increase fluids but to avoid free water�encouraged fluids with electrolytes. I advised her that she needs to follow-up with her primary doctor to
follow-up for repeat blood work. I also put in a consult to case management to reach out to patient tomorrow to help to coordinate visiting nurse and PT. She feels comfortable with this plan. Spoke about return precautions all questions answered.
*Radiology
Radiology exam reviewed: radiology read reviewed
*Pulse Oximetry
Patient hypoxic: no
*EKG
Interpreted by ED Provider?: Yes
Heart Rate: 89
Rate: normal
Rhythm: sinus
[place]: normal axis
Interval: normal interval
QRS Pattern: normal QRS
Ischemia: no ischemia
*Critical Care Note
Total Time (30-74mins, 75-104mins- exclusive of procedures): Not Applicable
Data Reviewed
Review of Other/Old Records Reveals: Labs, Records, Testing and Discharge Summary
Source: patient and records
ED Attending Note
-
Portions of this chart may have been created with voice recognition software.� Occasional wrong word or��sound alike� substitutions may have occurred due to the inherent limitations of voice recognition software.
Discharge Plan
Departure
Patient Disposition: Home (Routine Discharge)
Date of Disposition: 02/16/24
Time of Disposition: 21:56
Patient with high blood pressure during this ER visit?: No
Discharge Problem:
Spinous process fracture, UTI (urinary tract infection), Hyponatremia, HANK (acute kidney injury)
Instructions: Urinary Tract Infection, Adult ED, Vertebral Compression Fracture ED, Hyponatremia
Prescriptions:
No Action
levothyroxine 112 MCG tablet
112 mcg PO DAILY
hydrocortisone 10 MG tablet
15 mg PO HS
hydrocortisone 10 MG tablet
20 mg PO DAILY
lamotrigine 100 MG tablet
100 mg PO BID
oxcarbazepine 300 mg Tablet
300 mg PO BID
ondansetron 8 mg Tablet,Disintegrating
8 mg PO BID
buspirone 10 mg Tablet
10 mg PO TID
Trudhesa 0.725 mg/pump act. (4 mg/mL) [place],Non-Aerosol
1 spray INTRANASAL DAILYPRN PRN (Reason: migraine)
Dupixent Syringe 300 mg/2 mL Syringe
300 mg SC Q2W
Trelegy Ellipta 100-62.5-25 mcg Blister With Device
1 inh INHALATION R DAILY
ziprasidone HCl 80 mg Capsule
80 mg PO BID
trazodone 100 mg Tablet
300 mg PO HS
topiramate 200 mg Tablet
200 mg PO BID
calcium citrate-vitamin D3 [Citracal + D Maximum] 315 mg-6.25 mcg (250 unit) Tablet
1 tab PO DAILY
Fiber Gummies 2 gram Tablet,Chewable
4 g PO DAILY
Aimovig Autoinjector 140 mg/mL Auto-Injector
140 mg SC Q28D
Tyrvaya 0.03 mg/spray [place], Metered, Non-Aerosol
1 spray INTRANASAL BID
cetirizine [Zyrtec] 10 mg Tablet
40 mg PO DAILY
levalbuterol tartrate 45 mcg/actuation Hfa Aerosol Inhaler
1 inh INHALATION R Q6HPRN PRN (Reason: sob/wheezing)
pantoprazole 40 MG tablet,delayed release (DR/EC)
40 mg PO DAILY
Dayvigo 10 mg Tablet
10 mg PO HS
clonazepam 1 MG tablet
1 mg PO TID Qty: 4 0RF
Patient Comments:
12/16/2023: last filled 01/29/24, 90 tabs for 30 days from [facility]
pregabalin 100 mg capsule
100 mg PO BID
Patient Comments:
02/03/2024: last filled 02/02/24, 60 tabs for [facility] days fro [facility]
sodium bicarbonate 650 mg Tablet
650 mg PO TID 3 Days Qty: 9 0RF
acetaminophen 650 mg Tablet Extended Release
1,300 mg PO Q12H PRN (Reason: Pain) Qty: 0 0RF
Referrals:
Carlos Vora MD [Family Provider] - Follow up in 5-7 days
Activity Restrictions/Additional Instructions:
Thank you for visiting the Emergency Department at [facility].
1. Please schedule a follow up appointment as directed. Call first thing tomorrow morning to make an appointment.
2. If indicated, please take your medications as instructed and indicated on discharge paperwork.
3. If any of your symptoms do not improve, or persist, or become more severe within 6-12 hours, please return to the emergency department for further care.
4. Please return to the emergency department if you develop a headache, neck pain/stiffness, fever greater than 100.4F, chest pain, shortness of breath, persistent nausea, vomiting, slurred speech, difficulty walking, numbness/tingling, weakness,
signs of infection or any other symptoms that are worrisome to you.
Please call [phone] if you have any questions.
Interventions
Interventions:
*Risk Screen - Suicide Last Done: 02/16/24 15:52
*General Assessment Last Done: 02/16/24 15:52
*Neglect/Abuse Screening Last Done: 02/16/24 15:52
ED-Musculoskeletal Assessment Last Done: 02/16/24 15:53
ED- Neurological Assessment Last Done: 02/16/24 15:53
ED-Skin Assessment Last Done: 02/16/24 17:29
Discharge Date and Time
Print Language: SIERRA LEONEAN
[2024-02-16] MEDS: TYLENOL 1000 MG PO (16:39)
[2024-02-16 16:47] LABS: % Basophils 0.8 % (0-2); % Eosinophils 2.5 % (0-6); % Immature Granulocytes 0.9 % (0-0.5); % Monocytes 7.1 % (1.7-9.3); % Neutrophils 78.7 % (42.2-75.2); Absolute Basophils 0.1 10^3/uL (0-0.2); Absolute Eosinophils 0.3 10^3/uL (0-0.7); Absolute Immature Granulocytes 0.1 10^3/uL (0-0.05); Absolute Lymphocytes 1.1 10^3/uL (1.2-3.4); Absolute Monocytes 0.8 10^3/uL (0.1-0.6); Hematocrit 27.8 % (37.0-47.0); Hemoglobin 9.5 g/dL (12.0-16.0); Mean Corp Hgb Conc. 34.2 g/dL (33.0-37.0); Mean Corpuscular Hgb 31.3 pg (27.0-31.0); Mean Corpuscular Volume 91.4 fL (81.0-99.0); Mean Platelet Volume 9.8 fL (7.4-10.4); Nucleated Red Blood Cells % 0 %; Platelet Count 237 10^3/uL (130-400); Red Blood Cell Count 3.04 10^6/uL (4.20-5.40); Red Cell Dist. Width 13.7 % (11.5-14.5); White Blood Cell Count 11.4 10^3/uL (4.8-10.8)
[2024-02-16 17:00] VITALS: BP 128/81
[2024-02-16 17:07] LABS: Alcohol None Detected; Blood Urea Nitrogen 27 mg/dl (7-17); Calcium 9.4 mg/dl (8.4-10.2); Carbon Dioxide 19 mmol/L (22-30); Chloride 97 mmol/L (98-107); Estimated Creatinine Clearance 38 ml/min; Glucose 108 mg/dl (70-99); Sodium 127 mmol/L (135-145); eGFR 40.39
[2024-02-16 17:08] LABS: COVID-19 Antigen Negative (Negative)
[2024-02-16 17:37] LABS: TSH Reflex To Free T4 0.49 uIU/ml (0.47-4.68)
[2024-02-16 18:06] LABS: Urine Albumin Negative (Neg - Trace); Urine Bilirubin Negative (Negative); Urine Character Slightly Cloudy (Clear); Urine Color Yellow; Urine Glucose Negative (Negative); Urine Ketone Negative (Negative); Urine Leukocyte 2+ (Negative); Urine Nitrite Negative (Negative); Urine Occult Blood Trace (Negative); Urine Urobilinogen Negative (Neg - 1+)
[2024-02-16 18:16] LABS: Urine Bacteria Many (Negative); Urine Red Blood Cell 0-2 /HPF (0-2); Urine White Cell 80-90 /HPF (0-5)
[2024-02-16 18:30] LABS: Amphetamines Negative (Negative); Barbiturates Negative (Negative); Benzodiazepines Negative (Negative); Buprenorphine Negative (Negative); Cocaine Negative (Negative)
[2024-02-16 18:31] LABS: Marijuana Negative (Negative); Methadone Negative (Negative); Methamphetamines Negative (Negative); Opiates Negative (Negative); Phencyclidine Negative (Negative); Tricyclic Antidepressants Negative (Negative)
[2024-02-16 20:16] VITALS: BP 137/84
--- NOTE | 2024-02-16 20:18 | EDRN ---
Report received, patient went to CT and back, hooked back up to the monitor and aware we are waiting on CT results.
[2024-02-16 21:00] VITALS: BP 122/77
[2024-02-16] MEDS: NSS 1000 IV (21:04)
[2024-02-16] MEDS: GENTAMICIN 57.25 MG IV (21:05)
[2024-02-16 22:00] VITALS: BP 141/91
--- NOTE | 2024-02-17 10:01 | CM ---
CM consult for VN service post discharge
CM confirmed with [facility] pt is active and current with them
Last PT visit was Sun 02/14
== END 2024-02-16 22:28 | disposition home or self-care (01) ==
LOC: EMR 15:40
PROVIDERS: EMERGENCY PHYSICIAN Emergency Medicine; FAMILY PHYSICIAN Internal Medicine
DX: S32.029A Unspecified fracture of second lumbar vertebra, initial encounter for closed fracture (principal); W07.XXXA Fall from chair, initial encounter; N39.0 Urinary tract infection, site not specified; N17.9 Acute kidney failure, unspecified; E87.1 Hypo-osmolality and hyponatremia; J44.89 Other specified chronic obstructive pulmonary disease; K31.84 Gastroparesis; F31.9 Bipolar disorder, unspecified; Z11.52 Encounter for screening for COVID-19
CPT/HCPCS: 99285; 96365; 70450; 72125; 72131; 80048; 80306; 81003; 81015; 82077; 84443; 85025; 87077; 87086; 87186; 87811; 93005

== ENCOUNTER 2024-02-17 00:45 | Emergency (ER) | payer MEDICARE, OTHER, SELFPAY ==
[2024-02-17 00:52] VITALS: BP 155/106
[2024-02-17 04:03] VITALS: BP 139/84
[2024-02-17 04:05] VITALS: BMI 24.7
--- NOTE | 2024-02-17 04:48 | ED.GENMED ---
History of Present Illness
<AKIRA Frederick - Last Filed: 02/17/24 06:35>
General
Chief Complaint: Fall
Source: patient
Time Seen by Provider: 02/17/24 04:48
Nursing documentation reviewed up to this point in time: agreed with
History of Present Illness
History of Present Illness:
a 58 yo female with a PMH of COPD, gastroparesis, bipolar disorder, chronic migraines, adrenal insufficiency/ hypopituitarism, chronic back pain secondary to vertebral compression fracture, and suspected syncope presents to the ED after a fall x 4
hours ago. The patient was just discharged from the ED for a fall that had occurred earlier that day. She stated that she fell shortly after arriveing home from the hospital. She confirmed that she fell on her lowerback and butt. She denies hitting
her head. She stated that all day she has been feeling weak and fatigued and that she 'just twisted and fell' while in her home. She denies and CP, N/V,D,C, UE tenderness.
Past History
<AKIRA Frederick - Last Filed: 02/17/24 06:35>
Past History
ED Past Medical History: Asthma, COPD, Hypothyroidism, Psychiatric (Bipolar disorder, anxiety, PTSD), Other (TMJ dysfunction, migraines, PNA, Sinusitis chronic, Gastroparesis, Hypopituitarism, Orthostatic hypotension) and Other (hypopiititutarism,
adrenal insufficiency)
ED Past Surgical History: Orthopedic (Left thumb and hand surgery, Right wrist surgery, TMJ surgery X 2, Back surgery, ) and Other (cataracts, Vocal cord surgery)
Social History
Tobacco: Non-smoker
Alcohol: None
Drug: None
Personal: Single
Living: alone (dad)
Employment: Not employed
Family History
Family History: Other
Review of Systems
<AKIRA Frederick - Last Filed: 02/17/24 06:35>
Review of Systems
All Other Systems: ROS reviewed and negative except as documented in HPI and ROS
Phy Exam
<AKIRA Frederick - Last Filed: 02/17/24 06:35>
General Physical Exam
General Presentation: well appearing
General age: appears stated age
General Skin: warm, dry and mottled (multiple Left arm ecchymosis )
General Habitus: normal and frail
General Mental: appears intoxicated (somnolent )
Eye Exam
Eye Exam: PERRL
Cardiovascular Exam
Cardiovascular Exam: regular rate/rhythm, no edema, no gallop, no murmur and normal peripheral pulses
Gastrointestinal Exam
Gastrointestinal Exam: normal bowel sounds, non tender and soft
Neurological Exam
Neurological Exam: alert, oriented x3 and other (appears tired and somnolent )
Musculoskeletal Exam
Musculoskeletal Exam: back pain and other (thoracic and lumbar spinal process tenderness, L pelvic tenderness or so than R. Reduced lumbar AROM. Pain with P flexion of lumbar while sitting up. )
Skin Exam
Skin Exam: erythema and mottled (multiple ecchymosis on left extremity from IV )
Course
<AKIRA Frederick - Last Filed: 02/17/24 06:35>
Orders/Labs/Results
Orders:
Orders
02/17/24 05:37
Complete Blood Count/With Diff Urgent
Comprehensive Metabolic Panel Urgent
Abnormal Lab Results
02/17/24
05:37
WBC 12.3 H 10^3/uL
(4.8-10.8)
RBC 2.88 L 10^6/uL
(4.20-5.40)
Hgb 9.2 L g/dL
(12.0-16.0)
Hct 26.5 L %
(37.0-47.0)
MCH 31.9 H pg
(27.0-31.0)
Abs Immat Gran (auto) 0.1 H 10^3/uL
(0-0.05)
Absolute Neuts (auto) 8.5 H 10^3/uL
(1.4-6.5)
Absolute Monos (auto) 0.9 H 10^3/uL
(0.1-0.6)
Immature Gran % 0.7 H %
(0-0.5)
Lymphocytes % 19.4 L %
(20.5-51.1)
Sodium 132 L mmol/L
(135-145)
Carbon Dioxide 20 L mmol/L
(22-30)
BUN 22 H mg/dl
(7-17)
Creatinine 1.4 H mg/dL
(0.6-1.0)
Glucose 110 H mg/dl
(70-99)
Total Bilirubin 0.1 L mg/dl
(0.2-1.3)
Total Protein 5.0 L g/dl
(6.3-8.2)
Albumin 2.9 L g/dl
(3.5-5.0)
02/17/24 05:37
02/17/24 05:37
Vital Signs
Initial and Last Documented VS:
Initial Vital Signs
Temp Pulse Resp BP Pulse Ox
98.2 F 93 16 155/106 97
02/17/24 00:52 02/17/24 00:52 02/17/24 00:52 02/17/24 00:52 02/17/24 00:52
Last Documented Vital Signs
Temp Pulse Resp BP Pulse Ox
98.2 F 80 16 135/86 98
02/17/24 00:52 02/17/24 06:30 02/17/24 06:30 02/17/24 06:30 02/17/24 06:30
Cinthialt;Yuri J. Sami, DO - Last Filed: 02/17/24 06:42>
Orders/Labs/Results
Orders:
Orders
02/17/24 05:37
Complete Blood Count/With Diff Urgent
Comprehensive Metabolic Panel Urgent
Abnormal Lab Results
02/17/24
05:37
WBC 12.3 H 10^3/uL
(4.8-10.8)
RBC 2.88 L 10^6/uL
(4.20-5.40)
Hgb 9.2 L g/dL
(12.0-16.0)
Hct 26.5 L %
(37.0-47.0)
MCH 31.9 H pg
(27.0-31.0)
Abs Immat Gran (auto) 0.1 H 10^3/uL
(0-0.05)
Absolute Neuts (auto) 8.5 H 10^3/uL
(1.4-6.5)
Absolute Monos (auto) 0.9 H 10^3/uL
(0.1-0.6)
Immature Gran % 0.7 H %
(0-0.5)
Lymphocytes % 19.4 L %
(20.5-51.1)
Sodium 132 L mmol/L
(135-145)
Carbon Dioxide 20 L mmol/L
(22-30)
BUN 22 H mg/dl
(7-17)
Creatinine 1.4 H mg/dL
(0.6-1.0)
Glucose 110 H mg/dl
(70-99)
Total Bilirubin 0.1 L mg/dl
(0.2-1.3)
Total Protein 5.0 L g/dl
(6.3-8.2)
Albumin 2.9 L g/dl
(3.5-5.0)
02/17/24 05:37
02/17/24 05:37
Vital Signs
Initial and Last Documented VS:
Initial Vital Signs
Temp Pulse Resp BP Pulse Ox
98.2 F 93 16 155/106 97
02/17/24 00:52 02/17/24 00:52 02/17/24 00:52 02/17/24 00:52 02/17/24 00:52
Last Documented Vital Signs
Temp Pulse Resp BP Pulse Ox
98.2 F 80 16 135/86 98
02/17/24 00:52 02/17/24 06:30 02/17/24 06:30 02/17/24 06:30 02/17/24 06:30
<AKIRA Frederick - Last Filed: 02/17/24 06:35>
MDM/Problems Addressed
Differential Diagnosis Includes:
lumbar vertebral fracture, hip fracture,
<Yuri Gallardo DO - Last Filed: 02/17/24 06:42>
MDM/Problems Addressed
Differential Diagnosis Includes:
lumbar vertebral fracture, hip fracture, hyponatremia
MDM/Problems Addressed:
Fall
<AKIRA Frederick - Last Filed: 02/17/24 06:35>
*Critical Care Note
Total Time (30-74mins, 75-104mins- exclusive of procedures): Not Applicable
<Yuri Gallardo DO - Last Filed: 02/17/24 06:42>
Update Note
Update Note:
Labs noted hemoglobin sodium up, no hip fracture by history
ED Attending Note
<AKIRA Frederick - Last Filed: 02/17/24 06:35>
-
Portions of this chart may have been created with voice recognition software.� Occasional wrong word or��sound alike� substitutions may have occurred due to the inherent limitations of voice recognition software.
<Yuri Gallardo, DO - Last Filed: 02/17/24 06:42>
ED Attending Note
Patient seen and examined by attending physician: Yes
ED Attending Note:
Seen with student examined independently 58-year-old female mental illness recurrent hyponatremia presents after a fall believes she struck her hip, extensive workup yesterday, multiple CAT scans, discharged to home, she tells me she gets [employer]
to help her get her food,
Discharge Plan
Departure
Prescriptions:
No Action
levothyroxine 112 MCG tablet
112 mcg PO DAILY
hydrocortisone 10 MG tablet
15 mg PO HS
hydrocortisone 10 MG tablet
20 mg PO DAILY
lamotrigine 100 MG tablet
100 mg PO BID
oxcarbazepine 300 mg Tablet
300 mg PO BID
ondansetron 8 mg Tablet,Disintegrating
8 mg PO BID
buspirone 10 mg Tablet
10 mg PO TID
Trudhesa 0.725 mg/pump act. (4 mg/mL) [place],Non-Aerosol
1 spray INTRANASAL DAILYPRN PRN (Reason: migraine)
Dupixent Syringe 300 mg/2 mL Syringe
300 mg SC Q2W
Trelegy Ellipta 100-62.5-25 mcg Blister With Device
1 inh INHALATION R DAILY
ziprasidone HCl 80 mg Capsule
80 mg PO BID
trazodone 100 mg Tablet
300 mg PO HS
topiramate 200 mg Tablet
200 mg PO BID
calcium citrate-vitamin D3 [Citracal + D Maximum] 315 mg-6.25 mcg (250 unit) Tablet
1 tab PO DAILY
Fiber Gummies 2 gram Tablet,Chewable
4 g PO DAILY
Aimovig Autoinjector 140 mg/mL Auto-Injector
140 mg SC Q28D
Tyrvaya 0.03 mg/spray [place], Metered, Non-Aerosol
1 spray INTRANASAL BID
cetirizine [Zyrtec] 10 mg Tablet
40 mg PO DAILY
levalbuterol tartrate 45 mcg/actuation Hfa Aerosol Inhaler
1 inh INHALATION R Q6HPRN PRN (Reason: sob/wheezing)
pantoprazole 40 MG tablet,delayed release (DR/EC)
40 mg PO DAILY
Dayvigo 10 mg Tablet
10 mg PO HS
clonazepam 1 MG tablet
1 mg PO TID Qty: 4 0RF
Patient Comments:
12/16/2023: last filled 01/29/24, 90 tabs for 30 days from [facility]
pregabalin 100 mg capsule
100 mg PO BID
Patient Comments:
02/03/2024: last filled 02/02/24, 60 tabs for [facility] fro [facility]
sodium bicarbonate 650 mg Tablet
650 mg PO TID 3 Days Qty: 9 0RF
acetaminophen 650 mg Tablet Extended Release
1,300 mg PO Q12H PRN (Reason: Pain) Qty: 0 0RF
Referrals:
Carlos Vora MD [Family Provider] -
Interventions
Interventions:
*Risk Screen - Suicide Last Done: 02/17/24 00:52
*General Assessment Last Done: 02/17/24 03:55
*Neglect/Abuse Screening Last Done: 02/17/24 03:55
ED- Fall Risk Assessment Last Done: 02/17/24 03:55
*ED COVID-19 Vaccine History Last Done: 02/17/24 03:55
ED-Musculoskeletal Assessment Last Done: 02/17/24 03:55
ED- Neurological Assessment Last Done: 02/17/24 03:55
ED-Skin Assessment Last Done: 02/17/24 03:55
Discharge Date and Time
Print Language: BAHAMIAN
[2024-02-17 05:57] LABS: % Basophils 0.7 % (0-2); % Immature Granulocytes 0.7 % (0-0.5); % Lymphocytes 19.4 % (20.5-51.1); % Monocytes 7.5 % (1.7-9.3); % Neutrophils 68.7 % (42.2-75.2); Absolute Basophils 0.1 10^3/uL (0-0.2); Absolute Eosinophils 0.4 10^3/uL (0-0.7); Absolute Immature Granulocytes 0.1 10^3/uL (0-0.05); Absolute Lymphocytes 2.4 10^3/uL (1.2-3.4); Absolute Monocytes 0.9 10^3/uL (0.1-0.6); Absolute Neutrophils 8.5 10^3/uL (1.4-6.5); Hematocrit 26.5 % (37.0-47.0); Hemoglobin 9.2 g/dL (12.0-16.0); Mean Corp Hgb Conc. 34.7 g/dL (33.0-37.0); Mean Corpuscular Hgb 31.9 pg (27.0-31.0); Mean Platelet Volume 9.7 fL (7.4-10.4); Nucleated Red Blood Cells % 0 %; Platelet Count 237 10^3/uL (130-400); Red Blood Cell Count 2.88 10^6/uL (4.20-5.40); Red Cell Dist. Width 13.6 % (11.5-14.5); White Blood Cell Count 12.3 10^3/uL (4.8-10.8)
[2024-02-17 06:00] LABS: ALT (SGPT) 19 U/L (0-35); AST (SGOT) 22 U/L (14-36); Albumin 2.9 g/dl (3.5-5.0); Alkaline Phosphatase 94 U/L (38-126); Blood Urea Nitrogen 22 mg/dl (7-17); Calcium 9.2 mg/dl (8.4-10.2); Carbon Dioxide 20 mmol/L (22-30); Chloride 103 mmol/L (98-107); Estimated Creatinine Clearance 35 ml/min; Glucose 110 mg/dl (70-99); Potassium 3.5 mmol/L (3.5-5.1); Sodium 132 mmol/L (135-145); Total Bilirubin 0.1 mg/dl (0.2-1.3); eGFR 43.88
[2024-02-17 06:30] VITALS: BP 135/86
[2024-02-17 07:17] VITALS: BP 159/96
== END 2024-02-17 07:30 | disposition home or self-care (01) ==
LOC: EMR 00:45
PROVIDERS: EMERGENCY PHYSICIAN Emergency Medicine; FAMILY PHYSICIAN Internal Medicine
DX: R29.6 Repeated falls (principal); R53.1 Weakness; R53.83 Other fatigue; J44.89 Other specified chronic obstructive pulmonary disease; F31.9 Bipolar disorder, unspecified; E27.40 Unspecified adrenocortical insufficiency; E03.9 Hypothyroidism, unspecified; E23.0 Hypopituitarism; F41.9 Anxiety disorder, unspecified; K31.84 Gastroparesis; I95.1 Orthostatic hypotension
CPT/HCPCS: 80053; 85025; 99283

== ENCOUNTER 2024-02-17 11:38 | Emergency (ER) | payer MEDICARE, OTHER, SELFPAY ==
[2024-02-17 11:42] VITALS: BP 155/107
--- NOTE | 2024-02-17 11:44 | ED.GENMED ---
ED Provider Triage
<Vandana Eller PA-C - Last Filed: 02/17/24 11:49>
-
Patient seen by provider in Triage?: Seen in Triage
Attestation: A medical screening examination has been initiated by a qualified medical provider. Based on the assessment performed at this time, it has been determined that an emergent medical condition may exist and the patient has been informed
that further medical evaluation and possible additional diagnostic testing may be needed.
HPI: 58yoF here after a fall. Fell while getting her purse. Fell backwards and hit head. No LOC. Hx of frequent falls and multiple recent ED visits for the same. Lives alone.
GENERAL: Alert , in no apparent distress
EYE: No visual abnormalities.
NECK: Trachea midline
ENT: No visible abnormalities.
LUNGS: No acute respiratory distress
NEUROLOGICAL: Alert and oriented
SKIN: Skin intact. No visible changes.
MUSCULOSKELETAL: Moving extremities normally
PSYCH: Normal and appropriate interaction.
This is a medical evaluation conducted in person to initiate diagnostic evaluation and provide initial therapeutics. Please see further documentation by the treating clinician.
CT head and cervical spine ordered.
History of Present Illness
<Vandana Eller PA-C - Last Filed: 02/17/24 11:49>
General
Chief Complaint: Fall
Time Seen by Provider: 02/17/24 14:08
<Gurwinder Garcia PA-C - Last Filed: 02/17/24 15:46>
History of Present Illness
History of Present Illness:
58-year-old female presents to the emergency department for evaluation of a mechanical fall with head injury. Patient has been seen in this emergency department numerous times for repeated falls, was seen here earlier this morning due to these
falls as well as last night. This morning had lab work showing no medical abnormalities. 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 Denies loss of conscious. She states she does not
have any safety concerns at home and does not feel she needs any additional resources
Past History
<Vandana Eller PA-C - Last Filed: 02/17/24 11:49>
Past History
ED Past Medical History: Asthma, COPD, Hypothyroidism, Psychiatric (Bipolar disorder, anxiety, PTSD), Other (TMJ dysfunction, migraines, PNA, Sinusitis chronic, Gastroparesis, Hypopituitarism, Orthostatic hypotension) and Other (hypopiititutarism,
adrenal insufficiency)
ED Past Surgical History: Orthopedic (Left thumb and hand surgery, Right wrist surgery, TMJ surgery X 2, Back surgery, ) and Other (cataracts, Vocal cord surgery)
Social History
Tobacco: Non-smoker
Alcohol: None
Drug: None
Personal: Single
Living: alone (dad)
Employment: Not employed
Family History
Family History: Other
Review of Systems
<Gurwinder Garcia PA-C - Last Filed: 02/17/24 15:46>
Review of Systems
Allergies reviewed?: Yes
All Other Systems: ROS reviewed and negative except as documented in HPI and ROS
Phy Exam
<Gurwinder Garcia PA-C - Last Filed: 02/17/24 15:46>
Physical Exam
Physical Exam:
GEN: Well appearing, NAD, WDWN
HEENT: Normocephalic and atraumatic, no hematoma or lacerations oral mucosa moist, no scleral icterus
Cardiac: Regular rate
Lung: No respiratory distress, no tachypnea
MSK: No gross deformity or injuries
Skin: Good color, no pallor or jaundice, no rashes
Neuro: AO x3, moves all extremities freely
Psych: Calm, cooperative
Course
<Vandana Eller PA-C - Last Filed: 02/17/24 11:49>
Orders/Labs/Results
Orders:
Orders
02/17/24 11:48
CT Cervical Spine W/o Iv Contr Urgent
Comment:
Reason For Exam: fall, head injury
CT Head W/o Iv Contrast Urgent
Comment:
Reason For Exam: fall, head injury
Vital Signs
Initial and Last Documented VS:
Initial Vital Signs
Temp Pulse Resp BP Pulse Ox
98 F 92 16 155/107 98
02/17/24 11:42 02/17/24 11:42 02/17/24 11:42 02/17/24 11:42 02/17/24 11:42
Last Documented Vital Signs
Temp Pulse Resp BP Pulse Ox
98 F 97 18 173/99 98
02/17/24 11:42 02/17/24 14:04 02/17/24 14:04 02/17/24 14:04 02/17/24 14:04
<Gurwinder Garcia PA-C - Last Filed: 02/17/24 15:46>
Orders/Labs/Results
Orders:
Orders
02/17/24 11:48
CT Cervical Spine W/o Iv Contr Urgent
Comment:
Reason For Exam: fall, head injury
CT Head W/o Iv Contrast Urgent
Comment:
Reason For Exam: fall, head injury
Vital Signs
Initial and Last Documented VS:
Initial Vital Signs
Temp Pulse Resp BP Pulse Ox
98 F 92 16 155/107 98
02/17/24 11:42 02/17/24 11:42 02/17/24 11:42 02/17/24 11:42 02/17/24 11:42
Last Documented Vital Signs
Temp Pulse Resp BP Pulse Ox
98 F 97 18 173/99 98
02/17/24 11:42 02/17/24 14:04 02/17/24 14:04 02/17/24 14:04 02/17/24 14:04
<Gurwinder Garcia PA-C - Last Filed: 02/17/24 15:46>
MDM/Problems Addressed
MDM/Problems Addressed:
Patient with recurrent falls potentially due to orthostatic hypotension. She denies any need for safety measures at home. CT of the head and cervical spine are negative, labs reviewed from this morning were unremarkable
<Gurwinder Garcia PA-C - Last Filed: 02/17/24 15:46>
*Critical Care Note
Total Time (30-74mins, 75-104mins- exclusive of procedures): Not Applicable
ED Attending Note
<Vandana Eller PA-C - Last Filed: 02/17/24 11:49>
-
Portions of this chart may have been created with voice recognition software.� Occasional wrong word or��sound alike� substitutions may have occurred due to the inherent limitations of voice recognition software.
Discharge Plan
Departure
Patient Disposition: Home (Routine Discharge)
Date of Disposition: 02/17/24
Time of Disposition: 14:07
Patient with high blood pressure during this ER visit?: No
Condition: Good
Discharge Problem:
Multiple falls
Instructions: Preventing falls in adults
Prescriptions:
No Action
levothyroxine 112 MCG tablet
112 mcg PO DAILY
hydrocortisone 10 MG tablet
15 mg PO HS
hydrocortisone 10 MG tablet
20 mg PO DAILY
lamotrigine 100 MG tablet
100 mg PO BID
oxcarbazepine 300 mg Tablet
300 mg PO BID
ondansetron 8 mg Tablet,Disintegrating
8 mg PO BID
buspirone 10 mg Tablet
10 mg PO TID
Trudhesa 0.725 mg/pump act. (4 mg/mL) [place],Non-Aerosol
1 spray INTRANASAL DAILYPRN PRN (Reason: migraine)
Dupixent Syringe 300 mg/2 mL Syringe
300 mg SC Q2W
Trelegy Ellipta 100-62.5-25 mcg Blister With Device
1 inh INHALATION R DAILY
ziprasidone HCl 80 mg Capsule
80 mg PO BID
trazodone 100 mg Tablet
300 mg PO HS
topiramate 200 mg Tablet
200 mg PO BID
calcium citrate-vitamin D3 [Citracal + D Maximum] 315 mg-6.25 mcg (250 unit) Tablet
1 tab PO DAILY
Fiber Gummies 2 gram Tablet,Chewable
4 g PO DAILY
Aimovig Autoinjector 140 mg/mL Auto-Injector
140 mg SC Q28D
Tyrvaya 0.03 mg/spray Ama, Metered, Non-Aerosol
1 spray INTRANASAL BID
cetirizine [Zyrtec] 10 mg Tablet
40 mg PO DAILY
levalbuterol tartrate 45 mcg/actuation Hfa Aerosol Inhaler
1 inh INHALATION R Q6HPRN PRN (Reason: sob/wheezing)
pantoprazole 40 MG tablet,delayed release (DR/EC)
40 mg PO DAILY
Dayvigo 10 mg Tablet
10 mg PO HS
clonazepam 1 MG tablet
1 mg PO TID Qty: 4 0RF
Patient Comments:
12/16/2023: last filled 01/29/24, 90 tabs for 30 days from [facility]
pregabalin 100 mg capsule
100 mg PO BID
Patient Comments:
02/03/2024: last filled 02/02/24, 60 tabs for [facility] days fro [facility]
sodium bicarbonate 650 mg Tablet
650 mg PO TID 3 Days Qty: 9 0RF
acetaminophen 650 mg Tablet Extended Release
1,300 mg PO Q12H PRN (Reason: Pain) Qty: 0 0RF
Referrals:
[facility]order[facility] OB doctor [Other] - Call in 1-3 days for appt
Activity Restrictions/Additional Instructions:
As we discussed, your workup here today shows nothing worrisome.
Call your OB doctor when you get home and inform of the results of today's visit.
Interventions
Interventions:
*Risk Screen - Suicide Last Done: 02/17/24 11:42
*General Assessment Last Done: 02/17/24 11:42
*Neglect/Abuse Screening Last Done: 02/17/24 11:42
ED- Fall Risk Assessment Last Done: 02/17/24 14:00
*ED COVID-19 Vaccine History Last Done: 02/17/24 14:00
*Nursing Disposition Last Done: 02/17/24 14:21
ED- Neurological Assessment Last Done: 02/17/24 14:00
ED-Skin Assessment Last Done: 02/17/24 14:00
Discharge Date and Time
Discharge Date/Time: 02/17/24 14:21
Print Language: YEMENI
[2024-02-17 14:00] VITALS: BMI 18.0
[2024-02-17 14:04] VITALS: BP 173/99
== END 2024-02-17 14:21 | disposition home or self-care (01) ==
LOC: EMR 11:38
PROVIDERS: EMERGENCY PHYSICIAN Emergency Medicine; FAMILY PHYSICIAN Internal Medicine
DX: R29.6 Repeated falls (principal); W19.XXXA Unspecified fall, initial encounter; J44.89 Other specified chronic obstructive pulmonary disease; E03.9 Hypothyroidism, unspecified; F31.9 Bipolar disorder, unspecified; F41.9 Anxiety disorder, unspecified; K31.84 Gastroparesis; E27.40 Unspecified adrenocortical insufficiency; Z60.2 Problems related to living alone
CPT/HCPCS: 99284; 70450; 72125

== ENCOUNTER 2024-02-18 14:20 | Emergency (ER) | payer MEDICARE, OTHER, SELFPAY ==
[2024-02-18 14:20] VITALS: BP 150/89
--- NOTE | 2024-02-18 15:52 | ED.GENMED ---
Addendum entered and electronically signed by FREDERICK Almaguer 02/19/24 13:33:
Patient's urinalysis from February 15 visit shows Klebsiella. She received 1 dose of gentamicin however will DC on cefdinir. I did speak with patient home and reviewed her allergy list she denies having allergy to cephalosporins. She is
asymptomatic she does mention that she has chronic back pain. Will send prescription to pharmacy.
Original Note:
History of Present Illness
General
Chief Complaint: Back Pain
Source: patient
Exam Limitations: none
Time Seen by Provider: 02/18/24 15:47
Nursing documentation reviewed up to this point in time: agreed with
History of Present Illness
History of Present Illness:
58-year-old female presenting to the emergency department via EMS for evaluation of chronic back pain. Patient reports worsening pain last night�unable to cook herself dinner due to pain. Patient denies any additional falls since yesterday.
Patient denies any fever, chills, abdominal pain, numbness/tingling lower extremities, weakness. Patient denies any bowel/bladder incontinence or groin paresthesias. Patient denies any chest pain or shortness of breath.
Patient does follow with pain management at [facility]. Currently she is taking Lyrica which she states does not help pain. Patient is allergic to 'all opioids'.
This is patient's sixth visit to the emergency department in the past 2 weeks.
Past History
Past History
ED Past Medical History: Asthma, COPD, Hypothyroidism, Psychiatric (Bipolar disorder, anxiety, PTSD), Other (TMJ dysfunction, migraines, PNA, Sinusitis chronic, Gastroparesis, Hypopituitarism, Orthostatic hypotension) and Other (hypopiititutarism,
adrenal insufficiency)
ED Past Surgical History: Orthopedic (Left thumb and hand surgery, Right wrist surgery, TMJ surgery X 2, Back surgery, ) and Other (cataracts, Vocal cord surgery)
Social History
Tobacco: Non-smoker
Alcohol: None
Drug: None
Personal: Single
Living: alone (dad)
Employment: Not employed
Family History
Family History: Other
Review of Systems
Review of Systems
Allergies reviewed?: Yes
All Other Systems: ROS reviewed and negative except as documented in HPI and ROS
Phy Exam
Physical Exam
Physical Exam:
Vitals: Hypertensive, otherwise vital signs stable. Afebrile
General: Patient is sleeping comfortably on my exam. Nontoxic-appearing
Skin: Warm and dry, no rashes or lesions
Head: Normocephalic, atraumatic
Eyes: Sclera nonicteric. EOMs intact. No nystagmus.
Throat: Protecting airway
Neck: Normal ROM, no cervical spine tenderness, no meningismus
Cardiac: Regular rate and rhythm, no murmurs.
Pulm: Normal respiratory effort, no wheezes, rales, rhonchi heard on exam.
Abdomen: No abdominal tenderness. No CVA tenderness
Back: Point tenderness to midline lumbar spine near level of L2/L3. No rash or ecchymoses.
Extremities: No evidence of cyanosis or edema. Palpable distal pulses. Never straight leg raise bilaterally
Neuro: AAOx3. No focal neurologic deficits. Strength 5 out of 5 in upper and lower extremities. Sensation fully intact. Fluid speech
Psychiatric: Normal affect.
Course
Orders/Labs/Results
Orders:
Orders
02/18/24 16:26
Acetaminophen [Tylenol] 1,000 mg PO NOW STA
02/18/24 16:27
PT Consult [Pt Eval And Treat] Urgent
Activity Level: As Tolerated
02/18/24 17:27
Case Management Consult ONCE
Case Management Consult: [facility]
Comment: Home PT
Vital Signs
Initial and Last Documented VS:
Initial Vital Signs
Temp Pulse Resp BP Pulse Ox
98 F 89 18 150/89 100
02/18/24 14:20 02/18/24 14:20 02/18/24 14:20 02/18/24 14:20 02/18/24 14:20
Last Documented Vital Signs
Temp Pulse Resp BP Pulse Ox
98 F 89 18 150/89 100
02/18/24 14:20 02/18/24 14:20 02/18/24 14:20 02/18/24 14:20 02/18/24 14:20
MDM/Problems Addressed
Differential Diagnosis Includes:
Not limited to: Chronic back pain, radiculopathy, polypharmacy, failure to thrive, etc.
MDM/Problems Addressed:
58-year-old female with known history of vertebral fractures presenting to the emergency department with chronic back pain. Patient with 6 visits in the past 2 weeks, 3 in the past 2 days for similar symptoms. No change in symptoms. No new fall
or head trauma. No red flag back pain symptoms. Vital stable. Patient afebrile. Exam as above. Patient sleeping comfortably on my exam. She does have reproducible tenderness to midline lumbar spine. There are no neurologic deficits. Patient
has excellent strength in bilateral upper and lower extremities. Sensation fully intact. No evidence of head or neck trauma. Patient given dose of Tylenol emergency department. Offered lidocaine patch�which she declined. Patient reports
allergies to all opioids.
Given patient without any recent falls since last visit�no indication for further imaging at this time. Patient did have lab work drawn yesterday in the emergency department which have been reviewed. Labs appear stable. No indication for repeat
labs at this time. Did consult physical therapy to come down evaluate patient. Was present for patient's evaluation and patient was ambulating through department essentially independently with very mild support. PT recommendation was for at home
PT. Case management was consulted although unfortunately they were gone for the evening. Did leave voicemail to have them hopefully set up PT at home tomorrow. Patient declining all acute rehab placement. No indication for admission at this
time. Lengthy discussion with patient regarding following with pain management doctor At [facility]. Patient comfortable with discharge home at this time with plan for hopeful at home PT. Return precautions discussed with patient at length. Advised to
continue with current pain regimen at home. Case discussed with attending physician.
Chronic conditions affecting care:
Chronic compression fractures lower spine
Acute Exacerbation and/or Progression of Chronic Illness:
Acute on chronic back pain
*Pulse Oximetry
Patient hypoxic: no
*EKG
Interpreted by ED Provider?: NA
*Cloth Shrinker Interpretation
Rate: Cloth Shrinker- N/A
*Critical Care Note
Total Time (30-74mins, 75-104mins- exclusive of procedures): Not Applicable
Data Reviewed
Review of Other/Old Records Reveals: Radiology Studies (Head and cervical spine CT performed yesterday, 02/17/2024 without any acute findings; basic labs obtained yesterday-stable)
Patient Management
Discussion with other providers: Other (PT)
ED Attending Note
-
Portions of this chart may have been created with voice recognition software.� Occasional wrong word or��sound alike� substitutions may have occurred due to the inherent limitations of voice recognition software.
Discharge Plan
Departure
Patient Disposition: Home (Routine Discharge)
Date of Disposition: 02/18/24
Time of Disposition: 17:18
Patient with high blood pressure during this ER visit?: Yes
Condition: Good
Covid-19: Not Applicable
Discharge Problem:
Chronic back pain
Instructions: Low Back Pain (DC), Vertebral Compression Fracture (DC), BLOOD PRESSURE
Prescriptions:
No Action
hydrocortisone 10 MG tablet
15 mg PO HS
hydrocortisone 10 MG tablet
20 mg PO DAILY
lamotrigine 100 MG tablet
100 mg PO DAILY
oxcarbazepine 300 mg Tablet
300 mg PO BID
ondansetron 8 mg Tablet,Disintegrating
8 mg PO DAILY
buspirone 10 mg Tablet
10 mg PO TID
Trudhesa 0.725 mg/pump act. (4 mg/mL) [place],Non-Aerosol
1 spray INTRANASAL DAILYPRN PRN (Reason: migraine)
Dupixent Syringe 300 mg/2 mL Syringe
300 mg SC Q2W
Trelegy Ellipta 100-62.5-25 mcg Blister With Device
1 inh INHALATION R DAILY
ziprasidone HCl 80 mg Capsule
80 mg PO BID
trazodone 100 mg Tablet
300 mg PO HS
topiramate 200 mg Tablet
200 mg PO BID
calcium citrate-vitamin D3 [Citracal + D Maximum] 315 mg-6.25 mcg (250 unit) Tablet
1 tab PO DAILY
Aimovig Autoinjector 140 mg/mL Auto-Injector
140 mg SC Q28D
Tyrvaya 0.03 mg/spray [place], Metered, Non-Aerosol
1 spray INTRANASAL BID
cetirizine [Zyrtec] 10 mg Tablet
40 mg PO DAILY
levalbuterol tartrate 45 mcg/actuation Hfa Aerosol Inhaler
1 inh INHALATION R Q6HPRN PRN (Reason: sob/wheezing)
pantoprazole 40 MG tablet,delayed release (DR/EC)
40 mg PO DAILY
Dayvigo 10 mg Tablet
10 mg PO HS
clonazepam 1 MG tablet
1 mg PO TID Qty: 4 0RF
Patient Comments:
02/18/2024: last filled 01/29/24, 90 tabs for 30 days from [facility]
sennosides [senna] 8.6 mg Tablet
8.6 mg PO DAILYPRN PRN (Reason: constipation)
lamotrigine 200 mg Tablet
200 mg PO QPM
polyethylene glycol 3350 [Miralax] 17 gram Powder In Packet
17 g PO DAILY
torsemide 10 mg Tablet
10 mg PO DAILY
famotidine 20 mg Tablet
20 mg PO BID
docusate sodium [Colace] 100 mg Capsule
100 mg PO BIDPRN PRN (Reason: constipation)
gabapentin 300 mg Capsule
300 mg PO TID
pregabalin 75 mg Capsule
75 mg PO TID
cholecalciferol (vitamin D3) [Vitamin D3] 125 mcg (5,000 unit) Tablet
125 mcg PO DAILY
acetaminophen 650 mg tablet extended release
1,300 mg PO [id number] PRN (Reason: mild pain)
Referrals:
Carlos Vora MD [Family Provider] - Follow up in 5-7 days
Activity Restrictions/Additional Instructions:
RETURN TO THE EMERGENCY DEPARTMENT WITH ANY FEVERS, CHEST PAIN, SHORTNESS OF BREATH, NUMBNESS/TINGLING IN LOWER EXTREMITIES, LOSS OF BOWEL/BLADDER CONTROL, OR OTHER CONCERNS
-As discussed/it is very important that you follow closely with your pain management doctor at [facility]. You should continue to take medication as prescribed. You can take Tylenol and use lidocaine patches at home as needed. You should not exceed
more than 4000 mg of Tylenol per day.
-It is important to stay well-hydrated.
-As discussed�I have reached out to case management to help arrange at home physical therapy for you.
-Follow-up with your primary care for further evaluation/manage
Monitor your symptoms closely return to the emergency department with any acute worsening/new symptoms
Interventions
Interventions:
*Risk Screen - Suicide Last Done: 02/18/24 14:29
*General Assessment Last Done: 02/18/24 14:29
*Neglect/Abuse Screening Last Done: 02/18/24 14:29
ED- Fall Risk Assessment Last Done: 02/18/24 17:48
*ED COVID-19 Vaccine History Last Done: 02/18/24 14:34
*Nursing Disposition Last Done: 02/18/24 17:48
ED-Musculoskeletal Assessment Last Done: 02/18/24 17:49
Discharge Date and Time
Discharge Date/Time: 02/18/24 17:49
Print Language: MOROCCAN
[2024-02-18] MEDS: TYLENOL 1000 MG PO (16:30)
--- NOTE | 2024-02-19 08:48 | CM ---
CM received a consult for home physical therapy. CM updated [facility] patient liaison with ER visit and PT recommendations. Patient is on service with [facility] at this time.
== END 2024-02-18 17:49 | disposition home or self-care (01) ==
LOC: EMR 14:20
PROVIDERS: EMERGENCY PHYSICIAN Emergency Medicine; FAMILY PHYSICIAN Internal Medicine
DX: G89.29 Other chronic pain (principal); M54.9 Dorsalgia, unspecified; R03.0 Elevated blood-pressure reading, without diagnosis of hypertension
CPT/HCPCS: 99283

== ENCOUNTER 2024-02-24 00:04 | Emergency (ER) | payer MEDICARE, OTHER, SELFPAY ==
[2024-02-24 00:10] VITALS: BP 158/104
[2024-02-24 02:17] VITALS: BP 168/99
--- NOTE | 2024-02-24 02:27 | ED.GENMED ---
History of Present Illness
<AKIRA Alfonso - Last Filed: 02/24/24 04:11>
General
Chief Complaint: Back Pain
Source: patient
Exam Limitations: none
Time Seen by Provider: 02/24/24 02:27
Nursing documentation reviewed up to this point in time: agreed with
History of Present Illness
History of Present Illness:
Patient is a 58yo F w/ PMH of multiple spine fx who presents w/ worsening chronic back pain. This is her 7th visit to ED in past 2.5wks. She follows w/ pain management at [facility] but states the medication does not help. She reports constant back pain
that is worsening. Occasional shooting pain is 10/10. Pain starting to radiate down R leg. Worst at thoracolumbar level. Denies numbness/tingling, NGUYEN, dizziness, or loss of bowel/bladder control.
Past History
<AKIRA Alfonso - Last Filed: 02/24/24 04:11>
Past History
ED Past Medical History: Asthma, COPD, Hypothyroidism, Psychiatric (Bipolar disorder, anxiety, PTSD), Other (TMJ dysfunction, migraines, PNA, Sinusitis chronic, Gastroparesis, Hypopituitarism, Orthostatic hypotension) and Other (hypopiititutarism,
adrenal insufficiency)
ED Past Surgical History: Orthopedic (Left thumb and hand surgery, Right wrist surgery, TMJ surgery X 2, Back surgery, ) and Other (cataracts, Vocal cord surgery)
Social History
Tobacco: Non-smoker
Alcohol: None
Drug: None
Personal: Single
Living: alone (dad)
Employment: Not employed
Family History
Family History: Other
Review of Systems
<AKIRA Alfonso - Last Filed: 02/24/24 04:11>
Review of Systems
Constitutional: Denies fever, fatigue or chills
EENT: Denies sore throat or runny nose
Respiratory: Denies cough or trouble breathing
Cardiac: Denies chest pain or palpitations
ABD/GI: Denies abdominal pain, nausea, vomiting, diarrhea or constipated
: Denies dysuria or incontinence
Musculoskeletal: Reports muscle pain, muscle stiffness and back pain
Neurological: Denies dizzy, headache, weakness or numbness
Phy Exam
<AKIRA Alfonso - Last Filed: 02/24/24 04:11>
General Physical Exam
General Presentation: no apparent distress
General age: appears older than age
General Skin: warm and dry
General Habitus: normal
General Mental: alert
Cardiovascular Exam
Cardiovascular Exam: regular rate/rhythm, no edema, no gallop and no murmur
Pulmonary Exam
Pulmonary Exam: lungs clear, no respiratory distress, no rales, no crackles, no rhonchi and no wheezing
Neurological Exam
Neurological Exam: alert, no motor deficits, no sensory deficits and speech normal
Musculoskeletal Exam
Musculoskeletal Exam: full ROM (painful ) and no edema
Course
<AKIRA Alfonso - Last Filed: 02/24/24 04:11>
Orders/Labs/Results
Orders:
Orders
02/24/24 02:55
Ketorolac [Toradol] 30 mg IM NOW STA
Vital Signs
Initial and Last Documented VS:
Initial Vital Signs
Temp Pulse Resp BP Pulse Ox
97.5 F 92 22 158/104 97
02/24/24 00:10 02/24/24 00:10 02/24/24 00:10 02/24/24 00:10 02/24/24 00:10
Last Documented Vital Signs
Temp Pulse Resp BP Pulse Ox
97.5 F 92 22 139/91 95
02/24/24 00:10 02/24/24 00:10 02/24/24 00:10 02/24/24 03:00 02/24/24 03:00
<Janny Monterroso DO - Last Filed: 02/24/24 03:08>
Orders/Labs/Results
Orders:
Orders
02/24/24 02:55
Ketorolac [Toradol] 30 mg IM NOW STA
Vital Signs
Initial and Last Documented VS:
Initial Vital Signs
Temp Pulse Resp BP Pulse Ox
97.5 F 92 22 158/104 97
02/24/24 00:10 02/24/24 00:10 02/24/24 00:10 02/24/24 00:10 02/24/24 00:10
Last Documented Vital Signs
Temp Pulse Resp BP Pulse Ox
97.5 F 92 22 139/91 95
02/24/24 00:10 02/24/24 00:10 02/24/24 00:10 02/24/24 03:00 02/24/24 03:00
<AKIRA Alfonso - Last Filed: 02/24/24 04:11>
MDM/Problems Addressed
Differential Diagnosis Includes:
exacerbation of chronic pain, lumbar strain
<AKIRA Alfonso - Last Filed: 02/24/24 04:11>
*Critical Care Note
Total Time (30-74mins, 75-104mins- exclusive of procedures): Not Applicable
ED Attending Note
<AKIRA Alfonso - Last Filed: 02/24/24 04:11>
-
Portions of this chart may have been created with voice recognition software.� Occasional wrong word or��sound alike� substitutions may have occurred due to the inherent limitations of voice recognition software.
<Janny Monterroso DO - Last Filed: 02/24/24 03:08>
ED Attending Note
Patient seen and examined by attending physician: Yes
I performed a history and physical exam of patient and discussed management with resident, I reviewed resident's note and agree with documented findings and plan of care.: Yes
ED Attending Note:
This is a 58-year-old woman who presents to the ED with concerns for chronic ongoing back pain. This is her seventh visit to this ER in the past 2 weeks. She does have history of vertebral compression fractures, multiple recent visits after
suffering multiple falls with extensive, repeated imaging all of which have showed no acute fractures.
She does follow with pain management at [facility] and she has a telehealth appointment with pain management scheduled for 11:30 AM today.
At last ED visit February 17 she was evaluated by physical therapy who recommended home physical therapy for gait training and strength training. There was no indication for acute hospitalization nor acute SNF care. A consult for case management
was placed to help arrange for home physical therapy. Patient states thus far she has not received a call.
Since that ED visit February 17 patient admits that she has had no recurrent falls.
She has been working with pain management to find a pain medication that works for her. Currently prescribed Lyrica which she states has not been helpful. She denies radicular pain nor weakness nor numbness. No abdominal pain.
No difficulty moving her bowels or bladder.
GENERAL: 58-year-old woman appears somewhat older than stated age, awake and alert, exhibits of moderately blunted affect overall appears in no acute distress.
EYE: anicteric
NECK: Supple, nontender, no meningismus, no significant adenopathy.
ENT: oral mucosa is moist. No rhinorrhea.
CARDIAC: Regular rate and rhythm. no murmur.
LUNGS: Clear breath sounds bilaterally, no acute respiratory distress, no wheezes/rales/rhonchi
ABDOMEN: Soft, nondistended, without focal tenderness, no r/g, no cvat. normoactive BS.
BACK: No midline bony tenderness. Mild paralumbar muscular tenderness to palpation. Straight leg raising is negative bilaterally.
NEUROLOGICAL: Alert and oriented x3, no focal neuro deficits. Motor strength is 5/5 bilaterally. Gross sensation is intact.
SKIN: Warm and dry, normal color, skin intact. No rash.
MUSCULOSKELETAL: No C/C/E. peripheral pulses are full and equal b/l. No palpable tenderness.
PSYCH: Moderately blunted affect. Cooperative.
Patient presents with ongoing chronic back pain with multiple ED visits for similar complaints.
She does have history of frequent falls but has had no recurrent falls since February 16.
Was evaluated by physical therapy February 17 and patient was witnessed to ambulate independently. No indication for inpatient PT nor acute hospitalization.
Reported allergic to all opioids.
She does have history of renal insufficiency thus long-term NSAIDs are avoided but she has done well with sporadic one-time dose of Toradol which will be given today.
Clinically well in appearance. Appears euvolemic.
No indication for imaging nor laboratory studies at this time.
Encouraged to follow-up with pain management as already scheduled 11:30 AM today and follow-up with PCP as well.
Discharge Plan
Departure
Patient Disposition: Home (Routine Discharge)
Date of Disposition: 02/24/24
Time of Disposition: 02:57
Patient with high blood pressure during this ER visit?: Yes
Condition: Good
Discharge Problem:
Chronic low back pain
Instructions: Chronic pain, BLOOD PRESSURE
Prescriptions:
No Action
hydrocortisone 10 MG tablet
15 mg PO HS
hydrocortisone 10 MG tablet
20 mg PO DAILY
lamotrigine 100 MG tablet
100 mg PO DAILY
oxcarbazepine 300 mg Tablet
300 mg PO BID
ondansetron 8 mg Tablet,Disintegrating
8 mg PO DAILY
buspirone 10 mg Tablet
10 mg PO TID
Trudhesa 0.725 mg/pump act. (4 mg/mL) [place],Non-Aerosol
1 spray INTRANASAL DAILYPRN PRN (Reason: migraine)
Dupixent Syringe 300 mg/2 mL Syringe
300 mg SC Q2W
Trelegy Ellipta 100-62.5-25 mcg Blister With Device
1 inh INHALATION R DAILY
ziprasidone HCl 80 mg Capsule
80 mg PO BID
trazodone 100 mg Tablet
300 mg PO HS
topiramate 200 mg Tablet
200 mg PO BID
calcium citrate-vitamin D3 [Citracal + D Maximum] 315 mg-6.25 mcg (250 unit) Tablet
1 tab PO DAILY
Aimovig Autoinjector 140 mg/mL Auto-Injector
140 mg SC Q28D
Tyrvaya 0.03 mg/spray [place], Metered, Non-Aerosol
1 spray INTRANASAL BID
cetirizine [Zyrtec] 10 mg Tablet
40 mg PO DAILY
levalbuterol tartrate 45 mcg/actuation Hfa Aerosol Inhaler
1 inh INHALATION R Q6HPRN PRN (Reason: sob/wheezing)
pantoprazole 40 MG tablet,delayed release (DR/EC)
40 mg PO DAILY
Dayvigo 10 mg Tablet
10 mg PO HS
clonazepam 1 MG tablet
1 mg PO TID Qty: 4 0RF
Patient Comments:
02/18/2024: last filled 01/29/24, 90 tabs for 30 days from [facility]
sennosides [senna] 8.6 mg Tablet
8.6 mg PO DAILYPRN PRN (Reason: constipation)
lamotrigine 200 mg Tablet
200 mg PO QPM
polyethylene glycol 3350 [Miralax] 17 gram Powder In Packet
17 g PO DAILY
torsemide 10 mg Tablet
10 mg PO DAILY
famotidine 20 mg Tablet
20 mg PO BID
docusate sodium [Colace] 100 mg Capsule
100 mg PO BIDPRN PRN (Reason: constipation)
gabapentin 300 mg Capsule
300 mg PO TID
pregabalin 75 mg Capsule
75 mg PO TID
cholecalciferol (vitamin D3) [Vitamin D3] 125 mcg (5,000 unit) Tablet
125 mcg PO DAILY
acetaminophen 650 mg tablet extended release
1,300 mg PO [id number] PRN (Reason: mild pain)
cefdinir 300 mg capsule
300 mg PO BID Qty: 14 0RF
Referrals:
Carlos Vora MD [Family Provider] - Call in 1-3 days for appt
Activity Restrictions/Additional Instructions:
Follow-up with pain management as scheduled today.
Follow-up with your primary care physician for recheck as well.
Interventions
Interventions:
*Risk Screen - Suicide Last Done: 02/24/24 00:10
*Neglect/Abuse Screening Last Done: 02/24/24 00:10
ED-Musculoskeletal Assessment Last Done: 02/24/24 03:15
Discharge Date and Time
Print Language: ROMANIAN
[2024-02-24 03:00] VITALS: BP 139/91
[2024-02-24] MEDS: TORADOL 30 MG IM (03:12)
== END 2024-02-24 04:00 | disposition home or self-care (01) ==
LOC: EMR 00:04
PROVIDERS: EMERGENCY PHYSICIAN Emergency Medicine; FAMILY PHYSICIAN Internal Medicine
DX: G89.29 Other chronic pain (principal); M54.50 Low back pain, unspecified; R03.0 Elevated blood-pressure reading, without diagnosis of hypertension
CPT/HCPCS: 99284; 96372

== ENCOUNTER 2024-03-01 05:14 | Emergency (ER) | payer MEDICARE, OTHER, SELFPAY ==
[2024-03-01 05:17] VITALS: BP 168/99
[2024-03-01 05:33] VITALS: BMI 19.3
--- NOTE | 2024-03-01 06:19 | ED.GENMED ---
History of Present Illness
General
Chief Complaint: Fall
Time Seen by Provider: 03/01/24 06:04
History of Present Illness
History of Present Illness:
TIME OF INITIAL ENCOUNTER: 6:20 AM
HPI: Patient came in by ambulance after a fall. She said that she got dizzy and then fell. She has chronic back pain. Of note, this is the patient's eighth visit to the Emergency Department this past month. She does have a history of vertebral
compression fractures. She is known to [facility] pain management. She also reports pain at the right hip. She did strike her head however has no evidence of craniofacial trauma.
EXAM:
GENERAL: The patient appears somewhat chronically ill and in very mild distress related to pain in the low back
CERVICAL SPINE: No midline c-spine tenderness with very good AROM
HEAD: No evidence of craniofacial trauma
CHEST: No chest wall tenderness, normal heart sounds
LUNGS: Equal lung sounds, no respiratory distress
BACK: There is some mild midline L-spine tenderness
ABDOMEN: No abdominal tenderness, no peritoneal signs
EXTREMITIES: Slightly decreased active range of motion in the lower extremities, no tenderness
NEURO: Good strength all extremities, appropriate mental status, normal speech/language
NUMBER AND COMPLEXITY OF PROBLEMS ADDRESSED AT THE ENCOUNTER
� Chronic conditions affecting care: Chronic back pain, asthma, COPD, hypothyroidism, anxiety, bipolar
� Acute Exacerbation and/or Progression of Chronic Illness: This is an acute exacerbation of chronic problem
� Differential Diagnosis includes: Worsening compression fracture, worsening spinal stenosis, neuroforaminal stenosis, acute compression fracture, hip fracture
AMOUNT AND/OR COMPLEXITY OF DATA TO BE REVIEWED AND ANALYZED
� I performed an independent evaluation of and my interpretation is:
EKG:
CT:
X-rays: X-rays reviewed�chronic compression noted at T12 and L1-2 with no evidence for acute abnormality of the lumbar spine or the right hip
Laboratory Studies:
Other:
� Review of other/old records: I reviewed records, the patient was seen here 02/24/2024 and was given IM Toradol; I reviewed EMS notes
� Clinical information was obtained by an independent historian: None needed
� Prescriptions/Medications Considered but not given:
� Further testing considered but not performed:
RISK OF COMPLICATIONS AND/OR MORBIDITY OR MORTALITY OF PATIENT MANAGEMENT
� Social determinants of health affecting care: Lives at home
� Discussion with other providers:
� Escalation of care including admission/observation vs risk of discharge considered: Will try a one-time dose of Toradol and repeat imaging. The patient states that she is allergic to 'all narcotics'.
ANY OTHER UPDATES:
9:35 AM: I reassessed patient�no new fracture, appears fairly comfortable on reassessment, eating.
Past History
Past History
ED Past Medical History: Asthma, COPD, Hypothyroidism, Psychiatric (Bipolar disorder, anxiety, PTSD), Other (TMJ dysfunction, migraines, PNA, Sinusitis chronic, Gastroparesis, Hypopituitarism, Orthostatic hypotension) and Other (hypopiititutarism,
adrenal insufficiency)
ED Past Surgical History: Orthopedic (Left thumb and hand surgery, Right wrist surgery, TMJ surgery X 2, Back surgery, ) and Other (cataracts, Vocal cord surgery)
Social History
Tobacco: Non-smoker
Alcohol: None
Drug: None
Personal: Single
Living: alone (dad)
Employment: Not employed
Family History
Family History: Other
Phy Exam
Physical Exam
Physical Exam:
See HPI
Course
Orders/Labs/Results
Orders:
Orders
03/01/24 06:27
CR Hip - RT w/wo Pel 2-3 Vw* Urgent
Comment:
Reason For Exam: fall trauma pain
Include a pelvis x-ray?: Yes
CR Lumbar Spine Comp Min 4 Vw* Urgent
Comment:
Reason For Exam: fall trauma
03/01/24 06:30
Ketorolac [Toradol] 30 mg IM NOW STA
03/01/24 09:36
HYDROmorphone [Dilaudid] 1 mg IV NOW STA
Ondansetron Injectable [Zofran] 4 mg IV NOW STA
Vital Signs
Initial and Last Documented VS:
Initial Vital Signs
Temp Pulse Resp BP Pulse Ox
97.9 F 91 14 168/99 97
03/01/24 05:17 03/01/24 05:17 03/01/24 05:17 03/01/24 05:17 03/01/24 05:17
Last Documented Vital Signs
Temp Pulse Resp BP Pulse Ox
97.9 F 91 14 155/96 97
03/01/24 05:17 03/01/24 05:17 03/01/24 05:17 03/01/24 09:00 03/01/24 05:17
*Critical Care Note
Total Time (30-74mins, 75-104mins- exclusive of procedures): Not Applicable
ED Attending Note
-
Portions of this chart may have been created with voice recognition software.� Occasional wrong word or��sound alike� substitutions may have occurred due to the inherent limitations of voice recognition software.
Discharge Plan
Departure
Patient Disposition: Home (Routine Discharge)
Date of Disposition: 03/01/24
Time of Disposition: 09:58
Patient with high blood pressure during this ER visit?: Yes
Discharge Problem:
Low back pain
Instructions: Low Back Pain (DC)
Prescriptions:
No Action
hydrocortisone 10 MG tablet
15 mg PO HS
hydrocortisone 10 MG tablet
20 mg PO DAILY
lamotrigine 100 MG tablet
100 mg PO DAILY
oxcarbazepine 300 mg Tablet
300 mg PO BID
ondansetron 8 mg Tablet,Disintegrating
8 mg PO DAILY
buspirone 10 mg Tablet
10 mg PO TID
Trudhesa 0.725 mg/pump act. (4 mg/mL) [place],Non-Aerosol
1 spray INTRANASAL DAILYPRN PRN (Reason: migraine)
Dupixent Syringe 300 mg/2 mL Syringe
300 mg SC Q2W
Trelegy Ellipta 100-62.5-25 mcg Blister With Device
1 inh INHALATION R DAILY
ziprasidone HCl 80 mg Capsule
80 mg PO BID
trazodone 100 mg Tablet
300 mg PO HS
topiramate 200 mg Tablet
200 mg PO BID
calcium citrate-vitamin D3 [Citracal + D Maximum] 315 mg-6.25 mcg (250 unit) Tablet
1 tab PO DAILY
Aimovig Autoinjector 140 mg/mL Auto-Injector
140 mg SC Q28D
Tyrvaya 0.03 mg/spray [place], Metered, Non-Aerosol
1 spray INTRANASAL BID
cetirizine [Zyrtec] 10 mg Tablet
40 mg PO DAILY
levalbuterol tartrate 45 mcg/actuation Hfa Aerosol Inhaler
1 inh INHALATION R Q6HPRN PRN (Reason: sob/wheezing)
pantoprazole 40 MG tablet,delayed release (DR/EC)
40 mg PO DAILY
Dayvigo 10 mg Tablet
10 mg PO HS
clonazepam 1 MG tablet
1 mg PO TID Qty: 4 0RF
Patient Comments:
02/18/2024: last filled 01/29/24, 90 tabs for 30 days from [facility]
sennosides [senna] 8.6 mg Tablet
8.6 mg PO DAILYPRN PRN (Reason: constipation)
lamotrigine 200 mg Tablet
200 mg PO QPM
polyethylene glycol 3350 [Miralax] 17 gram Powder In Packet
17 g PO DAILY
torsemide 10 mg Tablet
10 mg PO DAILY
famotidine 20 mg Tablet
20 mg PO BID
docusate sodium [Colace] 100 mg Capsule
100 mg PO BIDPRN PRN (Reason: constipation)
gabapentin 300 mg Capsule
300 mg PO TID
pregabalin 75 mg Capsule
75 mg PO TID
cholecalciferol (vitamin D3) [Vitamin D3] 125 mcg (5,000 unit) Tablet
125 mcg PO DAILY
acetaminophen 650 mg tablet extended release
1,300 mg PO [id number] PRN (Reason: mild pain)
cefdinir 300 mg capsule
300 mg PO BID Qty: 14 0RF
Referrals:
Carlos Vora MD [Family Provider] -
Activity Restrictions/Additional Instructions:
We gave a dose of a medicine called Toradol. The x-rays showed no new fracture but does show the old compression fractures. Return here if worse or any other concerns.
Interventions
Interventions:
*Risk Screen - Suicide Last Done: 03/01/24 05:17
*General Assessment Last Done: 03/01/24 05:17
*Neglect/Abuse Screening Last Done: 03/01/24 05:17
ED- Fall Risk Assessment Last Done: 03/01/24 05:39
*ED COVID-19 Vaccine History Last Done: 03/01/24 05:33
ED-Musculoskeletal Assessment Last Done: 03/01/24 05:33
ED- Neurological Assessment Last Done: 03/01/24 05:33
ED-Skin Assessment Last Done: 03/01/24 05:33
Discharge Date and Time
Print Language: MONEGASQUE
[2024-03-01] MEDS: TORADOL 30 MG IM (07:31)
[2024-03-01 07:48] VITALS: BP 182/109
[2024-03-01 08:00] VITALS: BP 173/103
[2024-03-01 09:00] VITALS: BP 155/96
[2024-03-01 10:00] VITALS: BP 175/123
== END 2024-03-01 10:30 | disposition home or self-care (01) ==
LOC: EMR 05:14
PROVIDERS: EMERGENCY PHYSICIAN Emergency Medicine; FAMILY PHYSICIAN Internal Medicine
DX: M54.50 Low back pain, unspecified (principal); G89.29 Other chronic pain; M48.55XA Collapsed vertebra, not elsewhere classified, thoracolumbar region, initial encounter for fracture; J44.89 Other specified chronic obstructive pulmonary disease; E03.9 Hypothyroidism, unspecified
CPT/HCPCS: 96372; 99284; 72110; 73502

== ENCOUNTER 2024-03-27 14:45 | Emergency (ER) | payer MEDICARE, OTHER, SELFPAY ==
[2024-03-27 14:49] VITALS: BMI 20.3
[2024-03-27 15:00] VITALS: BP 127/91
[2024-03-27 15:15] VITALS: BP 127/91
[2024-03-27 15:27] LABS: % Basophils 1.6 % (0-2); % Immature Granulocytes 0.4 % (0-0.5); % Lymphocytes 20.3 % (20.5-51.1); % Monocytes 6.1 % (1.7-9.3); % Neutrophils 68.6 % (42.2-75.2); Absolute Basophils 0.1 10^3/uL (0-0.2); Absolute Eosinophils 0.3 10^3/uL (0-0.7); Absolute Lymphocytes 1.8 10^3/uL (1.2-3.4); Absolute Monocytes 0.6 10^3/uL (0.1-0.6); Absolute Neutrophils 6.1 10^3/uL (1.4-6.5); Hematocrit 33.7 % (37.0-47.0); Hemoglobin 11.2 g/dL (12.0-16.0); Mean Corp Hgb Conc. 33.2 g/dL (33.0-37.0); Mean Corpuscular Hgb 31.7 pg (27.0-31.0); Mean Corpuscular Volume 95.5 fL (81.0-99.0); Mean Platelet Volume 9.6 fL (7.4-10.4); Nucleated Red Blood Cells % 0 %; Platelet Count 306 10^3/uL (130-400); Red Blood Cell Count 3.53 10^6/uL (4.20-5.40); Red Cell Dist. Width 14.2 % (11.5-14.5)
[2024-03-27 15:39] LABS: ALT (SGPT) 16 U/L (0-35); AST (SGOT) 27 U/L (14-36); Alkaline Phosphatase 72 U/L (38-126); Blood Urea Nitrogen 15 mg/dl (7-17); Calcium 9.7 mg/dl (8.4-10.2); Carbon Dioxide 24 mmol/L (22-30); Chloride 97 mmol/L (98-107); Estimated Creatinine Clearance 64 ml/min; Glucose 95 mg/dl (70-99); Potassium 4.8 mmol/L (3.5-5.1); Sodium 133 mmol/L (135-145); Total Bilirubin 0.3 mg/dl (0.2-1.3); Total Protein 6.2 g/dl (6.3-8.2); eGFR > 60.00
[2024-03-27 15:46] LABS: Troponin I < 0.012 ng/ml
--- NOTE | 2024-03-27 15:56 | ED.GENMED ---
History of Present Illness
General
Chief Complaint: Chest Pain
Time Seen by Provider: 03/27/24 15:29
History of Present Illness
History of Present Illness:
Patient presents to the emergency department with cough and fever. Symptoms started about 2 weeks ago. She notes that she has been having a cough productive of green sputum. She endorses some chest pain that she developed today. Notes fever to
101 at home. Denies leg swelling.
Past History
Past History
ED Past Medical History: Asthma, COPD, Hypothyroidism, Psychiatric (Bipolar disorder, anxiety, PTSD), Other (TMJ dysfunction, migraines, PNA, Sinusitis chronic, Gastroparesis, Hypopituitarism, Orthostatic hypotension) and Other (hypopiititutarism,
adrenal insufficiency)
ED Past Surgical History: Orthopedic (Left thumb and hand surgery, Right wrist surgery, TMJ surgery X 2, Back surgery, ) and Other (cataracts, Vocal cord surgery)
Social History
Tobacco: Non-smoker
Alcohol: None
Drug: None
Personal: Single
Living: alone (dad)
Employment: Not employed
Family History
Family History: Other
Phy Exam
Physical Exam
Physical Exam:
GENERAL APPEARANCE: NAD, flat affect, chronically ill-appearing
EYES lids/conjunctiva normal
EARS/NOSE/THROAT Mucous membranes moist, uvula midline without oral pharyngeal erythema, exudate or swelling
HEAD/NECK normocephalic atraumatic, neck is supple.
RESPIRATORY respiratory effort normal, speaks in full sentences, no accessory muscle use. Rales noted to bilateral bases left greater than right
CARDIAC Regular rate and rhythm, no edema.
ABDOMINAL Soft, ND/NT.
MUSCLES/EXTREMITIES No abnormal range of motion, no swelling.
SKIN Warm, pink and dry. No rashes
NEUROLOGICAL Speech is clear and appropriate. Normal level of consciousness. 5/5 strength in all extremities.
PSYCH no SI
Scores
Heart Score for Chest Pain Patients
STEMI patient?: Not applicable
Sepsis
Sepsis Screening
Sepsis Assessment: Sepsis Ruled Out
Sepsis Screen
Sepsis Screen: Sepsis Ruled Out
Date: 03/27/24
Time: 17:13
Course
Orders/Labs/Results
Orders:
Orders
03/27/24 14:48
EKG [Electrocardiogram (*1)] Urgent
Reason for Study: Chest Pain
03/27/24 14:49
EKG- Treatment ONCE
CR Chest - 2 Views Urgent
Comment:
Reason For Exam: suspected infection
03/27/24 15:14
Complete Blood Count/With Diff Urgent
Comprehensive Metabolic Panel Urgent
Troponin I Urgent
Abnormal Lab Results
03/27/24
15:14
RBC 3.53 L 10^6/uL
(4.20-5.40)
Hgb 11.2 L g/dL
(12.0-16.0)
Hct 33.7 L %
(37.0-47.0)
MCH 31.7 H pg
(27.0-31.0)
Lymphocytes % 20.3 L %
(20.5-51.1)
Sodium 133 L mmol/L
(135-145)
Chloride 97 L mmol/L
(98-107)
Total Protein 6.2 L g/dl
(6.3-8.2)
03/27/24 15:14
03/27/24 15:14
Vital Signs
Initial and Last Documented VS:
Initial Vital Signs
Pulse
100
03/27/24 14:55
Last Documented Vital Signs
Temp Pulse Resp BP Pulse Ox
98.1 F 94 12 127/91 98
03/27/24 15:15 03/27/24 16:15 03/27/24 16:15 03/27/24 15:15 03/27/24 16:15
*Critical Care Note
Total Time (30-74mins, 75-104mins- exclusive of procedures): Not Applicable
ED Attending Note
ED Attending Note
ED Attending Note:
Patient presents with persistent cough after treatment for URI with doxycycline. She had 5-day course. She is afebrile here though does report fever at home. She is saturating well on room air. There is no infiltrate on chest x-ray. She has no
leukocytosis or evidence of sepsis. Will continue doxycycline for possible bronchitis given her reported fever and green sputum for another 5 days given her extensive drug allergy list. Though, it does not appear she is developing a significant
infection that would warrant inpatient treatment.
-
Portions of this chart may have been created with voice recognition software.� Occasional wrong word or��sound alike� substitutions may have occurred due to the inherent limitations of voice recognition software.
Discharge Plan
Departure
Patient Disposition: Home (Routine Discharge)
Date of Disposition: 03/27/24
Time of Disposition: 16:43
Patient with high blood pressure during this ER visit?: No
Discharge Problem:
Bronchitis
Instructions: Acute bronchitis
Prescriptions:
New
doxycycline monohydrate 100 mg capsule
100 mg PO BID 5 Days Qty: 10 0RF
No Action
hydrocortisone 10 MG tablet
15 mg PO HS
hydrocortisone 10 MG tablet
20 mg PO DAILY
lamotrigine 100 MG tablet
100 mg PO DAILY
oxcarbazepine 300 mg Tablet
300 mg PO BID
ondansetron 8 mg Tablet,Disintegrating
8 mg PO DAILY
buspirone 10 mg Tablet
10 mg PO TID
Trudhesa 0.725 mg/pump act. (4 mg/mL) [place],Non-Aerosol
1 spray INTRANASAL DAILYPRN PRN (Reason: migraine)
Dupixent Syringe 300 mg/2 mL Syringe
300 mg SC Q2W
Trelegy Ellipta 100-62.5-25 mcg Blister With Device
1 inh INHALATION R DAILY
ziprasidone HCl 80 mg Capsule
80 mg PO BID
trazodone 100 mg Tablet
300 mg PO HS
topiramate 200 mg Tablet
200 mg PO BID
calcium citrate-vitamin D3 [Citracal + D Maximum] 315 mg-6.25 mcg (250 unit) Tablet
1 tab PO DAILY
Aimovig Autoinjector 140 mg/mL Auto-Injector
140 mg SC Q28D
Tyrvaya 0.03 mg/spray [place], Metered, Non-Aerosol
1 spray INTRANASAL BID
cetirizine [Zyrtec] 10 mg Tablet
40 mg PO DAILY
levalbuterol tartrate 45 mcg/actuation Hfa Aerosol Inhaler
1 inh INHALATION R Q6HPRN PRN (Reason: sob/wheezing)
pantoprazole 40 MG tablet,delayed release (DR/EC)
40 mg PO DAILY
Dayvigo 10 mg Tablet
10 mg PO HS
clonazepam 1 MG tablet
1 mg PO TID Qty: 4 0RF
Patient Comments:
02/18/2024: last filled 01/29/24, 90 tabs for 30 days from [facility]
sennosides [senna] 8.6 mg Tablet
8.6 mg PO DAILYPRN PRN (Reason: constipation)
lamotrigine 200 mg Tablet
200 mg PO QPM
polyethylene glycol 3350 [Miralax] 17 gram Powder In Packet
17 g PO DAILY
torsemide 10 mg Tablet
10 mg PO DAILY
famotidine 20 mg Tablet
20 mg PO BID
docusate sodium [Colace] 100 mg Capsule
100 mg PO BIDPRN PRN (Reason: constipation)
gabapentin 300 mg Capsule
300 mg PO TID
pregabalin 75 mg Capsule
75 mg PO TID
cholecalciferol (vitamin D3) [Vitamin D3] 125 mcg (5,000 unit) Tablet
125 mcg PO DAILY
acetaminophen 650 mg tablet extended release
1,300 mg PO [id number] PRN (Reason: mild pain)
cefdinir 300 mg capsule
300 mg PO BID Qty: 14 0RF
Referrals:
Carlos Vora MD [Family Provider] -
Interventions
Interventions:
*Risk Screen - Suicide Last Done: 03/27/24 16:00
*General Assessment Last Done: 03/27/24 16:00
*Neglect/Abuse Screening Last Done: 03/27/24 16:00
ED- Fall Risk Assessment Last Done: 03/27/24 16:00
ED- Cardiac Assessment Last Done: 03/27/24 16:00
Discharge Date and Time
Print Language: ALBANIAN
== END 2024-03-27 19:30 | disposition home or self-care (01) ==
LOC: EMR 14:45
PROVIDERS: Student in an Organized Health Care Education/Training Program; EMERGENCY PHYSICIAN Emergency Medicine; FAMILY PHYSICIAN Internal Medicine
DX: J20.9 Acute bronchitis, unspecified (principal); E03.9 Hypothyroidism, unspecified; E27.40 Unspecified adrenocortical insufficiency; J44.89 Other specified chronic obstructive pulmonary disease; F31.9 Bipolar disorder, unspecified; F41.9 Anxiety disorder, unspecified; F43.10 Post-traumatic stress disorder, unspecified; E23.0 Hypopituitarism; G43.909 Migraine, unspecified, not intractable, without status migrainosus; Z87.01 Personal history of pneumonia (recurrent); K31.84 Gastroparesis; Z88.6 Allergy status to analgesic agent; Z88.1 Allergy status to other antibiotic agents; Z91.041 Radiographic dye allergy status; Z91.012 Allergy to eggs; Z91.011 Allergy to milk products; Z88.5 Allergy status to narcotic agent; Z91.010 Allergy to peanuts; Z91.013 Allergy to seafood; Z88.2 Allergy status to sulfonamides; Z88.8 Allergy status to other drugs, medicaments and biological substances; Z91.018 Allergy to other foods; Z91.048 Other nonmedicinal substance allergy status
CPT/HCPCS: 99283; 71046; 80053; 84484; 85025; 93005

== ENCOUNTER 2024-04-09 19:24 | Emergency (ER) | payer MEDICARE, OTHER, SELFPAY ==
[2024-04-09 19:29] VITALS: BP 125/88
[2024-04-09 19:52] LABS: % Basophils 1.4 % (0-2); % Eosinophils 4.2 % (0-6); % Immature Granulocytes 0.5 % (0-0.5); % Lymphocytes 18.3 % (20.5-51.1); % Monocytes 6.2 % (1.7-9.3); % Neutrophils 69.4 % (42.2-75.2); Absolute Basophils 0.1 10^3/uL (0-0.2); Absolute Eosinophils 0.4 10^3/uL (0-0.7); Absolute Lymphocytes 1.6 10^3/uL (1.2-3.4); Absolute Monocytes 0.6 10^3/uL (0.1-0.6); Absolute Neutrophils 6.1 10^3/uL (1.4-6.5); Hematocrit 34.2 % (37.0-47.0); Hemoglobin 11.2 g/dL (12.0-16.0); Mean Corp Hgb Conc. 32.7 g/dL (33.0-37.0); Mean Corpuscular Volume 97.7 fL (81.0-99.0); Mean Platelet Volume 9.7 fL (7.4-10.4); Nucleated Red Blood Cells % 0 %; Platelet Count 291 10^3/uL (130-400); White Blood Cell Count 8.8 10^3/uL (4.8-10.8)
[2024-04-09 20:08] LABS: ALT (SGPT) 17 U/L (0-35); AST (SGOT) 26 U/L (14-36); Alkaline Phosphatase 61 U/L (38-126); Blood Urea Nitrogen 15 mg/dl (7-17); Calcium 9.5 mg/dl (8.4-10.2); Carbon Dioxide 27 mmol/L (22-30); Chloride 100 mmol/L (98-107); Glucose 122 mg/dl (70-99); Lipase 127 U/L (23-300); Potassium 4.1 mmol/L (3.5-5.1); Sodium 135 mmol/L (135-145); Total Bilirubin 0.2 mg/dl (0.2-1.3); Total Protein 6.2 g/dl (6.3-8.2); eGFR > 60.00
--- NOTE | 2024-04-09 21:26 | ED.GENMED ---
History of Present Illness
General
Chief Complaint: Back Pain
Time Seen by Provider: 04/09/24 20:08
Past History
Past History
ED Past Medical History: Asthma, COPD, Hypothyroidism, Psychiatric (Bipolar disorder, anxiety, PTSD), Other (TMJ dysfunction, migraines, PNA, Sinusitis chronic, Gastroparesis, Hypopituitarism, Orthostatic hypotension) and Other (hypopiititutarism,
adrenal insufficiency)
ED Past Surgical History: Orthopedic (Left thumb and hand surgery, Right wrist surgery, TMJ surgery X 2, Back surgery, ) and Other (cataracts, Vocal cord surgery)
Social History
Tobacco: Non-smoker
Alcohol: None
Drug: None
Personal: Single
Living: alone (dad)
Employment: Not employed
Family History
Family History: Other
Course
Orders/Labs/Results
Orders:
Orders
04/09/24 19:44
Complete Blood Count/With Diff Urgent
Comprehensive Metabolic Panel Urgent
Lipase Urgent
04/09/24 21:01
Obstruct Series W/PA Chest [CR Obstruct Series W/pa Chest] Urgent
Comment:
Reason For Exam: fos
Abnormal Lab Results
04/09/24
19:44
RBC 3.50 L 10^6/uL
(4.20-5.40)
Hgb 11.2 L g/dL
(12.0-16.0)
Hct 34.2 L %
(37.0-47.0)
MCH 32.0 H pg
(27.0-31.0)
MCHC 32.7 L g/dL
(33.0-37.0)
Lymphocytes % 18.3 L %
(20.5-51.1)
Glucose 122 H mg/dl
(70-99)
Total Protein 6.2 L g/dl
(6.3-8.2)
04/09/24 19:44
04/09/24 19:44
Vital Signs
Initial and Last Documented VS:
Initial Vital Signs
Temp Pulse Resp BP Pulse Ox
98.7 F 105 18 125/88 97
04/09/24 19:29 04/09/24 19:29 04/09/24 19:29 04/09/24 19:29 04/09/24 19:29
Last Documented Vital Signs
Temp Pulse Resp BP Pulse Ox
98.7 F 105 20 125/88 97
04/09/24 19:29 04/09/24 19:29 04/09/24 21:17 04/09/24 19:29 04/09/24 19:29
ED Attending Note
-
Portions of this chart may have been created with voice recognition software.� Occasional wrong word or��sound alike� substitutions may have occurred due to the inherent limitations of voice recognition software.
Discharge Plan
Departure
Prescriptions:
No Action
hydrocortisone 10 MG tablet
15 mg PO HS
hydrocortisone 10 MG tablet
20 mg PO DAILY
lamotrigine 100 MG tablet
100 mg PO DAILY
oxcarbazepine 300 mg Tablet
300 mg PO BID
ondansetron 8 mg Tablet,Disintegrating
8 mg PO DAILY
buspirone 10 mg Tablet
10 mg PO TID
Trudhesa 0.725 mg/pump act. (4 mg/mL) [place],Non-Aerosol
1 spray INTRANASAL DAILYPRN PRN (Reason: migraine)
Dupixent Syringe 300 mg/2 mL Syringe
300 mg SC Q2W
Trelegy Ellipta 100-62.5-25 mcg Blister With Device
1 inh INHALATION R DAILY
ziprasidone HCl 80 mg Capsule
80 mg PO BID
trazodone 100 mg Tablet
300 mg PO HS
topiramate 200 mg Tablet
200 mg PO BID
calcium citrate-vitamin D3 [Citracal + D Maximum] 315 mg-6.25 mcg (250 unit) Tablet
1 tab PO DAILY
Aimovig Autoinjector 140 mg/mL Auto-Injector
140 mg SC Q28D
Tyrvaya 0.03 mg/spray [place], Metered, Non-Aerosol
1 spray INTRANASAL BID
cetirizine [Zyrtec] 10 mg Tablet
40 mg PO DAILY
levalbuterol tartrate 45 mcg/actuation Hfa Aerosol Inhaler
1 inh INHALATION R Q6HPRN PRN (Reason: sob/wheezing)
pantoprazole 40 MG tablet,delayed release (DR/EC)
40 mg PO DAILY
Dayvigo 10 mg Tablet
10 mg PO HS
clonazepam 1 MG tablet
1 mg PO TID Qty: 4 0RF
Patient Comments:
02/18/2024: last filled 01/29/24, 90 tabs for 30 days from [facility]
sennosides [senna] 8.6 mg Tablet
8.6 mg PO DAILYPRN PRN (Reason: constipation)
lamotrigine 200 mg Tablet
200 mg PO QPM
polyethylene glycol 3350 [Miralax] 17 gram Powder In Packet
17 g PO DAILY
torsemide 10 mg Tablet
10 mg PO DAILY
famotidine 20 mg Tablet
20 mg PO BID
docusate sodium [Colace] 100 mg Capsule
100 mg PO BIDPRN PRN (Reason: constipation)
gabapentin 300 mg Capsule
300 mg PO TID
pregabalin 75 mg Capsule
75 mg PO TID
cholecalciferol (vitamin D3) [Vitamin D3] 125 mcg (5,000 unit) Tablet
125 mcg PO DAILY
acetaminophen 650 mg tablet extended release
1,300 mg PO [id number] PRN (Reason: mild pain)
cefdinir 300 mg capsule
300 mg PO BID Qty: 14 0RF
doxycycline monohydrate 100 mg capsule
100 mg PO BID 5 Days Qty: 10 0RF
Referrals:
Carlos Vora MD [Family Provider] -
Interventions
Interventions:
*Risk Screen - Suicide Last Done: 04/09/24 19:29
*General Assessment Last Done: 04/09/24 21:18
*Neglect/Abuse Screening Last Done: 04/09/24 19:29
ED- Fall Risk Assessment Last Done: 04/09/24 19:32
*ED COVID-19 Vaccine History Last Done: 04/09/24 19:29
ED-Musculoskeletal Assessment Last Done: 04/09/24 21:17
Discharge Date and Time
Print Language: ARABIC
--- NOTE | 2024-04-09 22:09 | ED.GENMED ---
History of Present Illness
<Harriet Lamb MD, Resident - Last Filed: 04/09/24 23:28>
General
Chief Complaint: Back Pain
Time Seen by Provider: 04/09/24 20:08
History of Present Illness
History of Present Illness:
58 y/o female with complex pmhx presenting to the ED via EMS with abdominal pain and nausea. Patient notes she has had abdominal pain for the past few days but her pain has been progressing. She is feeling nauseous today. Pain is located in the
epigastric region and is aggravated with drinking and eating. Patient has chronic lower back pain and takes daily tylenol for that. Notes tylenol does not help relieve the pain. Denies fever, chest pain, urinary symptoms. Patient states has been
constipated for the past few days and last BM was 5 days ago.
Patient was seen here in the ED a few weeks ago for bronchitis and completed course of antibiotic therapy (doxycycline).
Past History
<Harriet Lamb MD, Resident - Last Filed: 04/09/24 23:28>
Past History
ED Past Medical History: Asthma, COPD, Hypothyroidism, Psychiatric (Bipolar disorder, anxiety, PTSD), Other (TMJ dysfunction, migraines, PNA, Sinusitis chronic, Gastroparesis, Hypopituitarism, Orthostatic hypotension) and Other (hypopituitarism,
adrenal insufficiency)
ED Past Surgical History: Orthopedic (Left thumb and hand surgery, Right wrist surgery, TMJ surgery X 2, Back surgery, ) and Other (cataracts, Vocal cord surgery)
Social History
Tobacco: Non-smoker
Alcohol: None
Drug: None
Personal: Single
Living: alone (dad)
Employment: Not employed
Family History
Family History: Other
Review of Systems
<Harriet Lamb MD, Resident - Last Filed: 04/09/24 23:28>
Review of Systems
Constitutional: Reports no symptoms
EENT: Reports no symptoms
Respiratory: Reports no symptoms
Cardiac: Reports no symptoms
ABD/GI: Reports abdominal pain, nausea and constipated
: Reports no symptoms
Musculoskeletal: Reports no symptoms
Skin: Reports no symptoms
Neurological: Reports no symptoms
Endocrine: Reports no symptoms
Hematologic/Lymphatic: Reports no symptoms
Psychiatric: Reports no symptoms
Phy Exam
<Harriet Lamb MD, Resident - Last Filed: 04/09/24 23:28>
Physical Exam
Physical Exam:
GENERAL: Alert, awake, in no apparent distress.
EYE: Pupils equal and reactive.
NECK: Supple, no significant adenopathy.
ENT: o/p clr, mmm.
CARDIAC: Regular rate and rhythm.
LUNGS: Clear breath sounds bilaterally, no acute respiratory distress, no wheezes/rales/rhonchi.
ABDOMEN: Soft, Mild upper abdominal tenderness, no r/g, no cvat.
NEUROLOGICAL: Alert and oriented, no focal neuro deficits.
SKIN: Warm and dry, skin intact.
MUSCULOSKELETAL: No edema, well perfused.
PSYCH: Appropriate interaction. Flat affect.
Course
<Harriet Lamb MD, Resident - Last Filed: 04/09/24 23:28>
Orders/Labs/Results
Orders:
Orders
04/09/24 19:44
Complete Blood Count/With Diff Urgent
Comprehensive Metabolic Panel Urgent
Lipase Urgent
04/09/24 21:01
Obstruct Series W/PA Chest [CR Obstruct Series W/pa Chest] Urgent
Comment:
Reason For Exam: fos
04/09/24 22:02
Magnesium Citrate [Citroma] 300 ml PO ONCE ONE
Abnormal Lab Results
04/09/24
19:44
RBC 3.50 L 10^6/uL
(4.20-5.40)
Hgb 11.2 L g/dL
(12.0-16.0)
Hct 34.2 L %
(37.0-47.0)
MCH 32.0 H pg
(27.0-31.0)
MCHC 32.7 L g/dL
(33.0-37.0)
Lymphocytes % 18.3 L %
(20.5-51.1)
Glucose 122 H mg/dl
(70-99)
Total Protein 6.2 L g/dl
(6.3-8.2)
04/09/24 19:44
04/09/24 19:44
Vital Signs
Initial and Last Documented VS:
Initial Vital Signs
Temp Pulse Resp BP Pulse Ox
98.7 F 105 18 125/88 97
04/09/24 19:29 04/09/24 19:29 04/09/24 19:29 04/09/24 19:29 04/09/24 19:29
Last Documented Vital Signs
Temp Pulse Resp BP Pulse Ox
98.6 F 83 20 150/94 96
04/09/24 23:24 04/09/24 23:24 04/09/24 21:17 04/09/24 23:24 04/09/24 23:24
Cinthialt;Yuri Gallardo, DO - Last Filed: 04/09/24 22:54>
Orders/Labs/Results
Orders:
Orders
04/09/24 19:44
Complete Blood Count/With Diff Urgent
Comprehensive Metabolic Panel Urgent
Lipase Urgent
04/09/24 21:01
Obstruct Series W/PA Chest [CR Obstruct Series W/pa Chest] Urgent
Comment:
Reason For Exam: fos
04/09/24 22:02
Magnesium Citrate [Citroma] 300 ml PO ONCE ONE
Abnormal Lab Results
04/09/24
19:44
RBC 3.50 L 10^6/uL
(4.20-5.40)
Hgb 11.2 L g/dL
(12.0-16.0)
Hct 34.2 L %
(37.0-47.0)
MCH 32.0 H pg
(27.0-31.0)
MCHC 32.7 L g/dL
(33.0-37.0)
Lymphocytes % 18.3 L %
(20.5-51.1)
Glucose 122 H mg/dl
(70-99)
Total Protein 6.2 L g/dl
(6.3-8.2)
04/09/24 19:44
04/09/24 19:44
Vital Signs
Initial and Last Documented VS:
Initial Vital Signs
Temp Pulse Resp BP Pulse Ox
98.7 F 105 18 125/88 97
04/09/24 19:29 04/09/24 19:29 04/09/24 19:29 04/09/24 19:29 04/09/24 19:29
Last Documented Vital Signs
Temp Pulse Resp BP Pulse Ox
98.6 F 83 20 150/94 96
04/09/24 23:24 04/09/24 23:24 04/09/24 21:17 04/09/24 23:24 04/09/24 23:24
<Harriet Lamb MD, Resident - Last Filed: 04/09/24 23:28>
MDM/Problems Addressed
Differential Diagnosis Includes:
Bowel Obstruction
Constipation
PUD
MDM/Problems Addressed:
- CBC, CMP
- Obstruction Series
- Pain management
<Harriet Lamb MD, Resident - Last Filed: 04/09/24 23:28>
*Critical Care Note
Total Time (30-74mins, 75-104mins- exclusive of procedures): Not Applicable
ED Attending Note
<Harriet Lamb MD, Resident - Last Filed: 04/09/24 23:28>
-
Portions of this chart may have been created with voice recognition software.� Occasional wrong word or��sound alike� substitutions may have occurred due to the inherent limitations of voice recognition software.
<Yuri Gallardo DO - Last Filed: 04/09/24 22:54>
ED Attending Note
Patient seen and examined by attending physician: Yes
I performed a history and physical exam of patient and discussed management with resident, I reviewed resident's note and agree with documented findings and plan of care.: Yes
ED Attending Note:
Seen with resident examined independently 58-year-old female multiple chronic medical conditions presents with abdominal cramping constipation no bowel movement for 4 to 5 days, labs noted x-ray noted her abdomen is soft and nontender
Discharge Plan
Departure
Patient Disposition: Home (Routine Discharge)
Date of Disposition: 04/09/24
Time of Disposition: 23:04
Patient with high blood pressure during this ER visit?: No
Condition: Good
Discharge Problem:
Constipation
Instructions: Constipation, Adult ED
Prescriptions:
New
magnesium citrate Solution
300 ml PO ONCE Qty: 296 2RF
No Action
hydrocortisone 10 MG tablet
15 mg PO HS
hydrocortisone 10 MG tablet
20 mg PO DAILY
lamotrigine 100 MG tablet
100 mg PO DAILY
oxcarbazepine 300 mg Tablet
300 mg PO BID
ondansetron 8 mg Tablet,Disintegrating
8 mg PO DAILY
buspirone 10 mg Tablet
10 mg PO TID
Trudhesa 0.725 mg/pump act. (4 mg/mL) [place],Non-Aerosol
1 spray INTRANASAL DAILYPRN PRN (Reason: migraine)
Dupixent Syringe 300 mg/2 mL Syringe
300 mg SC Q2W
Trelegy Ellipta 100-62.5-25 mcg Blister With Device
1 inh INHALATION R DAILY
ziprasidone HCl 80 mg Capsule
80 mg PO BID
trazodone 100 mg Tablet
300 mg PO HS
topiramate 200 mg Tablet
200 mg PO BID
calcium citrate-vitamin D3 [Citracal + D Maximum] 315 mg-6.25 mcg (250 unit) Tablet
1 tab PO DAILY
Aimovig Autoinjector 140 mg/mL Auto-Injector
140 mg SC Q28D
Tyrvaya 0.03 mg/spray [place], Metered, Non-Aerosol
1 spray INTRANASAL BID
cetirizine [Zyrtec] 10 mg Tablet
40 mg PO DAILY
levalbuterol tartrate 45 mcg/actuation Hfa Aerosol Inhaler
1 inh INHALATION R Q6HPRN PRN (Reason: sob/wheezing)
pantoprazole 40 MG tablet,delayed release (DR/EC)
40 mg PO DAILY
Dayvigo 10 mg Tablet
10 mg PO HS
clonazepam 1 MG tablet
1 mg PO TID Qty: 4 0RF
Patient Comments:
02/18/2024: last filled 01/29/24, 90 tabs for 30 days from [facility]
sennosides [senna] 8.6 mg Tablet
8.6 mg PO DAILYPRN PRN (Reason: constipation)
lamotrigine 200 mg Tablet
200 mg PO QPM
polyethylene glycol 3350 [Miralax] 17 gram Powder In Packet
17 g PO DAILY
torsemide 10 mg Tablet
10 mg PO DAILY
famotidine 20 mg Tablet
20 mg PO BID
docusate sodium [Colace] 100 mg Capsule
100 mg PO BIDPRN PRN (Reason: constipation)
gabapentin 300 mg Capsule
300 mg PO TID
pregabalin 75 mg Capsule
75 mg PO TID
cholecalciferol (vitamin D3) [Vitamin D3] 125 mcg (5,000 unit) Tablet
125 mcg PO DAILY
acetaminophen 650 mg tablet extended release
1,300 mg PO [id number] PRN (Reason: mild pain)
cefdinir 300 mg capsule
300 mg PO BID Qty: 14 0RF
doxycycline monohydrate 100 mg capsule
100 mg PO BID 5 Days Qty: 10 0RF
Referrals:
Carlos Vora MD [Family Provider] -
Activity Restrictions/Additional Instructions:
You were treated for constipation today. Your basic lab work are normal. Your abdomen x-ray shows large volume colonic stool suggesting constipation. You should return to the emergency department if you develop severe abdominal pain, vomiting,
nausea, fever or any other symptoms that are concerning to you. You can take one bottle of magnesium citrate a day if you continue to have constipation.
Interventions
Interventions:
*Risk Screen - Suicide Last Done: 04/09/24 19:29
*General Assessment Last Done: 04/09/24 21:18
*Neglect/Abuse Screening Last Done: 04/09/24 19:29
ED- Fall Risk Assessment Last Done: 04/09/24 19:32
*ED COVID-19 Vaccine History Last Done: 04/09/24 19:29
ED-Musculoskeletal Assessment Last Done: 04/09/24 21:17
Discharge Date and Time
Print Language: TURKMEN
[2024-04-09] MEDS: CITROMA 300 ML PO (22:35)
[2024-04-09 23:24] VITALS: BP 150/94
== END 2024-04-10 00:01 | disposition home or self-care (01) ==
LOC: EMR 19:24
PROVIDERS: Physician Assistant; EMERGENCY PHYSICIAN Emergency Medicine; FAMILY PHYSICIAN Internal Medicine
DX: K59.00 Constipation, unspecified (principal); J44.89 Other specified chronic obstructive pulmonary disease; E03.9 Hypothyroidism, unspecified; E23.0 Hypopituitarism; E27.40 Unspecified adrenocortical insufficiency
CPT/HCPCS: 99284; 74022; 80053; 83690; 85025

== ENCOUNTER 2024-04-25 00:42 | Emergency (ER) | payer MEDICARE, OTHER, SELFPAY ==
[2024-04-25 00:43] VITALS: BP 146/92
[2024-04-25] MEDS: TORADOL 15 MG IM (04:08)
[2024-04-25] MEDS: ZOFRAN ODT (ORALLY DISINTEGRATING) 4 MG PO (04:09)
--- NOTE | 2024-04-25 06:20 | ED.GENMED ---
History of Present Illness
General
Chief Complaint: Back Pain
Source: patient
Time Seen by Provider: 04/25/24 06:10
History of Present Illness
History of Present Illness:
58-year-old female presents to the emergency room complaining of low back pain which is located in the left side. Pain seen and become worse Friday morning. No fever or chills. Patient [place] any urinary symptoms. Patient has multiple ER visits
for chronic pain as well as falls etc. She is known to pain management.
Past History
Past History
ED Past Medical History: Asthma, COPD, Hypothyroidism, Psychiatric (Bipolar disorder, anxiety, PTSD), Other (TMJ dysfunction, migraines, PNA, Sinusitis chronic, Gastroparesis, Hypopituitarism, Orthostatic hypotension) and Other (hypopituitarism,
adrenal insufficiency)
ED Past Surgical History: Orthopedic (Left thumb and hand surgery, Right wrist surgery, TMJ surgery X 2, Back surgery, ) and Other (cataracts, Vocal cord surgery)
Social History
Tobacco: Non-smoker
Alcohol: None
Drug: None
Personal: Single
Living: alone (dad)
Employment: Not employed
Family History
Family History: Other
Phy Exam
Physical Exam
Physical Exam:
General: Awake, Alert, Oriented X3. No acute distress.
Vitals: unremarkable
Head: Atraumatic
Eyes: Pupils equal, EOMI
Throat: Airway intact, no exudates
Neck: Trachea midline
Lungs: Clear and equal b/l
Heart: Regular rate, no murmurs
Abd: Soft, Nontender, No pulsatile mass
Back: Left CVA tenderness and left paraspinal muscular tenderness. No pain to percussion of the midline spine
Neuro: Nonfocal
Skin: Warm, dry, no rash
Extremities: pulses equal b/l, no edema
Course
Orders/Labs/Results
Orders:
Orders
04/25/24 04:03
Ketorolac [Toradol] 15 mg IM NOW STA
04/25/24 04:04
Ondansetron Orally Disint [Zofran Odt (Orally Disintegrating)] 4 mg PO NOW STA
04/25/24 06:15
Acetaminophen [Tylenol] 1,000 mg PO NOW STA
Lidocaine [Lidocaine 4% Patch] 1 patch TOPICAL NOW STA
Apply Lidocaine patch(s) to:: back
04/25/24 06:18
CT Abd/pel Without Iv Or Oral Urgent
Comment:
Reason For Exam: left flank pain
Vital Signs
Initial and Last Documented VS:
Initial Vital Signs
Temp Pulse Resp BP Pulse Ox
98 F 90 20 146/92 98
04/25/24 00:43 04/25/24 00:43 04/25/24 00:43 04/25/24 00:43 04/25/24 00:43
Last Documented Vital Signs
Temp Pulse Resp BP Pulse Ox
98 F 78 16 124/74 98
04/25/24 00:43 04/25/24 08:19 04/25/24 08:19 04/25/24 08:19 04/25/24 08:19
MDM/Problems Addressed
Differential Diagnosis Includes:
Worsening compression fracture, diverticulitis, muscle strain, kidney stone
MDM/Problems Addressed:
CT shows no acute intra-abdominal pathology. She does have slight worsening of a compression fracture of L2. Remainder of this spine appears stable. Patient has multiple allergies limiting the ability to provide analgesia. However there is no
evidence of an unstable process. She stable for discharge home.
*Radiology
Radiology exam reviewed: radiology read reviewed
*Pulse Oximetry
Patient hypoxic: no
*Critical Care Note
Total Time (30-74mins, 75-104mins- exclusive of procedures): Not Applicable
Data Reviewed
Review of Other/Old Records Reveals: Records (Previous ER records) and Radiology Studies (Previous CT and MRI reports)
ED Attending Note
-
Portions of this chart may have been created with voice recognition software.� Occasional wrong word or��sound alike� substitutions may have occurred due to the inherent limitations of voice recognition software.
Discharge Plan
Departure
Patient Disposition: Home (Routine Discharge)
Date of Disposition: 04/25/24
Time of Disposition: 07:57
Patient with high blood pressure during this ER visit?: Yes
Condition: Good
Discharge Problem:
Back pain, Constipation, Compression fracture
Instructions: Low Back Pain (DC), Constipation, Adult ED
Prescriptions:
New
lactulose 20 gram/30 mL solution
20 g PO BID PRN (Reason: Constipation) Qty: 1200 0RF
No Action
hydrocortisone 10 MG tablet
15 mg PO HS
hydrocortisone 10 MG tablet
20 mg PO DAILY
lamotrigine 100 MG tablet
100 mg PO DAILY
oxcarbazepine 300 mg Tablet
300 mg PO BID
ondansetron 8 mg Tablet,Disintegrating
8 mg PO DAILY
buspirone 10 mg Tablet
10 mg PO TID
Trudhesa 0.725 mg/pump act. (4 mg/mL) [place],Non-Aerosol
1 spray INTRANASAL DAILYPRN PRN (Reason: migraine)
Trelegy Ellipta 100-62.5-25 mcg Blister With Device
1 inh INHALATION R DAILY
ziprasidone HCl 80 mg Capsule
80 mg PO BID
trazodone 100 mg Tablet
300 mg PO HS
calcium citrate-vitamin D3 [Citracal + D Maximum] 315 mg-6.25 mcg (250 unit) Tablet
1 tab PO DAILY
Aimovig Autoinjector 140 mg/mL Auto-Injector
140 mg SC Q28D
Tyrvaya 0.03 mg/spray [place], Metered, Non-Aerosol
1 spray INTRANASAL BID
cetirizine [Zyrtec] 10 mg Tablet
10 mg PO DAILY
levalbuterol tartrate 45 mcg/actuation Hfa Aerosol Inhaler
1 inh INHALATION R Q6HPRN PRN (Reason: sob/wheezing)
pantoprazole 40 MG tablet,delayed release (DR/EC)
40 mg PO DAILY
Dayvigo 10 mg Tablet
10 mg PO HS
clonazepam 1 MG tablet
1 mg PO TID Qty: 4 0RF
Patient Comments:
02/18/2024: last filled 01/29/24, 90 tabs for 30 days from [facility]
lamotrigine 200 mg Tablet
200 mg PO QPM
polyethylene glycol 3350 [Miralax] 17 gram Powder In Packet
17 g PO DAILY
famotidine 20 mg Tablet
20 mg PO BID
cholecalciferol (vitamin D3) [Vitamin D3] 125 mcg (5,000 unit) Tablet
125 mcg PO DAILY
acetaminophen 650 mg tablet extended release
1,300 mg PO [id number] PRN (Reason: mild pain)
Referrals:
Carlos Vora MD [Family Provider] -
Interventions
Interventions:
*Risk Screen - Suicide Last Done: 04/25/24 00:43
*General Assessment Last Done: 04/25/24 03:54
*Neglect/Abuse Screening Last Done: 04/25/24 00:43
ED- Fall Risk Assessment Last Done: 04/25/24 03:54
*ED COVID-19 Vaccine History Last Done: 04/25/24 03:54
*Nursing Disposition Last Done: 04/25/24 08:19
ED-Musculoskeletal Assessment Last Done: 04/25/24 03:54
Discharge Date and Time
Discharge Date/Time: 04/25/24 08:20
Print Language: MALDIVIAN
[2024-04-25] MEDS: TYLENOL 1000 MG PO (06:50)
[2024-04-25 08:19] VITALS: BP 124/74
== END 2024-04-25 08:20 | disposition home or self-care (01) ==
LOC: EMR 00:42
PROVIDERS: EMERGENCY PHYSICIAN Emergency Medicine; FAMILY PHYSICIAN Internal Medicine
DX: M54.9 Dorsalgia, unspecified (principal); K59.00 Constipation, unspecified; M48.56XA Collapsed vertebra, not elsewhere classified, lumbar region, initial encounter for fracture; J44.89 Other specified chronic obstructive pulmonary disease; F31.9 Bipolar disorder, unspecified; F41.9 Anxiety disorder, unspecified; F43.10 Post-traumatic stress disorder, unspecified; K31.84 Gastroparesis; E23.0 Hypopituitarism; I95.1 Orthostatic hypotension; E27.40 Unspecified adrenocortical insufficiency; E03.9 Hypothyroidism, unspecified
CPT/HCPCS: 99284; 74176

== ENCOUNTER 2024-05-10 11:11 | Emergency (ER) | payer MEDICARE, OTHER, SELFPAY ==
[2024-05-10] VITALS (7 sets, daily range): BP systolic 105–135; BP diastolic 74–100; BMI 19.1
[2024-05-10 11:48] LABS: % Basophils 0.7 % (0-2); % Eosinophils 2.7 % (0-6); % Immature Granulocytes 0.6 % (0-0.5); % Lymphocytes 16.7 % (20.5-51.1); % Monocytes 6.9 % (1.7-9.3); % Neutrophils 72.4 % (42.2-75.2); Absolute Basophils 0.1 10^3/uL (0-0.2); Absolute Eosinophils 0.4 10^3/uL (0-0.7); Absolute Immature Granulocytes 0.1 10^3/uL (0-0.05); Absolute Lymphocytes 2.3 10^3/uL (1.2-3.4); Absolute Neutrophils 10.1 10^3/uL (1.4-6.5); Hematocrit 34.1 % (37.0-47.0); Hemoglobin 11.4 g/dL (12.0-16.0); Mean Corp Hgb Conc. 33.4 g/dL (33.0-37.0); Mean Corpuscular Hgb 32.1 pg (27.0-31.0); Mean Corpuscular Volume 96.1 fL (81.0-99.0); Mean Platelet Volume 9.6 fL (7.4-10.4); Nucleated Red Blood Cells % 0 %; Platelet Count 263 10^3/uL (130-400); Red Blood Cell Count 3.55 10^6/uL (4.20-5.40); Red Cell Dist. Width 13.2 % (11.5-14.5); White Blood Cell Count 13.9 10^3/uL (4.8-10.8)
--- NOTE | 2024-05-10 11:58 | ED.GENMED ---
History of Present Illness
<Connie Velez PA-C - Last Filed: 05/10/24 18:55>
General
Chief Complaint: Fainting/Passed Out
Source: patient
Exam Limitations: none
Time Seen by Provider: 05/10/24 11:57
Nursing documentation reviewed up to this point in time: agreed with
History of Present Illness
History of Present Illness:
This is a 58-year-old female with a past medical history of asthma, COPD, pneumonia, bipolar disorder, presents emergency department today with concerns of a trip and fall and subsequent syncopal episode at home. Patient states that she lives
alone. Patient states that she is getting up from the couch to go use the bathroom when she tripped over her cat subsequently had a syncopal episode. Patient states that she woke up on the floor on her back. Patient states that due to severe back
pain, she was not able to get up on her own and EMS was called. Patient was placed in a C spine collar however she currently denies neck pain. She denies any headache. Does note left-sided pain to her external chest wall.
Past History
<DESI Blount Last Filed: 05/10/24 18:55>
Past History
ED Past Medical History: Asthma, COPD, Hypothyroidism, Psychiatric (Bipolar disorder, anxiety, PTSD), Other (TMJ dysfunction, migraines, PNA, Sinusitis chronic, Gastroparesis, Hypopituitarism, Orthostatic hypotension) and Other (hypopituitarism,
adrenal insufficiency)
ED Past Surgical History: Orthopedic (Left thumb and hand surgery, Right wrist surgery, TMJ surgery X 2, Back surgery, ) and Other (cataracts, Vocal cord surgery)
Social History
Tobacco: Non-smoker
Alcohol: None
Drug: None
Personal: Single
Living: alone (dad)
Employment: Not employed
Family History
Family History: Other
Review of Systems
<Connie Velez PA-C - Last Filed: 05/10/24 18:55>
Review of Systems
All Other Systems: ROS reviewed and negative except as documented in HPI and ROS
Phy Exam
<Connie Velez PA-C - Last Filed: 05/10/24 18:55>
Physical Exam
Physical Exam:
General: Patient is well appearing and in no acute distress; non-toxic
Skin: Warm and dry, no rashes or lesions
Head: Normocephalic, atraumatic, no palpable hematoma, negative raccoon sign, negative
Eyes: Sclera non-icteric. EOMs intact.
Neck: No midline spinal tenderness
Cardiac: Regular rate and rhythm, no murmur, no palpable crepitus
Peripheral Vascular: No lower extremity swelling or
Pulm: Normal respiratory effort
Abdomen: No abdominal tenderness to palpation
Neuro: CN II-XII intact, no focal neurologic deficits.
Psychiatric: Appropriate mood and affect.
Course
<Connie Velez PA-C - Last Filed: 05/10/24 18:55>
Orders/Labs/Results
Orders:
Orders
05/10/24 11:25
Electrocardiogram (*1) Urgent
Reason for Study: Chest Pain
Cardiac Monitoring- Treatment ONCE
EKG- Treatment ONCE
IV Insert/Care/Rem.- Treatment PRN
O2 Therapy [RESP] Urgent
Titrate/Wean O2 to maintain O2 sat greater than (%): 90
Special Instructions: Maintain sats >/=90%
Pulse Ox/spot Check [RESP] Urgent
Quantity: 1
Special Instructions: ON ROOM AIR
05/10/24 11:29
Complete Blood Count/With Diff Urgent
Comprehensive Metabolic Panel Urgent
05/10/24 12:14
Troponin I Urgent
05/10/24 12:26
CT Cervical Spine W/o Iv Contr Urgent
Comment:
Reason For Exam: midline neck pain
CT Head W/o Iv Contrast Urgent
Comment:
Reason For Exam: head strike and syncope
CR Ribs-left 3 Vw W/pa Chest Urgent
Comment:
Reason For Exam: left anterior rib pain
05/10/24 12:29
CR Lumbar Spine 2 Or 3 Views Urgent
Comment:
Reason For Exam: low back pain following fall
05/10/24 13:08
Acetaminophen [Tylenol] 650 mg PO NOW STA
05/10/24 15:03
Pt Eval And Treat Urgent
Activity Level: Ambulate
05/10/24 16:01
Case Management Consult ONCE
Case Management Consult: Discharge Planning
Comment: home physical therapy, ride home
Abnormal Lab Results
05/10/24
11:29
WBC 13.9 H 10^3/uL
(4.8-10.8)
RBC 3.55 L 10^6/uL
(4.20-5.40)
Hgb 11.4 L g/dL
(12.0-16.0)
Hct 34.1 L %
(37.0-47.0)
MCH 32.1 H pg
(27.0-31.0)
Abs Immat Gran (auto) 0.1 H 10^3/uL
(0-0.05)
Absolute Neuts (auto) 10.1 H 10^3/uL
(1.4-6.5)
Absolute Monos (auto) 1.0 H 10^3/uL
(0.1-0.6)
Immature Gran % 0.6 H %
(0-0.5)
Lymphocytes % 16.7 L %
(20.5-51.1)
Sodium 133 L mmol/L
(135-145)
Chloride 97 L mmol/L
(98-107)
BUN 21 H mg/dl
(7-17)
Creatinine 1.1 H mg/dL
(0.6-1.0)
Total Protein 6.2 L g/dl
(6.3-8.2)
05/10/24 11:29
05/10/24 11:29
Vital Signs
Initial and Last Documented VS:
Initial Vital Signs
Pulse Resp BP
87 19 135/100
05/10/24 11:20 05/10/24 11:20 05/10/24 11:20
Last Documented Vital Signs
Temp Pulse Resp BP Pulse Ox
97.9 F 83 13 115/81 96
05/10/24 13:40 05/10/24 16:45 05/10/24 16:45 05/10/24 15:22 05/10/24 15:22
<Tirso Ortiz, DO - Last Filed: 05/11/24 19:37>
Orders/Labs/Results
Orders:
Orders
05/10/24 11:25
Electrocardiogram (*1) Urgent
Reason for Study: Chest Pain
Cardiac Monitoring- Treatment ONCE
EKG- Treatment ONCE
IV Insert/Care/Rem.- Treatment PRN
O2 Therapy [RESP] Urgent
Titrate/Wean O2 to maintain O2 sat greater than (%): 90
Special Instructions: Maintain sats >/=90%
Pulse Ox/spot Check [RESP] Urgent
Quantity: 1
Special Instructions: ON ROOM AIR
05/10/24 11:29
Complete Blood Count/With Diff Urgent
Comprehensive Metabolic Panel Urgent
05/10/24 12:14
Troponin I Urgent
05/10/24 12:26
CT Cervical Spine W/o Iv Contr Urgent
Comment:
Reason For Exam: midline neck pain
CT Head W/o Iv Contrast Urgent
Comment:
Reason For Exam: head strike and syncope
CR Ribs-left 3 Vw W/pa Chest Urgent
Comment:
Reason For Exam: left anterior rib pain
05/10/24 12:29
CR Lumbar Spine 2 Or 3 Views Urgent
Comment:
Reason For Exam: low back pain following fall
05/10/24 13:08
Acetaminophen [Tylenol] 650 mg PO NOW STA
05/10/24 15:03
Pt Eval And Treat Urgent
Activity Level: Ambulate
05/10/24 16:01
Case Management Consult ONCE
Case Management Consult: Discharge Planning
Comment: home physical therapy, ride home
Abnormal Lab Results
05/10/24
11:29
WBC 13.9 H 10^3/uL
(4.8-10.8)
RBC 3.55 L 10^6/uL
(4.20-5.40)
Hgb 11.4 L g/dL
(12.0-16.0)
Hct 34.1 L %
(37.0-47.0)
MCH 32.1 H pg
(27.0-31.0)
Abs Immat Gran (auto) 0.1 H 10^3/uL
(0-0.05)
Absolute Neuts (auto) 10.1 H 10^3/uL
(1.4-6.5)
Absolute Monos (auto) 1.0 H 10^3/uL
(0.1-0.6)
Immature Gran % 0.6 H %
(0-0.5)
Lymphocytes % 16.7 L %
(20.5-51.1)
Sodium 133 L mmol/L
(135-145)
Chloride 97 L mmol/L
(98-107)
BUN 21 H mg/dl
(7-17)
Creatinine 1.1 H mg/dL
(0.6-1.0)
Total Protein 6.2 L g/dl
(6.3-8.2)
05/10/24 11:29
05/10/24 11:29
Vital Signs
Initial and Last Documented VS:
Initial Vital Signs
Pulse Resp BP
87 19 135/100
05/10/24 11:20 05/10/24 11:20 05/10/24 11:20
Last Documented Vital Signs
Temp Pulse Resp BP Pulse Ox
97.9 F 83 13 115/81 96
05/10/24 13:40 05/10/24 16:45 05/10/24 16:45 05/10/24 15:22 05/10/24 15:22
<Connie Velez PA-C - Last Filed: 05/10/24 18:55>
MDM/Problems Addressed
Differential Diagnosis Includes:
See below
MDM/Problems Addressed:
NUMBER AND COMPLEXITY OF PROBLEMS ADDRESSED AT THE ENCOUNTER
� Chronic conditions affecting care: COPD, asthma, bipolar disorder
� Acute Exacerbation and/or Progression of Chronic Illness:
� Differential Diagnosis includes: Head contusion, epidural hematoma, subdural hematoma, cervical spine fracture, compression fracture, rib fracture, arrhythmia
AMOUNT AND/OR COMPLEXITY OF DATA TO BE REVIEWED AND ANALYZED
� I performed an independent evaluation of and my interpretation is:
EKG: Normal sinus rhythm with no ischemic change
CT: No acute bleeding noted
X-rays: No pneumothorax, no hemothorax, no obvious rib fracture
Laboratory Studies: CBC CMP noted with elevated BUN to creatinine ratio, patient was given 500 mL of fluid
Other:
� Review of other/old records: Reviewed previous ER physician documentation, patient seen recurrent falls
� Clinical information was obtained by an independent historian: attempted to call patient's friend, they did not picker
� Prescriptions/Medications Considered but not given: none
� Further testing considered but not performed: n/a
RISK OF COMPLICATIONS AND/OR MORBIDITY OR MORTALITY OF PATIENT MANAGEMENT
� Social determinants of health affecting care: none
� Discussion with other providers: ER attending
� Escalation of care including admission/observation vs risk of discharge considered:
58-year-old female with a past pulm history of asthma, bipolar disorder, COPD presents emergency department with a trip and fall over her cats with subsequent syncopal episode. She woke up on the floor. She is unable to get up on her own due to
back pain. She subsequently called EMS. On physical exam, she has no signs of head or neck trauma. She has unremarkable neurologic exam. She does have tenderness outpatient left external chest wall. Patient was sent for CT scan of the head and
neck which was negative for any bleeding but did show a new thoracic compression fracture which is consistent with patient's pain. Did discuss follow-up with orthopedics regarding this finding. CT of the head also showed sphenoid sinusitis, we did
start patient on doxycycline. Patient's chest x-ray was negative for new rib fractu patient states that she is not able to afford it over, considering patient was normal I am also concerned about her functional ambulatory status. PT and case
management consulted, patient set up with home PT care as well as transportation home. Patient for discharge. res.
<Connie Velez PA-C - Last Filed: 05/10/24 18:55>
*Critical Care Note
Total Time (30-74mins, 75-104mins- exclusive of procedures): Not Applicable
ED Attending Note
<Connie Velez PA-C - Last Filed: 05/10/24 18:55>
-
Portions of this chart may have been created with voice recognition software.� Occasional wrong word or��sound alike� substitutions may have occurred due to the inherent limitations of voice recognition software.
<Tirso Ortiz DO - Last Filed: 05/11/24 19:37>
ED Attending Note
Patient seen and examined by attending physician: Yes
I performed a history and physical exam of patient and discussed management with resident, I reviewed resident's note and agree with documented findings and plan of care.: Yes
ED Attending Note:
I reviewed and agree with history and treatment plan by Connie Velez. My exam revealed 58-year-old female in no acute distress. Mild tenderness palpation at C5, no step-off. Mild tenderness at left ninth rib. Patient had likely syncope
episode at home after tripping and hitting her head. She denies complaints at this time.
Discharge Plan
Departure
Patient Disposition: Home (Routine Discharge)
Date of Disposition: 05/10/24
Time of Disposition: 16:43
Patient with high blood pressure during this ER visit?: Yes
Condition: Good
Discharge Problem:
Fall, Syncope, Compression fracture of T2 vertebra, Sinusitis
Instructions: Syncope (Fainting) (DC), Preventing falls in adults, BLOOD PRESSURE
Prescriptions:
New
doxycycline hyclate 100 mg capsule
100 mg PO BID 5 Days Qty: 10 0RF
No Action
hydrocortisone 10 MG tablet
15 mg PO HS
hydrocortisone 10 MG tablet
20 mg PO DAILY
lamotrigine 100 MG tablet
100 mg PO DAILY
oxcarbazepine 300 mg Tablet
300 mg PO BID
ondansetron 8 mg Tablet,Disintegrating
8 mg PO DAILY
buspirone 10 mg Tablet
10 mg PO TID
Trudhesa 0.725 mg/pump act. (4 mg/mL) [place],Non-Aerosol
1 spray INTRANASAL DAILYPRN PRN (Reason: migraine)
Trelegy Ellipta 100-62.5-25 mcg Blister With Device
1 inh INHALATION R DAILY
ziprasidone HCl 80 mg Capsule
80 mg PO BID
trazodone 100 mg Tablet
300 mg PO HS
calcium citrate-vitamin D3 [Citracal + D Maximum] 315 mg-6.25 mcg (250 unit) Tablet
1 tab PO DAILY
Aimovig Autoinjector 140 mg/mL Auto-Injector
140 mg SC Q28D
Tyrvaya 0.03 mg/spray [place], Metered, Non-Aerosol
1 spray INTRANASAL BID
cetirizine [Zyrtec] 10 mg Tablet
10 mg PO DAILY
levalbuterol tartrate 45 mcg/actuation Hfa Aerosol Inhaler
1 inh INHALATION R Q6HPRN PRN (Reason: sob/wheezing)
pantoprazole 40 MG tablet,delayed release (DR/EC)
40 mg PO DAILY
Dayvigo 10 mg Tablet
10 mg PO HS
clonazepam 1 MG tablet
1 mg PO TID Qty: 4 0RF
Patient Comments:
02/18/2024: last filled 01/29/24, 90 tabs for 30 days from [facility]
lamotrigine 200 mg Tablet
200 mg PO QPM
polyethylene glycol 3350 [Miralax] 17 gram Powder In Packet
17 g PO DAILY
famotidine 20 mg Tablet
20 mg PO BID
cholecalciferol (vitamin D3) [Vitamin D3] 125 mcg (5,000 unit) Tablet
125 mcg PO DAILY
acetaminophen 650 mg tablet extended release
1,300 mg PO [id number] PRN (Reason: mild pain)
lactulose 20 gram/30 mL solution
20 g PO BID PRN (Reason: Constipation) Qty: 1200 0RF
Referrals:
Scott oTm DO [Non-Admitting Privileges] - Call in 1-3 days for appt
Carlos Vora MD [Family Provider] -
Activity Restrictions/Additional Instructions:
Your CT of the cervical spine showed a thoracic compression fracture. This is managed with pain control. I have attached information for referral to Dr. Tom, an orthopedic spinal specialist.
Your CT of the head showed mild acute sinusitis. Doxycycline has been sent to your pharmacy. Please take one tablet twice daily for 5 days.
PLEASE RETURN EMERGENCY DEPARTMENT SHOULD YOU EXPERIENCE CHEST PAIN, PALPITATIONS, DIZZINESS, SHORTNESS OF BREATH, INCREASING PAIN, INABILITY TO AMBULATE, GENITAL NUMBNESS OR TINGLING, URINARY OR FECAL INCONTINENCE, OR ANY OTHER SIGNS OR SYMPTOMS
CONCERNING TO YOU.
Interventions
Interventions:
*Risk Screen - Suicide Last Done: 05/10/24 11:17
*General Assessment Last Done: 05/10/24 11:16
*Neglect/Abuse Screening Last Done: 05/10/24 11:17
ED- Fall Risk Assessment Last Done: 05/10/24 11:18
*ED COVID-19 Vaccine History Last Done: 05/10/24 11:16
*Nursing Disposition Last Done: 05/10/24 16:45
ED- Cardiac Assessment Last Done: 05/10/24 11:18
ED- Neurological Assessment Last Done: 05/10/24 11:18
Discharge Date and Time
Discharge Date/Time: 05/10/24 17:54
Print Language: SYRIAN
[2024-05-10 12:00] LABS: ALT (SGPT) 19 U/L (0-35); AST (SGOT) 31 U/L (14-36); Alkaline Phosphatase 74 U/L (38-126); Blood Urea Nitrogen 21 mg/dl (7-17); Calcium 9.2 mg/dl (8.4-10.2); Carbon Dioxide 24 mmol/L (22-30); Chloride 97 mmol/L (98-107); Estimated Creatinine Clearance 49 ml/min; Glucose 78 mg/dl (70-99); Potassium 3.5 mmol/L (3.5-5.1); Sodium 133 mmol/L (135-145); Total Bilirubin 0.5 mg/dl (0.2-1.3); Total Protein 6.2 g/dl (6.3-8.2); eGFR 58.61
[2024-05-10 12:49] LABS: Troponin I < 0.012 ng/ml
[2024-05-10] MEDS: TYLENOL 650 MG PO (13:24)
--- NOTE | 2024-05-10 16:29 | CM ---
ED CM consulted for VN and ride
Bedside meeting with pt
Referral to [facility] per pt request
Pt does not have vega with her and cards all maxed out
Attempted to call emergency contact and number disconnected
Lyft ride arranged
VN order on chart
--- NOTE | 2024-05-11 09:33 | VNURNOTE ---
Late entry:
Called pt 05/10/24 to discuss [facility] services. No answer, left message.
05/11- Home Health Liaison spoke with patient to discuss [facility] nurse/therapy, visits, schedule and homebound status. Patient is agreeable and understands that visits at home will be 2-3 x per week to assess and teach medical management. She is
familiar with [facility] services. Patient is aware that [facility] will contact them for start of care in 1-2 days after discharge from .
[facility] referral completed in [facility].
== END 2024-05-10 17:54 | disposition home or self-care (01) ==
LOC: EMR 11:11
PROVIDERS: EMERGENCY PHYSICIAN Emergency Medicine; FAMILY PHYSICIAN Internal Medicine
DX: R55 Syncope and collapse (principal); S22.020A Wedge compression fracture of second thoracic vertebra, initial encounter for closed fracture; W01.0XXA Fall on same level from slipping, tripping and stumbling without subsequent striking against object, initial encounter; J32.3 Chronic sphenoidal sinusitis; R03.0 Elevated blood-pressure reading, without diagnosis of hypertension; F31.9 Bipolar disorder, unspecified
CPT/HCPCS: 99285; 70450; 71101; 72100; 72125; 80053; 84484; 85025; 93005

== ENCOUNTER 2024-05-12 07:44 | Emergency (ER) | payer MEDICARE, OTHER, SELFPAY ==
[2024-05-12 07:48] VITALS: BP 124/89
--- NOTE | 2024-05-12 09:21 | ED.GENMED ---
History of Present Illness
General
Chief Complaint: Fall
Time Seen by Provider: 05/12/24 09:04
History of Present Illness
History of Present Illness:
TIME OF INITIAL ENCOUNTER: 9:25 AM
HPI: The patient came in by ambulance from home. She has a history of frequent falls. She fell again yesterday. She struck her head. She came in by ambulance. She lives alone at home with her cats. She has worsening low back pain. She was
seen here 2 days ago and was found to have a T2 superior endplate fracture. She has no new neck pain.
EXAM:
GENERAL: The patient appears somewhat chronically weak and debilitated.
CERVICAL SPINE: No midline c-spine tenderness with excellent AROM
HEAD: Small area of ecchymosis to the left side of the forehead
CHEST: Mild left sided anterior chest wall tenderness, normal heart sounds
LUNGS: Equal lung sounds, no respiratory distress
ABDOMEN: No abdominal tenderness, no peritoneal signs
EXTREMITIES: Normal active range of motion, no tenderness
SPINE: Mild tenderness of the thoracic spine and increased tenderness in the midline of the lumbosacral region
NEURO: Excellent strength all extremities, appropriate mental status, normal speech/language
NUMBER AND COMPLEXITY OF PROBLEMS ADDRESSED AT THE ENCOUNTER
� Chronic conditions affecting care: COPD, hypothyroidism, hypopituitarism, bipolar, PTSD
� Acute Exacerbation and/or Progression of Chronic Illness: This is an acute but recurring problem
� Differential Diagnosis includes: Pelvis fracture, lumbar spine fracture, intracranial hemorrhage, contusions
AMOUNT AND/OR COMPLEXITY OF DATA TO BE REVIEWED AND ANALYZED
� I performed an independent evaluation of and my interpretation is:
EKG:
CT: CAT scan of the head, lumbar spine, and pelvis showed no acute abnormality�chronic findings noted
X-rays: I personally reviewed chest x-ray and see no acute abnormality
Laboratory Studies:
Other:
� Review of other/old records: Diarrhea I reviewed, patient has sporadic x-rays from 2 days ago�at that time chronic fractures were noted involving the lower thoracic/upper lumbar and bilateral ribs. CT of the C-spine also did
show an acute superior endplate fracture of T2 along with severe discogenic degenerative disease of the cervical spine.
� Clinical information was obtained by an independent historian: None needed but I did review EMS note
� Prescriptions/Medications Considered but not given:; Considered narcotics but she states she has 'allergies to all narcotics'
� Further testing considered but not performed: Considered labs but she just had lab work done 2 days ago
RISK OF COMPLICATIONS AND/OR MORBIDITY OR MORTALITY OF PATIENT MANAGEMENT
� Social determinants of health affecting care: Lives alone at home
� Discussion with other providers:
� Escalation of care including admission/observation vs risk of discharge considered: The patient is frequently seen in the emergency department commonly with falls
ANY OTHER UPDATES:
11:55 AM: I reassessed patient. The patient appears to be at her baseline. Imaging is unremarkable. Added a dose of Toradol after she was given Tylenol.
Past History
Past History
ED Past Medical History: Asthma, COPD, Hypothyroidism, Psychiatric (Bipolar disorder, anxiety, PTSD), Other (TMJ dysfunction, migraines, PNA, Sinusitis chronic, Gastroparesis, Hypopituitarism, Orthostatic hypotension) and Other (hypopituitarism,
adrenal insufficiency)
ED Past Surgical History: Orthopedic (Left thumb and hand surgery, Right wrist surgery, TMJ surgery X 2, Back surgery, ) and Other (cataracts, Vocal cord surgery)
Social History
Tobacco: Non-smoker
Alcohol: None
Drug: None
Personal: Single
Living: alone (dad)
Employment: Not employed
Family History
Family History: Other
Phy Exam
Physical Exam
Physical Exam:
See HPI
Course
Orders/Labs/Results
Orders:
Orders
05/12/24 09:30
CT Head W/o Iv Contrast Urgent
Comment:
Reason For Exam: head trauma
CT Lumbar Spine W/o Iv Contras Urgent
Comment:
Reason For Exam: fall severe low back pain
CT Pelvis W/o Iv Contrast Urgent
Comment:
Reason For Exam: fall severe low back pain
Acetaminophen [Tylenol] 1,000 mg PO NOW STA
05/12/24 09:32
CR Chest - 2 Views Urgent
Comment:
Reason For Exam: left ACW pain
05/12/24 11:50
Ketorolac [Toradol] 30 mg IM NOW STA
Vital Signs
Initial and Last Documented VS:
Initial Vital Signs
Temp Pulse Resp BP Pulse Ox
37.1 C 96 16 124/89 98
05/12/24 07:48 05/12/24 07:48 05/12/24 07:48 05/12/24 07:48 05/12/24 07:48
Last Documented Vital Signs
Temp Pulse Resp BP Pulse Ox
37.1 C 96 16 124/89 98
05/12/24 07:48 05/12/24 07:48 05/12/24 07:48 05/12/24 07:48 05/12/24 07:48
*Critical Care Note
Total Time (30-74mins, 75-104mins- exclusive of procedures): Not Applicable
ED Attending Note
-
Portions of this chart may have been created with voice recognition software.� Occasional wrong word or��sound alike� substitutions may have occurred due to the inherent limitations of voice recognition software.
Discharge Plan
Departure
Patient Disposition: Home (Routine Discharge)
Date of Disposition: 05/12/24
Time of Disposition: 11:55
Patient with high blood pressure during this ER visit?: Yes
Discharge Problem:
Frequent falls
Instructions: Preventing falls in adults, BLOOD PRESSURE
Prescriptions:
No Action
hydrocortisone 10 MG tablet
15 mg PO HS
hydrocortisone 10 MG tablet
20 mg PO DAILY
lamotrigine 100 MG tablet
100 mg PO DAILY
oxcarbazepine 300 mg Tablet
300 mg PO BID
ondansetron 8 mg Tablet,Disintegrating
8 mg PO DAILY
buspirone 10 mg Tablet
10 mg PO TID
Trudhesa 0.725 mg/pump act. (4 mg/mL) [place],Non-Aerosol
1 spray INTRANASAL DAILYPRN PRN (Reason: migraine)
Trelegy Ellipta 100-62.5-25 mcg Blister With Device
1 inh INHALATION R DAILY
ziprasidone HCl 80 mg Capsule
80 mg PO BID
trazodone 100 mg Tablet
300 mg PO HS
calcium citrate-vitamin D3 [Citracal + D Maximum] 315 mg-6.25 mcg (250 unit) Tablet
1 tab PO DAILY
Aimovig Autoinjector 140 mg/mL Auto-Injector
140 mg SC Q28D
Tyrvaya 0.03 mg/spray [place], Metered, Non-Aerosol
1 spray INTRANASAL BID
cetirizine [Zyrtec] 10 mg Tablet
10 mg PO DAILY
levalbuterol tartrate 45 mcg/actuation Hfa Aerosol Inhaler
1 inh INHALATION R Q6HPRN PRN (Reason: sob/wheezing)
pantoprazole 40 MG tablet,delayed release (DR/EC)
40 mg PO DAILY
Dayvigo 10 mg Tablet
10 mg PO HS
clonazepam 1 MG tablet
1 mg PO TID Qty: 4 0RF
Patient Comments:
02/18/2024: last filled 01/29/24, 90 tabs for 30 days from [facility]
lamotrigine 200 mg Tablet
200 mg PO QPM
polyethylene glycol 3350 [Miralax] 17 gram Powder In Packet
17 g PO DAILY
famotidine 20 mg Tablet
20 mg PO BID
cholecalciferol (vitamin D3) [Vitamin D3] 125 mcg (5,000 unit) Tablet
125 mcg PO DAILY
acetaminophen 650 mg tablet extended release
1,300 mg PO [id number] PRN (Reason: mild pain)
lactulose 20 gram/30 mL solution
20 g PO BID PRN (Reason: Constipation) Qty: 1200 0RF
doxycycline hyclate 100 mg capsule
100 mg PO BID 5 Days Qty: 10 0RF
Referrals:
Carlos Vora MD [Family Provider] -
Activity Restrictions/Additional Instructions:
The CAT scan of the brain shows no acute signs of trauma. CAT scans of the pelvis and the lumbar spine show old fractures but nothing new. Follow-up with your doctors.
Interventions
Interventions:
*Risk Screen - Suicide Last Done: 05/12/24 07:48
*Neglect/Abuse Screening Last Done: 05/12/24 07:48
ED-Musculoskeletal Assessment Last Done: 05/12/24 09:49
ED- Neurological Assessment Last Done: 05/12/24 09:49
ED-Skin Assessment Last Done: 05/12/24 09:49
Discharge Date and Time
Print Language: ARMENIAN
[2024-05-12] MEDS: TYLENOL 1000 MG PO (09:49)
[2024-05-12] MEDS: TORADOL 30 MG IM (11:57)
[2024-05-12 11:59] VITALS: BP 108/75
== END 2024-05-12 12:40 | disposition home or self-care (01) ==
LOC: EMR 07:44
PROVIDERS: EMERGENCY PHYSICIAN Emergency Medicine; FAMILY PHYSICIAN Internal Medicine
DX: R29.6 Repeated falls (principal); W19.XXXA Unspecified fall, initial encounter; M54.50 Low back pain, unspecified; J44.89 Other specified chronic obstructive pulmonary disease; E03.9 Hypothyroidism, unspecified; F31.9 Bipolar disorder, unspecified; F41.9 Anxiety disorder, unspecified; F43.10 Post-traumatic stress disorder, unspecified; E27.40 Unspecified adrenocortical insufficiency; K31.84 Gastroparesis; Z60.2 Problems related to living alone
CPT/HCPCS: 99284; 96372; 70450; 71046; 72131; 72192

== ENCOUNTER 2024-05-15 18:48 | Emergency (ER) | payer MEDICARE, OTHER, SELFPAY ==
[2024-05-15 18:52] VITALS: BP 138/92
--- NOTE | 2024-05-15 19:30 | ED.GENMED ---
History of Present Illness
General
Chief Complaint: Dizziness
Source: patient
Exam Limitations: none
Time Seen by Provider: 05/15/24 19:08
Nursing documentation reviewed up to this point in time: agreed with
History of Present Illness
History of Present Illness:
58 yo female w h/o COPD, Orthostatic hypotension, Falls, Gastroparesis, Hypothyroid, Migraines, Hypopituitarism, Anxiety, Bipolar, PTSD, presents for 'I have a propensity to faint and I was afraid I was going to faint.' States she fainted 5 times in
the past 7 days, once daily, no specific time of day 'I can't remember,' Usually while sitting in her kitchen, she denies falling or injury, initially states she feels faint and is afraid she will faing but then also states the past 5 fainting
episodes she was sitting on her kitchen chair and next thing she knew she was on the floor.
She 'just got her back' has a VN twice a week starting earlier this week and is aware of the fainting and told 'we will keep an eye on it.' She did notified her PCP Dr. Vora and has appointment in 4 days. She denies headache, CP, SOB, abdominal
pain, denies new medications.
Past History
Past History
ED Past Medical History: Asthma, COPD, Hypothyroidism, Psychiatric (Bipolar disorder, anxiety, PTSD), Other (TMJ dysfunction, migraines, PNA, Sinusitis chronic, Gastroparesis, Hypopituitarism, Orthostatic hypotension) and Other (hypopituitarism,
adrenal insufficiency)
ED Past Surgical History: Orthopedic (Left thumb and hand surgery, Right wrist surgery, TMJ surgery X 2, Back surgery, ) and Other (cataracts, Vocal cord surgery)
Social History
Tobacco: Non-smoker
Alcohol: None
Drug: None
Personal: Single
Living: alone (dad)
Employment: Not employed
Family History
Family History: Other
Review of Systems
Review of Systems
Allergies reviewed?: Yes
All Other Systems: ROS reviewed and negative except as documented in HPI and ROS
Constitutional: Denies fever
EENT: Reports other (dry mouth)
Respiratory: Denies trouble breathing
Cardiac: Reports syncope; Denies chest pain, diaphoresis or palpitations
ABD/GI: Denies abdominal pain, nausea, vomiting, diarrhea or anorexia (states she is eating and drinking well)
: Denies dysuria, frequency, difficulty voiding or urgency
Musculoskeletal: Reports no symptoms
Skin: Reports no symptoms
Neurological: Reports no symptoms
Phy Exam
Physical Exam
Physical Exam:
GENERAL: No acute distress. A&Ox3.
CONSTITUTIONAL: Afebrile.
EYES: clear, conjunctivae normal
ENMT: Dry mucus membranes, Pharynx nl
RESPIRATORY: Regular respirations, nonlabored, lungs clear.
CARDIOVASCULAR: Regular rate and rhythm, no murmurs, no rubs.
GI: Soft, nontender, normal BS
MUSCULOSKELETAL: Moves with ease. Well perfused.
SKIN: Warm, dry, pink
PSYCH: Depressed mood and affect. Well kept, interactive and appropriate
NEUROLOGIC: Awake, alert and oriented. No focal neurological deficits
Course
Orders/Labs/Results
Orders:
Orders
05/15/24 19:25
Orthostatic VS- Treatment ONCE
05/15/24 19:26
0.9% Sodium Chloride 1000 ml [Nss] 1,000 ml IV BOLUS
05/15/24 20:06
Complete Blood Count/With Diff Urgent
Comprehensive Metabolic Panel Urgent
Abnormal Lab Results
05/15/24
20:06
RBC 3.76 L 10^6/uL
(4.20-5.40)
Hgb 11.7 L g/dL
(12.0-16.0)
Hct 35.8 L %
(37.0-47.0)
MCH 31.1 H pg
(27.0-31.0)
MCHC 32.7 L g/dL
(33.0-37.0)
Absolute Lymphs (auto) 1.1 L 10^3/uL
(1.2-3.4)
Neutrophils % 80.5 H %
(42.2-75.2)
Lymphocytes % 13.6 L %
(20.5-51.1)
Sodium 134 L mmol/L
(135-145)
Glucose 105 H mg/dl
(70-99)
Total Protein 6.0 L g/dl
(6.3-8.2)
05/15/24 20:06
05/15/24 20:06
Vital Signs
Initial and Last Documented VS:
Initial Vital Signs
Temp Pulse Resp BP Pulse Ox
97.4 F 109 22 138/92 97
05/15/24 18:52 05/15/24 18:52 05/15/24 18:52 05/15/24 18:52 05/15/24 18:52
Last Documented Vital Signs
Temp Pulse Resp BP Pulse Ox
97.4 F 107 14 132/88 97
05/15/24 18:52 05/15/24 22:00 05/15/24 22:00 05/15/24 22:00 05/15/24 18:52
MDM/Problems Addressed
Differential Diagnosis Includes:
Orthostatic hypotension, dehydration
MDM/Problems Addressed:
58 yo female w h/o COPD, Orthostatic hypotension, Falls, Gastroparesis, Hypothyroid, Migraines, Hypopituitarism, Anxiety, Bipolar, PTSD, presents for 'I have a propensity to faint and I was afraid I was going to faint.' States she fainted 5 times in
the past 7 days, once daily, no specific time of day 'I can't remember,' Usually while sitting in her kitchen, she denies falling or injury, initially states she feels faint and is afraid she will faing but then also states the past 5 fainting
episodes she was sitting on her kitchen chair and next thing she knew she was on the floor.
She 'just got her back' has a VN twice a week starting earlier this week and is aware of the fainting and told 'we will keep an eye on it.' She did notified her PCP Dr. Vora and has appointment in 4 days. She denies headache, CP, SOB, abdominal
pain, denies new medications.
9:30 PM:
CBC, CMP with no clinically significant abnormality
Orthostatics negative
After 1 L of IV fluid patient states she is feeling better and is comfortable going home
Patient has a appointment with her PCP in 4 days
*Critical Care Note
Total Time (30-74mins, 75-104mins- exclusive of procedures): Not Applicable
ED Attending Note
-
Portions of this chart may have been created with voice recognition software.� Occasional wrong word or��sound alike� substitutions may have occurred due to the inherent limitations of voice recognition software.
Discharge Plan
Departure
Patient Disposition: Home (Routine Discharge)
Date of Disposition: 05/15/24
Time of Disposition: 21:38
Patient with high blood pressure during this ER visit?: No
Condition: Good
Discharge Problem:
Fainting episodes
Instructions: Fainting in adults - ED discharge instructions
Prescriptions:
No Action
hydrocortisone 10 MG tablet
15 mg PO QPM
hydrocortisone 10 MG tablet
25 mg PO DAILY
lamotrigine 100 MG tablet
100 mg PO DAILY
oxcarbazepine 300 mg Tablet
300 mg PO BID
ondansetron 8 mg Tablet,Disintegrating
8 mg PO DAILY
buspirone 10 mg Tablet
10 mg PO TID
Trudhesa 0.725 mg/pump act. (4 mg/mL) [place],Non-Aerosol
1 spray INTRANASAL DAILYPRN PRN (Reason: migraine)
Trelegy Ellipta 100-62.5-25 mcg Blister With Device
1 inh INHALATION R DAILY
ziprasidone HCl 80 mg Capsule
80 mg PO BID
trazodone 100 mg Tablet
300 mg PO HS
calcium citrate-vitamin D3 [Citracal + D Maximum] 315 mg-6.25 mcg (250 unit) Tablet
1 tab PO DAILY
Aimovig Autoinjector 140 mg/mL Auto-Injector
140 mg SC Q28D
Tyrvaya 0.03 mg/spray [place], Metered, Non-Aerosol
1 spray INTRANASAL BID
cetirizine [Zyrtec] 10 mg Tablet
10 mg PO DAILY
levalbuterol tartrate 45 mcg/actuation Hfa Aerosol Inhaler
1 inh INHALATION R Q6HPRN PRN (Reason: sob/wheezing)
pantoprazole 40 MG tablet,delayed release (DR/EC)
40 mg PO DAILY
Dayvigo 10 mg Tablet
10 mg PO HS
clonazepam 1 MG tablet
1 mg PO TID Qty: 4 0RF
Patient Comments:
02/18/2024: last filled 01/29/24, 90 tabs for 30 days from [facility]
lamotrigine 200 mg Tablet
200 mg PO QPM
polyethylene glycol 3350 [Miralax] 17 gram Powder In Packet
17 g PO DAILYPRN PRN (Reason: constipation)
famotidine 20 mg Tablet
20 mg PO BID
acetaminophen 650 mg tablet extended release
1,300 mg PO [id number] PRN (Reason: mild pain)
sennosides [senna] 8.6 mg Tablet
8.6 mg PO DAILY PRN (Reason: constipation)
torsemide 10 mg Tablet
10 mg PO DAILY
docusate sodium 100 mg Capsule
100 mg PO BID
gabapentin 300 mg Capsule
300 mg PO TID
topiramate 200 mg Tablet
200 mg PO BID
celecoxib [Celebrex] 100 mg Capsule
100 mg PO BID
cholecalciferol (vitamin D3) 125 mcg (5,000 unit) Capsule
125 mcg PO DAILY
oxycodone 5 mg Tablet
5 mg PO Q6H PRN (Reason: pain)
pregabalin 75 mg Capsule
75 mg PO TID
levothyroxine 112 mcg Capsule
112 mcg PO DAILY
Dupixent Pen 300 mg/2 mL Pen Injector
300 mg SC Q2W
Referrals:
Carlos Vora MD [Family Provider] - Keep scheduled appt
Activity Restrictions/Additional Instructions:
As we discussed, keep your appointment with your doctor on Friday.
When you go from laying to sitting to standing, do it slowly so you do not feel faint.
Drink plenty of fluids to stay hydrated.
Interventions
Interventions:
*Risk Screen - Suicide Last Done: 05/15/24 18:52
*General Assessment Last Done: 05/15/24 18:52
*Neglect/Abuse Screening Last Done: 05/15/24 18:52
ED- Fall Risk Assessment Last Done: 05/15/24 20:31
*ED COVID-19 Vaccine History Last Done: 05/15/24 19:49
*Nursing Disposition Last Done: 05/15/24 22:32
ED- Neurological Assessment Last Done: 05/15/24 20:32
ED- Cardiac Assessment Last Done: 05/15/24 20:32
Discharge Date and Time
Discharge Date/Time: 05/15/24 22:32
Print Language: ICELANDIC
[2024-05-15 19:47] VITALS: BMI 19.0
[2024-05-15 19:55] VITALS: BP 119/75; BP 125/87; BP 142/95; PULSE 100; PULSE 104; PULSE 110
[2024-05-15 20:00] VITALS: BP 132/90
[2024-05-15] MEDS: NSS 1000 IV (20:08)
[2024-05-15 20:16] LABS: % Basophils 1.3 % (0-2); % Eosinophils 1.3 % (0-6); % Immature Granulocytes 0.5 % (0-0.5); % Lymphocytes 13.6 % (20.5-51.1); % Monocytes 2.8 % (1.7-9.3); % Neutrophils 80.5 % (42.2-75.2); Absolute Basophils 0.1 10^3/uL (0-0.2); Absolute Eosinophils 0.1 10^3/uL (0-0.7); Absolute Lymphocytes 1.1 10^3/uL (1.2-3.4); Absolute Monocytes 0.2 10^3/uL (0.1-0.6); Absolute Neutrophils 6.3 10^3/uL (1.4-6.5); Hematocrit 35.8 % (37.0-47.0); Hemoglobin 11.7 g/dL (12.0-16.0); Mean Corp Hgb Conc. 32.7 g/dL (33.0-37.0); Mean Corpuscular Hgb 31.1 pg (27.0-31.0); Mean Corpuscular Volume 95.2 fL (81.0-99.0); Mean Platelet Volume 8.8 fL (7.4-10.4); Nucleated Red Blood Cells % 0 %; Platelet Count 331 10^3/uL (130-400); Red Blood Cell Count 3.76 10^6/uL (4.20-5.40); Red Cell Dist. Width 13.3 % (11.5-14.5); White Blood Cell Count 7.9 10^3/uL (4.8-10.8)
[2024-05-15 20:33] LABS: ALT (SGPT) 16 U/L (0-35); AST (SGOT) 27 U/L (14-36); Albumin 3.7 g/dl (3.5-5.0); Alkaline Phosphatase 66 U/L (38-126); Blood Urea Nitrogen 17 mg/dl (7-17); Calcium 9.5 mg/dl (8.4-10.2); Carbon Dioxide 24 mmol/L (22-30); Chloride 102 mmol/L (98-107); Estimated Creatinine Clearance 60 ml/min; Glucose 105 mg/dl (70-99); Sodium 134 mmol/L (135-145); Total Bilirubin 0.3 mg/dl (0.2-1.3); eGFR > 60.00
[2024-05-15 21:00] VITALS: BP 136/92
[2024-05-15 22:00] VITALS: BP 132/88
== END 2024-05-15 22:32 | disposition home or self-care (01) ==
LOC: EMR 18:48
PROVIDERS: Registered Nurse; EMERGENCY PHYSICIAN Emergency Medicine; FAMILY PHYSICIAN Internal Medicine
DX: R55 Syncope and collapse (principal); J44.89 Other specified chronic obstructive pulmonary disease; F41.9 Anxiety disorder, unspecified; I95.1 Orthostatic hypotension; F31.9 Bipolar disorder, unspecified; E03.9 Hypothyroidism, unspecified; F43.10 Post-traumatic stress disorder, unspecified; G43.909 Migraine, unspecified, not intractable, without status migrainosus; E23.0 Hypopituitarism; E27.40 Unspecified adrenocortical insufficiency; M19.90 Unspecified osteoarthritis, unspecified site; M81.0 Age-related osteoporosis without current pathological fracture; M48.00 Spinal stenosis, site unspecified; K31.84 Gastroparesis; Z88.6 Allergy status to analgesic agent; Z88.1 Allergy status to other antibiotic agents; Z91.041 Radiographic dye allergy status; Z91.012 Allergy to eggs; Z91.040 Latex allergy status; Z91.011 Allergy to milk products; Z88.5 Allergy status to narcotic agent; Z91.013 Allergy to seafood; Z88.2 Allergy status to sulfonamides; Z88.8 Allergy status to other drugs, medicaments and biological substances; Z91.018 Allergy to other foods
CPT/HCPCS: 99284; 96360; 96361; 80053; 85025

== ENCOUNTER 2024-05-19 17:11 | Emergency (ER) | payer MEDICARE, OTHER, SELFPAY ==
[2024-05-19 17:21] VITALS: BP 124/92
[2024-05-19 17:38] LABS: % Immature Granulocytes 0.3 % (0-0.5); % Lymphocytes 31.3 % (20.5-51.1); % Monocytes 7.5 % (1.7-9.3); % Neutrophils 51.9 % (42.2-75.2); Absolute Basophils 0.2 10^3/uL (0-0.2); Absolute Eosinophils 0.5 10^3/uL (0-0.7); Absolute Lymphocytes 2.4 10^3/uL (1.2-3.4); Absolute Monocytes 0.6 10^3/uL (0.1-0.6); Absolute Neutrophils 3.9 10^3/uL (1.4-6.5); Hematocrit 36.3 % (37.0-47.0); Hemoglobin 12.3 g/dL (12.0-16.0); Mean Corp Hgb Conc. 33.9 g/dL (33.0-37.0); Mean Corpuscular Hgb 31.8 pg (27.0-31.0); Mean Corpuscular Volume 93.8 fL (81.0-99.0); Mean Platelet Volume 8.8 fL (7.4-10.4); Nucleated Red Blood Cells % 0 %; Platelet Count 382 10^3/uL (130-400); Red Blood Cell Count 3.87 10^6/uL (4.20-5.40); Red Cell Dist. Width 13.1 % (11.5-14.5); White Blood Cell Count 7.6 10^3/uL (4.8-10.8)
[2024-05-19 17:59] LABS: ALT (SGPT) 16 U/L (0-35); AST (SGOT) 28 U/L (14-36); Albumin 3.9 g/dl (3.5-5.0); Alkaline Phosphatase 98 U/L (38-126); Blood Urea Nitrogen 14 mg/dl (7-17); Calcium 9.4 mg/dl (8.4-10.2); Carbon Dioxide 21 mmol/L (22-30); Chloride 102 mmol/L (98-107); Glucose 75 mg/dl (70-99); Potassium 4.1 mmol/L (3.5-5.1); Sodium 132 mmol/L (135-145); Total Bilirubin 0.3 mg/dl (0.2-1.3); Total Protein 6.1 g/dl (6.3-8.2); eGFR > 60.00
--- NOTE | 2024-05-19 21:48 | ED.GENMED ---
History of Present Illness
<FREDERICK Almaguer - Last Filed: 05/21/24 02:57>
General
Chief Complaint: Back Pain
Source: patient
Exam Limitations: none
Time Seen by Provider: 05/19/24 21:40
Nursing documentation reviewed up to this point in time: agreed with
History of Present Illness
History of Present Illness:
Patient is a 58-year-old female history of COPD migraines bipolar, orthostatic hypotension gastroparesis migraines anxiety PTSD presents today for evaluation of vomiting. Patient reports she has vomited for the past 5 days and is unable to tolerate
any solid foods. She does complain of abdominal pain. She is able to drink water. She denies any diarrhea constipation. She was scheduled to see her family doctor today however canceled because was too cold. Patient was just here May 15
several days ago for fainting. She does have a history of frequent fainting.
Patient does complain of back tingling and reports she has chronic back pain. She denies any injury. She denies any bowel or bladder incontinence. She denies any lower extremity weakness
Past History
<FREDERICK Almaguer - Last Filed: 05/21/24 02:57>
Past History
ED Past Medical History: Asthma, COPD, Hypothyroidism, Psychiatric (Bipolar disorder, anxiety, PTSD), Other (TMJ dysfunction, migraines, PNA, Sinusitis chronic, Gastroparesis, Hypopituitarism, Orthostatic hypotension) and Other (hypopituitarism,
adrenal insufficiency)
ED Past Surgical History: Orthopedic (Left thumb and hand surgery, Right wrist surgery, TMJ surgery X 2, Back surgery, ) and Other (cataracts, Vocal cord surgery)
Social History
Tobacco: Non-smoker
Alcohol: None
Drug: None
Personal: Single
Living: alone (dad)
Employment: Not employed
Family History
Family History: Other
Review of Systems
<FREDERICK Almaguer - Last Filed: 05/21/24 02:57>
Review of Systems
Allergies reviewed?: Yes
All Other Systems: ROS reviewed and negative except as documented in HPI and ROS
Constitutional: Reports no symptoms; Denies fever, fatigue or chills
Respiratory: Reports no symptoms
Cardiac: Reports no symptoms
ABD/GI: Reports abdominal pain, nausea and vomiting; Denies diarrhea
: Reports no symptoms
Musculoskeletal: Reports no symptoms
Skin: Reports no symptoms
Neurological: Reports no symptoms
Psychiatric: Reports no symptoms
Phy Exam
<FREDERICK Almaguer - Last Filed: 05/21/24 02:57>
General Physical Exam
General Presentation: no apparent distress
General age: appears stated age
General Skin: warm and dry
General Habitus: normal
General Mental: alert
Cardiovascular Exam
Cardiovascular Exam: regular rate/rhythm, no murmur and normal peripheral pulses
Pulmonary Exam
Pulmonary Exam: lungs clear and no respiratory distress
Gastrointestinal Exam
Gastrointestinal Exam: soft and other (mild non specific tenderness throughout )
Neurological Exam
Neurological Exam: alert and oriented x3
Musculoskeletal Exam
Musculoskeletal Exam: full ROM
Skin Exam
Skin Exam: normal color and warm/dry
Course
<FREDERICK Almaguer - Last Filed: 05/21/24 02:57>
Orders/Labs/Results
Orders:
Orders
05/19/24 17:30
CMP [Comprehensive Metabolic Panel] Urgent
Complete Blood Count/With Diff Urgent
05/19/24 22:35
Iohexol [Omnipaque] See Protocol PO NOW STA
05/19/24 22:40
Diphenhydramine [Benadryl] 50 mg IV NOW STA
Hydrocortisone Sod Succinate [Solu-Cortef] 200 mg IV NOW STA
05/20/24 00:47
Hydrocortisone Sod Succinate [Solu-Cortef] 100 mg .ROUTE .STK-MED ONE
05/20/24 01:00
CT Abd/pelvis W Iv Cont Urgent
Reason For Exam: abd pain /vomiting
05/20/24 02:14
0.9% Sodium Chloride 1000 ml [Nss] 1,000 ml IV BOLUS
Abnormal Lab Results
05/19/24
17:30
RBC 3.87 L 10^6/uL
(4.20-5.40)
Hct 36.3 L %
(37.0-47.0)
MCH 31.8 H pg
(27.0-31.0)
Eosinophils % 7.0 H %
(0-6)
Sodium 132 L mmol/L
(135-145)
Carbon Dioxide 21 L mmol/L
(22-30)
Total Protein 6.1 L g/dl
(6.3-8.2)
05/19/24 17:30
05/19/24 17:30
Vital Signs
Initial and Last Documented VS:
Initial Vital Signs
Temp Pulse Resp BP Pulse Ox
98 F 101 20 124/92 97
05/19/24 17:21 05/19/24 17:21 05/19/24 17:21 05/19/24 17:21 05/19/24 17:21
Last Documented Vital Signs
Temp Pulse Resp BP Pulse Ox
98.5 F 82 17 162/103 95
05/20/24 03:12 05/20/24 03:12 05/20/24 03:12 05/20/24 03:12 05/20/24 03:12
<Janny Monterroso, DO - Last Filed: 05/20/24 03:01>
Orders/Labs/Results
Orders:
Orders
05/19/24 17:30
CMP [Comprehensive Metabolic Panel] Urgent
Complete Blood Count/With Diff Urgent
05/19/24 22:35
Iohexol [Omnipaque] See Protocol PO NOW STA
05/19/24 22:40
Diphenhydramine [Benadryl] 50 mg IV NOW STA
Hydrocortisone Sod Succinate [Solu-Cortef] 200 mg IV NOW STA
05/20/24 00:47
Hydrocortisone Sod Succinate [Solu-Cortef] 100 mg .ROUTE .STK-MED ONE
05/20/24 01:00
CT Abd/pelvis W Iv Cont Urgent
Reason For Exam: abd pain /vomiting
05/20/24 02:14
0.9% Sodium Chloride 1000 ml [Nss] 1,000 ml IV BOLUS
Abnormal Lab Results
05/19/24
17:30
RBC 3.87 L 10^6/uL
(4.20-5.40)
Hct 36.3 L %
(37.0-47.0)
MCH 31.8 H pg
(27.0-31.0)
Eosinophils % 7.0 H %
(0-6)
Sodium 132 L mmol/L
(135-145)
Carbon Dioxide 21 L mmol/L
(22-30)
Total Protein 6.1 L g/dl
(6.3-8.2)
05/19/24 17:30
05/19/24 17:30
Vital Signs
Initial and Last Documented VS:
Initial Vital Signs
Temp Pulse Resp BP Pulse Ox
98 F 101 20 124/92 97
05/19/24 17:21 05/19/24 17:21 05/19/24 17:21 05/19/24 17:21 05/19/24 17:21
Last Documented Vital Signs
Temp Pulse Resp BP Pulse Ox
98.5 F 82 17 162/103 95
05/20/24 03:12 05/20/24 03:12 05/20/24 03:12 05/20/24 03:12 05/20/24 03:12
<FREDERICK Almaguer - Last Filed: 05/21/24 02:57>
MDM/Problems Addressed
MDM/Problems Addressed:
Patient is a 58-year-old male presenting for evaluation of nausea and vomiting and reports she has not been able to keep any solids down over the past week. She does complain abdominal pain. She is able drink fluids. On exam she has nonspecific
tenderness however with patient complaining of persistent vomiting and abdominal pain. Patient mentioned in triage note that her back feels tingly. She has chronic abdominal pain but denies any weakness. She denies any bowel or bladder
incontinence. Denies any fever chills and is afebrile. She is nontoxic, her chemistry is unremarkable denies any urinary s/s. on exam she has non specific tenderness. ct ordered. Plan for discharge home with CAT scan negative.
<Janny Monterroso DO - Last Filed: 05/20/24 03:01>
*Radiology
Radiology exam reviewed: radiology read reviewed
*Pulse Oximetry
Patient hypoxic: no
*Critical Care Note
Total Time (30-74mins, 75-104mins- exclusive of procedures): Not Applicable
ED Attending Note
<FREDERICK Almaguer - Last Filed: 05/21/24 02:57>
-
Portions of this chart may have been created with voice recognition software.� Occasional wrong word or��sound alike� substitutions may have occurred due to the inherent limitations of voice recognition software.
<Janny Monterroso DO - Last Filed: 05/20/24 03:01>
ED Attending Note
Patient seen and examined by attending physician: Yes
I performed a history and physical exam of patient and discussed management with resident, I reviewed resident's note and agree with documented findings and plan of care.: Yes
ED Attending Note:
58-year-old woman with history of bipolar disorder, frequent falls, thoracic and lumbar compression fractures presents via EMS with complaints of nausea, vomiting.
Multiple ED visits over the past few months for somewhat similar complaints as well as history of frequent falls with the ED visits.
Vital signs remained stable, within normal limits since arrival.
She has had no vomiting since arrival to the ED.
Abdomen is soft without appreciable tenderness.
Labs are unremarkable, unchanged from previous.
CT abdomen pelvis shows constipation, no obstruction. Chronic vertebral compression fractures as well as old fracture of the sacrum.
Patient reports chronically maintained on MiraLAX on a daily basis. Recommend adding daily Senokot versus Metamucil and continuing MiraLAX.
Recommend limiting her diet to clear liquids at least over the next day or 2 until nausea resolves then slowly advance to soft bland foods.
Encouraged prompt follow-up with her PCP for recheck.
Discharge Plan
Departure
Patient Disposition: Home (Routine Discharge)
Date of Disposition: 05/20/24
Time of Disposition: 02:48
Patient with high blood pressure during this ER visit?: No
Condition: Good
Discharge Problem:
Nausea & vomiting, Constipation
Instructions: Constipation, Adult ED, Clear Liquid Diet
Prescriptions:
No Action
hydrocortisone 10 MG tablet
15 mg PO QPM
hydrocortisone 10 MG tablet
25 mg PO DAILY
lamotrigine 100 MG tablet
100 mg PO DAILY
oxcarbazepine 300 mg Tablet
300 mg PO BID
ondansetron 8 mg Tablet,Disintegrating
8 mg PO DAILY
buspirone 10 mg Tablet
10 mg PO TID
Trudhesa 0.725 mg/pump act. (4 mg/mL) [place],Non-Aerosol
1 spray INTRANASAL DAILYPRN PRN (Reason: migraine)
Trelegy Ellipta 100-62.5-25 mcg Blister With Device
1 inh INHALATION R DAILY
ziprasidone HCl 80 mg Capsule
80 mg PO BID
trazodone 100 mg Tablet
300 mg PO HS
calcium citrate-vitamin D3 [Citracal + D Maximum] 315 mg-6.25 mcg (250 unit) Tablet
1 tab PO DAILY
Aimovig Autoinjector 140 mg/mL Auto-Injector
140 mg SC Q28D
Tyrvaya 0.03 mg/spray [place], Metered, Non-Aerosol
1 spray INTRANASAL BID
cetirizine [Zyrtec] 10 mg Tablet
10 mg PO DAILY
levalbuterol tartrate 45 mcg/actuation Hfa Aerosol Inhaler
1 inh INHALATION R Q6HPRN PRN (Reason: sob/wheezing)
pantoprazole 40 MG tablet,delayed release (DR/EC)
40 mg PO DAILY
Dayvigo 10 mg Tablet
10 mg PO HS
clonazepam 1 MG tablet
1 mg PO TID Qty: 4 0RF
Patient Comments:
02/18/2024: last filled 01/29/24, 90 tabs for 30 days from [facility]
lamotrigine 200 mg Tablet
200 mg PO QPM
polyethylene glycol 3350 [Miralax] 17 gram Powder In Packet
17 g PO DAILYPRN PRN (Reason: constipation)
famotidine 20 mg Tablet
20 mg PO BID
acetaminophen 650 mg tablet extended release
1,300 mg PO [id number] PRN (Reason: mild pain)
sennosides [senna] 8.6 mg Tablet
8.6 mg PO DAILY PRN (Reason: constipation)
torsemide 10 mg Tablet
10 mg PO DAILY
docusate sodium 100 mg Capsule
100 mg PO BID
gabapentin 300 mg Capsule
300 mg PO TID
topiramate 200 mg Tablet
200 mg PO BID
celecoxib [Celebrex] 100 mg Capsule
100 mg PO BID
cholecalciferol (vitamin D3) 125 mcg (5,000 unit) Capsule
125 mcg PO DAILY
oxycodone 5 mg Tablet
5 mg PO Q6H PRN (Reason: pain)
pregabalin 75 mg Capsule
75 mg PO TID
levothyroxine 112 mcg Capsule
112 mcg PO DAILY
Dupixent Pen 300 mg/2 mL Pen Injector
300 mg SC Q2W
Referrals:
Carlos Vora MD [Family Provider] - Call in 1-3 days for appt
Interventions
Interventions:
*General Assessment Last Done: 05/19/24 17:21
*ED COVID-19 Vaccine History Last Done: 05/19/24 22:15
*Nursing Disposition Last Done: 05/20/24 03:12
ED-Musculoskeletal Assessment Last Done: 05/19/24 22:15
Discharge Date and Time
Discharge Date/Time: 05/20/24 03:13
Print Language: ALBANIAN
[2024-05-19 22:10] VITALS: BMI 19.3
[2024-05-20] MEDS: BENADRYL 50 MG IV (00:45)
[2024-05-20] MEDS: SOLU-CORTEF 200 MG IV (00:48)
[2024-05-20 00:55] VITALS: BP 125/94
[2024-05-20 03:12] VITALS: BP 162/103
== END 2024-05-20 03:13 | disposition home or self-care (01) ==
LOC: EMR 17:11
PROVIDERS: Student in an Organized Health Care Education/Training Program; EMERGENCY PHYSICIAN Emergency Medicine; FAMILY PHYSICIAN Internal Medicine
DX: R11.2 Nausea with vomiting, unspecified (principal); K59.00 Constipation, unspecified; G89.29 Other chronic pain; M54.9 Dorsalgia, unspecified; J44.89 Other specified chronic obstructive pulmonary disease; E03.9 Hypothyroidism, unspecified
CPT/HCPCS: 96374; 96375; 99284; 74177; 80053; 85025; Q9967

== ENCOUNTER 2024-05-24 18:40 | Emergency (ER) | payer MEDICARE, OTHER, SELFPAY ==
[2024-05-24 18:58] VITALS: BP 147/98
--- NOTE | 2024-05-24 18:59 | ED.GENMED ---
ED Provider Triage
<Giuseppe Coffey PA-C - Last Filed: 05/24/24 19:01>
-
Patient seen by provider in Triage?: Seen in Triage
Attestation: A medical screening examination has been initiated by a qualified medical provider. Based on the assessment performed at this time, it has been determined that an emergent medical condition may exist and the patient has been informed
that further medical evaluation and possible additional diagnostic testing may be needed.
HPI: 58-year-old female presenting to the ER for evaluation of left leg pain and back pain is similar to multiple previous episodes. Patient reports that she has been seen in this ER multiple times for the same and today symptoms do not feel any
different. No new symptoms. Patient is otherwise stable.
GENERAL: Alert , in no apparent distress
EYE: No visual abnormalities.
NECK: Trachea midline
ENT: No visible abnormalities.
LUNGS: No acute respiratory distress
NEUROLOGICAL: Alert and oriented
SKIN: Skin intact. No visible changes.
MUSCULOSKELETAL: Moving extremities normally
PSYCH: Normal and appropriate interaction.
This is a medical evaluation conducted in person to initiate diagnostic evaluation and provide initial therapeutics. Please see further documentation by the treating clinician.
History of Present Illness
<Giuseppe Coffey PA-C - Last Filed: 05/24/24 19:01>
General
Chief Complaint: Dizziness
Time Seen by Provider: 05/25/24 00:27
<Yuri Gallardo DO - Last Filed: 05/25/24 02:23>
General
Source: patient and records
Nursing documentation reviewed up to this point in time: agreed with
History of Present Illness
History of Present Illness:
58-year-old female with subacute to chronic left hip and pelvic pain she had a fall July of last year multiple ER visits, multiple imaging test, states she has been able to walk recently, also feels dizzy has not eaten since this morning requesting
a lunch tray
Past History
<Giuseppe Coffey PA-C - Last Filed: 05/24/24 19:01>
Past History
ED Past Medical History: Asthma, COPD, Hypothyroidism, Psychiatric (Bipolar disorder, anxiety, PTSD), Other (TMJ dysfunction, migraines, PNA, Sinusitis chronic, Gastroparesis, Hypopituitarism, Orthostatic hypotension) and Other (hypopituitarism,
adrenal insufficiency)
ED Past Surgical History: Orthopedic (Left thumb and hand surgery, Right wrist surgery, TMJ surgery X 2, Back surgery, ) and Other (cataracts, Vocal cord surgery)
Social History
Tobacco: Non-smoker
Alcohol: None
Drug: None
Personal: Single
Living: alone (dad)
Employment: Not employed
Family History
Family History: Other
Review of Systems
<Yuri Gallardo DO - Last Filed: 05/25/24 02:23>
Review of Systems
All Other Systems: Not applicable
Constitutional: Denies fever
Cardiac: Reports no symptoms
ABD/GI: Reports no symptoms
: Reports no symptoms
Musculoskeletal: Reports joint pain
Neurological: Reports dizzy
Phy Exam
<Yuri Gallardo DO - Last Filed: 05/25/24 02:23>
Physical Exam
Physical Exam:
Physical Exam
General: 58 female eating a lunch tray in no acute distress
Neck: Without jaundice
Heart: s1/s2 regular rate and rhythm, no murmur. equal radial pulses.
Lungs: no acute respiratory distress. clear bilaterally
Abdomen: Soft not tender
Neuro: alert and oriented. no focal neurological deficits
Skin: no rash
Psychiatric: well kept. interactive and cooperative
Extremities: Pain with range of motion of the left
Course
<Giuseppe Coffey PA-C - Last Filed: 05/24/24 19:01>
Orders/Labs/Results
Orders:
Orders
05/25/24 00:49
Pelvis, 1 or 2 Views CR [CR Pelvis - 1 Or 2 Views ] Urgent
Comment:
Reason For Exam: pain left pelvis hip
Vital Signs
Initial and Last Documented VS:
Initial Vital Signs
Temp Pulse Resp BP Pulse Ox
98.1 F 115 20 147/98 99
05/24/24 18:58 05/24/24 18:58 05/24/24 18:58 05/24/24 18:58 05/24/24 18:58
Last Documented Vital Signs
Temp Pulse Resp BP Pulse Ox
98.2 F 105 16 125/99 95
05/25/24 00:14 05/25/24 00:14 05/25/24 00:14 05/25/24 00:14 05/25/24 00:14
<Yuri Gallardo DO - Last Filed: 05/25/24 02:23>
Orders/Labs/Results
Orders:
Orders
05/25/24 00:49
Pelvis, 1 or 2 Views CR [CR Pelvis - 1 Or 2 Views ] Urgent
Comment:
Reason For Exam: pain left pelvis hip
Vital Signs
Initial and Last Documented VS:
Initial Vital Signs
Temp Pulse Resp BP Pulse Ox
98.1 F 115 20 147/98 99
05/24/24 18:58 05/24/24 18:58 05/24/24 18:58 05/24/24 18:58 05/24/24 18:58
Last Documented Vital Signs
Temp Pulse Resp BP Pulse Ox
98.2 F 105 16 125/99 95
05/25/24 00:14 05/25/24 00:14 05/25/24 00:14 05/25/24 00:14 05/25/24 00:14
<Yuri Gallardo DO - Last Filed: 05/25/24 02:23>
MDM/Problems Addressed
Differential Diagnosis Includes:
Chronic pain prior lumbar compression fracture pelvic fracture
MDM/Problems Addressed:
Dizziness trouble with hip pain pelvic pain
Chronic conditions affecting care: Neurological disorder and Psychiatric illness
Acute Exacerbation and/or Progression of Chronic Illness: Neurological disorder and Psychiatric illness
<Yuri Gallardo DO - Last Filed: 05/25/24 02:23>
*Radiology
Radiology exam reviewed: preliminary read by ED provider
*Pulse Oximetry
Patient hypoxic: no
*Critical Care Note
Total Time (30-74mins, 75-104mins- exclusive of procedures): Not Applicable
<Yuri Gallardo DO - Last Filed: 05/25/24 02:23>
Update Note
Update Note:
Update does not appear to be an acute issue more subacute to chronic states that she had a fall in July labs from a few days ago noted CT abdomen pelvis and lumbar spine from the past few weeks noted patient eating a lunch tray, will check pelvis
film
Update x-ray noted
ED Attending Note
<Giuseppe Coffey PA-C - Last Filed: 05/24/24 19:01>
-
Portions of this chart may have been created with voice recognition software.� Occasional wrong word or��sound alike� substitutions may have occurred due to the inherent limitations of voice recognition software.
Discharge Plan
Departure
Patient Disposition: Home (Routine Discharge)
Date of Disposition: 05/25/24
Time of Disposition: 02:22
Patient with high blood pressure during this ER visit?: No
Condition: Good
Discharge Problem:
Chronic hip pain
Instructions: Muscle, joint, and bone pain - Discharge instructions
Prescriptions:
No Action
hydrocortisone 10 MG tablet
15 mg PO QPM
hydrocortisone 10 MG tablet
25 mg PO DAILY
lamotrigine 100 MG tablet
100 mg PO DAILY
oxcarbazepine 300 mg Tablet
300 mg PO BID
ondansetron 8 mg Tablet,Disintegrating
8 mg PO DAILY
buspirone 10 mg Tablet
10 mg PO TID
Trudhesa 0.725 mg/pump act. (4 mg/mL) [place],Non-Aerosol
1 spray INTRANASAL DAILYPRN PRN (Reason: migraine)
Trelegy Ellipta 100-62.5-25 mcg Blister With Device
1 inh INHALATION R DAILY
ziprasidone HCl 80 mg Capsule
80 mg PO BID
trazodone 100 mg Tablet
300 mg PO HS
calcium citrate-vitamin D3 [Citracal + D Maximum] 315 mg-6.25 mcg (250 unit) Tablet
1 tab PO DAILY
Aimovig Autoinjector 140 mg/mL Auto-Injector
140 mg SC Q28D
Tyrvaya 0.03 mg/spray [place], Metered, Non-Aerosol
1 spray INTRANASAL BID
cetirizine [Zyrtec] 10 mg Tablet
10 mg PO DAILY
levalbuterol tartrate 45 mcg/actuation Hfa Aerosol Inhaler
1 inh INHALATION R Q6HPRN PRN (Reason: sob/wheezing)
pantoprazole 40 MG tablet,delayed release (DR/EC)
40 mg PO DAILY
Dayvigo 10 mg Tablet
10 mg PO HS
clonazepam 1 MG tablet
1 mg PO TID Qty: 4 0RF
Patient Comments:
02/18/2024: last filled 01/29/24, 90 tabs for 30 days from [facility]
lamotrigine 200 mg Tablet
200 mg PO QPM
polyethylene glycol 3350 [Miralax] 17 gram Powder In Packet
17 g PO DAILYPRN PRN (Reason: constipation)
famotidine 20 mg Tablet
20 mg PO BID
acetaminophen 650 mg tablet extended release
1,300 mg PO [id number] PRN (Reason: mild pain)
sennosides [senna] 8.6 mg Tablet
8.6 mg PO DAILY PRN (Reason: constipation)
torsemide 10 mg Tablet
10 mg PO DAILY
docusate sodium 100 mg Capsule
100 mg PO BID
gabapentin 300 mg Capsule
300 mg PO TID
topiramate 200 mg Tablet
200 mg PO BID
celecoxib [Celebrex] 100 mg Capsule
100 mg PO BID
cholecalciferol (vitamin D3) 125 mcg (5,000 unit) Capsule
125 mcg PO DAILY
oxycodone 5 mg Tablet
5 mg PO Q6H PRN (Reason: pain)
pregabalin 75 mg Capsule
75 mg PO TID
levothyroxine 112 mcg Capsule
112 mcg PO DAILY
Dupixent Pen 300 mg/2 mL Pen Injector
300 mg SC Q2W
Referrals:
Carlos Vora MD [Family Provider] -
Interventions
Interventions:
*Risk Screen - Suicide Last Done: 05/25/24 00:14
*General Assessment Last Done: 05/24/24 18:58
*Neglect/Abuse Screening Last Done: 05/25/24 00:14
ED- Fall Risk Assessment Last Done: 05/25/24 00:14
*ED COVID-19 Vaccine History Last Done: 05/25/24 00:14
ED- Neurological Assessment Last Done: 05/25/24 00:14
ED- Cardiac Assessment Last Done: 05/25/24 00:14
ED Swallowing Screen Last Done: 05/25/24 00:14
Discharge Date and Time
Print Language: GERMAN
[2024-05-25 00:14] VITALS: BP 125/99; BMI 18.6
== END 2024-05-25 05:10 | disposition home or self-care (01) ==
LOC: EMR 18:40
PROVIDERS: EMERGENCY PHYSICIAN Emergency Medicine; FAMILY PHYSICIAN Internal Medicine
DX: M25.552 Pain in left hip (principal); G89.29 Other chronic pain; R42 Dizziness and giddiness; R10.2 Pelvic and perineal pain; E03.9 Hypothyroidism, unspecified; J44.89 Other specified chronic obstructive pulmonary disease; E27.40 Unspecified adrenocortical insufficiency
CPT/HCPCS: 99283; 72170

== ENCOUNTER 2024-06-17 21:42 | Emergency (ER) | payer MEDICARE, OTHER, SELFPAY ==
[2024-06-17 21:48] VITALS: BP 162/101; BMI 19.8
[2024-06-17 21:51] VITALS: BP 162/101
[2024-06-17 22:00] VITALS: BP 168/94
[2024-06-17 22:08] LABS: % Eosinophils 1.1 % (0-6); % Immature Granulocytes 0.3 % (0-0.5); % Lymphocytes 33.2 % (20.5-51.1); % Monocytes 10.3 % (1.7-9.3); % Neutrophils 54.1 % (42.2-75.2); Absolute Basophils 0.1 10^3/uL (0-0.2); Absolute Eosinophils 0.1 10^3/uL (0-0.7); Absolute Monocytes 0.9 10^3/uL (0.1-0.6); Absolute Neutrophils 4.9 10^3/uL (1.4-6.5); Hematocrit 33.9 % (37.0-47.0); Hemoglobin 11.4 g/dL (12.0-16.0); Mean Corp Hgb Conc. 33.6 g/dL (33.0-37.0); Mean Corpuscular Hgb 30.8 pg (27.0-31.0); Mean Corpuscular Volume 91.6 fL (81.0-99.0); Mean Platelet Volume 9.4 fL (7.4-10.4); Nucleated Red Blood Cells % 0 %; Platelet Count 302 10^3/uL (130-400); Red Cell Dist. Width 12.7 % (11.5-14.5); White Blood Cell Count 9.1 10^3/uL (4.8-10.8)
--- NOTE | 2024-06-17 22:10 | ED.GENMED ---
History of Present Illness
General
Chief Complaint: Heart Rate Problem
Time Seen by Provider: 06/17/24 21:48
History of Present Illness
History of Present Illness:
58-year-old femalew/hx of hypopituitarism, hypothyroidism, asthma, COPD, and orthostatic hypotension presents to the emergency department for evaluation of exertional dizziness associated with nausea and vomiting. She is concerned that her heart
rate seem to be consistently elevated. Per EMS heart rate was elevated in the 1 20-1 40 range however decreased upon arrival to the ED. She has not vomited for 2 days but has not been able to eat or drink much today.
Past History
Past History
ED Past Medical History: Asthma, COPD, Hypothyroidism, Psychiatric (Bipolar disorder, anxiety, PTSD), Other (TMJ dysfunction, migraines, PNA, Sinusitis chronic, Gastroparesis, Hypopituitarism, Orthostatic hypotension) and Other (hypopituitarism,
adrenal insufficiency)
ED Past Surgical History: Orthopedic (Left thumb and hand surgery, Right wrist surgery, TMJ surgery X 2, Back surgery, ) and Other (cataracts, Vocal cord surgery)
Social History
Tobacco: Non-smoker
Alcohol: None
Drug: None
Personal: Single
Living: alone (dad)
Employment: Not employed
Family History
Family History: Other
Review of Systems
Review of Systems
Allergies reviewed?: Yes
All Other Systems: ROS reviewed and negative except as documented in HPI and ROS
Phy Exam
Physical Exam
Physical Exam:
GEN: Thin and frail appearing
HEENT: Oral mucosa moist, no scleral icterus
Cardiac: Regular rate
Lung: No respiratory distress, no tachypnea
MSK: No gross deformity or injuries
Skin: Good color, no pallor or jaundice, no rashes
Neuro: AO x3, moves all extremities freely
Psych: Calm, cooperative
Course
Orders/Labs/Results
Orders:
Orders
06/17/24 21:49
Electrocardiogram (*1) Urgent
Reason for Study: Tachycardia
EKG- Treatment ONCE
06/17/24 21:57
COVID-19 Antigen Urgent
Source: Nasal Swab
Complete Blood Count/With Diff Urgent
Comprehensive Metabolic Panel Urgent
Influenza A+B Rapid Molecular Urgent
MAXI Source: Nasal Swab
Specimen Description:
06/17/24 22:39
0.9% Sodium Chloride 1000 ml [Nss] 1,000 ml IV BOLUS
06/18/24 01:25
Hydrocortisone Sod Succinate [Solu-Cortef] 100 mg IV NOW STA
06/18/24 02:16
Urinalysis Reflex To Culture Urgent
Date Specimen was Collected: 06/18/24
Time Specimen was Collected: 02:04
06/18/24 02:56
Potassium Chloride [KCl] 40 meq PO NOW STA
Abnormal Lab Results
06/17/24
21:57
RBC 3.70 L 10^6/uL
(4.20-5.40)
Hgb 11.4 L g/dL
(12.0-16.0)
Hct 33.9 L %
(37.0-47.0)
Absolute Monos (auto) 0.9 H 10^3/uL
(0.1-0.6)
Monocytes % 10.3 H %
(1.7-9.3)
Sodium 130 L mmol/L
(135-145)
Potassium 3.2 L mmol/L
(3.5-5.1)
Chloride 96 L mmol/L
(98-107)
Total Protein 6.0 L g/dl
(6.3-8.2)
06/17/24 21:57
06/17/24 21:57
Vital Signs
Initial and Last Documented VS:
Initial Vital Signs
Pulse Ox
99
06/17/24 21:46
Last Documented Vital Signs
Temp Pulse Resp BP Pulse Ox
98.3 F 77 15 153/83 98
06/17/24 21:48 06/18/24 01:00 06/18/24 01:00 06/18/24 00:00 06/18/24 01:00
MDM/Problems Addressed
MDM/Problems Addressed:
Patient's orthostatic hypotension is likely contributing to her symptoms especially in the setting of recent GI volume losses. She was given IV fluids and stress dose steroids, low K+ repleted. While her vital signs still remained quite
orthostatic the patient's symptoms have improved and she is comfortable with discharge to home. She will remain in the emergency department awaiting transport home at first light
*Critical Care Note
Total Time (30-74mins, 75-104mins- exclusive of procedures): Not Applicable
ED Attending Note
-
Portions of this chart may have been created with voice recognition software.� Occasional wrong word or��sound alike� substitutions may have occurred due to the inherent limitations of voice recognition software.
Discharge Plan
Departure
Patient Disposition: Home (Routine Discharge)
Date of Disposition: 06/18/24
Time of Disposition: 02:42
Patient with high blood pressure during this ER visit?: Yes
Discharge Problem:
Orthostatic hypotension
Instructions: Orthostatic hypotension
Prescriptions:
No Action
hydrocortisone 10 MG tablet
15 mg PO QPM
hydrocortisone 10 MG tablet
25 mg PO DAILY
lamotrigine 100 MG tablet
100 mg PO DAILY
oxcarbazepine 300 mg Tablet
300 mg PO BID
ondansetron 8 mg Tablet,Disintegrating
8 mg PO DAILY
buspirone 10 mg Tablet
10 mg PO TID
Trudhesa 0.725 mg/pump act. (4 mg/mL) [place],Non-Aerosol
1 spray INTRANASAL DAILYPRN PRN (Reason: migraine)
Trelegy Ellipta 100-62.5-25 mcg Blister With Device
1 inh INHALATION R DAILY
ziprasidone HCl 80 mg Capsule
80 mg PO BID
trazodone 100 mg Tablet
300 mg PO HS
calcium citrate-vitamin D3 [Citracal + D Maximum] 315 mg-6.25 mcg (250 unit) Tablet
1 tab PO DAILY
Aimovig Autoinjector 140 mg/mL Auto-Injector
140 mg SC Q28D
Tyrvaya 0.03 mg/spray [place], Metered, Non-Aerosol
1 spray INTRANASAL BID
cetirizine [Zyrtec] 10 mg Tablet
10 mg PO DAILY
levalbuterol tartrate 45 mcg/actuation Hfa Aerosol Inhaler
1 inh INHALATION R Q6HPRN PRN (Reason: sob/wheezing)
pantoprazole 40 MG tablet,delayed release (DR/EC)
40 mg PO DAILY
Dayvigo 10 mg Tablet
10 mg PO HS
clonazepam 1 MG tablet
1 mg PO TID Qty: 4 0RF
Patient Comments:
02/18/2024: last filled 01/29/24, 90 tabs for 30 days from [facility]
lamotrigine 200 mg Tablet
200 mg PO QPM
polyethylene glycol 3350 [Miralax] 17 gram Powder In Packet
17 g PO DAILYPRN PRN (Reason: constipation)
famotidine 20 mg Tablet
20 mg PO BID
acetaminophen 650 mg tablet extended release
1,300 mg PO [id number] PRN (Reason: mild pain)
sennosides [senna] 8.6 mg Tablet
8.6 mg PO DAILY PRN (Reason: constipation)
torsemide 10 mg Tablet
10 mg PO DAILY
docusate sodium 100 mg Capsule
100 mg PO BID
gabapentin 300 mg Capsule
300 mg PO TID
topiramate 200 mg Tablet
200 mg PO BID
celecoxib [Celebrex] 100 mg Capsule
100 mg PO BID
cholecalciferol (vitamin D3) 125 mcg (5,000 unit) Capsule
125 mcg PO DAILY
oxycodone 5 mg Tablet
5 mg PO Q6H PRN (Reason: pain)
pregabalin 75 mg Capsule
75 mg PO TID
levothyroxine 112 mcg Capsule
112 mcg PO DAILY
Dupixent Pen 300 mg/2 mL Pen Injector
300 mg SC Q2W
Referrals:
Carlos Vora MD [Family Provider] -
Interventions
Interventions:
*Risk Screen - Suicide Last Done: 06/17/24 21:48
*General Assessment Last Done: 06/17/24 21:48
*Neglect/Abuse Screening Last Done: 06/17/24 21:48
*ED COVID-19 Vaccine History Last Done: 06/17/24 22:00
ED- Cardiac Assessment Last Done: 06/17/24 22:00
ED- Pulmonary Assessment Last Done: 06/17/24 22:00
Discharge Date and Time
Print Language: LAO
[2024-06-17 22:23] LABS: COVID-19 Antigen Negative (Negative)
[2024-06-17 22:36] LABS: ALT (SGPT) 21 U/L (0-35); AST (SGOT) 21 U/L (14-36); Albumin 3.9 g/dl (3.5-5.0); Alkaline Phosphatase 105 U/L (38-126); Blood Urea Nitrogen 15 mg/dl (7-17); Calcium 8.8 mg/dl (8.4-10.2); Carbon Dioxide 25 mmol/L (22-30); Chloride 96 mmol/L (98-107); Estimated Creatinine Clearance 68 ml/min; Glucose 87 mg/dl (70-99); Potassium 3.2 mmol/L (3.5-5.1); Sodium 130 mmol/L (135-145); Total Bilirubin 0.5 mg/dl (0.2-1.3); eGFR > 60.00
[2024-06-17] MEDS: NSS 1000 IV (22:42)
[2024-06-17 23:00] VITALS: BP 176/91
[2024-06-18] VITALS (9 sets, daily range): BP systolic 114–182; BP diastolic 83–106
[2024-06-18] MEDS: SOLU-CORTEF 100 MG IV (02:16)
[2024-06-18 02:28] LABS: Urine Albumin Negative (Neg - Trace); Urine Bilirubin Negative (Negative); Urine Character Clear (Clear); Urine Glucose Negative (Negative); Urine Ketone Negative (Negative); Urine Leukocyte Negative (Negative); Urine Nitrite Negative (Negative); Urine Occult Blood Negative (Negative); Urine Urobilinogen Negative (Neg - 1+)
[2024-06-18 02:29] LABS: Urine Color Straw
[2024-06-18] MEDS: KCL 40 MEQ PO (03:14)
== END 2024-06-18 07:26 | disposition home or self-care (01) ==
LOC: EMR 21:42
PROVIDERS: Physician Assistant; EMERGENCY PHYSICIAN Student in an Organized Health Care Education/Training Program; FAMILY PHYSICIAN Internal Medicine
DX: I95.1 Orthostatic hypotension (principal); E87.6 Hypokalemia; E03.9 Hypothyroidism, unspecified; J44.89 Other specified chronic obstructive pulmonary disease; E23.0 Hypopituitarism; E27.40 Unspecified adrenocortical insufficiency
CPT/HCPCS: 99284; 80053; 81003; 85025; 87502; 87811; 93005

== ENCOUNTER 2024-07-19 18:27 | Emergency (ER) | payer MEDICARE, OTHER, SELFPAY ==
[2024-07-19] VITALS (9 sets, daily range): BP systolic 145–187; BP diastolic 105–129; BMI 17.7
[2024-07-19 18:53] LABS: % Basophils 0.9 % (0-2); % Eosinophils 0.9 % (0-6); % Immature Granulocytes 0.6 % (0-0.5); % Monocytes 9.6 % (1.7-9.3); Absolute Basophils 0.1 10^3/uL (0-0.2); Absolute Eosinophils 0.1 10^3/uL (0-0.7); Absolute Immature Granulocytes 0.1 10^3/uL (0-0.05); Absolute Lymphocytes 2.6 10^3/uL (1.2-3.4); Absolute Monocytes 1.2 10^3/uL (0.1-0.6); Absolute Neutrophils 8.1 10^3/uL (1.4-6.5); Hematocrit 44.3 % (37.0-47.0); Hemoglobin 14.9 g/dL (12.0-16.0); Mean Corp Hgb Conc. 33.6 g/dL (33.0-37.0); Mean Corpuscular Hgb 30.4 pg (27.0-31.0); Mean Corpuscular Volume 90.4 fL (81.0-99.0); Mean Platelet Volume 9.6 fL (7.4-10.4); Nucleated Red Blood Cells % 0 %; Platelet Count 306 10^3/uL (130-400); Red Cell Dist. Width 14.2 % (11.5-14.5); White Blood Cell Count 12.1 10^3/uL (4.8-10.8)
[2024-07-19 19:07] LABS: ALT (SGPT) 79 U/L (0-35); AST (SGOT) 50 U/L (14-36); Alkaline Phosphatase 88 U/L (38-126); Blood Urea Nitrogen 37 mg/dl (7-17); Calcium 10.4 mg/dl (8.4-10.2); Carbon Dioxide 17 mmol/L (22-30); Chloride 112 mmol/L (98-107); Glucose 150 mg/dl (70-99); Potassium 3.8 mmol/L (3.5-5.1); Sodium 145 mmol/L (135-145); Total Bilirubin 0.9 mg/dl (0.2-1.3); Total Protein 7.6 g/dl (6.3-8.2); eGFR > 60.00
[2024-07-19 19:38] LABS: TSH Reflex To Free T4 2.11 uIU/ml (0.47-4.68)
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
[2024-07-19] MEDS: NSS 1000 IV ×2 (20:20→23:10)
[2024-07-19] MEDS: ATIVAN 0.5 MG IV (22:35)
[2024-07-20 01:08] VITALS: BP 154/100
[2024-07-20 01:12] VITALS: BP 148/93
[2024-07-20 02:31] VITALS: BP 149/108
[2024-07-20 05:57] VITALS: BP 157/93
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
[2024-07-20 12:20] VITALS: BP 159/101
[2024-07-20 12:54] VITALS: BP 133/69
== END 2024-07-20 12:57 | disposition home or self-care (01) ==
LOC: EMR 18:27
PROVIDERS: Emergency Medicine; EMERGENCY PHYSICIAN Emergency Medicine; FAMILY PHYSICIAN Internal Medicine
DX: R00.0 Tachycardia, unspecified (principal); R03.0 Elevated blood-pressure reading, without diagnosis of hypertension; E03.9 Hypothyroidism, unspecified; E23.0 Hypopituitarism; J44.89 Other specified chronic obstructive pulmonary disease; F31.9 Bipolar disorder, unspecified; F41.9 Anxiety disorder, unspecified; F43.10 Post-traumatic stress disorder, unspecified; G43.909 Migraine, unspecified, not intractable, without status migrainosus; Z59.19 Other inadequate housing; E27.40 Unspecified adrenocortical insufficiency; M19.90 Unspecified osteoarthritis, unspecified site; M81.0 Age-related osteoporosis without current pathological fracture; M48.00 Spinal stenosis, site unspecified; K31.84 Gastroparesis; Z87.01 Personal history of pneumonia (recurrent); Z88.6 Allergy status to analgesic agent; Z88.1 Allergy status to other antibiotic agents; Z91.041 Radiographic dye allergy status; Z91.012 Allergy to eggs; Z91.040 Latex allergy status; Z91.011 Allergy to milk products; Z88.5 Allergy status to narcotic agent; Z91.010 Allergy to peanuts; Z91.013 Allergy to seafood; Z88.2 Allergy status to sulfonamides; Z88.8 Allergy status to other drugs, medicaments and biological substances; Z91.018 Allergy to other foods; Z91.048 Other nonmedicinal substance allergy status
CPT/HCPCS: 99284; 96374; 96361 ×2; 80053; 84443; 85025; 93005

== ENCOUNTER 2024-08-22 01:11 | Observation (INO) | payer MEDICARE, OTHER, SELFPAY ==
[2024-08-21 16:50] VITALS: BP 171/98
[2024-08-21 17:20] LABS: Blood Urea Nitrogen 17 mg/dl (7-17); Calcium 9.1 mg/dl (8.4-10.2); Carbon Dioxide 24 mmol/L (22-30); Chloride 95 mmol/L (98-107); Glucose 111 mg/dl (70-99); Sodium 128 mmol/L (135-145); eGFR > 60.00
[2024-08-21 19:08] VITALS: BP 168/84
[2024-08-21 21:12] LABS: Urine Albumin Negative (Neg - Trace); Urine Bilirubin Negative (Negative); Urine Character Clear (Clear); Urine Glucose Negative (Negative); Urine Ketone Negative (Negative); Urine Leukocyte Negative (Negative); Urine Nitrite Negative (Negative); Urine Occult Blood Negative (Negative); Urine Urobilinogen Negative (Neg - 1+)
[2024-08-21 21:23] LABS: Urine Color Yellow
[2024-08-21 22:12] LABS: % Basophils 0.8 % (0-2); % Eosinophils 0.7 % (0-6); % Immature Granulocytes 0.7 % (0-0.5); % Lymphocytes 32.4 % (20.5-51.1); % Monocytes 8.7 % (1.7-9.3); % Neutrophils 56.7 % (42.2-75.2); Absolute Basophils 0.1 10^3/uL (0-0.2); Absolute Eosinophils 0.1 10^3/uL (0-0.7); Absolute Immature Granulocytes 0.1 10^3/uL (0-0.05); Absolute Lymphocytes 2.7 10^3/uL (1.2-3.4); Absolute Monocytes 0.7 10^3/uL (0.1-0.6); Absolute Neutrophils 4.7 10^3/uL (1.4-6.5); Hemoglobin 10.4 g/dL (12.0-16.0); Mean Corp Hgb Conc. 33.5 g/dL (33.0-37.0); Mean Corpuscular Hgb 30.8 pg (27.0-31.0); Mean Corpuscular Volume 91.7 fL (81.0-99.0); Nucleated Red Blood Cells % 0 %; Red Blood Cell Count 3.38 10^6/uL (4.20-5.40); Red Cell Dist. Width 15.4 % (11.5-14.5); White Blood Cell Count 8.4 10^3/uL (4.8-10.8)
[2024-08-21 22:48] VITALS: BP 160/98
--- NOTE | 2024-08-21 23:23 | ED.GENMED ---
History of Present Illness
General
Chief Complaint: Bowel Problem
Source: patient
Exam Limitations: none
Time Seen by Provider: 08/21/24 19:44
Nursing documentation reviewed up to this point in time: agreed with
History of Present Illness
History of Present Illness:
Patient to ED with complaint of inablilty to pass urine. States symtoms started today. She reported constipation days ago. SHe took miralax and then developed diarrhea yesterday. Able to urinate this AM but nothing since. Bladder scan on
arrival >700cc. No prior history of same.
Past History
Past History
ED Past Medical History: Asthma, COPD, Hypothyroidism, Psychiatric (Bipolar disorder, anxiety, PTSD), Other (TMJ dysfunction, migraines, PNA, Sinusitis chronic, Gastroparesis, Hypopituitarism, Orthostatic hypotension) and Other (hypopituitarism,
adrenal insufficiency)
ED Past Surgical History: Orthopedic (Left thumb and hand surgery, Right wrist surgery, TMJ surgery X 2, Back surgery, ) and Other (cataracts, Vocal cord surgery)
Social History
Tobacco: Non-smoker
Alcohol: None
Drug: None
Personal: Single
Living: alone (dad)
Employment: Not employed
Family History
Family History: Other
Review of Systems
Review of Systems
Allergies reviewed?: Yes
All Other Systems: ROS reviewed and negative except as documented in HPI and ROS
Constitutional: Reports no symptoms
EENT: Reports no symptoms
Respiratory: Reports no symptoms
Cardiac: Reports no symptoms
ABD/GI: Reports abdominal pain (diffuse)
: Reports difficulty voiding
Musculoskeletal: Reports no symptoms
Skin: Reports no symptoms
Neurological: Reports no symptoms
Psychiatric: Reports no symptoms
Phy Exam
General Physical Exam
General Presentation: mild distress
General age: appears stated age
General Skin: warm and dry
General Habitus: normal
General Mental: alert
Cardiovascular Exam
Cardiovascular Exam: regular rate/rhythm and no edema
Pulmonary Exam
Pulmonary Exam: lungs clear and no respiratory distress
Gastrointestinal Exam
Gastrointestinal Exam: normal bowel sounds, soft, no organomegaly and no pulsatile mass
Palpation: generalized: Mild tenderness
Neurological Exam
Neurological Exam: alert, oriented x3, CN II-XII intact, no motor deficits, normal reflexs, no sensory deficits, speech normal and normal gait
Mental
Mental Status: oriented to person, oriented to place and oriented to time
Motor
Seizure Activity: none
Gait: normal
Tremors: none
Other Movement Disorders: none
Right upper extremity: 4
Right lower extremity: 4
Left upper extremity: 4
Left lower extremity: 4
Bilateral upper extremities: 4
Bilateral lower extremities: 4
Sensory
Sensory Exam: intact
Reflexes
Reflexes: +3: Left patellar, +3: Right patellar, +3: Left achilles and +3: Right achilles
Musculoskeletal Exam
Musculoskeletal Exam: full ROM, no edema, neuro vasc intact and other (equal strength and sensation bilaterally)
Skin Exam
Skin Exam: normal color, warm/dry and no rash
Psychiatric Exam
Psychiatric Exam: normal mood/affect
Course
Orders/Labs/Results
Orders:
Orders
08/21/24 17:00
Basic Metabolic Panel Urgent
08/21/24 19:46
Bladder Scan- Treatment ONCE
Abdomen Xray - 1 View [CR Abdomen - 1 View] Urgent
Comment:
Reason For Exam: constipation
08/21/24 21:07
Urinalysis Reflex To Culture Urgent
Date Specimen was Collected: 08/21/24
Time Specimen was Collected: 19:50
08/21/24 21:39
CT Abd/pel Without Iv Or Oral Urgent
Reason For Exam: abd pain, urinary retention
08/21/24 21:40
Complete Blood Count/With Diff Urgent
0.9% Sodium Chloride 1000 ml [Nss] 1,000 ml IV BOLUS
08/22/24 00:20
Admit/Transfer Patient As Directed
Co-Sign Provider:
Level of Care: Observation services
Assign to:: Medical/Surgical
Physician / Group: hospitalist
Diagnosis: hyponatremia, vertebral compression fracture
Reason for Hospitalization: urinary retention,
PRN Pain Medication Management As Directed
May give lesser potent ordered pain med per pt: Yes
preference::
Protocol:: Medication orders for pain may be administered in a
manner that supports deferring to patient preference
when the pt is:
- Requesting an ordered lesser potent pain medication.
Least to most potent pain medications are defined
as: acetaminophen < NSAID < tramadol < opioids
(morphine, oxycodone, hydromorphone).
- Requesting a lesser dose of the same medication IF
ORDERED.
- Requesting a less intrusive route of administration
if both routes are prescribed by the provider (PO <
IV).
08/22/24 00:26
Code Status As Directed
Resuscitation Status: Full Code
08/22/24 01:31
0.9% Sodium Chloride 1000 ml [Nss] 1,000 ml IV 75 mls/hr
Acetaminophen [Tylenol] 650 mg PO Q4HPRN PRN
Albuterol [ProAIR HFA INHALER] 1 puff INH R Q6HPRN PRN
Bisacodyl [Dulcolax] 10 mg RECTAL [id number] PRN
HYDROmorphone [Dilaudid] 0.5 mg IV Q4HPRN PRN
Magnesium Citrate [Citroma] 300 ml PO ONCE ONE
Oxycodone [Roxicodone] 5 mg PO Q4HPRN PRN
08/22/24 01:31
CT Thoracic Spine W/o Iv Contr Routine
Comment:
Reason For Exam: f/u further characterize T9 vert fracture & canal
Activity As Directed
Activity Level: With Assistance
Bladder Scan As Directed
Follow Bladder Retention/Intermittent Cath Algorithm?: Yes
PRN if no void in __ hours: 6
Frequency: Per Retention Algorithm
If Bladder Scan Result >: 400
then:: Straight cath
Neurological Checks As Directed
Frequency: q8h
Pneumatic Compression Sleeves As Directed
Type: Knee high
Straight Cath As Directed
Frequency: Per Retention Algorithm
Additional Instructions: straight cath as needed per acute urinary retention algorithm for 24 hrs
Additional Instructions: for bladder scan greater than 400 mL
Vital Signs As Directed
Frequency: Per unit guidelines
Pulse Ox/spot Check [RESP] Routine
Quantity: 1
DX Deep Vein Thrombosis Video Routine
08/22/24 04:25
Urine Osmolality Random [Osmolality, Random Urine] Routine
Date Specimen was Collected: 08/22/24
Time Specimen was Collected: 02:14
Urine Sodium Routine
Date Specimen was Collected: 08/22/24
Time Specimen was Collected: 02:14
08/22/24 Breakfast
Regular
At Your Request: Full Participation
Does patient need a safe tray?: No
Fluid Restriction: 1500 mL/day (50 oz)
levothyroxine 112 mcg PO DAILY @ 0600
08/22/24 07:33
Magnesium IN AM
08/22/24 08:00
Buspirone [Buspar] 10 mg PO BID
Calcium Carbonate/Vitamin D3 [Oscal 500 + D] 500 mg PO DAILY
Celecoxib [Celebrex] 100 mg PO BID
Cetirizine HCl [Zyrtec] 10 mg PO DAILY
Cholecalciferol (Vitamin D3) [VITAMIN D3 (cholecalciferol)] 125 mcg PO DAILY
Clonazepam [Klonopin] 1 mg PO BID
Docusate W/Senna [Senokot-S] 1 tablet PO BID
Famotidine [Pepcid] 20 mg PO BID
Fluticasone/Salmeterol 45/21 [Advair Hfa 45/21 Mcg Inhaler] 2 puff INH R BID
Hydrocortisone [Cortef] 25 mg PO DAILY
Lamotrigine [Lamictal] 100 mg PO DAILY
Oxcarbazepine [Trileptal] 300 mg PO BID
Pantoprazole [Protonix] 40 mg PO DAILY
Polyethylene Glycol Powder [Miralax] 17 grams PO DAILY
Topiramate [Topamax] 200 mg PO BID
Torsemide [Demadex] 10 mg PO DAILY
Ziprasidone [Geodon] 80 mg PO BID
varenicline tartrate [Tyrvaya] See Dose Instructions NASAL BID
08/22/24 18:00
Hydrocortisone [Cortef] 15 mg PO QPM
Lamotrigine [Lamictal] 200 mg PO QPM
08/22/24 22:00
Trazodone [Desyrel] 150 mg PO HS
lemborexant [Dayvigo] See Dose Instructions PO HS
Abnormal Lab Results
08/21/24 08/21/24
17:00 21:40
RBC 3.38 L 10^6/uL
(4.20-5.40)
Hgb 10.4 L g/dL
(12.0-16.0)
Hct 31.0 L %
(37.0-47.0)
RDW 15.4 H %
(11.5-14.5)
Abs Immat Gran (auto) 0.1 H 10^3/uL
(0-0.05)
Absolute Monos (auto) 0.7 H 10^3/uL
(0.1-0.6)
Immature Gran % 0.7 H %
(0-0.5)
Sodium 128 L mmol/L
(135-145)
Chloride 95 L mmol/L
(98-107)
Glucose 111 H mg/dl
(70-99)
08/21/24 21:40
08/21/24 17:00
Vital Signs
Initial and Last Documented VS:
Initial Vital Signs
Temp Pulse Resp BP Pulse Ox
98.4 F 105 18 171/98 98
08/21/24 16:50 08/21/24 16:50 08/21/24 16:50 08/21/24 16:50 08/21/24 16:50
Last Documented Vital Signs
Temp Pulse Resp BP Pulse Ox
98.3 F 96 16 99/63 96
08/22/24 15:55 08/22/24 19:21 08/22/24 19:21 08/22/24 15:55 08/22/24 19:21
*Radiology
Radiology exam reviewed: radiology read reviewed
*Pulse Oximetry
Patient hypoxic: no
*Critical Care Note
Total Time (30-74mins, 75-104mins- exclusive of procedures): Not Applicable
Update Note
Update Note:
Patient to ED wt complaint of urinary retention. SYmptoms started today. Bladder scan on arrival >700cc. Straight cath performed by RN and approx 800cc of urine drained. UA neg for UTI. Labs reviewed, Na 128 noted, otherwise stable. CT of
abdomen and pelvis performed. New T9 compression fracture noted. She denies any recent falls, reports last fall was approx 1 year ago. No loss of sensation or movement to extremities. SHe is able to ambulate without assistance. Reflexes intact
bilateral lower extremities. She reports that she was able to pass a small amt of urine approx 1 hour ago. Case discussed with Dr. Esteban who recommends admission for further evaluation of her urinary retention and T9 compression fx, MRI.
Will admit to hospitalists service.
ED Attending Note
-
Portions of this chart may have been created with voice recognition software.� Occasional wrong word or��sound alike� substitutions may have occurred due to the inherent limitations of voice recognition software.
Discharge Plan
Departure
Patient Disposition: Admit
Date of Disposition: 08/21/24
Time of Disposition: 23:33
Presentation/result/management discussed w/ accepting MD/DO: Hospitalist
Condition: Fair
Covid-19: Not Applicable
Discharge Problem:
Acute urinary retention, Compression fracture of thoracic spine, non-traumatic
Interventions
Interventions:
*Risk Screen - Suicide Last Done: 08/21/24 16:50
*General Assessment Last Done: 08/21/24 16:50
*Neglect/Abuse Screening Last Done: 08/21/24 16:50
*ED- Fall Risk Assessment Last Done: 08/21/24 16:50
*ED COVID-19 Vaccine History Last Done: 08/21/24 16:50
*Nursing Disposition Last Done: 08/22/24 01:26
HT-Tkpsll-Pfaroilllm Assessment Last Done: 08/21/24 19:30
Discharge Date and Time
Discharge Date/Time: 08/22/24 01:26
--- NOTE | 2024-08-21 23:53 | HPS.HSE ---
Family Physician
-
Family Physician: Carlos Vora
Chief Complaint
-
Urinary retention
History of Present Illness
This is a 59-year-old with past medical history significant for COPD, hypothyroid, bipolar disorder, anxiety and PTSD, adrenal insufficiency, chronic back pain with degenerative disc disease of the thoracolumbar spine, gastroparesis who presents to
the emergency department with episode of difficulty urinating.
Patient reported that that she has intermittent episodes of constipation and diarrhea. She been having constipation for a few days and takes MiraLAX regularly. Physician and I evaluated hand and says she will take 7 doses of MiraLAX and she will
do have a bowel movement. Patient reportedly did take 7 dose of the MiraLAX and has had 1 large diarrheal bowel movement. Since then she reports that she is having trouble urinating. She has urgency but nothing comes out. She denies any loss of
sensation. She denies any numbness or tingling. She does report new back pain without any traumatic episode. She denies any nausea or vomiting. She denies flank pain. She denies any fevers or chills.
On arrival in the emergency department she was afebrile, blood pressure was 160/98 with a pulse of 96 satting 99% on room air. CBC was unremarkable. Electrolytes notable for a sodium of 128, potassium is pending, bicarb is normal, BUN and
creatinine were normal and glucose is normal. UA is completely negative. Bladder scan on arrival was greater than 700 cc. No prior history of urinary retention. She underwent a straight cath and has since urinated spontaneously since then.
CT of the abdomen pelvis showing partially imaged acute compression fracture involving T9 vertebral body, a dedicated CT thoracic spine is recommended for further characterization. There is mural thickening of the bladder suspicious for cystitis.
No evidence of obstructing ureteral calculus. No evidence of bowel obstruction. Trace pericardial effusion. Redemonstrated old T12 compression fracture with severe height loss and anterior wedging and redemonstrated old L2 compression fracture
with moderate height loss and segment augmentation seen.
Medical History
Past Medical History
Past Medical History: Reports Other
Additional Past Medical History:
Hypothyroidism
Chronic migraine
-Bipolar
COPD
Adrenal insufficiency
Past Surgical History: Reports Other
Additional Past Surgical History:
Wrist plate placement
Left hand surgery
Left hand pinky surgery
Vocal cord surgery
Bilateral cataract surgery
Sinus surgery
Carpal tunnel surgery
Social History
Tobacco: Non-smoker
Alcohol: None
Drug: None
Personal: Single
Living: Alone
Family History
Family History: Not pertinent
Allergies / Home Medications
Allergies reflects when Allergies were last updated in [facility].
Home Medications with original date entered in [facility]
Allergy/Medication List:
Allergies
Allergy/AdvReac Type Severity Reaction Status Date / Time
amoxicillin [From Augmentin] Allergy Nausea / Verified 08/21/24 16:49
Vomiting -
tolerated
meropenem
02/2019
azithromycin [From Zithromax] Allergy Swelling Verified 08/21/24 16:49
ceftibuten [From Cedax] Allergy Swelling - Verified 08/21/24 16:49
tolerated
meropenem
02/2019
citalopram [From Celexa] Allergy suicidal Verified 08/21/24 16:49
ideation
clavulanic acid Allergy Nausea / Verified 08/21/24 16:49
[From Augmentin] Vomiting
corn Allergy Anaphylaxis Verified 08/21/24 16:49
'except
cornstarch'
egg Allergy Nausea / Verified 08/21/24 16:49
Vomiting
migraines
gluten Allergy Nausea Verified 08/21/24 16:49
-stomach
ache,
diarrhea,
migraine
hydromorphone [From Dilaudid] Allergy Rash Verified 08/21/24 16:49
ibuprofen Allergy bad Verified 08/21/24 16:49
stomache
ache
Iodinated Contrast Media Allergy Rash Verified 08/21/24 16:49
latex Allergy Anaphylaxis Verified 08/21/24 16:49
Latex, Natural Rubber Allergy Anaphylaxis Verified 08/21/24 16:49
levofloxacin [From Levaquin] Allergy Swelling Verified 08/21/24 16:49
Milk Containing Products Allergy Nausea / Verified 08/21/24 16:49
(Dairy) Vomiting -
[Milk Containing Products] migraines
mushroom Allergy Anaphylaxis Verified 08/21/24 16:49
nickel Allergy swelling Verified 08/21/24 16:49
and itching
Opioids - Morphine Analogues Allergy 'all Verified 08/21/24 16:49
opioids'
peanut Allergy Anaphylaxis Verified 08/21/24 16:49
Poultry Allergy Nausea Verified 08/21/24 16:49
-migraine
shellfish derived Allergy Anaphylaxis Verified 08/21/24 16:49
Sulfa (Sulfonamide Allergy Swelling Verified 08/21/24 16:49
Antibiotics)
maude jon Allergy Anaphylaxis Uncoded 08/21/24 16:49
-[place] syrup
Home Medications
Famotidine 20 MG TAKE 1 TABLET BY MOUTH BEFORE BREAKFAST AND DINNER for 90 Active
Trudhesa 0.725 MG/ACT 1 spray in each nostril may repeat dose after 1 hour no more than 3 doses per week as needed Nasally Once a day for 90 days PRN Active
Tyrvaya 0.03 MG/ACT 1 spray in each nostril Nasally Twice a day for 90 days Dry eye treatment Active
Topiramate 200 MG 1 tablet Orally Twice a day for 90 days Active
DayVigo 10 MG 1 tablet at bedtime Orally Once a day currently on 5mg Active
Levalbuterol Tartrate 45 MCG/ACT 1 puff as needed as rescue inhaler Inhalation every 6 hrs for 30 days Oct, Active
ZyrTEC 10 MG 1 tablet Orally Once a day Active
Levothyroxine Sodium 112 MCG TAKE 1 TABLET BY MOUTH EVERYDAY IN THE MORNING ON AN EMPTY STOMACH for 90 days Active
Losartan Potassium 25 MG Oral for 30 Days Not-Taking/PRN
Ziprasidone HCl 80 MG 1 daily Orally Twice a Day for 30 day(s) Active
MiraLax 17 GM/SCOOP 1 scoop mixed with 8 ounces of fluid Orally Once a day prn Active
Ondansetron 8 MG TAKE 1 TABLET ON THE TONGUE AND ALLOW TO DISSOLVE ORALLY TWICE A DAY 45 for 30 once daily Active
Trelegy Ellipta 100-62.5-25 MCG/ACT 1 puff Inhalation Once a day for 90 days Active
Tylenol 8 Hour Arthritis Pain 650 MG 2 tablets as needed Orally every 8 hrs Patient using Q6H. Active
KlonoPIN 1 MG 1 tablet Orally every 8 hours Jul, Active
Vitamin D3 5000 UNIT 1 capsule Orally Once a day for 30 Active
Pantoprazole Sodium 40 MG TAKE 1 TABLET BY MOUTH EVERY DAY 30 mins before AM meal Orally Once a day for 90 days Active
lamoTRIgine 100 MG TAKE 1 TABLET BY MOUTH EVERY DAY IN THE MORNING for 30 Active
Calcium Citrate + D 315-200 MG-UNIT 1 tablet Orally Once a Day for 30 days Active
Pregabalin 75 MG Oral for 30 Days Not-Taking/PRN
Torsemide 10 MG 1 tablet daily for 30 days Active
NIFEdipine ER Osmotic Release 90 MG Oral for 30 Days Not-Taking/PRN
EPINEPHrine 0.3 MG/0.3ML USE DIRECTED for 30 PRN Not-Taking/PRN
busPIRone HCl 10 MG 1 tablet Orally three times daily Active
traZODone HCl 100 MG 3 tablet at bedtime Orally Once a day Active
Labetalol HCl 100 MG Oral for 30 Days Active
Fiber Adult Gummies 2 GM as directed Orally Once a Day Active
Review of Systems
-
History Source: Patient
Constitutional: Reports No Symptoms
EENT: Reports No Symptoms
Respiratory: Reports No Symptoms
Cardiac: Reports No Symptoms
Abdomen/GI: Reports Diarrhea and Constipated
: Reports Difficulty Voiding
Musculoskeletal: Reports No Symptoms
Skin: Reports No Symptoms
Neurological: Reports No Symptoms
Endocrine: Reports No Symptoms
Hematologic/Lymphatic: Reports No Symptoms
Psych: Reports No Symptoms
Physical Exam
Vital Signs
Vital Signs
Temp Pulse Resp BP Pulse Ox
98.4 F 96 20 160/98 99
08/21/24 16:50 08/21/24 22:48 08/21/24 22:48 08/21/24 22:48 08/21/24 22:48
Physical Exam
General: No Apparent Distress and Appears Chronically Ill
HEENT: NormoCephalic, Anicteric, Moist mucous membranes and Atraumatic
Respiratory: Clear
Cardiac: S1/S2 and Regular Rhythm
Breast: Deferred by me
GI: Soft, Non Tender, Non Distended and Normal Bowel Sounds
Rectal: Deferred by Provider
Genito-urinary: Deferred by me
Musculoskeletal: No Clubbing, No Cyanosis and No Edema
Skin: Warm
Neuro: AO x 3 and Nonfocal/grossly intact
Hematologic/Lymphatic: No Lymphadenopathy
Psych: Calm
Laboratory Results
-
08/21/24 21:40
08/21/24 17:00
Laboratory Results
Total Bilirubin Cancelled 08/21/24 17:00
AST Cancelled 08/21/24 17:00
ALT Cancelled 08/21/24 17:00
Alkaline Phosphatase Cancelled 08/21/24 17:00
Data Reviewed
-
Diagnostic Radiology: Image Personally Visualized and interpreted
CT Scan: Report Reviewed by me
Lab Data: Labs Reviewed by me
Old Records: Reviewed
Impression/Plan
-
IMPRESSION:
59-year-old with episode of constipation treated with laxative at home followed by diarrhea and episode of urinary retention. She also complains of worsening back pain. Found to have acute T9 vertebral compression fracture with no obvious impact
on the spinal canal. She has no radicular symptoms. UA was completely clear. CT of the abdomen pelvis shows no other acute findings to explain urinary retention. She did have a straight cath in the emergency department and postop procedure
patient has voided spontaneously. She had no urinary symptoms with a voiding. Examination shows no loss of sensation or strength in the upper or lower extremities. Abdominal exam was benign. The CT scan also shows retention of fecal material in
the bowel throughout.
PLAN:
1. Urinary retention - S/P straight cath. Had 700 ml by b/s. Voided spontaneously as well. Negative U/A. No saddle anesthesia. No evidence of cauda equina. Constipation noted. Suspect related to constipation.
- admit to med/surg
- b/s protocol to monitor retention
- gentle hydration overnight to ensure bladder is exercised
- bowel prep for constipation.
2. T9 compression fracture - No obvious surgical indication. Progression of spinal disease. No trauma. Likely osteoporosis.
- pain control
- CT thoracic spine recommended for further characterization
- outpatient Dexa scan
3. Hyponatremia - Chronic hyponatremia with h/o adrenal insufficiency
- IV flluids
- continue hydrocortisone at home dose for now 25 am, 15 pm, if sodium worsens can increase dose for acute stress
DVT PPX - SCDs
Code status - Full Code
[2024-08-22 01:30] VITALS: BP 159/101; BMI 17.8
[2024-08-22] MEDS: DILAUDID 0.5 MG IV ×2 (02:06→08:59)
[2024-08-22] MEDS: NSS 1000 IV (02:06)
[2024-08-22 03:00] VITALS: BP 182/110
[2024-08-22 03:13] VITALS: BP 160/92
[2024-08-22] MEDS: MIRALAX 17 GRAMS PO ×2 (04:23→14:25)
--- NOTE | 2024-08-22 04:25 | PTCARENOTE ---
Received patient from ED via stretcher. Patient ambulated from stretcher to bed with minimal assistance. AAOx3, reports 10/10 back pain and 7/10 'abdominal pain and bloating'. PRN dilaudid given. Patient oriented to room and call lynch within reach.
Pt refused magnesium citrate, stated 'it makes me throw up I can't drink it'. 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
[2024-08-22] MEDS: SYNTHROID 112 MCG PO (05:09)
[2024-08-22 05:30] LABS: Osmolality Urine 141 mOsm/kg (300-900)
[2024-08-22 05:37] LABS: Urine Sodium 38 mmol/L (30-90)
[2024-08-22 07:55] VITALS: BP 161/100
[2024-08-22 08:21] LABS: Blood Urea Nitrogen 10 mg/dl (7-17); Calcium 9.2 mg/dl (8.4-10.2); Carbon Dioxide 25 mmol/L (22-30); Chloride 102 mmol/L (98-107); Estimated Creatinine Clearance 71 ml/min; Glucose 84 mg/dl (70-99); Potassium 4.2 mmol/L (3.5-5.1); Sodium 136 mmol/L (135-145); eGFR > 60.00
[2024-08-22] MEDS: DEMADEX 10 MG PO (08:30)
[2024-08-22] MEDS: BUSPAR 10 MG PO ×2 (08:30→19:46)
[2024-08-22] MEDS: GEODON 80 MG PO ×2 (08:30→19:46)
[2024-08-22] MEDS: TOPAMAX 200 MG PO ×2 (08:31→19:43)
[2024-08-22] MEDS: ADVAIR HFA 45/21 MCG INHALER 2 PUFF INH ×2 (08:32→19:18)
[2024-08-22] MEDS: PROTONIX 40 MG PO (08:32)
[2024-08-22] MEDS: CORTEF 25 MG PO (08:32)
[2024-08-22] MEDS: SPIRIVA RESPIMAT 2.5 MCG 2 PUFF INH (08:32)
[2024-08-22] MEDS: PEPCID 20 MG PO ×2 (08:33→19:48)
[2024-08-22] MEDS: OSCAL 500 + D 500 MG PO (08:33)
[2024-08-22] MEDS: SENOKOT-S 1 TABLET PO ×2 (08:33→19:48)
[2024-08-22] MEDS: ZYRTEC 10 MG PO (08:33)
[2024-08-22] MEDS: VITAMIN D3 (cholecalciferol) 125 MCG PO (08:33)
[2024-08-22] MEDS: LAMICTAL 100 MG PO (08:33)
[2024-08-22] MEDS: CELEBREX 100 MG PO (08:33)
[2024-08-22] MEDS: TRILEPTAL 300 MG PO ×2 (08:33→19:43)
[2024-08-22] MEDS: KLONOPIN 1 MG PO ×2 (08:37→19:42)
--- NOTE | 2024-08-22 09:06 | W.PN.UPDATE ---
Update Note
Progress Note Update
59-year-old with unilateral attention constipation
CT abdomen pelvis-several tiny nonobstructing left renal stones. Mild diffuse bladder wall thickening seen with cystitis and chronic bladder outlet obstruction. Moderate fecal material throughout the colon. Small pericardial effusion stable.
CT T Spine- Thoracic spine compression fractures. T6 and T7 are stable from 05/12/2024 and 12/09/2023. T9 is probably progressed from 04/2024. It is new from 12/09/2023. No evidence of retropulsed fracture fragments.
CVS: S1-S2 normal
Chest: CTA B/L
Abdomen: Soft, mild distension, Bowel sounds present
Extremities: No edema
# Constipation-likely secondary to narcotic related reasons. Enema ordered patient refusing. Hold narcotics
# Urine retention status post straight cath
Urinalysis unremarkable for infection
Possibly secondary to constipation treat constipation
And bladder scan to make sure patient is not retaining
# T9 compression fracture and other compression fractures.
CT of the thoracic spine
Likely osteoporotic
Pain control
Outpatient DEXA scan and treatment for osteoporosis
# Hyponatremia
Better
Chronic hyponatremia with history of adrenal insufficiency
# Hypopituitarism
continue hydrocortisone 25 mg in the morning and 50 mg in the evening
Continue Synthroid 100 mcg
# Mild intermittent asthma/COPD/chronic bronchitis-continue Trelegy Ellipta or equivalent
# Anemia of chronic disease
# Migraines-on Trudhesa spray, Aimovig, Topamax
# Arthritis/osteoporosis/statin spinal stenosis
# Bipolar disorder-continue buspirone, clonazepam, Lamictal oxcarbazepine 300 mg twice daily, trazodone, ziprasidone
# Insomnia-continue Dayvigo
# DVT prophylaxis-SCDs
# Full code
Patient wants to be discharged. I discussed with her that she has to take the bowel regimen and has a bowel movement prior to discharge. She does not want to leave AGAINST MEDICAL ADVICE because she fears that the hospital bill will not be paid.
I have held all the narcotics until she has a bowel movement
[2024-08-22 09:32] LABS: Hematocrit 32.5 % (37.0-47.0); Hemoglobin 10.6 g/dL (12.0-16.0); Mean Corp Hgb Conc. 32.6 g/dL (33.0-37.0); Mean Corpuscular Hgb 30.5 pg (27.0-31.0); Mean Corpuscular Volume 93.7 fL (81.0-99.0); Mean Platelet Volume 9.8 fL (7.4-10.4); Platelet Count 445 10^3/uL (130-400); Red Blood Cell Count 3.47 10^6/uL (4.20-5.40); Red Cell Dist. Width 15.4 % (11.5-14.5); White Blood Cell Count 9.3 10^3/uL (4.8-10.8)
[2024-08-22 09:49] LABS: ALT (SGPT) 23 U/L (0-35); AST (SGOT) 24 U/L (14-36); Albumin 3.9 g/dl (3.5-5.0); Alkaline Phosphatase 126 U/L (38-126); Direct Bilirubin 0.3 mg/dl (0.0-0.4); Total Bilirubin 0.4 mg/dl (0.2-1.3)
--- NOTE | 2024-08-22 11:05 | PTCARENOTE ---
Pt refusing the enema and lidocaine patch. Dr Knight made aware.
[2024-08-22] MEDS: BENADRYL 25 MG PO (12:17)
[2024-08-22 15:55] VITALS: BP 99/63
[2024-08-22] MEDS: TORADOL 10 MG IV (18:37)
[2024-08-22] MEDS: TYLENOL 1000 MG PO ×2 (18:38→23:00)
[2024-08-22] MEDS: CORTEF 15 MG PO (19:44)
[2024-08-22] MEDS: LAMICTAL 200 MG PO (19:48)
[2024-08-22] MEDS: DESYREL 150 MG PO (22:59)
[2024-08-22 23:27] VITALS: BP 113/75
[2024-08-23] MEDS: SYNTHROID 112 MCG PO (05:22)
[2024-08-23] MEDS: SPIRIVA RESPIMAT 2.5 MCG 2 PUFF INH (07:51)
[2024-08-23] MEDS: ADVAIR HFA 45/21 MCG INHALER 2 PUFF INH ×2 (07:51→19:38)
[2024-08-23 08:32] VITALS: BP 155/101
[2024-08-23] MEDS: CORTEF 25 MG PO (09:36)
[2024-08-23] MEDS: SENOKOT 17.2 MG PO (09:36)
[2024-08-23] MEDS: MILK OF MAGNESIA 30 ML PO (09:36)
[2024-08-23] MEDS: OSCAL 500 + D 500 MG PO (09:37)
[2024-08-23] MEDS: TYLENOL 1000 MG PO ×3 (09:37→23:02)
[2024-08-23] MEDS: KLONOPIN 1 MG PO ×2 (09:37→20:37)
[2024-08-23] MEDS: PEPCID 20 MG PO ×2 (09:37→20:32)
[2024-08-23] MEDS: GEODON 80 MG PO ×2 (09:37→20:32)
[2024-08-23] MEDS: PROTONIX 40 MG PO (09:37)
[2024-08-23] MEDS: LAMICTAL 100 MG PO (09:38)
[2024-08-23] MEDS: TRILEPTAL 300 MG PO ×2 (09:38→20:35)
[2024-08-23] MEDS: DEMADEX 10 MG PO (09:38)
[2024-08-23] MEDS: TOPAMAX 200 MG PO ×2 (09:38→20:33)
[2024-08-23] MEDS: VITAMIN D3 (cholecalciferol) 125 MCG PO (09:38)
[2024-08-23] MEDS: ZYRTEC 10 MG PO (09:38)
[2024-08-23 10:15] VITALS: BP 148/80
[2024-08-23] MEDS: BUSPAR 10 MG PO ×2 (10:16→20:31)
[2024-08-23] MEDS: SENOKOT-S PO (10:26)
--- NOTE | 2024-08-23 10:39 | CM ---
Patient seen bedside, initial assessment completed. Recent ED visit (07/19-07/20). Patient is a 59-year-old with past medical history significant for COPD, hypothyroid, bipolar disorder, anxiety and PTSD, adrenal insufficiency, chronic back pain with
degenerative disc disease of the thoracolumbar spine, gastroparesis who presents to the emergency department with episode of difficulty urinating.
Patient resides alone in [facility]- 1 step to enter. Independent w/ ambulating, no device required. Independent w/ ADLs. No DME. Patient was at [facility] in the past, current w/ [facility].
Address, points of contact and insurance verified
PCP: Carlos Vora
Pharmacy: [facility] (inside the [employer])
Patient is admitted as obs. MARY form verbally reviewed, copy given to patient, copy on chart
Patient shared she will take a Uber home at d/c
Plan: Home; resume care w/ at home rehab
[2024-08-23 12:23] LABS: TSH 0.35 uIU/ml (0.47-4.68)
--- NOTE | 2024-08-23 14:17 | W.PN.HOSP.TC ---
Today's Communication/Plan
-
Will plan discharge once patient has bowel movements
Assessment / Plan
Assessment / Plan
59-year-old with unilateral attention constipation
CT abdomen pelvis-several tiny nonobstructing left renal stones. Mild diffuse bladder wall thickening seen with cystitis and chronic bladder outlet obstruction. Moderate fecal material throughout the colon. Small pericardial effusion stable.
CT T Spine- Thoracic spine compression fractures. T6 and T7 are stable from 05/12/2024 and 12/09/2023. T9 is probably progressed from 04/2024. It is new from 12/09/2023. No evidence of retropulsed fracture fragments.
CVS: S1-S2 normal
Chest: CTA B/L
Abdomen: Soft, mild distension, Bowel sounds present
Extremities: No edema
# Constipation-likely secondary to narcotic related reasons. Enema ordered patient refused yesterday. Agreeable today.. Hold narcotics
# Urine retention status post straight cath
Urinalysis unremarkable for infection
Possibly secondary to constipation treat constipation
And bladder scan to make sure patient is not retaining
# T9 compression fracture and other compression fractures.
CT of the thoracic spine
Toradol as needed
Likely osteoporotic
Pain control
Outpatient DEXA scan and treatment for osteoporosis
# Hyponatremia-resolved
Chronic hyponatremia with history of adrenal insufficiency
# Hypopituitarism
continue hydrocortisone 25 mg in the morning and 50 mg in the evening
Continue Synthroid 100 mcg
# Mild intermittent asthma/COPD/chronic bronchitis-continue Trelegy Ellipta or equivalent
# Anemia of chronic disease
# Migraines-on Trudhesa spray, Aimovig, Topamax
# Arthritis/osteoporosis/statin spinal stenosis
# Bipolar disorder-continue buspirone, clonazepam, Lamictal oxcarbazepine 300 mg twice daily, trazodone, ziprasidone
# Insomnia-continue Dayvigo
# DVT prophylaxis-SCDs
# Full code
Discussed with nursing
Patient is for enema today
Anticipated Discharge: Today
Subjective/Interval History
-
Date of Service: August 23, 2024
Objective Data
-
Vital Signs:
Vital Signs
Temp Pulse Resp BP Pulse Ox
97.7 F 95 18 148/80 98
08/23/24 08:32 08/23/24 08:32 08/23/24 08:32 08/23/24 10:15 08/23/24 13:05
I&O
08/22/24 08/23/24 08/24/24
06:59 06:59 06:59
Intake Total 1680 / 1680
Output Total 400 / 400 1150 / 1150
Balance -400 / -400 530 / 530
[2024-08-23 14:54] VITALS: BMI 17.8
--- NOTE | 2024-08-23 15:07 | PTCARENOTE ---
Patient with complaints of constipation. Milk and molasses enema administered. Large amount of stool post enema.
[2024-08-23 15:56] VITALS: BP 120/75
[2024-08-23] MEDS: SENOKOT PO (20:32)
[2024-08-23] MEDS: LAMICTAL 200 MG PO (20:34)
[2024-08-23] MEDS: CORTEF 15 MG PO (20:35)
[2024-08-23] MEDS: TORADOL 10 MG IV (21:06)
[2024-08-23] MEDS: DESYREL 150 MG PO (23:01)
[2024-08-23 23:15] VITALS: BP 114/88
[2024-08-24] MEDS: SYNTHROID 112 MCG PO (05:28)
[2024-08-24] MEDS: TORADOL 10 MG IV (05:29)
[2024-08-24] MEDS: SPIRIVA RESPIMAT 2.5 MCG 2 PUFF INH (07:20)
[2024-08-24] MEDS: ADVAIR HFA 45/21 MCG INHALER 2 PUFF INH (07:20)
[2024-08-24 07:47] VITALS: BP 126/83
[2024-08-24] MEDS: CORTEF 25 MG PO (09:41)
[2024-08-24] MEDS: OSCAL 500 + D 500 MG PO (09:42)
[2024-08-24] MEDS: VITAMIN D3 (cholecalciferol) 125 MCG PO (09:42)
[2024-08-24] MEDS: PROTONIX 40 MG PO (09:42)
[2024-08-24] MEDS: PEPCID 20 MG PO (09:42)
[2024-08-24] MEDS: KLONOPIN 1 MG PO (09:42)
[2024-08-24] MEDS: TYLENOL 1000 MG PO (09:43)
[2024-08-24] MEDS: GEODON 80 MG PO (09:43)
[2024-08-24] MEDS: LAMICTAL 100 MG PO (09:43)
[2024-08-24] MEDS: TRILEPTAL 300 MG PO (09:43)
[2024-08-24] MEDS: DEMADEX 10 MG PO (09:43)
[2024-08-24] MEDS: ZYRTEC 10 MG PO (09:43)
[2024-08-24] MEDS: BUSPAR 10 MG PO (09:43)
[2024-08-24] MEDS: TOPAMAX 200 MG PO (09:44)
[2024-08-24] MEDS: SENOKOT 17.2 MG PO (09:44)
--- NOTE | 2024-08-24 10:33 | CM ---
Addendum entered by Leona Echols 08/24/24 14:21:
plan: discharge home with [facility] for Physical therapy.
Original Note:
Spoke with patient bedside.
Patient stated she is at her baseline for ambulation and ambulating to the Bathroom.
Patient did not have VN at home and [facility] could not accept.
Patient declined need for VN at this time.
Patient will Uber home from hospital.
Plan: home no needs.
[2024-08-24 12:41] VITALS: BP 124/86; PULSE 97; O2SAT 100
--- NOTE | 2024-08-24 13:52 | W.PN.HOSP.TC ---
Today's Communication/Plan
-
Discharge
Assessment / Plan
Assessment / Plan
59-year-old with unilateral attention constipation
CT abdomen pelvis-several tiny nonobstructing left renal stones. Mild diffuse bladder wall thickening seen with cystitis and chronic bladder outlet obstruction. Moderate fecal material throughout the colon. Small pericardial effusion stable.
CT T Spine- Thoracic spine compression fractures. T6 and T7 are stable from 05/12/2024 and 12/09/2023. T9 is probably progressed from 04/2024. It is new from 12/09/2023. No evidence of retropulsed fracture fragments.
CVS: S1-S2 normal
Chest: CTA B/L
Abdomen: Soft, mild distension, Bowel sounds present
Extremities: No edema
# Constipation-likely secondary to narcotic related reasons. Resolved.
# Urine retention status post straight cath
Urinalysis unremarkable for infection
Possibly secondary to constipation treat constipation
No more problems
# T9 compression fracture and other compression fractures.
CT of the thoracic spine
Patient states that Celexa does not work for her
Likely osteoporotic
Pain control
Outpatient DEXA scan and treatment for osteoporosis
She has seen Dr. Noble from pain management in [place] before and will follow up.
She does not want to take any narcotics. States that lidocaine patch does not work for her either.
# [id number] hyponatremia with history of adrenal insufficiency.
# Hypopituitarism
continue hydrocortisone 25 mg in the morning and 50 mg in the evening
Continue Synthroid 100 mcg
# Mild intermittent asthma/COPD/chronic bronchitis-continue Trelegy Ellipta or equivalent
# Anemia of chronic disease
# Migraines-on Trudhesa spray, Aimovig, Topamax
# Arthritis/osteoporosis/statin spinal stenosis
# Bipolar disorder-continue buspirone, clonazepam, Lamictal oxcarbazepine 300 mg twice daily, trazodone, ziprasidone
# Insomnia-continue Dayvigo
# DVT prophylaxis-SCDs
# Full code
Discussed with nursing
Offered to talk to family. [place]
She has cats at home and eager to get home.
Anticipated Discharge: Today
Subjective/Interval History
-
Date of Service: August 24, 2024
Objective Data
-
Vital Signs:
Vital Signs
Temp Pulse Resp BP Pulse Ox
98.4 F 101 16 126/83 98
08/24/24 07:47 08/24/24 07:47 08/24/24 07:47 08/24/24 07:47 08/24/24 07:47
I&O
08/23/24 08/24/24 08/25/24
06:59 06:59 06:59
Intake Total 1680 / 1680 1260 / 1260
Output Total 1150 / 1150
Balance 530 / 530 1260 / 1260
--- NOTE | 2024-08-24 14:01 | VNURNOTE ---
Home Health Liaison spoke with patient to discuss [facility] nurse/therapy, visits, schedule and homebound status. She is familiar with [facility] - recently had us last month. Patient is agreeable and understands that visits at home will be 2-3 x per week to
assess and teach medical management.
[facility]-2 days after discharge from .
[facility] referral completed in [facility].
--- NOTE | 2024-08-24 14:06 | W.DS.TRANS ---
Addendum entered and electronically signed by Demi Knight MD 08/24/24 17:17:
Dictation- [id number]
Original Note:
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
-
Discharge Instructions:
Discharge Diagnosis/Procedures Constipation
Urine retention
T9 compression fracture with other compression
fractures of the thoracic spine
Hyponatremia
Kidney stones
Hypopituitarism
Asthma
Anemia
Migraines
Arthritis
Spinal stenosis
Bipolar disorder
Diet As tolerated
Activity As tolerated,No strenuous activity
Additional Activity No lifting more than Can of milk
Driving Restrictions As prior to admission
Other Services [facility],PT
Instructions:
Stand-Alone Forms:
Changes to Home Medications: Yes
Discharge Medications:
DC Medications w/original date entered in [employer]
hydrocortisone 10 mg tablet 15 mg PO HS adrenal insufficiency 03/11/19
hydrocortisone 10 mg tablet 25 mg PO DAILY adrenal insufficiency 03/11/19
lamotrigine 100 mg tablet 100 mg PO DAILY Neurological Condition 05/17/19
buspirone 10 mg tablet 10 mg PO TID Mental Health/Anxiety 06/26/22
dihydroergotamine (Trudhesa) 1 spray intranasal DAILYPRN PRN migraine 06/26/22
oxcarbazepine 300 mg tablet 300 mg PO BID Neurological Condition 06/26/22
fluticasone fur. 100 mcg-umeclid 62.5 mcg-vilant 25 mcg inhalat.powder (Trelegy Ellipta) 1 inh inhalation R DAILY Lung/Breathing Issues 01/26/23
calcium 315 mg (as citrate)-vitamin D3 6.25 mcg (250 unit) tablet (Citracal + Vitamin D Maximum) 1 tab PO DAILY Supplement 07/04/23
erenumab-aooe 140 mg/mL subcutaneous auto-injector (Aimovig Autoinjector) 140 mg SC Q28D migraine 07/04/23
trazodone 100 mg tablet 300 mg PO HS sleep 07/04/23
varenicline tartrate 0.03 mg/spray metered nasal spray (Tyrvaya) 1 spray intranasal BID dry eyes 07/04/23
ziprasidone HCl 80 mg capsule 80 mg PO BID Mental Health/Anxiety 07/04/23
cetirizine 10 mg tablet (Zyrtec) 10 mg PO DAILY allergies 12/02/23
levalbuterol tartrate 45 mcg/actuation aerosol inhaler 1 inh inhalation R Q6HPRN PRN sob/wheezing 12/02/23
pantoprazole 40 mg tablet,delayed release 40 mg PO DAILY Gastrointestinal Issue 12/02/23
lemborexant 10 mg tablet (Dayvigo) 10 mg PO HS Sleep 12/16/23
acetaminophen 650 mg tablet,extended release 1,300 mg PO [id number] PRN mild pain 02/18/24
famotidine 20 mg tablet 20 mg PO BID Gastrointestinal Issue 02/18/24
lamotrigine 200 mg tablet 200 mg PO HS Neurological Condition 02/18/24
cholecalciferol (vitamin D3) 125 mcg (5,000 unit) capsule 125 mcg PO DAILY Supplement 05/15/24
levothyroxine 112 mcg capsule 112 mcg PO DAILY Thyroid 05/15/24
oxycodone 5 mg tablet 5 mg PO Q6H PRN pain 05/15/24
topiramate 200 mg tablet 200 mg PO BID Neurological Condition 05/15/24
torsemide 10 mg tablet 10 mg PO DAILY Fluid Retention/Swelling 05/15/24
clonazepam 1 mg tablet 1 mg PO BID Mental Health/Anxiety 08/22/24
lidocaine 4 % topical patch 1 patch topical DAILY back pain #0 ea 08/23/24
sennosides 8.6 mg tablet (senna) 8.6 mg PO DAILY constipation #0 tabs 08/23/24
polyethylene glycol 3350 17 gram oral powder packet (Miralax) 17 g PO BID Constipation #0 ea 08/24/24
Home Medication Changes
new
Miralax changed
Lidocaine patch
Pending Results: No
--- NOTE | 2024-08-24 15:21 | PTCARENOTE ---
Reviewed all discharge instructions with patient. Patient verbalizes understanding of all teaching and denies questions at this time. IV removed. Patient left via wheelchair with staff escort. Patient has uber waiting at [facility].
== END 2024-08-24 15:11 | disposition home health service (06) ==
LOC: 4 EAST ACU 01:11
PROVIDERS: Nurse Practitioner; ADMITTING PHYSICIAN Internal Medicine; ATTENDING PHYSICIAN Hospitalist; EMERGENCY PHYSICIAN Student in an Organized Health Care Education/Training Program; PRIMARYCARE PHYSICIAN Internal Medicine
DX: K59.00 Constipation, unspecified (principal); E87.1 Hypo-osmolality and hyponatremia; E23.0 Hypopituitarism; J44.89 Other specified chronic obstructive pulmonary disease; J45.20 Mild intermittent asthma, uncomplicated; D63.8 Anemia in other chronic diseases classified elsewhere; G43.909 Migraine, unspecified, not intractable, without status migrainosus; M19.90 Unspecified osteoarthritis, unspecified site; F31.9 Bipolar disorder, unspecified; G47.00 Insomnia, unspecified; N20.0 Calculus of kidney; E27.40 Unspecified adrenocortical insufficiency; R33.9 Retention of urine, unspecified; M48.00 Spinal stenosis, site unspecified
CPT/HCPCS: 51701; 51798; 72128; 74018; 74176; 80048; 80053; 81003; 82248; 83735; 83935; 84300; 84436; 84443; 85025; 85027; 94640; 97162; 99285; G0378